=== PATIENT | female | born 1960 | race Caucasian/White ===

== ENCOUNTER → 2017-12-04 | Outpatient (CLI) | payer OTHER ==
[~2017-12-04] MED LIST: ALBU2.5V12 NEB; AMIT25TA PO; AMOX1TAB63 PO; CEPH250C PO; CEPH500C PO; CITA10TA8 PO; GABA300C10 PO; GABA600T2 PO; MELO15TA24 PO; METO10TA PO; METO50TA6 PO; NYST1000 PO; NYST60PO TP
== END | disposition home or self-care (01) ==
LOC: RAD 13:44
PROVIDERS: ATTEND Surgery
DX: I87.2 Venous insufficiency (chronic) (peripheral) (principal)
CPT/HCPCS: 93970

== ENCOUNTER 2017-12-08 18:17 | Inpatient (IN) | payer OTHER ==
[~2017-12-08] VITALS: Ht 167.6 cm; Wt 196.2 kg
[~2017-12-08 18:17] MED LIST changes: -CITA10TA8 PO; -GABA300C10 PO; -GABA600T2 PO
[2017-12-08 18:39] VITALS: BP 126/73
[2017-12-08] MEDS ORDERED: NS 1000ML 1,000 ML ONE (18:56)
--- NOTE | 2017-12-08 18:56 | NUR ---
IV START 20G RIGHT UPPER ARM,SECURED AND LABELED
--- NOTE | 2017-12-08 19:14 | ER.PDOC ---
General Chief Complaint: Fever Stated Complaint: FEVER TRAVEL OUT OF US: No Time seen by MD: 19:00 Source: patient, family Exam Limitations: no limitations History of Present Illness Initial Comments Patient here with fever, increasing pain in her leg and general malaise. Hx of lymphedema with cellulitis Timing/Duration: unsure Severity: mild Associated Symptoms: loss of appetite, rash, weakness Allergies: Coded Allergies: egg (Verified Allergy, Unknown, 06/23/17) Home Meds Active Scripts Cephalexin (CEPHALEXIN) 500 Mg Capsule, 500 MG PO TID for 5 Days, #15 TAB Prov:TITO MOHAN MD 06/29/17 Metoclopramide Hcl (METOCLOPRAMIDE HCL) 10 Mg Tablet, 10 MG PO ACHS PRN for Nausea for 30 Days, #60 TABLET Prov:TITO MOHAN MD 06/29/17 Nystatin (NYSTATIN) 100,000 Unit/1 Ml Oral.susp, [id number] UNIT PO TID for oral thrush MDD TID Swish and spit for 10 Days Prov:MELANI GONZALEZ APRN, NP 05/01/17 Nystatin (NYSTOP) 60 Gm Powder, 1 GM TP PRN PRN for ITCHING for 30 Days, #1 BOTTLE Prov:MELANI GONZALEZ APRN, NP 05/01/17 Amitriptyline Hcl (AMITRIPTYLINE HCL) 25 Mg Tablet, 50 MG PO HS for 30 Days, # 30 TABLET Prov:TITO MOHAN MD 04/16/17 Reported Medications Albuterol Sulfate (ALBUTEROL SULFATE) 2.5 Mg/0.5 Ml Vial.neb, 1 VIAL NEB Q4HR PRN for SHORTNESS OF BREATH, #60 VIAL 1 Refill 04/24/17 Meloxicam (MELOXICAM) 15 Mg Tablet, 1 TAB PO BID, #30 TAB 2 Refills 04/24/17 Metoprolol Tartrate 50MG (LOPRESSER 50MG) 50 Mg Tablet, 1 TAB PO BID, #180 TAB 3 Refills 01/04/17 Vital Signs Vital Signs Date Time Temp Pulse Resp B/P (MAP) Pulse Ox O2 Delivery O2 Flow Rate FiO2 12/08/17 18:39 99.3 105 18 126/73 (90) 91 Room Air Allergies Coded Allergies Type Severity Reaction Last Updated Verified egg Allergy Unknown 06/23/17 Yes Past Medical History Medical History: hypertension, vascular disease, other (obesity, lymphedema) Surgical History: cholecystectomy, hysterectomy, tonsillectomy, tubal Social History Smoking: non-smoker Alcohol Use: none Drug Use: none Reviewed Nursing Reviewed: Vital Signs, Abn. Noted, Nursing Assessment Review of Systems Constitutional: fever, malaise, weakness EENTM: no symptoms reported Respiratory: no symptoms reported Cardiovascular: no symptoms reported Gastrointestinal: no symptoms reported Genitourinary: no symptoms reported Musculoskeletal: other (swelling left leg) Skin: rash Psychiatric/Neurological: no symptoms reported All Other Systems: Reviewed and Negative Physical Exam General Appearance: Mild Distress, Obese (morbid) EENT: eyes nml inspection Neck: Non-Tender Respiratory: chest non-tender, lungs clear, normal breath sounds, no respiratory distress, no accessory muscle use CVS: reg rate & rhythm, no gallop, pulses nml, nml capillary refill Gastrointestinal: Normal Bowel Sounds, No Organomegaly, No Pulsatile Mass, Non Tender Extremities: Other (chronic swelling with increased redness in left leg and calf. Dense edema, sl increased tenderness) Skin: Warm/Dry, Rash Lymphatic: No Adenopathy Results/Orders Results/Orders Laboratory Tests Test 12/08/17 19:11 12/08/17 19:25 12/08/17 19:30 12/08/17 19:47 Urine Collection Type CCMS Urine Color YELLOW (YELLOW) Urine Appearance CLEAR (CLEAR) Urine Bilirubin NEGATIVE MG/DL (NEGATIVE) Urine Ketones NEGATIVE (NEGATIVE) Urine Specific [place] 1.020 (1.005-1.035) Urine pH 5 (5.0-6.0) Urine Protein 15 mg/dL (NEGATIVE) Urine Urobilinogen NORMAL (NEGATIVE) Urine Nitrate NEGATIVE (NEGATIVE) Urine Leukocyte Esterase NEGATIVE (NEGATIVE) Urine Blood 25 1+ (NEGATIVE) Urine RBC NONE SEEN RBC/HPF (NONE Urine WBC NONE SEEN WBC/HPF (0-2) Urine Squamous Epithelial Cells RARE #/HPF (FEW) Urine Bacteria NONE SEEN (NONE SEEN) Urine Glucose NORMAL (NEGATIVE) Blood Gas Sample Site LEFT RADIAL ARTERY Blood Gas pH 7.451 (7.350-7.450) Blood Gas PCO2 33.9 mmHg (35.0-45.0) Blood Gas PO2 66.2 mmHg (75.0-100.0) Blood Gas HCO3 23.1 mmol/L (22.0-26.0) Blood Gas Base Excess -0.2 mmol/L (-2.0-2.0) Cecil Test POSITIVE Arterial Blood Oxygen Saturation 93.6 % (95-) Deoxyhemoglobin 6.3 % (0.2-0.6) Carboxyhemoglobin 1.5 % (0.5-1.5) Methemoglobin 0.3 % (0.2-0.6) Total Hemoglobin 14.4 % (13.5-17.5) Total Oxygen Concentration 18.6 % (13.5-17.5) Lactic Acid (Blood Gas) 1.4 MMOL/L (0.5-1.0) Oxygen Delivery Method (LAB) RA FiO2 21 % (20-101) Bicarbonate 24.1 mmol/L (23-27) White Blood Count 17.2 10^3/uL (4.5-11.0) Red Blood Count 4.56 10^6/uL (4.00-5.20) Hemoglobin 13.0 g/dL (12.0-15.0) Hematocrit 39.8 % (36.0-46.0) Mean Corpuscular Volume 87.3 fL (78-100) Mean Corpuscular Hemoglobin 28.5 pg (26-34) Mean Corpuscular Hemoglobin Concent 32.7 g/dL (33-37) Red Cell Distribution Width 15.8 % (11.5-14.5) Platelet Count 222 10^3/uL (150-400) Mean Platelet Volume 9.9 fL (7.8-11.0) Neutrophils (%) (Auto) 91.2 % (41.0-85.0) Lymphocytes (%) (Auto) 6.1 % (24.0-44.0) Monocytes (%) (Auto) 2.4 % (5.0-12.0) Neutrophils # (Auto) 15.7 10^3/uL (1.8-7.7) Lymphocytes # (Auto) 1.0 10^3/uL (1.0-4.8) Monocytes # (Auto) 0.4 10^3/uL (0.3-0.8) Absolute Immature Granulocyte (auto 0.04 10^3 u/L (0-2) Eosinophils % 0.0 % (0.0-5.0) Basophils % 0.1 % (0.0-0.2) Basophils # 0.0 10^3/uL (0.0-0.1) Eosinophil Count 0.0 10^3/uL (0.0-0.2) Sodium Level 139 mmol/L (132-145) Potassium Level 4.0 mmol/L (3.6-5.2) Chloride Level 104.0 mmol/L (96-109) Carbon Dioxide Level 24.2 mmol/L (20.0-32) Anion Gap 14.8 Blood Urea Nitrogen 15 mg/dL (7-18) Creatinine 1.10 mg/dL (0.59-1.40) Estimated GFR () 62.4 (>/=60) BUN/Creatinine Ratio 13.0 Glucose Level 125 mg/dL (70-110) Calcium Level 8.6 mg/dL (8.4-10.5) Total Bilirubin 0.5 mg/dL (0.2-1.0) Aspartate Amino Transf (AST/SGOT) 13 U/L (0-35) Alanine Aminotransferase (ALT/SGPT) 20 U/L (12-78) Alkaline Phosphatase 80 U/L (50-136) Total Protein 7.4 g/dL (6.4-8.2) Albumin 3.3 g/dL (3.4-5.0) Globulin 4.1 Percent Immature Gran (Cell Imm) 0.20 % (0.00-0.50) Differential Total Cells Counted 100 #CELLS Segmented Neutrophils 84 % (31-76) Band Neutrophils 4 % (2-6) Lymphocytes 9 % (25-36) Monocytes 2 % (3-9) Absolute Eosinophils (Manual) 1 % (1-4) Administered Medications Medications (Trade) Dose Ordered Sig/Angel Route PRN Reason Start Time Stop Time Status Last Admin Dose Admin Ceftriaxone Sodium 1000 mg/ Sodium Chloride 100 ml @ 100 mls/hr OT STAT IV 12/08/17 21:09 12/08/17 22:08 12/08/17 21:33 Progress Progress No change in patients condition Course Sepsis Screening Results: Posi: POSITIVE SEPSIS RISK Vitals & review Data Vital Sign - Last 24 Hours 12/08/17 12/08/17 12/08/17 18:35 18:35 18:39 Temp 99.3 99.3 99.3 Pulse 105 105 105 Resp 18 18 18 B/P (MAP) 126/73 (90) Pulse Ox 91 91 O2 Delivery Room Air Room Air Laboratory Tests Test 12/08/17 19:11 12/08/17 19:25 12/08/17 19:30 12/08/17 19:47 Urine Collection Type CCMS Urine Color YELLOW Urine Appearance CLEAR Urine Bilirubin NEGATIVE MG/DL Urine Ketones NEGATIVE Urine Specific [place] 1.020 Urine pH 5 Urine Protein 15 mg/dL Urine Urobilinogen NORMAL Urine Nitrate NEGATIVE Urine Leukocyte Esterase NEGATIVE Urine Blood 25 1+ Urine RBC NONE SEEN RBC/HPF Urine WBC NONE SEEN WBC/HPF Urine Squamous Epithelial Cells RARE #/HPF Urine Bacteria NONE SEEN Urine Glucose NORMAL Blood Gas Sample Site LEFT RADIAL ARTERY Blood Gas pH 7.451 Blood Gas PCO2 33.9 mmHg Blood Gas PO2 66.2 mmHg Blood Gas HCO3 23.1 mmol/L Blood Gas Base Excess -0.2 mmol/L Cecil Test POSITIVE Arterial Blood Oxygen Saturation 93.6 % Deoxyhemoglobin 6.3 % Carboxyhemoglobin 1.5 % Methemoglobin 0.3 % Total Hemoglobin 14.4 % Total Oxygen Concentration 18.6 % Lactic Acid (Blood Gas) 1.4 MMOL/L Oxygen Delivery Method (LAB) RA FiO2 21 % Bicarbonate 24.1 mmol/L White Blood Count 17.2 10^3/uL Red Blood Count 4.56 10^6/uL Hemoglobin 13.0 g/dL Hematocrit 39.8 % Mean Corpuscular Volume 87.3 fL Mean Corpuscular Hemoglobin 28.5 pg Mean Corpuscular Hemoglobin Concent 32.7 g/dL Red Cell Distribution Width 15.8 % Platelet Count 222 10^3/uL Mean Platelet Volume 9.9 fL Neutrophils (%) (Auto) 91.2 % Lymphocytes (%) (Auto) 6.1 % Monocytes (%) (Auto) 2.4 % Neutrophils # (Auto) 15.7 10^3/uL Lymphocytes # (Auto) 1.0 10^3/uL Monocytes # (Auto) 0.4 10^3/uL Absolute Immature Granulocyte (auto 0.04 10^3 u/L Eosinophils % 0.0 % Basophils % 0.1 % Basophils # 0.0 10^3/uL Eosinophil Count 0.0 10^3/uL Sodium Level 139 mmol/L Potassium Level 4.0 mmol/L Chloride Level 104.0 mmol/L Carbon Dioxide Level 24.2 mmol/L Anion Gap 14.8 Blood Urea Nitrogen 15 mg/dL Creatinine 1.10 mg/dL Estimated GFR () 62.4 BUN/Creatinine Ratio 13.0 Glucose Level 125 mg/dL Calcium Level 8.6 mg/dL Total Bilirubin 0.5 mg/dL Aspartate Amino Transf (AST/SGOT) 13 U/L Alanine Aminotransferase (ALT/SGPT) 20 U/L Alkaline Phosphatase 80 U/L Total Protein 7.4 g/dL Albumin 3.3 g/dL Globulin 4.1 Percent Immature Gran (Cell Imm) 0.20 % Differential Total Cells Counted 100 #CELLS Segmented Neutrophils 84 % Band Neutrophils 4 % Lymphocytes 9 % Monocytes 2 % Absolute Eosinophils (Manual) 1 % Current Medications Medications (Trade) Dose Ordered Sig/Angel PRN Reason Start Time Stop Time Status Last Admin Ceftriaxone Sodium 1000 mg/ Sodium Chloride 100 ml @ 100 mls/hr OT STAT 12/08/17 21:09 12/08/17 22:08 12/08/17 21:33 Departure Time of Disposition: 21:36 Disposition: ADMITTED INPATIENT Impression: Primary Impression: Cellulitis of left leg Condition: Stable Referrals: [facility] (PCP) PRIMARY CARE PROVIDER Duration or Time Spent with Pa: ANDREA LOZANO MD Dec 08, 2017 19:14
[2017-12-08 19:35] LABS: BASOPHIL % 0.1 % (0.0-0.2); LYMPHOCYTES % 6.1 % (24.0-44.0); MEAN CELL HGB 28.5 pg (26-34); MEAN CELL HGB CONCENTRATION 32.7 g/dL (33-37); MEAN CORP VOLUME 87.3 fL (78-100); MEAN PLATELET VOLUME 9.9 fL (7.8-11.0); MONOCYTES # 0.4 10^3/uL (0.3-0.8); MONOCYTES % 2.4 % (5.0-12.0); NEUTROPHIL # 15.7 10^3/uL (1.8-7.7); NEUTROPHILS % 91.2 % (41.0-85.0); RED CELL DISTRIBUTION WIDTH 15.8 % (11.5-14.5); WHITE BLOOD CELL 17.2 10^3/uL (4.5-11.0)
[2017-12-08 19:37] LABS: ABG PCO2 33.9 mmHg (35.0-45.0); ABG PH 7.451 (7.350-7.450); BE(B) -0.2 mmol/L (-2.0-2.0); HCO3act 23.1 mmol/L (22.0-26.0); pO2 66.2 mmHg (75.0-100.0)
--- NOTE | 2017-12-08 19:55 | DIREP ---
PROCEDURE:CHEST 1 VIEW COMPARISON:[facility], CR, XRAY CHEST SINGLE VW, 05/03/2017, 10:47 AM. INDICATIONS:fever FINDINGS: LUNGS/PLEURA:Low lung volumes. No confluent airspace consolidation, sizeable pleural effusion or appreciable pneumothorax is identified. VASCULATURE:Normal. Unremarkable pulmonary vasculature. CARDIAC:Normal. No cardiac silhouette abnormality or cardiomegaly. MEDIASTINUM:Normal. No visible mass or adenopathy. BONES:No acute abnormality. OTHER:Negative. CONCLUSION: 1. Low lung volumes. No acute cardiopulmonary abnormality. Dictated by: Simeon Gee M.D. On 12/08/2017 at 07:53 PM
[2017-12-08 19:59] LABS: CALCIUM 8.6 mg/dL (8.4-10.5); CARBON DIOXIDE 24.2 mmol/L (20.0-32)
[2017-12-08 20:10] LABS: BILIRUBIN,URINE NEGATIVE (NEGATIVE); UROBILINOGEN,URINE NORMAL (NEGATIVE)
[2017-12-08 20:11] LABS: APPEARANCE,URINE CLEAR (CLEAR); UA COLOR YELLOW (YELLOW)
[2017-12-08 20:35] LABS: BAND NEUTROPHILS 4 % (2-6); EOSINOPHIL 1 % (1-4); LYMPHOCYTE 9 % (25-36); MONOCYTE 2 % (3-9); SEGMENTED NEUTROPHILS 84 % (31-76)
--- NOTE | 2017-12-08 21:06 | NUR ---
DR. MOHAN: SPOKE WITH DR. MOHAN AND ORDER GIVEN FOR ADMISSION.
[2017-12-08] MEDS ORDERED: ROCEPHIN 1,000 MG in NS 100ML 100 ML IV STA (21:09)
[2017-12-08] MEDS ORDERED: NS 100ML 100 ML IV ONE (21:25)
[2017-12-08] MEDS ORDERED: ROCEPHIN ONE (21:25)
[2017-12-08] MEDS ORDERED: NS 1000ML 1,000 ML IV ONE ×2 (22:30→23:30)
[2017-12-08 23:34] VITALS: BP 122/75
[2017-12-09] MEDS: ROCEPHIN 1,000 MG in NS 100ML 100 ML IV SCH ×2
[2017-12-09] MEDS ORDERED: DEXTROSE 50%-WATER SYRINGE IV PRN
[2017-12-09] MEDS ORDERED: ZOFRAN IV PRN
[2017-12-09] MEDS ORDERED: NYSTOP TP PRN
[2017-12-09] MEDS ORDERED: REGLAN PO PRN
[2017-12-09] MEDS ORDERED: VENTOLIN IH PRN
[2017-12-09] MEDS ORDERED: GABA600T2 PO (00:18)
[2017-12-09] MEDS ORDERED: CITA10TA8 PO (00:20)
[2017-12-09] MEDS: TYLENOL PO PRN (04:22)
[2017-12-09 04:53] VITALS: BP 134/76
--- NOTE | 2017-12-09 05:01 | HPH ---
ADMIT DATE: 12/08/2017 CHIEF COMPLAINT: Left lower extremity redness and swelling. HISTORY OF PRESENT ILLNESS: The patient is a 57-year-old woman with severe morbid obesity, untreated obstructive sleep apnea, recent and frequent admissions for lower extremity cellulitis. She presented to THE ER at this time with increasing redness, swelling of left lower extremity. She has severe morbid obesity and chronic lymphedema, but on the left lower extremity she has some xerosis, erythema and worsening swelling than the right. She states she does get around the house okay. She has no other acute changes from her relatively poor baseline. She does have sleep apnea and told she needed BiPAP machine, but she did not have $500 to buy the machine. She has not been on recent antibiotics. PAST MEDICAL HISTORY: Includes untreated obstructive sleep apnea, severe morbid obesity, chronic back pain, hypertension, congestive heart failure and diastolic dysfunction. PAST SURGICAL HISTORY: She had hysterectomy, cholecystectomy, tonsillectomy, bilateral tubal ligation, and [place] catheter placed previously. ALLERGIES: She states she is ALLERGIC TO EGGS. HOME MEDICATIONS: List currently includes albuterol as needed, amitriptyline 50 mg at night. She has a prescription of Keflex, but she states she has not been taking it recently, meloxicam 15 mg twice a day, Reglan 10 mg a.c. and at bedtime as needed for nausea, metoprolol tartrate 50 mg twice a day, and nystatin powder as needed for itching. SOCIAL HISTORY: She does live at home. No recent alcohol, tobacco, or illicit drug use history. FAMILY HISTORY: Negative for early coronary artery disease or diabetes. REVIEW OF SYSTEMS: CARDIAC: She denies any chest pain or shortness of breath. She does have significant dyspnea on exertion. PULMONARY: No cough, sputum production or pleuritic chest pain. GASTROINTESTINAL: No nausea, vomiting, diarrhea or constipation. All else negative in 10-point review of systems except as in HPI. PHYSICAL EXAMINATION: VITAL SIGNS: Height 157.6 cm, weight is 189.2 kg and BMI of ____. GENERAL: She is alert, chronic ill-appearing lady. DICTATION ENDS HERE. Silvio Gee MD DR: KAYLAN/brittany JOB# [id number]
[2017-12-09 05:34] LABS: BASOPHIL % 0.1 % (0.0-0.2); HEMOGLOBIN 13.6 g/dL (12.0-15.0); LYMPHOCYTES # 2.3 10^3/uL (1.0-4.8); LYMPHOCYTES % 16.8 % (24.0-44.0); MEAN CELL HGB 28.8 pg (26-34); MEAN CELL HGB CONCENTRATION 32.8 g/dL (33-37); MEAN CORP VOLUME 87.9 fL (78-100); MEAN PLATELET VOLUME 10.8 fL (7.8-11.0); MONOCYTES # 0.9 10^3/uL (0.3-0.8); MONOCYTES % 6.8 % (5.0-12.0); NEUTROPHIL # 10.4 10^3/uL (1.8-7.7); NEUTROPHILS % 76.1 % (41.0-85.0); WHITE BLOOD CELL 13.6 10^3/uL (4.5-11.0)
[2017-12-09 05:57] LABS: CALCIUM 8.5 mg/dL (8.4-10.5); CARBON DIOXIDE 24.7 mmol/L (20.0-32)
--- NOTE | 2017-12-09 07:03 | NUR ---
Report Report given to Barrett Velazquez LVN
[2017-12-09 07:34] VITALS: BP 120/78
[2017-12-09] MEDS: MOBIC PO SCH ×2 (08:43→20:43)
[2017-12-09] MEDS: HUMULIN R SQ SCH ×4 (08:43→20:37)
[2017-12-09] MEDS: MYCOSTATIN PO SCH ×3 (08:44→20:42)
[2017-12-09] MEDS: LOPRESSOR PO SCH ×2 (08:44→20:43)
--- NOTE | 2017-12-09 10:37 | PRM.PN ---
Subjective Subjective Date: Dec 09, 2017 Time: 10:15 Subjective Pt reports itching all over Patient History: Asthma Hypertension VTE VTE Risk Total Score: 2 VTE Risk Score VTE Risk: Score 0-1 = Low Risk (Aggressive mobilization; early ambulation; no VTE prophylaxis required) Score 2: Moderate Risk (Intermittent/Pneumatic Compression Device OR Lovenox/Heparin/Coumadin) Score 3-4: High Risk (Intermittent/Pneumatic Compression Device AND Lovenox/Heparin/Coumadin) Score > or =5: Highest Risk (Intermittent/Pneumatic Compression Device AND Lovenox/Heparin/Coumadin) Antico:Hep/LMWH/Coum/Xarelto: Yes Mechanical device ordered: No Review of Systems Constitutional: No: Malaise Eyes: No: Pain, Vision change, Conjunctivae inflammation ENT: No: Ear pain, Ear discharge, Nose pain Respiratory: Cough, Shortness of breath Cardiovascular: Edema; No: Chest Pain, Palpitations, Orthopnea Gastrointestinal: No: Nausea, Vomiting, Abdominal Pain Musculoskeletal: leg pain (L lower leg) Skin: No: Jaundice Neurological: No: Confusion, Seizures Allergies: Coded Allergies: egg (Verified Allergy, Unknown, 06/23/17) Scheduled Cephalexin (Cephalexin), 500 MG PO TID Citalopram Hydrobromide (Celexa), 1 TAB PO DAILY, (Reported) Gabapentin (Gabapentin), 600 MG PO BID, (Reported) Meloxicam (Meloxicam), 1 TAB PO BID, (Reported) Metoprolol Tartrate 50MG ([place]er 50MG), 1 TAB PO BID, (Reported) Nystatin (Nystatin), 500,000 UNIT PO TID Scheduled PRN Albuterol Sulfate (Albuterol Sulfate), 1 VIAL NEB Q4HR PRN for SHORTNESS OF BREATH, (Reported) Metoclopramide Hcl (Metoclopramide Hcl), 10 MG PO ACHS PRN for Nausea Nystatin (Nystop), 1 GM TP PRN PRN for ITCHING Discontinued Medications Amitriptyline Hcl (Amitriptyline Hcl), 50 MG PO HS Discontinued Reason: No Longer Taking Objective Vitals and I/O Vital Sign - Last 24 Hours 12/08/17 12/08/17 12/08/17 12/08/17 18:35 18:35 18:39 23:11 Temp 99.3 99.3 99.3 Pulse 105 105 105 Resp 18 18 18 B/P (MAP) 126/73 (90) Pulse Ox 91 91 O2 Delivery Room Air Room Air Room Air 12/08/17 12/08/17 12/09/17 12/09/17 23:34 23:46 01:16 04:53 Temp 98.3 99.2 Pulse 103 109 Resp 18 18 20 B/P (MAP) 122/75 (91) 134/76 (95) Pulse Ox 91 O2 Delivery Room Air Room Air Room Air 12/09/17 12/09/17 07:34 09:39 Temp 98.5 Pulse 79 Resp 20 B/P (MAP) 120/78 (92) Pulse Ox 90 O2 Delivery Room Air Room Air General: Alert, Oriented X3, Cooperative, No acute distress HEENT: Atraumatic, Mucous membr. moist/pink Neck: Supple, No LAD Lungs: Clear to auscultation, Normal air movement Heart: Normal S1, Normal S2 Abdomen: Normal bowel sounds, Soft Extremities: No clubbing, No cyanosis Neuro: Normal speech Psych/Mental Status: Mental status NL, Mood NL Course Sepsis Screening Results: Posi: NEGATIVE Sepsis Qualifier/Stage: NO DEFINITE RISK Vitals & review Data Vital Sign - Last 24 Hours 12/08/17 12/08/17 12/08/17 18:35 18:35 18:39 Temp 99.3 99.3 99.3 Pulse 105 105 105 Resp 18 18 18 B/P (MAP) 126/73 (90) Pulse Ox 91 91 O2 Delivery Room Air Room Air Laboratory Tests Test 12/08/17 19:11 12/08/17 19:25 12/08/17 19:30 12/08/17 19:47 Urine Collection Type CCMS Urine Color YELLOW Urine Appearance CLEAR Urine Bilirubin NEGATIVE MG/DL Urine Ketones NEGATIVE Urine Specific [place] 1.020 Urine pH 5 Urine Protein 15 mg/dL Urine Urobilinogen NORMAL Urine Nitrate NEGATIVE Urine Leukocyte Esterase NEGATIVE Urine Blood 25 1+ Urine RBC NONE SEEN RBC/HPF Urine WBC NONE SEEN WBC/HPF Urine Squamous Epithelial Cells RARE #/HPF Urine Bacteria NONE SEEN Urine Glucose NORMAL Blood Gas Sample Site LEFT RADIAL ARTERY Blood Gas pH 7.451 Blood Gas PCO2 33.9 mmHg Blood Gas PO2 66.2 mmHg Blood Gas HCO3 23.1 mmol/L Blood Gas Base Excess -0.2 mmol/L Cecil Test POSITIVE Arterial Blood Oxygen Saturation 93.6 % Deoxyhemoglobin 6.3 % Carboxyhemoglobin 1.5 % Methemoglobin 0.3 % Total Hemoglobin 14.4 % Total Oxygen Concentration 18.6 % Lactic Acid (Blood Gas) 1.4 MMOL/L Oxygen Delivery Method (LAB) RA FiO2 21 % Bicarbonate 24.1 mmol/L White Blood Count 17.2 10^3/uL Red Blood Count 4.56 10^6/uL Hemoglobin 13.0 g/dL Hematocrit 39.8 % Mean Corpuscular Volume 87.3 fL Mean Corpuscular Hemoglobin 28.5 pg Mean Corpuscular Hemoglobin Concent 32.7 g/dL Red Cell Distribution Width 15.8 % Platelet Count 222 10^3/uL Mean Platelet Volume 9.9 fL Neutrophils (%) (Auto) 91.2 % Lymphocytes (%) (Auto) 6.1 % Monocytes (%) (Auto) 2.4 % Neutrophils # (Auto) 15.7 10^3/uL Lymphocytes # (Auto) 1.0 10^3/uL Monocytes # (Auto) 0.4 10^3/uL Absolute Immature Granulocyte (auto 0.04 10^3 u/L Eosinophils % 0.0 % Basophils % 0.1 % Basophils # 0.0 10^3/uL Eosinophil Count 0.0 10^3/uL Sodium Level 139 mmol/L Potassium Level 4.0 mmol/L Chloride Level 104.0 mmol/L Carbon Dioxide Level 24.2 mmol/L Anion Gap 14.8 Blood Urea Nitrogen 15 mg/dL Creatinine 1.10 mg/dL Estimated GFR () 62.4 BUN/Creatinine Ratio 13.0 Glucose Level 125 mg/dL Calcium Level 8.6 mg/dL Total Bilirubin 0.5 mg/dL Aspartate Amino Transf (AST/SGOT) 13 U/L Alanine Aminotransferase (ALT/SGPT) 20 U/L Alkaline Phosphatase 80 U/L Total Protein 7.4 g/dL Albumin 3.3 g/dL Globulin 4.1 Percent Immature Gran (Cell Imm) 0.20 % Differential Total Cells Counted 100 #CELLS Segmented Neutrophils 84 % Band Neutrophils 4 % Lymphocytes 9 % Monocytes 2 % Absolute Eosinophils (Manual) 1 % Current Medications Medications (Trade) Dose Ordered Sig/Angel PRN Reason Start Time Stop Time Status Last Admin Ceftriaxone Sodium 1000 mg/ Sodium Chloride 100 ml @ 100 mls/hr OT STAT 12/08/17 21:09 12/08/17 22:08 12/08/17 21:33 Assessment/Plan Assessment/Plan Assessment/Plan 57 yo female with L lower leg cellulitis, ERNESTO, HTN, morbid obesity - cont IV abx - cont current tx - benadryl for itching MISHA KENDRICK MD Dec 09, 2017 10:37
[2017-12-09] MEDS: BENADRYL PO PRN ×2 (11:21→18:59)
[2017-12-09 15:36] VITALS: BP 115/57
--- NOTE | 2017-12-09 18:08 | NUR ---
report received report from offgoing shift
[2017-12-09 20:34] VITALS: BP 119/64
[2017-12-09] MEDS: ELAVIL PO SCH (20:42)
[2017-12-10 00:17] VITALS: BP 132/65
[2017-12-10] MEDS ORDERED: NS 250ML 250 ML IV ONE (00:33)
[2017-12-10] MEDS: ROCEPHIN 1,000 MG in NS 100ML 100 ML IV SCH (00:36)
[2017-12-10] MEDS: BENADRYL PO PRN ×2 (01:33→08:49)
[2017-12-10 04:28] VITALS: BP 121/74
--- NOTE | 2017-12-10 06:50 | NUR ---
report report given to o/c shift
[2017-12-10 06:55] VITALS: BP 125/61
[2017-12-10] MEDS: HUMULIN R SQ SCH ×4 (07:30→21:00)
[2017-12-10] MEDS: LOPRESSOR PO SCH ×2 (08:42→21:13)
[2017-12-10] MEDS: MYCOSTATIN PO SCH (08:42)
[2017-12-10] MEDS: MOBIC PO SCH ×2 (08:42→21:14)
--- NOTE | 2017-12-10 09:00 | NUR ---
STATUS Pt A O X 4 DENIES ANY PAIN AND DISCOMFORT AT THIS TIME.
[2017-12-10 11:08] VITALS: BP 137/85
--- NOTE | 2017-12-10 12:41 | PRM.PN ---
Subjective Subjective Date: Dec 10, 2017 Time: 12:25 Subjective Pt reports dax is helping her and doing ok Patient History: Asthma Hypertension VTE VTE Risk Total Score: 2 VTE Risk Score VTE Risk: Score 0-1 = Low Risk (Aggressive mobilization; early ambulation; no VTE prophylaxis required) Score 2: Moderate Risk (Intermittent/Pneumatic Compression Device OR Lovenox/Heparin/Coumadin) Score 3-4: High Risk (Intermittent/Pneumatic Compression Device AND Lovenox/Heparin/Coumadin) Score > or =5: Highest Risk (Intermittent/Pneumatic Compression Device AND Lovenox/Heparin/Coumadin) Antico:Hep/LMWH/Coum/Xarelto: Yes Mechanical device ordered: No Review of Systems Constitutional: No: Fever, Chills, Malaise Eyes: No: Pain, Vision change, Conjunctivae inflammation ENT: No: Ear pain, Ear discharge, Nose pain Respiratory: No: Cough Cardiovascular: Edema (legs); No: Chest Pain, Palpitations, Orthopnea Gastrointestinal: No: Nausea, Vomiting, Abdominal Pain Musculoskeletal: leg pain (L lower leg improving) Skin: Rash (improving in her leg); No: Jaundice Neurological: No: Confusion, Seizures Allergies: Coded Allergies: egg (Verified Allergy, Unknown, 06/23/17) Scheduled Cephalexin (Cephalexin), 500 MG PO TID Citalopram Hydrobromide (Celexa), 1 TAB PO DAILY, (Reported) Gabapentin (Gabapentin), 600 MG PO BID, (Reported) Meloxicam (Meloxicam), 1 TAB PO BID, (Reported) Metoprolol Tartrate 50MG (Lopresser 50MG), 1 TAB PO BID, (Reported) Nystatin (Nystatin), 500,000 UNIT PO TID Scheduled PRN Albuterol Sulfate (Albuterol Sulfate), 1 VIAL NEB Q4HR PRN for SHORTNESS OF BREATH, (Reported) Metoclopramide Hcl (Metoclopramide Hcl), 10 MG PO ACHS PRN for Nausea Nystatin (Nystop), 1 GM TP PRN PRN for ITCHING Discontinued Medications Amitriptyline Hcl (Amitriptyline Hcl), 50 MG PO HS Discontinued Reason: No Longer Taking Objective Vitals and I/O Vital Sign - Last 24 Hours 12/09/17 12/09/17 12/09/17 12/09/17 15:36 20:34 21:47 21:56 Temp 98.5 98.4 Pulse 76 74 93 Resp 18 17 18 B/P (MAP) 115/57 (76) 119/64 (82) Pulse Ox 92 92 93 O2 Delivery Room Air Room Air Room Air Room Air 12/10/17 12/10/17 12/10/17 12/10/17 00:17 04:28 06:55 07:00 Temp 98.4 99.0 97.6 Pulse 70 75 84 Resp 18 18 17 B/P (MAP) 132/65 (87) 121/74 (90) 125/61 (82) Pulse Ox 95 95 93 O2 Delivery Room Air Room Air Room Air Room Air 12/10/17 07:38 Pulse 86 Resp 16 Pulse Ox 91 O2 Delivery Room Air Intake and Output 12/09/17 12/09/17 12/10/17 15:00 23:00 07:00 Intake Total 477 ml 240 ml 200 ml Output Total 650 ml Balance 477 ml 240 ml -450 ml General: Alert, Oriented X3, Cooperative, No acute distress HEENT: Atraumatic, PERRLA, EOMI Neck: Supple, No LAD Lungs: Clear to auscultation, Normal air movement Heart: Normal S1, Normal S2 Abdomen: Normal bowel sounds, Soft Extremities: No clubbing, No cyanosis Neuro: Normal speech Psych/Mental Status: Mental status NL, Mood NL Course Sepsis Screening Results: Posi: NEGATIVE Sepsis Qualifier/Stage: NO DEFINITE RISK Vitals & review Data Vital Sign - Last 24 Hours 12/08/17 12/08/17 12/08/17 18:35 18:35 18:39 Temp 99.3 99.3 99.3 Pulse 105 105 105 Resp 18 18 18 B/P (MAP) 126/73 (90) Pulse Ox 91 91 O2 Delivery Room Air Room Air Laboratory Tests Test 12/08/17 19:11 12/08/17 19:25 12/08/17 19:30 12/08/17 19:47 Urine Collection Type CCMS Urine Color YELLOW Urine Appearance CLEAR Urine Bilirubin NEGATIVE MG/DL Urine Ketones NEGATIVE Urine Specific [place] 1.020 Urine pH 5 Urine Protein 15 mg/dL Urine Urobilinogen NORMAL Urine Nitrate NEGATIVE Urine Leukocyte Esterase NEGATIVE Urine Blood 25 1+ Urine RBC NONE SEEN RBC/HPF Urine WBC NONE SEEN WBC/HPF Urine Squamous Epithelial Cells RARE #/HPF Urine Bacteria NONE SEEN Urine Glucose NORMAL Blood Gas Sample Site LEFT RADIAL ARTERY Blood Gas pH 7.451 Blood Gas PCO2 33.9 mmHg Blood Gas PO2 66.2 mmHg Blood Gas HCO3 23.1 mmol/L Blood Gas Base Excess -0.2 mmol/L Cecil Test POSITIVE Arterial Blood Oxygen Saturation 93.6 % Deoxyhemoglobin 6.3 % Carboxyhemoglobin 1.5 % Methemoglobin 0.3 % Total Hemoglobin 14.4 % Total Oxygen Concentration 18.6 % Lactic Acid (Blood Gas) 1.4 MMOL/L Oxygen Delivery Method (LAB) RA FiO2 21 % Bicarbonate 24.1 mmol/L White Blood Count 17.2 10^3/uL Red Blood Count 4.56 10^6/uL Hemoglobin 13.0 g/dL Hematocrit 39.8 % Mean Corpuscular Volume 87.3 fL Mean Corpuscular Hemoglobin 28.5 pg Mean Corpuscular Hemoglobin Concent 32.7 g/dL Red Cell Distribution Width 15.8 % Platelet Count 222 10^3/uL Mean Platelet Volume 9.9 fL Neutrophils (%) (Auto) 91.2 % Lymphocytes (%) (Auto) 6.1 % Monocytes (%) (Auto) 2.4 % Neutrophils # (Auto) 15.7 10^3/uL Lymphocytes # (Auto) 1.0 10^3/uL Monocytes # (Auto) 0.4 10^3/uL Absolute Immature Granulocyte (auto 0.04 10^3 u/L Eosinophils % 0.0 % Basophils % 0.1 % Basophils # 0.0 10^3/uL Eosinophil Count 0.0 10^3/uL Sodium Level 139 mmol/L Potassium Level 4.0 mmol/L Chloride Level 104.0 mmol/L Carbon Dioxide Level 24.2 mmol/L Anion Gap 14.8 Blood Urea Nitrogen 15 mg/dL Creatinine 1.10 mg/dL Estimated GFR () 62.4 BUN/Creatinine Ratio 13.0 Glucose Level 125 mg/dL Calcium Level 8.6 mg/dL Total Bilirubin 0.5 mg/dL Aspartate Amino Transf (AST/SGOT) 13 U/L Alanine Aminotransferase (ALT/SGPT) 20 U/L Alkaline Phosphatase 80 U/L Total Protein 7.4 g/dL Albumin 3.3 g/dL Globulin 4.1 Percent Immature Gran (Cell Imm) 0.20 % Differential Total Cells Counted 100 #CELLS Segmented Neutrophils 84 % Band Neutrophils 4 % Lymphocytes 9 % Monocytes 2 % Absolute Eosinophils (Manual) 1 % Current Medications Medications (Trade) Dose Ordered Sig/Angel PRN Reason Start Time Stop Time Status Last Admin Ceftriaxone Sodium 1000 mg/ Sodium Chloride 100 ml @ 100 mls/hr OT STAT 12/08/17 21:09 12/08/17 22:08 12/08/17 21:33 Assessment/Plan Assessment/Plan Assessment/Plan 57 yo female with L lower leg cellulitis, ERNESTO, morbid obesity, HTN - clinically improving - D/C planning soon MISHA KENDRICK MD Dec 10, 2017 12:40
[2017-12-10 16:25] VITALS: BP 144/73
--- NOTE | 2017-12-10 18:30 | NUR ---
Report Received report from BRANDAN El
[2017-12-10 20:00] VITALS: BP 127/65
--- NOTE | 2017-12-10 20:16 | NUR ---
Patient sitting up in bed visiting with yoselinly . Resp evwen and non labored. States pain 7/10. Will continue to monitor. Call light within reach.
[2017-12-10] MEDS: ELAVIL PO SCH (21:00)
[2017-12-10] MEDS ORDERED: NEURONTIN PO SCH (22:00)
[2017-12-10] MEDS ORDERED: NEURONTIN ONE (22:08)
[2017-12-11] MEDS: ROCEPHIN 1,000 MG in NS 100ML 100 ML IV SCH (00:32)
[2017-12-11 01:47] VITALS: BP 103/48
[2017-12-11 04:13] VITALS: BP 139/71
--- NOTE | 2017-12-11 06:48 | NUR ---
Report Report given to BRANDAN El
[2017-12-11 07:10] VITALS: BP 121/73
[2017-12-11] MEDS: HUMULIN R SQ SCH ×4 (07:30→21:00)
[2017-12-11] MEDS: MOBIC PO SCH ×2 (08:20→20:53)
[2017-12-11] MEDS: LOPRESSOR PO SCH ×2 (08:21→20:52)
[2017-12-11] MEDS: NEURONTIN PO SCH ×2 (08:21→20:53)
[2017-12-11] MEDS: CELEXA PO SCH (08:21)
--- NOTE | 2017-12-11 10:10 | NUR ---
DISCHARGE PLAN CM VISITED WITH PATIENT AND FAMILY REGARDING DISCHARGE PLAN AND NEEDS. PATIENT LIVES AT HOME WITH HER , DAUGHTER, AND 3 GRANDCHILDREN. SHE RECENTLY GOT ON DISABILITY, SHE IS INDEPENDENT WITH ADL'S MOST OF THE TIME BUT WHEN HER BACK STARTS HURTING TOO MUCH HER AND DAUGHTER HELP HER NEEDED. SHE HAS A CANE AT HOME BUT RARELY HAS TO USE IT. PATIENT DENIES NEED FOR ANY ADDITIONAL DME OR HOME HEALTH AT THIS TIME. PATIENT STATES SHE IS SUPPOSED TO BE ON BIPAP AT NIGHT BUT SHE IS UNABLE TO AFFORD THE $500 CO-PAY. DISCHARGE GOAL IS TO DISCHARGE HOME WITH HER FAMILY. CM DEPT WILL CONTINUE TO MONITOR DISCHARGE NEEDS.
[2017-12-11 11:38] VITALS: BP 130/70
[2017-12-11] MEDS ORDERED: GABA300C10 PO (14:03)
[2017-12-11 16:45] VITALS: BP 128/70
--- NOTE | 2017-12-11 18:30 | NUR ---
Report Received report from BRANDAN El
--- NOTE | 2017-12-11 19:23 | NUR ---
REPORT BEDSIDE REPORT GIVEN TO NURSE CHARISSA HARDIN.
[2017-12-11 21:30] VITALS: BP 133/71
[2017-12-12] MEDS ORDERED: NS 100ML 100 ML IV ONE (00:33)
[2017-12-12] MEDS: ROCEPHIN 1,000 MG in NS 100ML 100 ML IV SCH (00:38)
[2017-12-12 03:34] VITALS: BP 119/62
--- NOTE | 2017-12-12 06:51 | NUR ---
Report Report given to BRANDAN El
[2017-12-12] MEDS: HUMULIN R SQ SCH ×4 (07:30→21:00)
[2017-12-12 08:05] LABS: BASOPHIL % 0.3 % (0.0-0.2); EOSINOPHIL # 0.3 10^3/uL (0.0-0.2); EOSINOPHIL % 3.7 % (0.0-5.0); HEMOGLOBIN 12.8 g/dL (12.0-15.0); LYMPHOCYTES # 2.6 10^3/uL (1.0-4.8); LYMPHOCYTES % 39.3 % (24.0-44.0); MEAN CELL HGB 28.5 pg (26-34); MEAN CELL HGB CONCENTRATION 31.7 g/dL (33-37); MEAN PLATELET VOLUME 10.2 fL (7.8-11.0); MONOCYTES # 0.6 10^3/uL (0.3-0.8); MONOCYTES % 8.5 % (5.0-12.0); NEUTROPHIL # 3.2 10^3/uL (1.8-7.7); NEUTROPHILS % 47.9 % (41.0-85.0); RED CELL DISTRIBUTION WIDTH 15.7 % (11.5-14.5); WHITE BLOOD CELL 6.7 10^3/uL (4.5-11.0)
[2017-12-12 08:09] VITALS: BP 130/74
[2017-12-12 08:16] LABS: CALCIUM 9.1 mg/dL (8.4-10.5); CARBON DIOXIDE 29.4 mmol/L (20.0-32)
[2017-12-12] MEDS: MOBIC PO SCH ×2 (08:24→21:35)
[2017-12-12] MEDS: CELEXA PO SCH (08:24)
[2017-12-12] MEDS: NEURONTIN PO SCH ×2 (08:24→21:35)
[2017-12-12] MEDS: LOPRESSOR PO SCH ×2 (08:24→21:35)
--- NOTE | 2017-12-12 09:00 | NUR ---
BIPAP BARRIER PER PATIENT, SHE HAS NOT BEEN ABLE TO GET HER BIPAP MACHINE DUE TO NOT BEING ABLE TO AFFORD HER OUT OF POCKET CO-PAY OF AROUND $500.00. PATIENT DID NOT KNOW WHAT DME COMPANY HER [employer] INSURANCE USED. CM REACHED OUT TO PATIENTS PCP Christel TRIPP NP . KONSTANTIN STATED HER NURSE STARTED A BIPAP AUTHORIZATION WITH PATIENTS INSURANCE, BUT PATIENT REFUSED DME BECAUSE SHE COULDN'T AFFORD CO-PAY COST OF MACHINE. KONSTANTIN ALSO STATED PATIENT DID NOT GO TO HER FOLLOW UP APPOINTMENTS WITH EITHER HER NOR LABORATORY [facility] HUSAIN IN [place] BECAUSE SHE DID NOT HAVE THE GAS MONEY TO MAKE IT TO EITHER APPOINTMENT. KONSTANTIN STATED SHE HAS GIVEN MULTIPLE EDUCATION SESSIONS ON THE IMPORTANCE OF GOING TO DOCTORS VISITS AND THE PATIENTS NEED FOR A BIPAP MACHINE. CM REACHED OUT TO PATIENTS INSURANCE @ [employer] NUMBER , SPOKE TO MANNIE. MANNIE STATED DME COMPANY CHOSEN BY [employer] [facility] WAS [employer] @ [phone]. MANNIE ALSO STATED THAT PATIENTS INSURANCE WOULD COVER DME @ 80%, BUT PATIENT WOULD BE RESPONSIBLE FOR 20%. CM THEN REACHED OUT TO [employer] @ [phone] AND SPOKE TO BAKARI WITH THE BUSINESS OFFICE. BAKARI STATED THAT PATIENTS BIPAP/DME ORDER WAS VOIDED OUT BECAUSE THEY WERE UNABLE TO REACH PATIENT. SHE DID STATE COMPANY COULD REINSTATE ORDER, BUT WOULD NEED TO GET A NEW AUTHORIZATION WHICH COULD TAKE UP TO TEN BUSINESS DAYS. SHE ALSO STATED THAT ONCE DME COMPANY RECEIVED AUTHORIZATION, [facility] WOULD DELIVER PATIENTS BIPAP MACHINE AFTER RECEIVING PATIENTS OUT OF POCKET CO-PAY OF $450. PENDING AUTHORIZATION @ THIS TIME AND CM WILL CONTINUE TO FOLLOW.
[2017-12-12 11:43] VITALS: BP 143/83
[2017-12-12] MEDS: TYLENOL PO PRN (16:23)
--- NOTE | 2017-12-12 16:23 | NUR ---
C/O OF HEADACHE Pt C/O O HEADACHE AT "89/10 "RATING SCALE ADMINSTERED TYLENOL 1000 MG PRN PER ORDER.
--- NOTE | 2017-12-12 17:02 | NUR ---
IV LEAKED TO THE R FOREARM, IV LEAKED TO THE R FOREARM, D/C IV . INSERTED NEW IV TO THE L UPPER ARM PROCEDURE EXPLAINED T THE Pt, Pt VERBALIZED UNDERSTANDING.
[2017-12-12 17:13] VITALS: BP 125/67
--- NOTE | 2017-12-12 18:47 | NUR ---
REPORT GIVEN REPORT GIVEN TO THE NURSE CHARISSA HARDIN.
--- NOTE | 2017-12-12 18:50 | NUR ---
Report Received report from BRANDAN El
[2017-12-12 19:50] VITALS: BP 118/62
--- NOTE | 2017-12-13 00:27 | PNH ---
DATE: NO DICTATION. Silvio Gee MD DR: KAYLAN/brittany JOB# [id number]
--- NOTE | 2017-12-13 00:36 | PNH ---
DATE: 12/11/2017 SUBJECTIVE: No significant changes. Her lower extremity has less erythema. She is sitting on the side of the bed, handing the left foot down. She states she generally gets red and swollen whenever she hands it down for some period of time. OBJECTIVE: VITAL SIGNS: T-max last 24 hours 97.9, pulse 58, respiratory rate is 18, blood pressure 128/70, O2 saturation 94% on room air. GENERAL: She is alert with severe morbid obesity. HEENT: Pupils equal, round, reactive to light. Sclerae are anicteric. Oropharynx is clear. Mucous membranes are moist. NECK: Supple, no lymphadenopathy. CARDIOVASCULAR: At time of exam is regular rate and rhythm. LUNGS: Clear bilaterally. ABDOMEN: Soft, obese. Bowel sounds are present. EXTREMITIES: No cyanosis, clubbing. Chronic lower extremity edema. NEUROLOGIC: Grossly nonfocal. ASSESSMENT AND PLAN: The patient is a 57-year-old woman here with left lower extremity cellulitis, chronic lymphedema, severe morbid obesity with BMI of 68.6. 1. Continue current IV antibiotics. She has some clinical improvement. 2. Continue cardiovascular medications. 3. Sliding scale insulin. 4. Encourage the patient compliance with outpatient followup for CPAP therapy. Time spent on 12/11/2017 was 25 minutes. Silvio Gee MD DR: KAYLAN/brittany JOB# [id number]
[2017-12-13] MEDS: ROCEPHIN 1,000 MG in NS 100ML 100 ML IV SCH (00:39)
[2017-12-13 01:36] VITALS: BP 129/68
--- NOTE | 2017-12-13 03:10 | PNH ---
DATE: 12/12/2017 SUBJECTIVE: Lower extremity looks better. She is concerned about going home because she has to take oral antibiotics work as well as IV antibiotics. She has no other acute changes overnight. OBJECTIVE: VITAL SIGNS: T-max in the last 24 hours is 98.6, pulse 72, respiratory rate is 18, blood pressure 130/74, O2 saturation 96% on room air. GENERAL: She is alert, in no acute distress at time of exam. HEENT: Pupils equal, round, reactive to light. Sclerae are anicteric. Oropharynx is clear. Mucous membranes are moist. NECK: Supple. No lymphadenopathy. CARDIOVASCULAR: At time of exam is regular rate and rhythm. LUNGS: Clear bilaterally. No wheezing. ABDOMEN: Soft, obese. Bowel sounds are present. EXTREMITIES: No cyanosis or clubbing. Chronic lower extremity edema with improved erythema in left lower extremity. NEUROLOGIC: Grossly nonfocal. LABORATORY DATA: CBC - white count 6.7, hemoglobin 12.8, platelets 266. Differential - 48% neutrophils, 39% lymphocytes, 8% monocytes. Sodium 142, potassium 4.2, chloride 106, CO2 29, BUN 21, creatinine 1.18, glucose 101, calcium is 9.1. ASSESSMENT AND PLAN: The patient is a 57-year-old woman here with left lower extremity cellulitis, is clinically improving with severe morbid obesity, obstructive sleep apnea, not on CPAP therapy. 1. Continue current IV antibiotics. 2. Encourage increased ambulation. 3. Sliding scale insulin plus ADA diet. TIME SPENT: On 12/12/2017, 25 minutes. Silvio Gee MD DR: KAYLAN/brittany JOB# [id number]
[2017-12-13 03:56] VITALS: BP 123/66
--- NOTE | 2017-12-13 06:40 | NUR ---
BEDSIDE REPORT RECEIVED FROM LASHAWN GUO. PATIENT AWAKE AND ALERT. LYING IN BARIATRIC BED. SKIN WARM AND DRY. RESPIRATIONS UNLABORED. NO DISTRESS NOTED. SR UP X2. CALL LIGHT WITHIN REACH. PATIENT WITH SALINE LOCK IN LEFT UPPER ARM. DENIES PAIN OR DISCOMFORT AT PRESENT. NO DISTRESS NOTED.
[2017-12-13] MEDS: HUMULIN R SQ SCH ×4 (07:30→20:58)
[2017-12-13 09:06] VITALS: BP 121/63
[2017-12-13] MEDS: CELEXA PO SCH (10:37)
[2017-12-13] MEDS: MOBIC PO SCH ×2 (10:37→20:57)
[2017-12-13] MEDS: LOPRESSOR PO SCH ×2 (10:38→20:57)
[2017-12-13] MEDS: NEURONTIN PO SCH ×2 (10:38→20:57)
--- NOTE | 2017-12-13 11:17 | HPH ---
ADMIT DATE: 12/08/2017 CHIEF COMPLAINT: Left lower extremity redness and swelling. HISTORY OF PRESENT ILLNESS: This patient is a 57-year-old woman with severe morbid obesity, untreated obstructive sleep apnea, recent and frequent admissions for lower extremity cellulitis. She has had cellulitis in both sides. She presented to the ER at this time with increasing redness and swelling of left lower extremity. She has severe morbid obesity and chronic lymphedema. On the left lower extremity, she has some xerosis erythema and worsening swelling than the right. She states she does get around in the house okay. She has no recent falls. No other acute changes from her poor baseline. She has obstructive sleep apnea and told she needed about a BiPAP machine, but she does not have a $500 for the copay to buy the machine. She has not been on recent antibiotics. PAST MEDICAL HISTORY: Includes untreated obstructive sleep apnea, severe morbid obesity, chronic back pain, hypertension, congestive heart failure, diastolic dysfunction. PAST SURGICAL HISTORY: She has had a hysterectomy, cholecystectomy, tonsillectomy, bilateral tubal ligation, Lomeli catheter placement. ALLERGIES: She is allergic to EGGS. HOME MEDICATIONS: List currently includes amitriptyline 50 mg at night, recently had a prescription for Keflex, was not taking it currently. Meloxicam 15 mg daily, Reglan 10 mg 3 times a day before meals and at bedtime as needed for nausea, metoprolol tartrate 50 mg twice a day, nystatin powder as needed for itching. SOCIAL HISTORY: She lives at home. No recent alcohol, tobacco or illicit drug use history. FAMILY HISTORY: Negative for early coronary artery disease or diabetes. REVIEW OF SYSTEMS: CARDIAC: Denies chest pain, shortness of breath or dyspnea on exertion. PULMONARY: No cough, sputum production or pleuritic chest pain. GASTROINTESTINAL: No nausea, vomiting, diarrhea or constipation. All else negative in 10 point review of system, except as in HPI. PHYSICAL EXAMINATION: VITAL SIGNS: Upon arrival, height 157.6 cm, weight 189.2, BMI of ____. Temperature 99.3, pulse 105, respiratory rate 18, blood pressure is 126/73, O2 saturation 91% on room air. GENERAL: She is alert, severely morbidly obese, in no acute distress. HEENT: Pupils equal, round, reactive to light. Sclerae are anicteric. Oropharynx is clear. Mucous membranes are moist. NECK: Supple, no lymphadenopathy. CARDIOVASCULAR: At time of exam was slightly tachycardic, regular rhythm. LUNGS: Clear bilaterally. No wheezing. ABDOMEN: Soft, obese. Bowel sounds are present. EXTREMITIES: No cyanosis, clubbing. She has chronic lower extremity lymphedema, left greater than right with some erythema and xerosis on left lower extremity. NEUROLOGIC: Grossly nonfocal. INITIAL LABORATORY DATA: CBC: White count 17.2, hemoglobin 13.0 and platelets 222. Differential: 91% neutrophils, 6% lymphocytes, 2% monocytes. Sodium 139, potassium 4.0, chloride 104, CO2 of 24, BUN 15, creatinine 1.1, glucose is 125, calcium is 8.6, total bilirubin 0.5, AST 13, ALT is 20, alkaline phosphatase 80, total protein 7.4, albumin 3.3. Initial blood gas, pH is 7.45, pCO2 of 33.9, pO2 66.2, base excess negative 0.2. Lactate of 1.4. UA, pH is 5.0, specific gravity 1.020. All else was essentially negative. IMAGING STUDIES: A chest x-ray performed in the Emergency Room, which shows no acute process, low lung volumes. ASSESSMENT AND PLAN: The patient is a 57-year-old woman here with left lower extremity cellulitis with initial criteria meeting for sepsis with systemic inflammatory response syndrome criteria being tachycardia, leukocytosis with severe morbid obesity, obstructive sleep apnea, not on CPAP. 1. We will continue IV antibiotics. We will treat with ceftriaxone. 2. Continue her cardiovascular medications. 3. Continue diabetic medications including Reglan as needed for gastroparesis and nausea. 4. Production Operations Manager on importance of following for sleep study treatment with CPAP. 5. Deep venous thrombosis prophylaxis and encourage ambulation. Time spent on 12/08/2017 is 45 minutes. This plan was discussed with the patient. She is her own decision maker. She does understand and concur with plans. Silvio Gee MD DR: KAYLAN/brittany JOB# [id number]
--- NOTE | 2017-12-13 12:00 | NUR ---
ASSISTED INTO SHOWER. PATIENT EXTREMELY OBESE AND LOWER EXTREMITIES EXTREMELY EDEMATOUS SECONDARY TO LYMPHEDEMA. LOWER EXTREMITIES EXTREMELY HEAVY AND DIFFICULT TO LIFT OVER SIDE OF BATHTUB INTO SHOWER. PATIENT IS OBESE AND UNABLE TO BEND OVER TO WASH LEGS AND FEET. SHOWER AND SKIN CARE PERFORMED. NYSTATIN POWDER PLACED UNDER ABDOMINAL FOLDS AFTER WASHING AND DRYING. PATIENT WITH 2 OPEN BROKEN AREAS UNDER ABDOMINAL FOLDS. LEFT LOWER LEGS FIRM, EDEMATOUS AND WITH DEEP RIDGES AND CREVICES. PATIENT WITH YEAST IN FOLDS. PATIENT IS OBESE AND REQUIRES ASSISTANCE TO PERFORM ADLS AND TO KEEP SKIN CLEAN AND DRY. SKIN TO LEFT LOWER LEG ELISA IN APPEARANCE AND REDNESS IS FADED TO DARK PINK. APPEARANCE IS IMPROVING.
[2017-12-13 13:06] VITALS: BP 147/77
--- NOTE | 2017-12-13 13:43 | DIET.OP ---
Nutrition Asmt/Malnutrit 2-17 Nutritional Screening: Nutritional Screening Diagnosis: left LE reddness and swelling Pertinent Medical Hx/Surgical: untreated obstructive sleep apnea, severe morbid obesity, chronic back pain, HTN, CHF, diastolic dysfunction Subjective Information: Pt has eaten 100% of meals since admission. Pt has a HgB A1C of 6.0. Recommend watching fluid I/O because of edema and hx of CHF. Pt reports that she is planning to get Gastric Bypass surgery. She is unable to get the surgery because of the need for a BiPAP. Will recommend she see an RD prior to surgery once she has BiPAP. Pt was very pleased with the taste of the food and had no other complaints. Discharge planning in progress Current Diet Order/Nutrition S: 1800 ADA Pertinent Meds Zofran, Ceftriaxone Sodium, Reglan, Humulin R, Nystatin Pertinent Labs Glu 125 (12/08), 127 (12/09), 101 (12/12), BUN 21, Hgb A1C 6.0, Alb 3.3 Height (Feet): 5 Height (Inches): 6 Current Weight: 426 Usual Weight: 432 %UBW: 98 %IBW: 332 Weight Status: Morbid Obese Current %PO: Good(75-100%) BEE in Kcals: Use Current Weight Calories/Kcals/Kg: MsJ * 1.2-1.5 -(500-1000) Kcals Calculated: 3521-1309 Protein: Use Current Weight (IBW) Protein g/k.25-1.5 g/kg Protein Calculated: 76-91 Fluid: ml: 2000 Nutritional Problem: Nutr. Problems Present Problems: Overweight Etiology: excess energy intake Signs/Symptoms: BMI of 68, 332% IBW Recommendations by RD: Dietary education by RD, Decrease Calorie Intake RD Comments: Recommend pt look into getting additional dietary education on gastric bypass surgery outpatient with RD. Wt loss will help alleviate problems caused by many of the other pre-existing conditions Expected Outcomes Goal: Pt continues to consume >75% of estimated needs over the next 3-4 days. Estimated needs modified (500-1000 kcal/day less) to create steady wt loss of at least 1-2 lbs/week. Note: If successful wt loss begins to be achieved estimated needs to be modified to reflect new wt. JAGDEEP ARENAS Dec 13, 2017 13:43
--- NOTE | 2017-12-13 16:14 | NUR ---
PATIENT SITTING UP IN CHAIR. DENIES FEVER OR CHILLS. DENIES PAIN OR DISCOMFORT. NO DISTRESS NOTED. CALL LIGHT WITHIN REACH.
[2017-12-13 16:18] VITALS: BP 119/85
--- NOTE | 2017-12-13 18:55 | NUR ---
REPORT GIVEN TO LASHAWN GUO.
[2017-12-13 19:38] VITALS: BP 136/63
[2017-12-14] MEDS: ROCEPHIN 1,000 MG in NS 100ML 100 ML IV SCH (00:36)
--- NOTE | 2017-12-14 00:40 | PNH ---
DATE: 12/13/2017 SUBJECTIVE: She is sitting up in chair. Her lower extremity looks better. She has no new changes. OBJECTIVE: VITAL SIGNS: T-max last 24 hours is 98.4, pulse 53, respiratory rate is 18, blood pressure 121/63, O2 saturation 97% on room air. GENERAL: She is alert, in no acute distress at time of exam. HEENT: Pupils equal, round, reactive to light. Sclerae are anicteric. Oropharynx is clear. Mucous membranes are moist. NECK: Supple, no lymphadenopathy. CARDIOVASCULAR: At time of exam is slightly bradycardic, regular rhythm. LUNGS: Clear bilaterally. No wheezing. ABDOMEN: Soft, obese. Bowel sounds are present. EXTREMITIES: No cyanosis, clubbing. She has chronic lower extremity lymphedema with venous stasis skin changes. NEUROLOGIC: Grossly nonfocal. ASSESSMENT AND PLAN: The patient is a 57-year-old woman here with left lower extremity cellulitis, clinically improving towards baseline with untreated obstructive sleep apnea. 1. We will continue IV antibiotics for one more day. 2. Continue cardiovascular medications. 3. Continue sliding scale insulin and ADA diet. Time spent on 12/13/2017 is 25 minutes. Silvio Gee MD DR: KAYLAN/brittany JOB# [id number]
[2017-12-14 00:46] VITALS: BP 128/71
[2017-12-14 05:35] VITALS: BP 126/73
--- NOTE | 2017-12-14 06:40 | NUR ---
REPORT RECEIVED REPORT, ASSUMED CARE FOR PATIENT AT THIS TIME.
[2017-12-14] MEDS: HUMULIN R SQ SCH (07:30)
[2017-12-14] MEDS: LOPRESSOR PO SCH (07:43)
[2017-12-14] MEDS: MOBIC PO SCH (07:43)
[2017-12-14] MEDS: NEURONTIN PO SCH (07:43)
[2017-12-14] MEDS: CELEXA PO SCH (07:43)
--- NOTE | 2017-12-14 08:02 | PRM.DC ---
Discharge Summary Date of Discharge: Dec 14, 2017 Reason for Visit: Left leg infection Patient History: Asthma Hypertension History Present Illness: (1) Cellulitis of left leg Permanent Comment: Left lower extremity is greater in circumference than right ; is erythematous with induration, weeping, inflammation, crusting. Pedal pulses palpable Last Edited By: Su Talamantes APRN LEAD SQL DEVELOPER on Apr 25, 2017 13: 17 Status: Resolved ICD Code: L03.116 - Cellulitis of left lower limb SNOMED: 638840977 (2) ERNESTO (obstructive sleep apnea) Status: Chronic ICD Code: G47.33 - Obstructive sleep apnea (adult) (pediatric) SNOMED: 41049175 Assessment & Plan: Follow up for CPAP therapy (3) Gastroparesis Status: Chronic ICD Code: K31.84 - Gastroparesis SNOMED: 623871189 (4) Sepsis Status: Resolved ICD Code: A41.9 - Sepsis, unspecified organism SNOMED: 76264537 General: Alert, Oriented X3, Cooperative, No acute distress HEENT: PERRLA, EOMI Neck: Supple, No JVD Lungs: Clear to auscultation, Normal air movement Heart: Regular rate, Normal S1, Normal S2, No murmurs Abdomen: Normal bowel sounds, Soft, No tenderness Extremities: No clubbing, No cyanosis Skin: No breakdown Neuro: Normal speech, Strength at 5/5 X4 ext, Cranial nerves 3-12 NL Psych/Mental Status: Mood NL Scheduled Cephalexin (Cephalexin), 500 MG PO TID Citalopram Hydrobromide (Celexa), 1 TAB PO DAILY, (Reported) Gabapentin (Gabapentin), 600 MG PO BID, (Reported) Meloxicam (Meloxicam), 1 TAB PO BID, (Reported) Metoprolol Tartrate 50MG (Lopresser 50MG), 1 TAB PO BID, (Reported) Nystatin (Nystatin), 500,000 UNIT PO TID Scheduled PRN Albuterol Sulfate (Albuterol Sulfate), 1 VIAL NEB Q4HR PRN for SHORTNESS OF BREATH, (Reported) Metoclopramide Hcl (Metoclopramide Hcl), 10 MG PO ACHS PRN for Nausea Nystatin (Nystop), 1 GM TP PRN PRN for ITCHING Discontinued Medications Amitriptyline Hcl (Amitriptyline Hcl), 50 MG PO HS Discontinued Reason: No Longer Taking Sepsis Evaluation @ Discharge Vital Sign - Last 24 Hours 12/08/17 12/08/17 12/08/17 18:35 18:35 18:39 Temp 99.3 99.3 99.3 Pulse 105 105 105 Resp 18 18 18 B/P (MAP) 126/73 (90) Pulse Ox 91 91 O2 Delivery Room Air Room Air Laboratory Tests Test 12/08/17 19:11 12/08/17 19:25 12/08/17 19:30 12/08/17 19:47 Urine Collection Type CCMS Urine Color YELLOW Urine Appearance CLEAR Urine Bilirubin NEGATIVE MG/DL Urine Ketones NEGATIVE Urine Specific [place] 1.020 Urine pH 5 Urine Protein 15 mg/dL Urine Urobilinogen NORMAL Urine Nitrate NEGATIVE Urine Leukocyte Esterase NEGATIVE Urine Blood 25 1+ Urine RBC NONE SEEN RBC/HPF Urine WBC NONE SEEN WBC/HPF Urine Squamous Epithelial Cells RARE #/HPF Urine Bacteria NONE SEEN Urine Glucose NORMAL Blood Gas Sample Site LEFT RADIAL ARTERY Blood Gas pH 7.451 Blood Gas PCO2 33.9 mmHg Blood Gas PO2 66.2 mmHg Blood Gas HCO3 23.1 mmol/L Blood Gas Base Excess -0.2 mmol/L Cecil Test POSITIVE Arterial Blood Oxygen Saturation 93.6 % Deoxyhemoglobin 6.3 % Carboxyhemoglobin 1.5 % Methemoglobin 0.3 % Total Hemoglobin 14.4 % Total Oxygen Concentration 18.6 % Lactic Acid (Blood Gas) 1.4 MMOL/L Oxygen Delivery Method (LAB) RA FiO2 21 % Bicarbonate 24.1 mmol/L White Blood Count 17.2 10^3/uL Red Blood Count 4.56 10^6/uL Hemoglobin 13.0 g/dL Hematocrit 39.8 % Mean Corpuscular Volume 87.3 fL Mean Corpuscular Hemoglobin 28.5 pg Mean Corpuscular Hemoglobin Concent 32.7 g/dL Red Cell Distribution Width 15.8 % Platelet Count 222 10^3/uL Mean Platelet Volume 9.9 fL Neutrophils (%) (Auto) 91.2 % Lymphocytes (%) (Auto) 6.1 % Monocytes (%) (Auto) 2.4 % Neutrophils # (Auto) 15.7 10^3/uL Lymphocytes # (Auto) 1.0 10^3/uL Monocytes # (Auto) 0.4 10^3/uL Absolute Immature Granulocyte (auto 0.04 10^3 u/L Eosinophils % 0.0 % Basophils % 0.1 % Basophils # 0.0 10^3/uL Eosinophil Count 0.0 10^3/uL Sodium Level 139 mmol/L Potassium Level 4.0 mmol/L Chloride Level 104.0 mmol/L Carbon Dioxide Level 24.2 mmol/L Anion Gap 14.8 Blood Urea Nitrogen 15 mg/dL Creatinine 1.10 mg/dL Estimated GFR () 62.4 BUN/Creatinine Ratio 13.0 Glucose Level 125 mg/dL Calcium Level 8.6 mg/dL Total Bilirubin 0.5 mg/dL Aspartate Amino Transf (AST/SGOT) 13 U/L Alanine Aminotransferase (ALT/SGPT) 20 U/L Alkaline Phosphatase 80 U/L Total Protein 7.4 g/dL Albumin 3.3 g/dL Globulin 4.1 Percent Immature Gran (Cell Imm) 0.20 % Differential Total Cells Counted 100 #CELLS Segmented Neutrophils 84 % Band Neutrophils 4 % Lymphocytes 9 % Monocytes 2 % Absolute Eosinophils (Manual) 1 % Current Medications Medications (Trade) Dose Ordered Sig/Angel PRN Reason Start Time Stop Time Status Last Admin Ceftriaxone Sodium 1000 mg/ Sodium Chloride 100 ml @ 100 mls/hr OT STAT 12/08/17 21:09 12/08/17 22:08 12/08/17 21:33 Course Sepsis Screening Results: Posi: NEGATIVE Sepsis Qualifier/Stage: NO DEFINITE RISK Vitals & review Data Vital Sign - Last 24 Hours 12/08/17 12/08/17 12/08/17 18:35 18:35 18:39 Temp 99.3 99.3 99.3 Pulse 105 105 105 Resp 18 18 B/P (MAP) 126/73 (90) Pulse Ox 91 91 O2 Delivery Room Air Room Air Laboratory Tests Test 12/08/17 19:11 12/08/17 19:25 12/08/17 19:30 12/08/17 19:47 Urine Collection Type CCMS Urine Color YELLOW Urine Appearance CLEAR Urine Bilirubin NEGATIVE MG/DL Urine Ketones NEGATIVE Urine Specific [place] 1.020 Urine pH 5 Urine Protein 15 mg/dL Urine Urobilinogen NORMAL Urine Nitrate NEGATIVE Urine Leukocyte Esterase NEGATIVE Urine Blood 25 1+ Urine RBC NONE SEEN RBC/HPF Urine WBC NONE SEEN WBC/HPF Urine Squamous Epithelial Cells RARE #/HPF Urine Bacteria NONE SEEN Urine Glucose NORMAL Blood Gas Sample Site LEFT RADIAL ARTERY Blood Gas pH 7.451 Blood Gas PCO2 33.9 mmHg Blood Gas PO2 66.2 mmHg Blood Gas HCO3 23.1 mmol/L Blood Gas Base Excess -0.2 mmol/L Cecil Test POSITIVE Arterial Blood Oxygen Saturation 93.6 % Deoxyhemoglobin 6.3 % Carboxyhemoglobin 1.5 % Methemoglobin 0.3 % Total Hemoglobin 14.4 % Total Oxygen Concentration 18.6 % Lactic Acid (Blood Gas) 1.4 MMOL/L Oxygen Delivery Method (LAB) RA FiO2 21 % Bicarbonate 24.1 mmol/L White Blood Count 17.2 10^3/uL Red Blood Count 4.56 10^6/uL Hemoglobin 13.0 g/dL Hematocrit 39.8 % Mean Corpuscular Volume 87.3 fL Mean Corpuscular Hemoglobin 28.5 pg Mean Corpuscular Hemoglobin Concent 32.7 g/dL Red Cell Distribution Width 15.8 % Platelet Count 222 10^3/uL Mean Platelet Volume 9.9 fL Neutrophils (%) (Auto) 91.2 % Lymphocytes (%) (Auto) 6.1 % Monocytes (%) (Auto) 2.4 % Neutrophils # (Auto) 15.7 10^3/uL Lymphocytes # (Auto) 1.0 10^3/uL Monocytes # (Auto) 0.4 10^3/uL Absolute Immature Granulocyte (auto 0.04 10^3 u/L Eosinophils % 0.0 % Basophils % 0.1 % Basophils # 0.0 10^3/uL Eosinophil Count 0.0 10^3/uL Sodium Level 139 mmol/L Potassium Level 4.0 mmol/L Chloride Level 104.0 mmol/L Carbon Dioxide Level 24.2 mmol/L Anion Gap 14.8 Blood Urea Nitrogen 15 mg/dL Creatinine 1.10 mg/dL Estimated GFR () 62.4 BUN/Creatinine Ratio 13.0 Glucose Level 125 mg/dL Calcium Level 8.6 mg/dL Total Bilirubin 0.5 mg/dL Aspartate Amino Transf (AST/SGOT) 13 U/L Alanine Aminotransferase (ALT/SGPT) 20 U/L Alkaline Phosphatase 80 U/L Total Protein 7.4 g/dL Albumin 3.3 g/dL Globulin 4.1 Percent Immature Gran (Cell Imm) 0.20 % Differential Total Cells Counted 100 #CELLS Segmented Neutrophils 84 % Band Neutrophils 4 % Lymphocytes 9 % Monocytes 2 % Absolute Eosinophils (Manual) 1 % Current Medications Medications (Trade) Dose Ordered Sig/Angel PRN Reason Start Time Stop Time Status Last Admin Ceftriaxone Sodium 1000 mg/ Sodium Chloride 100 ml @ 100 mls/hr OT STAT 12/08/17 21:09 12/08/17 22:08 12/08/17 21:33 Plan Discharge Date: Dec 14, 2017 Dicharge DX: 1. Sepsis, 2. Left lower extremity cellulitis, 3. Morbid obesity, 4. ERNESTO Discharge Disposition: Stable Plan Resume home medications Diet and activity as tolerated Follow up for outpatient CPAP therapy Follow up with PCP next available appointment Discharge plans discussed with patient, she is her own decision maker and does understand and concur with plans Time spent 25 minutes TITO MOHAN MD Dec 14, 2017 08:02
[2017-12-14 08:21] VITALS: BP 135/54
[2017-12-14 09:02] VITALS: BP 135/54
--- NOTE | 2017-12-14 10:20 | NUR ---
DISCHARGE PATIENT BEING DISCHARGED HOME AT THIS TIME IN STABLE CONDITION. PATIENT STATES THAT SHE HAS PLENTY OF HELP AT HOME WITH HER CARE. DENIES NEEDING ADDITIONAL RESOURCES AT THIS TIME. RELINQUISHED CARE FOR PATIENT.
[2017-12-14 12:31] VITALS: BP 125/64
== END 2017-12-14 14:47 | disposition home or self-care (01) | DRG 872 ==
LOC: ER 18:17 → MS 21:43
PROVIDERS: ADMIT Internal Medicine; ATTEND Internal Medicine
DX: A41.9 Sepsis, unspecified organism (principal); L03.116 Cellulitis of left lower limb; Z68.44 Body mass index [BMI] 60.0-69.9, adult; I50.30 Unspecified diastolic (congestive) heart failure; M54.9 Dorsalgia, unspecified; G47.33 Obstructive sleep apnea (adult) (pediatric); J45.909 Unspecified asthma, uncomplicated; G89.29 Other chronic pain; I11.0 Hypertensive heart disease with heart failure; K31.84 Gastroparesis; E66.01 Morbid (severe) obesity due to excess calories; I89.0 Lymphedema, not elsewhere classified; Z90.710 Acquired absence of both cervix and uterus; Z91.012 Allergy to eggs; Z90.49 Acquired absence of other specified parts of digestive tract; Z98.51 Tubal ligation status
CPT/HCPCS: 36415; 71045; 80048; 80053; 81000; 82803; 82948; 83036; 85025; 87040; 87086; 99285; J0696; J7030; J7050; Q0163

== ENCOUNTER 2018-01-18 09:54 | Emergency (ER) | payer OTHER ==
[~2018-01-18] VITALS: Ht 167.6 cm; Wt 192.8 kg
[~2018-01-18 09:54] MED LIST changes: +CITA10TA8 PO; +GABA300C10 PO; +GABA600T2 PO
[2018-01-18 10:08] VITALS: BP 185/103
--- NOTE | 2018-01-18 10:08 | NUR ---
ARRIVAL PATIENT ARRIVED TO ED6 AMBULATORY, C/O OF LEFT LEG DRAINING THAT STARTED TODAY, PATIENT DECIDED SHE SHOULD COME TO THE ED FOR FURTHER EVAL.
[2018-01-18 10:40] VITALS: BP 170/98
--- NOTE | 2018-01-18 10:48 | ER.PDOC ---
General Chief Complaint: Extremities Stated Complaint: L LEG PAIN Time seen by MD: 10:00 History of Present Illness Initial Comments Pt has chronic lymphedema. States size of her legs has not changed recently. This am had small amount clear fluid drainage from lower left leg- not purulent. Exacerbated By: nothing Relieved By: nothing Prior symptoms/Treatment: Similar symptoms previous Allergies: Coded Allergies: egg (Verified Allergy, Unknown, 06/23/17) Home Meds Active Scripts Metoclopramide Hcl (METOCLOPRAMIDE HCL) 10 Mg Tablet, 10 MG PO ACHS PRN for Nausea for 30 Days, #60 TABLET Prov:TIOT MOHAN MD 06/29/17 Nystatin (NYSTATIN) 100,000 Unit/1 Ml Oral.susp, 301094 UNIT PO TID for oral thrush MDD TID Swish and spit for 10 Days Prov:MELANI GONZALEZ APRN, NP 05/01/17 Nystatin (NYSTOP) 60 Gm Powder, 1 GM TP PRN PRN for ITCHING for 30 Days, #1 BOTTLE Prov:MELANI GONZALEZ APRN, NP 05/01/17 Reported Medications Citalopram Hydrobromide (CELEXA) 10 Mg Tablet, 1 TAB PO DAILY, #30 TAB 2 Refills 12/09/17 Gabapentin (GABAPENTIN) 600 Mg Tablet, 600 MG PO BID, TABLET 12/09/17 Albuterol Sulfate (ALBUTEROL SULFATE) 2.5 Mg/0.5 Ml Vial.neb, 1 VIAL NEB Q4HR PRN for SHORTNESS OF BREATH, #60 VIAL 1 Refill 04/24/17 Meloxicam (MELOXICAM) 15 Mg Tablet, 1 TAB PO BID, #30 TAB 2 Refills 04/24/17 Metoprolol Tartrate 50MG (LOPRESSER 50MG) 50 Mg Tablet, 1 TAB PO BID, #180 TAB 3 Refills 01/04/17 Past Medical History Medical History: high cholesterol, other Surgical History: cholecystectomy, hysterectomy, tonsillectomy, tubal Social History Smoking: non-smoker Alcohol Use: none Drug Use: none Reviewed Nursing Reviewed: Vital Signs, Abn. Noted, Nursing Assessment Review of Systems Constitutional: denies no symptoms reported, denies see HPI, denies chills, denies diaphoresis, denies fever, denies malaise, denies weakness, denies other EENTM: denies no symptoms reported, denies see HPI, denies eye pain, denies blurred vision, denies tearing, denies double vision, denies ear pain, denies ear discharge, denies nose pain, denies nose congestion, denies throat pain, denies throat swelling, denies mouth pain, denies mouth swelling, denies other Respiratory: denies no symptoms reported, denies see HPI, denies cough, denies orthopnea, denies shortness of breath, denies stridor, denies wheezing, denies other Cardiovascular: denies no symptoms reported, denies see HPI, denies chest pain , denies edema, denies palpitations, denies syncope, denies other Gastrointestinal: denies no symptoms reported, denies see HPI, denies abdominal pain, denies constipation, denies diarrhea, denies nausea, denies vomiting, denies other Physical Exam General Appearance: Alert, No Apparent Distress, Other (obese) Lower Extremity: non-tender, swelling, pedal edema (marked lymphedema both LEs L>R; no erythema or purulent dc) Joint Exam: joints nml, nml ROM, nml gait/weight bearing Vascular: no vascular compromise, pulses full/equal Neuro/Psych: sensation nml, motor nml, oriented x3, CN's nml as tested, mood/ affect nml Skin: color nml, warm/dry, no rash Back/Neck: nml inspection EENT: eyes inspection nml, ENT inspection nml, pharynx nml Respiratory: no resp distress, breath sounds nml CVS: reg rate & rhythm, heart sounds nml Abdomen: non-tender, no organomegaly, no bruit/mass Departure Time of Disposition: 10:40 Disposition: 01 HOME, SELF-CARE Impression: Primary Impression: Acquired lymphedema of lower extremity Condition: Stable Patient Instructions: Lymphedema Referrals: [facility] CARDIOLOGY SPECIALIST (PCP) PRIMARY CARE PROVIDER Comments See your doctor within 2 days and have them refer you to PT for jimy wraps to legs and therapy Duration or Time Spent with Pa: 15 min MARLON FRANK MD Jan 18, 2018 10:48
[2018-01-18 11:10] VITALS: BP 162/91
== END 2018-01-18 11:10 | disposition home or self-care (01) ==
LOC: ER 09:54
DX: I89.0 Lymphedema, not elsewhere classified (principal); E78.00 Pure hypercholesterolemia, unspecified; E66.9 Obesity, unspecified; Z68.44 Body mass index [BMI] 60.0-69.9, adult; Z90.49 Acquired absence of other specified parts of digestive tract; Z90.710 Acquired absence of both cervix and uterus; Z90.89 Acquired absence of other organs; Z98.51 Tubal ligation status; Z91.012 Allergy to eggs; Z79.899 Other long term (current) drug therapy
CPT/HCPCS: 99283

== ENCOUNTER 2018-02-14 11:23 | Inpatient (IN) | payer MEDICARE, OTHER ==
[~2018-02-14] VITALS: Ht 167.6 cm; Wt 200.7 kg
[2018-02-14] VITALS (38 sets, daily range): BP systolic 116–162; BP diastolic 50–117
--- NOTE | 2018-02-14 11:25 | NUR ---
ARRIVAL PATIENT TO ROOM 2 VIA WC, PATIENT HAS BEEN SOB WITH CHEST PAINS IN THE STERNAL AREA SINCE THIS AM, IS NOT GETTING ANY BETTER, NO CARDIAC HX BESIDES HTN, PATIENT HAS PAIN IN THE RIGHT LEG, AND PAIN IN THE BACK, PATIENT IS IN MODERATE DISTRESS. LIPS ARE BLUE. CONNECTED TO ALL MONITORS, ASSESSMENT COMPLETED, MD AT BEDSIDE, RT AT BEDSIDE.
[2018-02-14] MEDS ORDERED: ASPIRIN EC PO STA (11:29)
[2018-02-14] MEDS ORDERED: NITROSTAT SL PRN (11:30)
[2018-02-14] MEDS ORDERED: ASPIRIN ONE (11:34)
--- NOTE | 2018-02-14 11:34 | PCM.EKG ---
[facility] Test Date: 2018-02-14 Test Time: 11:32:37 Pat Name: MAYDA ALATORRE Department: Room: Gender: F Photographic Artist: BEATRICE : [id number] Requested By: BEN LARA Order Number: [id number] Reading MD: Measurements Intervals Edison Rate: 96 P: 46 VA: 184 QRS: 6 QRSD: 96 T: 45 QT: 346 QTc: 437 Interpretive Statements Sinus rhythm with premature atrial complexes Otherwise normal ECG No previous ECG available for comparison Please click the below link to view image of tracing.
[2018-02-14 11:35] LABS: BASOPHIL % 0.2 % (0.0-0.2); EOSINOPHIL # 0.1 10^3/uL (0.0-0.2); EOSINOPHIL % 0.4 % (0.0-5.0); HEMOGLOBIN 14.2 g/dL (12.0-15.0); LYMPHOCYTES # 2.7 10^3/uL (1.0-4.8); LYMPHOCYTES % 15.5 % (24.0-44.0); MEAN CELL HGB CONCENTRATION 32.7 g/dL (33-37); MEAN CORP VOLUME 88.8 fL (78-100); MEAN PLATELET VOLUME 9.5 fL (7.8-11.0); MONOCYTES # 0.7 10^3/uL (0.3-0.8); NEUTROPHILS % 79.7 % (41.0-85.0); RED CELL DISTRIBUTION WIDTH 14.3 % (11.5-14.5); WHITE BLOOD CELL 17.6 10^3/uL (4.5-11.0)
--- NOTE | 2018-02-14 11:36 | ER.PDOC ---
General Chief Complaint: Chest Pain-Cardiac Nature Stated Complaint: CHEST PAIN Time seen by MD: 11:33 Source: patient Exam Limitations: no limitations History of Present Illness Timing/Duration: 4-6 hours Severity/Quality: moderate Radiation: shoulders, back Prior CP/Workup: No Prior Chest Pain, no Prior Cardiac Workup Nitro Today/Relief: No Nitro Taken Today Aspirin Today: No Aspirin Today Associated Symptoms: shortness of breath Allergies: Coded Allergies: egg (Verified Allergy, Unknown, 06/23/17) Home Meds Active Scripts Metoclopramide Hcl (METOCLOPRAMIDE HCL) 10 Mg Tablet, 10 MG PO ACHS PRN for Nausea for 30 Days, #60 TABLET Prov:TITO MOHAN MD 06/29/17 Nystatin (NYSTATIN) 100,000 Unit/1 Ml Oral.susp, [id number] UNIT PO TID for oral thrush MDD TID Swish and spit for 10 Days Prov:MELANI GONZALEZ NP 05/01/17 Nystatin (NYSTOP) 60 Gm Powder, 1 GM TP PRN PRN for ITCHING for 30 Days, #1 BOTTLE Prov:MELANI GONZALEZ ELECTRICIAN SUPERVISOR SUBSTATION 05/01/17 Reported Medications Citalopram Hydrobromide (CELEXA) 10 Mg Tablet, 1 TAB PO DAILY, #30 TAB 2 Refills 12/09/17 Gabapentin (GABAPENTIN) 600 Mg Tablet, 600 MG PO BID, TABLET 12/09/17 Albuterol Sulfate (ALBUTEROL SULFATE) 2.5 Mg/0.5 Ml Vial.neb, 1 VIAL NEB Q4HR PRN for SHORTNESS OF BREATH, #60 VIAL 1 Refill 04/24/17 Meloxicam (MELOXICAM) 15 Mg Tablet, 1 TAB PO BID, #30 TAB 2 Refills 04/24/17 Metoprolol Tartrate 50MG (LOPRESSER 50MG) 50 Mg Tablet, 1 TAB PO BID, #180 TAB 3 Refills 01/04/17 Past Medical History Medical History: GERD, hypertension Surgical History: cholecystectomy, hysterectomy, tonsillectomy LMP (females 10-50): postmenopause Social History Smoking: non-smoker Alcohol Use: none Drug Use: none Reviewed Nursing Reviewed: Vital Signs, Abn. Noted All Other Systems: Reviewed and Negative Physical Exam General Appearance: No Apparent Distress, WD/WN, Moderate Distress, Obese HEENT: PERRL/EOMI, Normal ENT Inspection, TMs Normal, Pharynx Normal Neck: Non-Tender, Full Range of Motion, Supple, Normal Inspection Respiratory: chest non-tender, lungs clear, respiratory distress, decreased breath sounds, accessory muscle use Cardiovascular: Normal Peripheral Pulses, Regular Rate, Rhythm, No Edema, No Gallop, No JVD, No Murmur Gastrointestinal: Normal Bowel Sounds, No Organomegaly, No Pulsatile Mass, Non Tender, Soft Extremities: Pedal Edema, Other (LYMPHEDEMA) Neurologic/Psychiatric: power generation engineer II-XII NML as Tested, No Motor/Sensory Deficits, Alert, Normal Mood/Affect, Oriented x 3 Skin: Normal Color, Warm/Dry Lymphatic: No Adenopathy EKG/XRAY/CT/US EKG: NSR, no ST T wave changes Departure Time of Disposition: 13:22 Disposition: 09 ADMITTED INPATIENT Impression: Primary Impression: Pneumonia Condition: Improved Referrals: [facility] ELECTRICIAN SUPERVISOR SUBSTATION (PCP) PRIMARY CARE PROVIDER Duration or Time Spent with Pa: 2 hrs BEN LARA MD Feb 14, 2018 11:36
[2018-02-14] MEDS ORDERED: MORPHINE SULFATE IV STA (11:58)
[2018-02-14] MEDS ORDERED: HEPARIN ONE (12:00)
[2018-02-14 12:01] LABS: ALANINE AMINOTRANSFERASE(ML) 27 U/L (12-78); ALKALINE PHOSPHATASE 97 U/L (50-136); ASPARTATE AMINO TRANSFERASE 15 U/L (0-35); CALCIUM 9.5 mg/dL (8.4-10.5); CARBON DIOXIDE 27.7 mmol/L (20.0-32); GLUCOSE 143 mg/dL (70-110)
[2018-02-14] MEDS ORDERED: DECADRON IH STA (12:01)
[2018-02-14] MEDS ORDERED: DUONEB 0.5 MG-3 MG/3 ML SOLN IH STA (12:01)
[2018-02-14] MEDS ORDERED: MORPHINE SULFATE ONE (12:02)
[2018-02-14] MEDS ORDERED: SOLU-MEDROL IV STA ×2 (12:02)
[2018-02-14] MEDS ORDERED: HEPARIN-D5W 20,000 UNIT/500 ML 500 ML IV ONE (12:03)
--- NOTE | 2018-02-14 12:15 | NUR ---
CT PT TAKEN TO CT VIA STRETCHER
[2018-02-14] MEDS ORDERED: DUONEB 0.5 MG-3 MG/3 ML SOLN IH ONE (12:20)
[2018-02-14] MEDS ORDERED: DECADRON ONE (12:20)
--- NOTE | 2018-02-14 12:28 | DIREP ---
PROCEDURE:CHEST 1 VIEW COMPARISON:[facility], CR, XRAY CHEST SINGLE VW, 12/08/2017, 07:12 PM. INDICATIONS:CP FINDINGS: LUNGS/PLEURA:No significant pulmonary parenchymal abnormalities. No effusions. VASCULATURE:Mild increase in the pulmonary vascularity. CARDIAC:Normal. No cardiac silhouette abnormality or cardiomegaly. MEDIASTINUM:Normal. No visible mass or adenopathy. BONES:Normal. No fracture or visible bony lesion. OTHER:Monitor leads are in place. CONCLUSION:Mild increase in the pulmonary vascularity may represent mild congestive failure. Dictated by: Domenic Gann M.D. on 02/14/2018 at 12:25 PM
--- NOTE | 2018-02-14 12:32 | NUR ---
CT PT BACK FROM CT
[2018-02-14] MEDS ORDERED: LASIX ONE (12:33)
[2018-02-14] MEDS ORDERED: SOLU-MEDROL ONE ×2 (12:33→12:57)
[2018-02-14] MEDS ORDERED: LOPRESSER ONE (12:35)
[2018-02-14] MEDS ORDERED: LOPRESSER IVP STA (12:36)
--- NOTE | 2018-02-14 12:50 | NUR ---
OSMIN THIS NURSE CALLED O[facility] TO OBTAIN AT HOME MEDS.
[2018-02-14 12:51] LABS: ABG PCO2 39.9 mmHg (35.0-45.0); ABG PH 7.325 (7.350-7.450); BE(B) -5.3 mmol/L (-2.0-2.0); HCO3act 20.3 mmol/L (22.0-26.0); pO2 87.4 mmHg (75.0-100.0)
--- NOTE | 2018-02-14 12:51 | DIREP ---
PROCEDURE:CT PULMONARY ANGIOGRAM TECHNIQUE:Following the intravenous administration of contrast material, axial cuts were obtained through the chest. Multiplanar / 3-D reconstructions are provided. Suboptimal pulmonary arterial contrast opacification was achieved. The images were viewed at lung and soft tissue settings. COMPARISON:[facility], CT, CT - CHEST ABDOMEN PELVIS WITH CONTR, 06/23/2017, 03:[address] [facility], CR, XRAY CHEST SINGLE VW, 02/14/2018, 11:17 AM. INDICATIONS:PE and chest pain FINDINGS: PULMONARY ARTERIES:Suboptimal pulmonary arterial contrast opacification limits the study. No definite pulmonary emboli are seen bilaterally. Evaluation of the segmental and smaller branches of the pulmonary arteries is limited. LUNGS:Patchy infiltrate is seen in the lingula. A small calcified granuloma is seen in the right upper lobe. CARDIAC:The heart size is mildly enlarged. No pericardial effusion is seen. THYROID:Normal. THORACIC AORTA:Normal. MEDIASTINUM:Normal. PLEURA:Normal. BONES:Degenerative changes are seen in the thoracic spine. OTHER:No additional findings. CONCLUSION: 1. Limited and compromised study secondary to suboptimal pulmonary arterial contrast opacification. No definite pulmonary emboli are seen bilaterally. 2. Patchy infiltrate is seen in the lingula. Dictated by: Jakub Hernandez M.D. On 02/14/2018 at 12:43 PM
--- NOTE | 2018-02-14 12:56 | NUR ---
DR ANTHONY LARA ON PHONE WITH DR CRUZ
[2018-02-14] MEDS ORDERED: NS 1000ML 1,000 ML ONE (12:57)
[2018-02-14] MEDS ORDERED: NS IV SCH (13:00)
[2018-02-14] MEDS ORDERED: ROCEPHIN 1,000 MG in NS 100ML 100 ML IV SCH (13:00)
--- NOTE | 2018-02-14 13:00 | NUR ---
UPDATE AWAITING HOSPITALIST TO SEE PATIENT.
[2018-02-14] MEDS ORDERED: ROCEPHIN ONE (13:14)
[2018-02-14] MEDS ORDERED: NS 100ML 100 ML IV ONE (13:14)
[2018-02-14 13:36] LABS: BILIRUBIN,URINE NEGATIVE (NEGATIVE); UROBILINOGEN,URINE NORMAL (NEGATIVE)
[2018-02-14 13:38] LABS: APPEARANCE,URINE CLEAR (CLEAR); UA COLOR YELLOW (YELLOW)
--- NOTE | 2018-02-14 13:41 | NUR ---
DR ANTHONY CRUZ IN THE ED AT THIS TIME
[2018-02-14] MEDS ORDERED: PANT40TA5 PO (13:47)
[2018-02-14] MEDS ORDERED: OXYB10TA PO (13:47)
[2018-02-14] MEDS ORDERED: CITA20TA6 PO (13:47)
[2018-02-14] MEDS ORDERED: GABA300C10 PO (13:47)
[2018-02-14] MEDS ORDERED: NS 1000ML 1,000 ML STA (13:49)
[2018-02-14] MEDS ORDERED: VANCOMYCIN HCL 1.5 GM in NS 250ML 300 ML IV ONE ×4 (14:00)
[2018-02-14] MEDS ORDERED: SENOKOT PO PRN (14:30)
--- NOTE | 2018-02-14 14:45 | NUR ---
Arrival Patient arrived on unit via stretcher. Report called by phone by Nava Echavarria RN. Assumed care of patient. Patient transferred to bariatric bed and placed on bedside monitor. No fluids infusing at this time. O2 at 2L via NC. Left leg assessed, erythema noted. 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
[2018-02-14] MEDS ORDERED: ZOSYN 4.5 GRAM VIAL 4.5 GM in NS 100ML 100 ML IV SCH (15:00)
--- NOTE | 2018-02-14 15:15 | NUR ---
Dr. Julia Dumont on phone regarding sepsis protocol. New order received to give 2 Liters of NS per sepsis protocol. 1 liter administered in ER.
[2018-02-14] MEDS ORDERED: ROCEPHIN 1,000 MG in NS 100ML 100 ML IV ONE (15:30)
--- NOTE | 2018-02-14 15:31 | HPH ---
ADMIT DATE: 02/14/2018 CHIEF COMPLAINT: Leg pain and shortness of breath. HISTORY OF PRESENT ILLNESS: The patient is a 57-year-old female with a history of morbid obesity, obstructive sleep apnea, chronic back pain, hypertension, diastolic congestive heart failure. She was hospitalized here just this past December with cellulitis in her left lower extremity and sepsis. She was feeling her baseline state until early today, she started complaining of chest pain, shortness of breath and increasing leg pain. She had some severe chills. She was very, very weak. Her leg had been looking more red recently. She came to the ER where she was hypotensive and with obvious severe cellulitis in the left lower extremity and very tachycardic and she is admitted for cellulitis with a presumed diagnosis as well of sepsis. Her lactic acid level was also elevated. PAST MEDICAL HISTORY: Obstructive sleep apnea, started BiPAP about 2 weeks ago, but the mask is not fitting well; severe morbid obesity; chronic back pain; hypertension; diastolic CHF. PAST SURGICAL HISTORY: Hysterectomy, cholecystectomy, tonsillectomy, bilateral tubal ligation, Lomeli catheter. ALLERGIES: EGGS. CURRENT MEDICATIONS: Albuterol, citalopram, gabapentin, Lopressor, nystatin, oxybutynin, pantoprazole. SOCIAL HISTORY: Negative for tobacco or ETOH. She is . FAMILY HISTORY: Positive for CAD in her mother. REVIEW OF SYSTEMS: PULMONARY: History of childhood asthma. GASTROINTESTINAL: Has GERD. GENITOURINARY: No dysuria. NEUROLOGIC: Negative for syncope or seizures. A 10-point ROS reviewed and otherwise negative. PHYSICAL EXAMINATION: VITAL SIGNS: Temperature pending, heart rate 137, BP 136/85, pulse ox 96% on room air. GENERAL APPEARANCE: Morbidly obese female in NAD. HEENT: PERRLA, EOMI, sclerae nonicteric, conjunctivae pink, pharynx clear. NECK: Without JVD, thyromegaly or adenopathy. No bruits. LUNGS: Clear anteriorly. CARDIOVASCULAR: Tachycardic, S1, S2, without significant murmur. ABDOMEN: Without hepatosplenomegaly or masses, nontender, bowel sounds normal, ultra-morbidly obese. EXTREMITIES: Marked bilateral brawny edema. The left lower extremity is red and hot all the way up to the mid thigh. There are some chronic venous stasis skin changes in the left lower pretibial area. Pulses are 1+/1+. NEUROLOGIC: Alert. Cranial nerves are intact. Motor 4/5. LABORATORY DATA: WBC 17.6 with a left shift, hemoglobin 14.2, platelet 261. CMP showing potassium 3.4, BUN 16, creatinine 1.3, glucose 143, albumin 4.0. Urinalysis negative. Lactic acid 4.6. IMPRESSION AND PLAN: 1. Sepsis secondary to intense left lower extremity cellulitis. We will get blood cultures and start vancomycin and Zosyn. She will get 30 mL per kilogram of crystalloid IV fluid and we will recheck lactic acid serially approximately q. 6 hours initially. 2. Left lower extremity cellulitis as discussed above. 3. Obstructive sleep apnea; ABG does not show any CO2 retention; will use BiPAP as needed. 4. Morbid obesity. 5. History of hypertension. 6. Chronic back pain. 7. Prophylaxis, PPI and Lovenox. 8. 45 minutes ICU time. Khadar Cee MD DR: JOSE/brittany JOB# [id number]
[2018-02-14] MEDS: NORCO 5MG PO PRN ×2 (16:11→20:19)
[2018-02-14] MEDS: VANCOMYCIN HCL 1.5 GM in NS 250ML 300 ML IV SCH (16:20)
--- NOTE | 2018-02-14 17:29 | NUR ---
Dr. Renee Duran on phone to clarify maintenance fluids and rate due to there being multiple orders. Also to verify if followup lactic needs to be drawn for sepsis protocol. New order received for Lactic q6 hours until lactic less than 2. RBTO.
[2018-02-14] MEDS: LACTATED RINGERS 1,000 ML IV SCH ×2 (17:48→20:18)
--- NOTE | 2018-02-14 17:58 | NUR ---
RT RT at bedside for ABG.
--- NOTE | 2018-02-14 18:06 | NUR ---
ABG Attempted to notify Dr. Dumont of critical ABG result of 4.71. No answer. Awaiting response
[2018-02-14 18:07] LABS: ABG PCO2 35.2 mmHg (35.0-45.0); ABG PH 7.337 (7.350-7.450); BE(B) -6.5 mmol/L (-2.0-2.0); HCO3act 18.4 mmol/L (22.0-26.0); pO2 80.2 mmHg (75.0-100.0)
--- NOTE | 2018-02-14 18:09 | NUR ---
Dr. Julia Dumont on phone. Notified of ABG result of 4.71 and updated on vital signs and intake and output. New order received to increase IV fluids to 200ml/hr. RBTO.
--- NOTE | 2018-02-14 18:50 | NUR ---
RECEIVED PATIENT PATIENT IS FEBRILE WITH LATEST TEMP 100 ORAL UPON REPORT. COOLING MEASURES ONGOING. PATIENT ON SEMI FOWLERS POSITION. CALL LIGHT IN REACH. ELEVATED LEFT LEG WITH A PILLOW. ENTIRE LEFT LEG IS WARM TO TOUCH, ERYTHEMATOUS AND TENDER. ASSUMED CARE. SEE ASSESSMENT.
--- NOTE | 2018-02-14 20:05 | NUR ---
ORAL TEMP 103 FEBRILE. COOLING MEASURES CONTINUED. APPLIED COOL COMPRESS TO FOREHEAD. PAIN TO LEFT LEG NOTED. ORAL FLUIDS PROVIDED. SEE EMAR.
[2018-02-14] MEDS: LOVENOX SQ SCH (20:18)
[2018-02-14] MEDS: AMBIEN PO PRN (20:19)
[2018-02-14] MEDS: TYLENOL PO PRN ×3 (20:20→23:49)
--- NOTE | 2018-02-14 20:30 | NUR ---
IN ROOM AIR PATIENT COMPLAINED OF DRYNESS TO BOTH NARES & ASKED TO REMOVE HER O2 VIA NASAL CANNULA AT THIS TIME. HR IS STEADY BET. 115-120. NON LABORED BREATHING. SPO2 BETWEEN 92-93% IN ROOM AIR. TEMPORARILY REMOVE O2. CLOSELY MONITORED FOR SIGNS AND SYMPTOMS OF DISTRESS.
--- NOTE | 2018-02-14 21:49 | NUR ---
MOBILITY ASSESSMENT: LEVEL C MARKED LEFT LEG CELLULITIS NOTED WITH TENDERNESS TO TOUCH. ABLE TO DO PASSIVE/ACTIVE ROM IN ALL EXTREMITIES WHILE IN BED. FEBRILE. GENERALIZED WEAKNESS NOTED.
[2018-02-14 22:41] LABS: ABG PCO2 32.8 mmHg (35.0-45.0); ABG PH 7.373 (7.350-7.450); BE(B) -5.5 mmol/L (-2.0-2.0); HCO3act 18.7 mmol/L (22.0-26.0); pO2 74.3 mmHg (75.0-100.0)
--- NOTE | 2018-02-14 23:00 | NUR ---
O2 VIA NASAL CANNULA RESUMED AT 2L.MIN D/T INCREASING EFFORT IN BREATHING AND RESPIRATORY RATE.
--- NOTE | 2018-02-14 23:15 | NUR ---
LACTIC ACID 4.[address] CRUZ REGARDING THE LATEST LACTIC ACID RESULT. NO NEW ORDERS RECEIVED REGARDING THE LACTIC ACID. RELAYED PT'S PERSISTENT FEVER FLUCTUATING BETWEEN 100-103. RECEIVED AN ORDER FOR TYLENOL 325 MG 1-2 TABLET NEEDED. RBTO.
[2018-02-15] VITALS (75 sets, daily range): BP systolic 83–135; BP diastolic 39–89
[2018-02-15] MEDS: NORCO 5MG PO PRN ×4 (02:15→20:13)
[2018-02-15] MEDS: LACTATED RINGERS 1,000 ML IV SCH ×5 (02:19→20:12)
[2018-02-15] MEDS: VANCOMYCIN HCL 1.5 GM in NS 250ML 300 ML IV SCH (03:37)
--- NOTE | 2018-02-15 03:41 | NUR ---
AFEBRILE AXILLARY TEMP 98.9
--- NOTE | 2018-02-15 04:11 | NUR ---
RT AT BEDSIDE FOR ABG
--- NOTE | 2018-02-15 04:21 | NUR ---
PLANE RUNNER AT BEDSIDE FOR MORNING LABS
[2018-02-15 04:22] LABS: ABG PH 7.364 (7.350-7.450); BE(B) -4.2 mmol/L (-2.0-2.0); HCO3act 20.6 mmol/L (22.0-26.0); pO2 69.7 mmHg (75.0-100.0)
--- NOTE | 2018-02-15 04:37 | NUR ---
LACTIC ACID 3.4 RELAYED LATEST RESULT TO DR CRUZ. NO NEW ORDERS RECEIVED.
[2018-02-15 05:24] LABS: BASOPHIL % 0.1 % (0.0-0.2); EOSINOPHIL % 0.1 % (0.0-5.0); LYMPHOCYTES # 0.4 10^3/uL (1.0-4.8); LYMPHOCYTES % 4.3 % (24.0-44.0); MEAN CELL HGB 28.9 pg (26-34); MEAN CELL HGB CONCENTRATION 32.3 g/dL (33-37); MEAN CORP VOLUME 89.3 fL (78-100); MEAN PLATELET VOLUME 10.1 fL (7.8-11.0); MONOCYTES # 0.4 10^3/uL (0.3-0.8); MONOCYTES % 4.4 % (5.0-12.0); NEUTROPHIL # 8.7 10^3/uL (1.8-7.7); NEUTROPHILS % 90.9 % (41.0-85.0); RED CELL DISTRIBUTION WIDTH 14.5 % (11.5-14.5); WHITE BLOOD CELL 9.6 10^3/uL (4.5-11.0)
--- NOTE | 2018-02-15 05:30 | NUR ---
CHG BATH RENDERED CHG BATH TO PATIENT. EXPLAINED THE PROCEDURE AND IMPORTANCE OF CHG BATH. CAREFULLY FOLLOWED STEP BY STEP PROCEDURE ON HOW TO USE THE CHG CLOTHS AVOIDING CONTACT WITH EYES, EARS AND MOUTH. CLOTHS DISCARDED IN TRASH AFTER USE. DONNED NEW GOWN. CHANGED PILLOW CASES AND LINENS. FACE, CORA & DIAL CARE DONE USING NON RINSE CLEANSER. HAIR SHAMPOOING DONE.
[2018-02-15 05:45] LABS: ALANINE AMINOTRANSFERASE(ML) 31 U/L (12-78); ALKALINE PHOSPHATASE 61 U/L (50-136); ASPARTATE AMINO TRANSFERASE 35 U/L (0-35); CALCIUM 7.8 mg/dL (8.4-10.5); CARBON DIOXIDE 20.1 mmol/L (20.0-32); GLUCOSE 127 mg/dL (70-110)
--- NOTE | 2018-02-15 06:15 | NUR ---
IV INSERTED 22G TO RIGHT WRIST INSERTED USING ASEPTIC TECHNIQUE. IV SPLINT APPLIED TO SECURE SITE. CHANGED DRESSING TO RIGHT UPPER FOREARM 20 G SITE. NOTED GOOD BLOOD RETURN. FLUSHED WITH SALINE. IV ON LEFT UPPER ARM 20G DISCONTINUED D/T OCCLUSION & LEAK TO SITE.
[2018-02-15 06:30] LABS: BAND NEUTROPHILS 34 % (2-6); BASOPHIL 1 % (0-2); LYMPHOCYTE 3 % (25-36); MONOCYTE 2 % (3-9); SEGMENTED NEUTROPHILS 60 % (31-76)
--- NOTE | 2018-02-15 06:30 | NUR ---
AFEBRILE PATIENT REMAINED AFEBRILE. LATEST TEMP 98.9 AXILLARY. KEPT AFFECTED LEG ELEVATED WITH ONE PILLOW.
--- NOTE | 2018-02-15 06:45 | NUR ---
REPORT TO AM SHIFT ENDORSED PATIENT ACCORDINGLY.
[2018-02-15] MEDS ORDERED: ASPIRIN ONE (07:48)
[2018-02-15] MEDS ORDERED: PROTONIX PO ONE (07:49)
--- NOTE | 2018-02-15 08:00 | NUR ---
Mobility Patient mobility level C. Patient will sit up in chair position atleast once during this shift and participate in self care activities if able.
[2018-02-15] MEDS: PROTONIX PO SCH (08:05)
[2018-02-15] MEDS: ASPIRIN EC PO SCH (08:06)
[2018-02-15] MEDS: ATROVENT IH PRN (08:12)
--- NOTE | 2018-02-15 09:25 | NUR ---
O2 O2 placed on patient for oxygen level of 82% on room air. 2L via nasal canula applied. O2 at 95%
--- NOTE | 2018-02-15 10:21 | NUR ---
Rash Red splotchy rash noted to bilateral upper extremities. Dr. Dumont notified. New order received for Benadryl 25mg po q6hr prn. RBTO. Will take pictures
[2018-02-15] MEDS ORDERED: BENADRYL PO ONE (10:22)
--- NOTE | 2018-02-15 11:20 | NUR ---
RT Castro with RT at bedside for ABG.
[2018-02-15 11:29] LABS: ABG PCO2 32.1 mmHg (35.0-45.0); ABG PH 7.372 (7.350-7.450); HCO3act 18.2 mmol/L (22.0-26.0); pO2 72.4 mmHg (75.0-100.0)
[2018-02-15] MEDS: TYLENOL PO PRN ×2 (11:58→17:17)
[2018-02-15] MEDS ORDERED: ZOSYN 4.5 GRAM VIAL 4.5 GM in NS 100ML 100 ML IV SCH (12:00)
--- NOTE | 2018-02-15 12:32 | NUR ---
Temperature Dr. Dumont notified of 101.6 temperature and need for medication reconciliation. He stated he would do it once he discharges his patient's on [facility].
--- NOTE | 2018-02-15 12:55 | NUR ---
Dr. Julia Dumont at bedside assessing patient and rash to left upper arm. New orders received.
[2018-02-15] MEDS: ZOFRAN IV PRN (13:17)
[2018-02-15] MEDS ORDERED: SOLU-MEDROL IV STA (13:18)
--- NOTE | 2018-02-15 14:30 | NUR ---
Dermatitis Dermatitis spreading throughout patient's body. Patient reports itching in certain spots. Patient denies any shortness of breath or trouble breathing. MD aware. Pictures taken and placed in chart. Will continue to monitor. Addendum: 02/15/18 at 1854 by Na Saleh RN-CONTINUING EDUCATION INSTRUCTOR Sarabjit schultz
--- NOTE | 2018-02-15 14:30 | NUR ---
Up to chair Assisted patient up to chair, stand by assistance. Left lower extremity elevated on pillow. Call light within reach.
[2018-02-15] MEDS: BENADRYL PO PRN ×3 (15:47→22:28)
--- NOTE | 2018-02-15 16:48 | NUR ---
Dr. Dumont Attempted to notify Dr. Dumont of patient's dermatitis spreading across face and stomach. No response. Awaiting return phone call.
--- NOTE | 2018-02-15 16:59 | NUR ---
Dr. Cee Attempted to notify Dr. Cee again. No response. Awaiting return phone call.
--- NOTE | 2018-02-15 17:37 | NUR ---
Dr. Dumont Notified Dr. Dumont of patient's dermatitis spreading and of patient's temperature of 100.6. Also of medication reconciliation not being completed. New order received to stop zosyn and start Clindamycin 900mg IV q8 hour, Solumedrol 40mg q8hr x3 doses, and to increase tylenol 1000mg q4hr prn for temperature. RBTO.
--- NOTE | 2018-02-15 17:54 | NUR ---
Unable to obtain ABG at this time, pt has limited sites to stick and is a very difficult stick. Called Dr. Dumont at 1752 to notify but no answer and no voicemail.
[2018-02-15] MEDS ORDERED: TYLENOL PO PRN ×2 (18:00)
--- NOTE | 2018-02-15 18:00 | NUR ---
RT Castro with RT at bedside for ABG. Unsuccessful x 1 attempt. She attempted to notify Dr. Dumont with no answer. Stated she is awaiting new orders.
[2018-02-15] MEDS ORDERED: SOLU-MEDROL ONE (18:03)
--- NOTE | 2018-02-15 18:35 | NUR ---
RECEIVED PATIENT REPORT RECEIVED FROM PALAK GIPSON. PATIENT SITTING ON A RECLINER WITH LEFT LEG ELEVATED ON A PILLOW. NOTED MARKED GENERALIZED RASH IN VARIOUS SIZE AND SHAPE. RASHES ARE FLAT, THIN AND PRURITIC STATED BY THE PATIENT. CALL LIGHT AND TABLE IN REACH. ROOM IS CLUTTER FREE. PT DENIED ANY CONCERNS OR NEEDS AT THIS TIME. SHE IS FEBRILE WITH LATEST TEMP 100 f AXILLARY- TAKEN DURING BEDSIDE REPORT.
--- NOTE | 2018-02-15 19:44 | NUR ---
HOME MEDS RECONCILIATION NOTIFIED DR CRUZ THAT HOME MEDICATION TO DATE IS STILL PENDING FOR HIS REVIEW. AWAITING FOR NEW ORDERS TO CONTINUE PATIENT'S HOME MEDS.
[2018-02-15] MEDS: AMBIEN PO PRN (20:12)
[2018-02-15] MEDS: LOVENOX SQ SCH (20:12)
[2018-02-15] MEDS: ULTRAM PO PRN (20:14)
[2018-02-15] MEDS ORDERED: CLEOCIN IV SCH (22:00)
[2018-02-15] MEDS ORDERED: SOLU-MEDROL IV SCH (22:00)
[2018-02-15] MEDS ORDERED: CLEOCIN 900 MG-D5W-GALAXY 50 ML IV ONE (22:20)
[2018-02-15] MEDS: CLEOCIN 900 MG-D5W-GALAXY 50 ML IV SCH (22:27)
[2018-02-16] VITALS (77 sets, daily range): BP systolic 78–146; BP diastolic 37–106
--- NOTE | 2018-02-16 01:00 | NUR ---
O2 DESATURATION BETWEEN 5Y7-74% LASTED FEW SECONDS. INSTRUCTED PATIENT TO SLEEP ON HER BACK FROM RIGHT SIDE LYING POSITION. IMMEDIATE INCREASE OF SPO2 TO 97% NOTED.
[2018-02-16] MEDS: LACTATED RINGERS 1,000 ML IV SCH ×4 (02:54→13:01)
[2018-02-16] MEDS: SOLU-MEDROL IV SCH ×3 (02:54→16:01)
--- NOTE | 2018-02-16 03:24 | PNH ---
DATE: SUBJECTIVE: The patient is seen in the ICU. She did not require pressor agents. Urine output is a little sluggish, but lactic acid has finally dropped. She has developed a rash on both arms and says she is a little nauseated. She says she in the past had a rash and hair loss when on vancomycin. Her left leg is still intensely cellulitic. CURRENT MEDICATIONS: Vancomycin, Zosyn, aspirin, Lovenox, Seanor, and pantoprazole. PHYSICAL EXAMINATION: VITAL SIGNS: Temperature currently 101.6, heart rate 124, respirations 23, and pulse ox 95% on room air. NECK: Without JVD, thyromegaly, or adenopathy. LUNGS: Clear anteriorly. CARDIOVASCULAR: Regular rate and rhythm. ABDOMEN: Morbidly obese, otherwise soft, benign. EXTREMITIES: Cellulitis left leg, huge, legs with brawny edema. NEUROLOGIC: Mentating well, not sleepy. LABORATORY DATA: WBC 9.6, hemoglobin 13.0, platelets 178. Eosinophil count is 0.1%. CMP notable for CO2 of 20.1, BUN 14, creatinine 1.25, and albumin 2.5. IMPRESSION AND PLAN: 1. Sepsis secondary to intense left lower extremity cellulitis. Adequate resolution of the lactic acidosis with IV fluid support and antibiotics. The concern now is that the rash that she is developing looks like a legitimate drug rash, most likely from vancomycin. We will stop the vancomycin, administer Solu-Medrol x 1. We will do MRSA screen of the nares. 2. Left lower extremity cellulitis. 3. Morbid obesity. 4. Obstructive sleep apnea, may use BiPAP as needed. 5. History of hypertension. 6. Chronic back pain. 7. Prophylaxis. PPI, Lovenox. 8. Thirty-five minutes spent. Khadar Cee MD DR: JOSE/brittany JOB# [id number]
--- NOTE | 2018-02-16 03:41 | NUR ---
SOLU MEDROL 3 DOSES NON ADMINISTERED SCHEDULED DOSE FOR 0600 TODAY. 1 OF 3 DOSE ADMINISTERED @ 1806 2 OF 3 DOSE ADMINISTERED @ 253 3 OF 3 DOSE DUE FOR ADMINISTRATION @ 1000 Addendum: 02/16/18 at 0345 by Tisha Buck RN- TUBE MOLDER FIBERGLASS FIRST DOSE 02/15/2018 @ 1807 SECOND DOSE 02/16/2018 @ 0254
[2018-02-16 04:29] LABS: BASOPHIL % 0.1 % (0.0-0.2); EOSINOPHIL % 0.3 % (0.0-5.0); HEMOGLOBIN 11.9 g/dL (12.0-15.0); LYMPHOCYTES # 0.6 10^3/uL (1.0-4.8); LYMPHOCYTES % 4.6 % (24.0-44.0); MEAN CELL HGB 29.4 pg (26-34); MEAN CELL HGB CONCENTRATION 33.1 g/dL (33-37); MEAN CORP VOLUME 88.6 fL (78-100); MEAN PLATELET VOLUME 9.7 fL (7.8-11.0); MONOCYTES # 0.7 10^3/uL (0.3-0.8); MONOCYTES % 5.5 % (5.0-12.0); NEUTROPHIL # 11.1 10^3/uL (1.8-7.7); NEUTROPHILS % 88.7 % (41.0-85.0); RED CELL DISTRIBUTION WIDTH 14.3 % (11.5-14.5); WHITE BLOOD CELL 12.5 10^3/uL (4.5-11.0)
[2018-02-16 04:31] LABS: ABG PCO2 26.5 mmHg (35.0-45.0); ABG PH 7.488 (7.350-7.450); BE(B) -2.3 mmol/L (-2.0-2.0); HCO3act 19.7 mmol/L (22.0-26.0); pO2 114.4 mmHg (75.0-100.0)
[2018-02-16] MEDS: ATROVENT IH PRN (04:34)
[2018-02-16 04:39] LABS: CALCIUM 7.7 mg/dL (8.4-10.5); CARBON DIOXIDE 24.2 mmol/L (20.0-32)
[2018-02-16] MEDS ORDERED: CLEOCIN 900 MG-D5W-GALAXY 50 ML IV ONE (04:49)
[2018-02-16] MEDS: CLEOCIN 900 MG-D5W-GALAXY 50 ML IV SCH ×2 (05:18→17:11)
--- NOTE | 2018-02-16 05:55 | NUR ---
LAB RESULTS NOTIFIED DR BROOKS FOR THE FF RESULTS: LACTIC ACID 2.2, CALCIUM 7.7, BICAR 20.5, WBC 12.5
--- NOTE | 2018-02-16 06:02 | NUR ---
NEED FOR ORDER CLARIFICATION ONE TIME ORDER FOR 1L NS @ 125 ML/HR NOTED. PT IS ON NPO. ATTEMPTED TO CALL DR CRUZ SEVERAL TIMES BUT TO NO AVAIL. Addendum: 02/16/18 at 0712 by Tisha Buck RN- AGRONOMIST wrong patient
--- NOTE | 2018-02-16 06:15 | NUR ---
TELEPHONE CALL TO DR ANTHONY CRUZ NOTIFIED OF LAB RESULTS. NO NEW ORDERS RECEIVED AT THIS TIME
--- NOTE | 2018-02-16 06:20 | NUR ---
IN CHAIR PER PATIENT'S REQUEST- ASSISTED PATIENT TO TRANSFER FROM BED TO CHAIR. NON SKID SOCKS ON. CALL LIGHT IN REACH. TABLE IN REACH. PATIENT IS FEBRILE. TEMP 102.3 ORAL
--- NOTE | 2018-02-16 07:13 | NUR ---
Report received from BRANDAN Giles and assumed care.
--- NOTE | 2018-02-16 07:13 | NUR ---
REPORT TO AM SHIFT ENDORSED PATIENT ACCORDINGLY
[2018-02-16] MEDS: BENADRYL PO PRN (07:19)
[2018-02-16] MEDS: TYLENOL PO PRN ×2 (07:21→20:55)
--- NOTE | 2018-02-16 07:30 | NUR ---
MOBILITY Patient's activity level is B, patient ambulated from chair to bed with standby assist.
--- NOTE | 2018-02-16 07:55 | NUR ---
Dr. Cee at bedside. Assess the patient and discuss plan of care. Patient verbalized that her generalized rash is 80% gone. New order received: Change IV flow rate from 200 ml/hr to 150 ml/hr.
--- NOTE | 2018-02-16 08:00 | NUR ---
Breakfast tray served.
[2018-02-16] MEDS: ASPIRIN EC PO SCH (09:06)
[2018-02-16] MEDS: PROTONIX PO SCH (09:06)
[2018-02-16] MEDS ORDERED: MAGNESIUM SULFATE 50 ML IV ONE ×2 (12:00→17:18)
[2018-02-16] MEDS ORDERED: NYSTOP TP PRN (12:30)
--- NOTE | 2018-02-16 15:40 | NUR ---
DISCHARGE PLAN CM VISITED WITH PATIENT REGARDING DISCHARGE PLAN AND NEEDS. PATIENT LIVES AT HOME WITH HER , DAUGHTER, AND 3 GRANDCHILDREN. SHE IS INDEPENDENT WITH ADL'S MOST OF THE TIME BUT SHE DOES REQUIRE HELP AT TIMES DUE TO BACK PAIN. SHE HAS A CANE AT HOME BUT DOESN'T HAVE TO USE IT VERY OFTEN. SHE DENIES NEED FOR ANY ADDITIONAL RESOURCES AT THIS TIME. SHE HAS A BIPAP IN PLACE THAT THE HOSPITAL HELPED HER OBTAIN BY PAYING HER $500 COPAY AFTER HER LAST INPATIENT STAY. SHE STATES THE MASK IS UNCOMFORTABLE SO SHE DOESN'T USE IT. CM DISCUSSED LTAC OPTIONS AND BENEFITS WITH PATIENT. PATIENT STATES SHE WOULD BE WILLING TO GO TO [facility] IN [place]. CLINICAL INFORMATION FAXED TO [facility]. CM DEPT WILL CONTINUE TO MONITOR DISCHARGE NEEDS.
[2018-02-16] MEDS ORDERED: SOLU-MEDROL ONE (15:58)
[2018-02-16] MEDS: NEURONTIN PO SCH (15:59)
[2018-02-16] MEDS: CELEXA PO SCH (15:59)
[2018-02-16] MEDS: BACID PO SCH (17:25)
[2018-02-16] MEDS ORDERED: NS 100ML 100 ML IV ONE (17:57)
--- NOTE | 2018-02-16 19:30 | NUR ---
Bedside report given to incoming shift nurses and relinquished care.
--- NOTE | 2018-02-16 19:53 | NUR ---
REPORT REPORT RECEIVED FROM GINA CALVILLO RN.
--- NOTE | 2018-02-16 20:30 | NUR ---
MOBILITY PATIENT MOBILITY C. PATIENT WILL SIT UP IN UP CHAIR AT LEAST ONCE THIS SHIFT AND PATIENT WILL PERFORM RANCH OF MOTION EXERCISES THIS SHIFT.
[2018-02-16] MEDS: LOPRESSOR PO SCH (20:55)
[2018-02-16] MEDS: LOVENOX SQ SCH (20:55)
[2018-02-16] MEDS: PHOS-NAK PACKET PO SCH (21:00)
[2018-02-17] VITALS (43 sets, daily range): BP systolic 101–163; BP diastolic 52–101
[2018-02-17] MEDS: BENADRYL PO PRN ×2 (00:02→21:00)
[2018-02-17] MEDS: AMBIEN PO PRN ×2 (00:03→23:26)
--- NOTE | 2018-02-17 00:25 | NUR ---
STATUS PATIENT GIVEN SPONGE BATH. SHOWER CAP WASHED HAIR. GOWN CHANGED. PATIENT MOVED FROM BED TO CHAIR FOR 30 MINUTES AND THEN BACK TO BED. DAUGHTER AT BEDSIDE. SIDE RAILS X2. CALL LIGHT WITHIN REACH. PATIENT DENIES ANY NEEDS AT THIS TIME.
[2018-02-17] MEDS: LACTATED RINGERS 1,000 ML IV SCH ×2 (02:12→08:06)
[2018-02-17 05:11] LABS: BASOPHIL % 0.1 % (0.0-0.2); HEMOGLOBIN 10.9 g/dL (12.0-15.0); LYMPHOCYTES # 0.8 10^3/uL (1.0-4.8); LYMPHOCYTES % 7.3 % (24.0-44.0); MEAN CELL HGB 28.5 pg (26-34); MEAN CELL HGB CONCENTRATION 31.6 g/dL (33-37); MEAN CORP VOLUME 90.1 fL (78-100); MEAN PLATELET VOLUME 10.3 fL (7.8-11.0); MONOCYTES # 0.6 10^3/uL (0.3-0.8); MONOCYTES % 5.3 % (5.0-12.0); NEUTROPHIL # 9.7 10^3/uL (1.8-7.7); NEUTROPHILS % 86.7 % (41.0-85.0); RED CELL DISTRIBUTION WIDTH 14.8 % (11.5-14.5); WHITE BLOOD CELL 11.2 10^3/uL (4.5-11.0)
[2018-02-17 05:54] LABS: CALCIUM 7.8 mg/dL (8.4-10.5); CARBON DIOXIDE 28.2 mmol/L (20.0-32)
--- NOTE | 2018-02-17 07:09 | PNH ---
DATE: SUBJECTIVE: The patient feels a little better today. The skin rash became much more diffuse later in the day yesterday prompting discontinuation of Zosyn and starting clindamycin instead. She was given Solu-Medrol and the rash is now subsiding. She is eating and the pain in her left leg is improving a little bit. CURRENT MEDICATIONS: IV clindamycin, Ringer's lactate, aspirin, Lovenox, Zofran, Protonix, Senokot, tramadol. PHYSICAL EXAMINATION: VITAL SIGNS: Temperature early this morning 102.3, heart rate 113, respirations 21, BP 116/56, pulse ox 91% on 2 liters. NECK: Without JVD, thyromegaly, or adenopathy. LUNGS: Clear anteriorly. CARDIOVASCULAR: Regular rate and rhythm. ABDOMEN: Morbidly obese, otherwise, benign. EXTREMITIES: Left leg thickening and cellulitis is slightly improved. LABORATORY DATA: WBC 12.5, hemoglobin 11.9, platelet 168. BMP showing CO2 of 20.5, anion gap 12.2, BUN 19, creatinine 1.27, magnesium 1.4, phosphorus 2.4. IMPRESSION AND PLAN: 1. Sepsis secondary to intense left lower extremity cellulitis. On IV clindamycin at this point. Seems to be gradually improving. Lactic acidosis is resolving. 2. Left lower extremity cellulitis. 3. Morbid obesity. 4. Hypomagnesemia. We will replace. 5. Hypophosphatemia, we will replace. 6. Obstructive sleep apnea. 7. History of hypertension. 8. Chronic back pain. 9. Prophylaxis. PPI and Lovenox. Thirty-five minutes spent. Khadar Cee MD DR: JOSE/brittany JOB# [id number]
--- NOTE | 2018-02-17 07:15 | NUR ---
RECEIVED REPORT AND PATIENT CARE ASSUMED PATIENT RESTING QUIETLY IN BED WITH EYES CLOSED. O2 ON AT 2L/MIN VIA NC. DAUGHTER AT SIDE OF BED. CALL LIGHT WITHIN EASY REACH.
--- NOTE | 2018-02-17 07:17 | NUR ---
REPORT REPORT GIVEN TO ONCOMING SHIFT
--- NOTE | 2018-02-17 07:35 | NUR ---
ASSESSMENT/ACTIVITY LEVEL B ASSESSMENT COMPLETED CHARTED, SEE EMR. NO DISTRESS NOTED. PATIENT DENIES ANY PAIN AT THIS TIME. LUNG CTAB. HR REGULAR. RADIAL PULSE 2+, PEDAL PULSE 1+. EDEMA NOTED TO BLE. LEFT LEG CELLULITIS NOTED, SITE HOT, DRY, NO DRAINAGE NOTED. EXT ELEVATED ON PILLOWS. DIAL CATH TO GRAVITY DRAINING RAMANA COLOR URINE.
[2018-02-17] MEDS: CLEOCIN 900 MG-D5W-GALAXY 50 ML IV SCH ×4 (08:06→23:22)
[2018-02-17] MEDS: BACID PO SCH ×3 (08:07→17:04)
[2018-02-17] MEDS: PROTONIX PO SCH (08:07)
[2018-02-17] MEDS: ASPIRIN EC PO SCH (08:07)
[2018-02-17] MEDS: NEURONTIN PO SCH (08:07)
[2018-02-17] MEDS: LOPRESSOR PO SCH ×2 (08:07→20:58)
[2018-02-17] MEDS: CELEXA PO SCH (08:07)
[2018-02-17] MEDS: PHOS-NAK PACKET PO SCH ×2 (08:08→21:36)
--- NOTE | 2018-02-17 08:15 | NUR ---
MOBILITY PATIENT ASSISTED TO SIDE OF BED. PATIENT AMB TO CHAIR WITH STANDBY ASSIST. PATIENT SAT FOR BREAKFAST. NO DISTRESS NOTED. DAUGHTER SITTING NEXT TO PATIENT. CALL LIGHT WITHIN EASY REACH. am MEDICATION GIVEN, SEE EMAR.
--- NOTE | 2018-02-17 09:45 | NUR ---
MOBILITY PATIENT AMBULATED BACK INTO BED WITH STANDBY ASSIST. PATIENT ASSISTED WITH GETTING LEFT LEG BACK IN BED. PATIENT HAD INCREASE BREATHING WITH ACTIVITY. AUDIBLE WHEEZING NOTED. RT TO BE NOTIFIED. PATIENT DENIES ANY FURTHER NEEDS. HOB ELEVATED 30 DEGREES AND CALL LIGHT WITHIN EASY REACH.
--- NOTE | 2018-02-17 10:30 | NUR ---
DR. CRUZ AT BEDSIDE ASSESSING PATIENT AND DISCUSSING PLAN OF CARE. NO DISTRESS NOTED. PATIENT TO BE TRANSFER TO MED/SURG FLOOR TODAY.
[2018-02-17] MEDS: VENTOLIN IH PRN (10:43)
--- NOTE | 2018-02-17 11:27 | NUR ---
TRANSFER TO MED/SURG PATIENT TRANSFER VIA BARIATRIC BED AND PATIENT BELONGS. NO DISTRESS NOTED. REPORT GIVEN TO Christel RINALDI RN. PATIENT ORIENTED TO ROOM, AND CALL LIGHT.
--- NOTE | 2018-02-17 11:27 | NUR ---
REPORT RECEIVED FROM Christel KAUFFMAN RN
[2018-02-17] MEDS: NORCO 5MG PO PRN ×2 (17:04→23:27)
[2018-02-17] MEDS: LOVENOX SQ SCH (20:57)
[2018-02-18 00:41] VITALS: BP 118/78
[2018-02-18] MEDS: LACTATED RINGERS 1,000 ML IV SCH ×4 (02:34→22:52)
[2018-02-18] MEDS: VENTOLIN IH PRN ×2 (04:08→13:57)
[2018-02-18] MEDS: NORCO 5MG PO PRN ×2 (04:21→18:13)
[2018-02-18 05:15] VITALS: BP 131/76
[2018-02-18 05:32] LABS: HEMOGLOBIN 10.3 g/dL (12.0-15.0); MEAN CELL HGB 28.8 pg (26-34); MEAN CELL HGB CONCENTRATION 31.7 g/dL (33-37); MEAN CORP VOLUME 90.8 fL (78-100); MEAN PLATELET VOLUME 10.1 fL (7.8-11.0); RED CELL DISTRIBUTION WIDTH 15.1 % (11.5-14.5); WHITE BLOOD CELL 11.4 10^3/uL (4.5-11.0)
[2018-02-18 06:02] LABS: CALCIUM 7.9 mg/dL (8.4-10.5); CARBON DIOXIDE 27.1 mmol/L (20.0-32)
[2018-02-18] MEDS: CLEOCIN 900 MG-D5W-GALAXY 50 ML IV SCH ×3 (06:20→21:33)
[2018-02-18 08:25] VITALS: BP 142/83
[2018-02-18] MEDS: LOPRESSOR PO SCH ×2 (08:32→21:42)
[2018-02-18] MEDS: CELEXA PO SCH (08:32)
[2018-02-18] MEDS: BACID PO SCH ×3 (08:32→17:51)
[2018-02-18] MEDS: NEURONTIN PO SCH (08:32)
[2018-02-18] MEDS: PROTONIX PO SCH (08:33)
[2018-02-18] MEDS: ASPIRIN EC PO SCH (08:33)
[2018-02-18] MEDS: TYLENOL PO PRN (08:34)
--- NOTE | 2018-02-18 08:34 | NUR ---
temp 100.7 Pt TEMP 100.7 ADMINISTERED TYLENOL 1000 MG PRN PRE ORDER WILL REASSES THE Pt.
--- NOTE | 2018-02-18 08:45 | NUR ---
Pt WHEEZING NOTIFIED RT MS NAOMY.
[2018-02-18] MEDS: ZOFRAN IV PRN (09:10)
--- NOTE | 2018-02-18 09:25 | NUR ---
C/O OF NAUSEA Pt C/O OF NAUSEA, ADMINISTERED ZOFRAN 4 MG IV PER ORDER, WILL REASSESS THE Pt.
--- NOTE | 2018-02-18 10:13 | NUR ---
REASSESSED THE TEMP ITS 98.9 AT THIS TIME.
--- NOTE | 2018-02-18 11:16 | PNH ---
DATE: SUBJECTIVE: The patient is clearly feeling better. Her rash has subsided. She is eating well. She got out of bed. Her left leg, however, is still quite red and still somewhat painful. CURRENT MEDICATIONS: Clindamycin, Ringer's lactate, aspirin, Celexa, Lovenox, gabapentin, Lopressor, Protonix. PHYSICAL EXAMINATION: VITAL SIGNS: Afebrile, pulse 74, respirations 20, BP 115/55, pulse ox 97% on 2 liters. NECK: Without JVD, thyromegaly or adenopathy. LUNGS: Clear anteriorly. CARDIOVASCULAR: Normal S1, S2 without significant murmur. ABDOMEN: Without hepatosplenomegaly or masses, nontender, bowel sounds normal. EXTREMITIES: Chronic venous stasis changes and diffuse erythema and warmth of the left leg. No C, C or E, otherwise. LABORATORY DATA: WBC 11.2, hemoglobin 10.9, platelet 159. BMP is notable for BUN 20, creatinine 1.13, which is improving. ASSESSMENT AND PLAN: 1. Sepsis secondary to intense left lower extremity cellulitis. Improving on IV clindamycin. Had developed a diffuse drug rash, probably secondary to Zosyn. 2. Lactic acidosis, resolved. 3. Left lower extremity cellulitis; plan on continuing IV clindamycin at least 7 days and then possibly transition to oral agents. Adding lactobacillus probiotic affect. 4. Morbid obesity. 5. Obstructive sleep apnea. 6. History of hypertension. 7. Chronic back pain. 8. Prophylaxis. PPI and Lovenox. Thirty-five minutes spent. Khadar Cee MD DR: JOSE/brittany JOB# [id number]
[2018-02-18] MEDS ORDERED: VANCOMYCIN HCL 1.5 GM in NS 250ML 300 ML IV ONE (11:30)
[2018-02-18 11:34] LABS: BASOPHIL % 0.2 % (0.0-0.2); EOSINOPHIL # 0.4 10^3/uL (0.0-0.2); EOSINOPHIL % 3.1 % (0.0-5.0); LYMPHOCYTES # 1.7 10^3/uL (1.0-4.8); LYMPHOCYTES % 14.5 % (24.0-44.0); MONOCYTES % 8.6 % (5.0-12.0); NEUTROPHIL # 8.6 10^3/uL (1.8-7.7)
[2018-02-18 11:46] VITALS: BP 109/67
[2018-02-18] MEDS: ULTRAM PO PRN (13:26)
--- NOTE | 2018-02-18 13:26 | NUR ---
C/O OF PAIN Pt C/O OF PAIN IN 6/10 RATING ACHING PAIN ADMINISTERED ULTRAM 50 MG WILL REASSESS THE Pt.
[2018-02-18] MEDS: BENADRYL PO PRN (13:41)
--- NOTE | 2018-02-18 14:04 | NUR ---
SPONGE BATH SPONGE BATH PROVIDE TO THE Pt, NOTICED FEW OOZING BLISTER ON L LEG, CLEANED AREA WITH WOUND CLEANSER ,PAT DRIED AND APPLIED KERLEX DRESSING, Pt C/O OF ITCHINESS ON L LEG, ADMINISTERED BENADRYL 25 MG PO, PRN WILL REASSESS THE Pt.
[2018-02-18 16:02] VITALS: BP 127/77
--- NOTE | 2018-02-18 18:37 | NUR ---
BEDSIDE REPORT BEDSIDE REPORT GIVEN TO MEMBERSHIP MANAGER NURSE CHARISSA HARDIN.
--- NOTE | 2018-02-18 18:38 | NUR ---
Report Received bedside report from BRANDAN El
--- NOTE | 2018-02-18 19:36 | NUR ---
Patient resting in bed with eyes open. Denies pain at this time. Carranza flowing to gravity. Nasal canula in place @ 1 Liter. Dressing to left leg C/D/I. Will continue to monitor. Call light within reach.
[2018-02-18] MEDS: LOVENOX SQ SCH (21:33)
[2018-02-18 21:43] VITALS: BP 117/67
[2018-02-18] MEDS: VANCOMYCIN HCL 1.5 GM in NS 250ML 300 ML IV SCH (23:59)
--- NOTE | 2018-02-19 00:07 | PNH ---
DATE: SUBJECTIVE: The patient is doing about the same. She says her left leg is hurting, particularly on the underside where she has it compressed against the bed or the chair most of the time, this is even with an air flotation mattress. No cough, congestion, diarrhea noted. CURRENT MEDICATIONS: Clindamycin, Ringer's lactate, aspirin, Celexa, Lovenox, gabapentin, lactobacillus, Lopressor, Protonix. PHYSICAL EXAMINATION: VITAL SIGNS: Temperature 100.7, heart rate 93, respirations 18, BP 142/83, pulse ox 95% on 3 liters. NECK: Without JVD, thyromegaly, or adenopathy. LUNGS: Clear anteriorly. CARDIOVASCULAR: Normal S1 and S2, without significant murmur. ABDOMEN: Morbidly obese, otherwise benign. EXTREMITIES: The right leg still looks very red and warm. The deep skin creases show a significant amount of oozing and borderline skin breakdown as does the back of her left leg. LABORATORY DATA: WBC 11.4, hemoglobin 10.3, platelet 176. BMP is essentially normal. IMPRESSION AND PLAN: 1. Sepsis secondary to intense left lower extremity cellulitis, lactic acidosis has resolved. However, the clinical appearance of her left leg has not improved that much. To recap, she was started on ceftriaxone and vancomycin. She developed a rash on her arms after around 36 hours, which spread throughout most of her body and in retrospect was attributed to ceftriaxone and subsequent Zosyn rather than vancomycin. The Zosyn and vancomycin were stopped simultaneously, however her MRSA screen is positive. She may need double coverage for methicillin-resistant Staphylococcus aureus at this point and will resume the vancomycin, as I do not believe that this was responsible for skin rash. Also, she just recently got 3 doses of Solu-Medrol and should not be primed for an immunologic reaction. 2. Severe left lower extremity cellulitis, associated with morbid obesity. We will try to get Wound Care involved and place moist saline compresses in the skin folds and also over the dependent areas where there is some emaciation and apply Kerlix dressings. 3. Morbid obesity. 4. Obstructive sleep apnea. 5. Hypertension. 6. Chronic back pain. 7. Prophylaxis: PPI, Lovenox. DISPOSITION: The patient is geared up to go to an LTAC early to mid part of the week. Thirty-five minutes spent. Khadar Cee MD DR: Barbra JOB# [id number]
[2018-02-19 00:40] VITALS: BP 133/77
[2018-02-19] MEDS: NORCO 5MG PO PRN ×2 (03:46→17:48)
[2018-02-19 04:23] VITALS: BP 146/90
--- NOTE | 2018-02-19 04:26 | NUR ---
Dressing change to patient left leg.ABD pad times three wrapped with kerlex.
--- NOTE | 2018-02-19 04:28 | NUR ---
Patient up sitting in chair. Carranza flowing to gravity. Nasal canula in place @1 Liter.
[2018-02-19] MEDS: CLEOCIN 900 MG-D5W-GALAXY 50 ML IV SCH (05:34)
[2018-02-19] MEDS: LACTATED RINGERS 1,000 ML IV SCH (05:34)
[2018-02-19 05:43] LABS: CALCIUM 8.1 mg/dL (8.4-10.5)
--- NOTE | 2018-02-19 07:00 | NUR ---
Report Report given to Alicia Church RN
[2018-02-19 07:25] VITALS: BP 128/83
[2018-02-19] MEDS: BACID PO SCH ×3 (07:52→17:38)
[2018-02-19] MEDS: NEURONTIN PO SCH (07:53)
[2018-02-19] MEDS: LOPRESSOR PO SCH (07:53)
[2018-02-19] MEDS: ASPIRIN EC PO SCH (07:53)
[2018-02-19] MEDS: PROTONIX PO SCH (07:54)
[2018-02-19] MEDS: CELEXA PO SCH (07:54)
--- NOTE | 2018-02-19 08:04 | DIET.OP ---
Nutrition Asmt/Malnutrit 2-17 Nutritional Screening: Malnutr/Diet Consult Diagnosis: left LE reddness and swelling Pertinent Medical Hx/Surgical: untreated obstructive sleep apnea, severe morbid obesity, chronic back pain, HTN, CHF, diastolic dysfunction Subjective Information: Spoke with the patient while in the ICU who reported she had a poor appetite due to some nausea and feeling poor. Pt is now consuming 50-100% of her meals over the past 2 days. Have seen the patient before and she has reported that she was planning on getting bariatric surgery once she is able to meet all criteria for the surgery. RN reported on 02/15/18 that family had brought her [employer] for dinner instead of eating food provided by the hospital. No N/V/C/D at this time. The patient reports that she has lost some weight, however weight reports show she has gained about 16 pounds since her last admisson in December. She says she is unable to do much physical activity or even walk around for long periods of time. Current Diet Order/Nutrition S: Regular Pertinent Meds Current Medications Medications (Trade) Dose Ordered Sig/Angel PRN Reason Start Time Stop Time Status Last Admin Albuterol Sulfate (Ventolin) 2.5 mg RTQ4 PRN SHORTNESS OF BREATH 02/16/18 13:00 03/18/18 12:59 02/18/18 13:57 Citalopram Hydrobromide (Celexa) 20 mg DAILY 02/16/18 12:30 03/18/18 12:29 02/19/18 07:54 Clindamycin Phosphate 50 ml @ 50 mls/hr Q8 02/17/18 00:00 03/19/18 00:00 02/19/18 05:34 Gabapentin (Neurontin) 300 mg DAILY 02/16/18 12:30 03/18/18 12:29 02/19/18 07:53 Lactobacillus Acidophilus (Bacid) 1 each TIDM 02/17/18 12:00 03/19/18 11:59 02/19/18 07:52 Metoprolol Tartrate (Lopressor) 50 mg BID 02/16/18 21:00 03/18/18 20:59 02/19/18 07:53 Nystatin (Nystop) 1 gm PRN PRN ITCHING 02/16/18 12:30 03/18/18 12:29 02/18/18 13:26 Pantoprazole Sodium (Protonix) 40 mg DAILY 02/17/18 09:00 03/19/18 08:59 02/19/18 07:54 Vancomycin HCl 1.5 gm/Sodium Chloride 300 ml @ 175 mls/hr Q12H 02/18/18 23:30 03/20/18 23:29 02/18/18 23:59 Pertinent Labs Laboratory Tests 02/19/18 05:16: Erythrocyte Sedimentation Rate 120H, Sodium Level 138, Potassium Level 3.9, Chloride Level 101.0, Carbon Dioxide Level 28.0, Glucose Level 117H, Blood Urea Nitrogen 15, Creatinine 1.02, Calcium Level 8.1L, Anion Gap 12.9, Estimated GFR () 68.1, BUN/Creatinine Ratio 14.0 Height (Feet): 5 Height (Inches): 6 Current Weight: 442 Usual Weight: 432 %UBW: 102 %IBW: 332 Recent Weight Change: Yes Weight Status: Morbid Obese GI Symptoms: [place] (02/14/18) Food Allergies: Yes (Egg) Cultural/Ethnic/Amish [place]: none reported Current %PO: Good(75-100%) BEE in Kcals: Adj WT of IBW (94kg) Calories/Kcals/Kg: MsJ * 1.2-1.3 Kcals Calculated: 7445-2726 Protein: Adj WT of IBW (94kg) Protein g/k.25-1.5 g/kg Protein Calculated: 117g-141g Fluid: ml: 7206-4076 (1mL/kcal) Nutritional Problem: Nutr. Problems Present Problems: Overweight/obese Etiology: excess energy intake Signs/Symptoms: BMI of 71.4, 332% IBW, 102% UBW RD Comments: Intervention: 1. Continue with a regular diet 2. Encourage diet education for healthy eating 3. Provide extra protein and calories to encourage wound healing Monitor/evaluate: 1. wt status 2. po intake Expected Outcomes Goal: 1. The patient will consume 100% of meals provided to meet 100% of estimated energy needs Discharge Plan: 1. Discharge plan in progress 2. Will discharge patient home on regular diet when appropriate JAGDEEP ARENAS RD Feb 19, 2018 08:04
[2018-02-19] MEDS: BENADRYL PO PRN (08:22)
[2018-02-19] MEDS: VANCOMYCIN HCL 1.5 GM in NS 250ML 300 ML IV SCH (11:11)
--- NOTE | 2018-02-19 11:15 | NUR ---
STATUS ASSISTED PT FROM CHAIR BACK TO BED. BED IS IN LOW POSITION WITH SIDE RAILS UP X2. CALL LIGHT AND TABLE ARE WITHIN REACH.
--- NOTE | 2018-02-19 11:30 | NUR ---
STATUS DRESSING CHANGED ON LEFT LEG. 4 ABD PADS AND KERLIX USED TO WRAP L LEG. PT DENIES ANY OTHER NEEDS AT THIS TIME.
[2018-02-19 12:03] VITALS: BP 150/86
--- NOTE | 2018-02-19 15:28 | DIREP ---
PROCEDURE:CHEST 1 VIEW COMPARISON:[facility], CT, CTA CHEST, 02/14/2018, 12:09 PM. [facility], CR, XRAY CHEST SINGLE VW, 02/14/2018, 11:17 AM. INDICATIONS:picc line placement FINDINGS: LUNGS/PLEURA:No significant pulmonary parenchymal abnormalities. No effusions. VASCULATURE:Pulmonary venous congestion is noted. CARDIAC:The heart appears mildly enlarged. MEDIASTINUM:Normal. No visible mass or adenopathy. BONES:Normal. No fracture or visible bony lesion. OTHER:A PICC line via the right upper extremity approach is in good position with tip in the distal superior vena cava. CONCLUSION: 1. PICC line in good position with tip in the distal superior vena cava. 2. Mild cardiomegaly with mild pulmonary venous congestion demonstrated. Dictated by: Justin Marvin M.D. on 02/19/2018 at 03:25 PM
--- NOTE | 2018-02-19 16:03 | DIREP ---
PROCEDURE:CHEST 1 VIEW COMPARISON:[facility], CR, XRAY CHEST SINGLE VW, 02/19/2018, 02:39 PM. INDICATIONS:RE-EVAL OF PICC LINE PLACEMENT FINDINGS: LUNGS/PLEURA:No significant pulmonary parenchymal abnormalities. No effusions. VASCULATURE:Pulmonary venous congestion is noted. CARDIAC:The heart appears mildly enlarged. MEDIASTINUM:Normal. No visible mass or adenopathy. BONES:Normal. No fracture or visible bony lesion. OTHER:A PICC line via the right upper extremity approach is in good position with tip in the distal superior vena cava. CONCLUSION:PICC line in good position. Continued mild edema is suspected Dictated by: Aleksander Kent MD on 02/19/2018 at 03:56 PM
--- NOTE | 2018-02-19 16:10 | NUR ---
STATUS DRESSING CHANGED ON LEFT LEG USING ABD PADS AND KERLIX. PT DENIES ANY OTHER NEEDS AT THIS TIME.
[2018-02-19 16:27] VITALS: BP 157/90
--- NOTE | 2018-02-19 16:50 | NUR ---
[facility] ACCEPT[facility]MA[facility]ORRES, [facility] @ [facility] CONTACTED DEPT REGARDING PATIENTS ACCEPTANCE. PATIENT WILL BE GOING TO ROOM [address] TODAY VIA EMS. DR. PINA IS THE ACCEPTING PHYSICIAN. DR. HIKCEY PHONE # IS [phone] MOHAN TO CALL AND DO DOC-DOC REPORT. NOTIFIED Casimiro RODGERS RN, MED SURG CHARGE NURSE OF ABOVE INFORMATION AND THAT THEY CAN CALL REPORT TO [phone]. CM DEPT WILL CONTINUE TO MONITOR DISCHARGE NEEDS.
--- NOTE | 2018-02-19 17:41 | PRM.DC ---
Discharge Summary Date of Discharge: Feb 19, 2018 Reason for Visit: Lower extremity infection Patient History: Asthma Hypertension History Present Illness: (1) Morbid obesity with BMI of 70 and over, adult Status: Chronic ICD Code: E66.01 - Morbid (severe) obesity due to excess calories; Z68.45 - Body mass index (BMI) 70 or greater, adult SNOMED: 414676147, 780137006 Assessment & Plan: Recommend outpatient sleep study (2) Sepsis Status: Resolved ICD Code: A41.9 - Sepsis, unspecified organism SNOMED: 32064388 (3) ERNESTO (obstructive sleep apnea) Status: Chronic ICD Code: G47.33 - Obstructive sleep apnea (adult) (pediatric) SNOMED: 26825201 (4) Cellulitis of left leg Permanent Comment: Left lower extremity is greater in circumference than right ; is erythematous with induration, weeping, inflammation, crusting. Pedal pulses palpable Last Edited By: Su Talamantes APRN, XEROX MACHINE ASSEMBLER on Apr 25, 2017 13: 17 SEVERITY: MODERATE PERSISTENT Status: Acute ICD Code: L03.116 - Cellulitis of left lower limb SNOMED: 249275610 General: Alert, Oriented X3, Cooperative, No acute distress HEENT: PERRLA, EOMI Neck: Supple, No JVD Lungs: Clear to auscultation, Normal air movement Heart: Regular rate, Normal S1, Normal S2 Abdomen: Normal bowel sounds, Soft, No tenderness Extremities: No cyanosis, Other (chronic lower extremity edema with bilateral erythema) Neuro: Normal speech, Strength at 5/5 X4 ext, Sensation intact, Cranial nerves 3-12 NL Psych/Mental Status: Mood NL Results(Labs/Rad) Laboratory Tests Test 02/18/18 05:22 02/19/18 05:16 White Blood Count 11.4 10^3/uL Red Blood Count 3.58 10^6/uL Hemoglobin 10.3 g/dL Hematocrit 32.5 % Mean Corpuscular Volume 90.8 fL Mean Corpuscular Hemoglobin 28.8 pg Mean Corpuscular Hemoglobin Concent 31.7 g/dL Red Cell Distribution Width 15.1 % Platelet Count 176 10^3/uL Mean Platelet Volume 10.1 fL Neutrophils (%) (Auto) 72.0 % Lymphocytes (%) (Auto) 14.5 % Monocytes (%) (Auto) 8.6 % Neutrophils # (Auto) 8.6 10^3/uL Lymphocytes # (Auto) 1.7 10^3/uL Monocytes # (Auto) 1.0 10^3/uL Absolute Immature Granulocyte (auto 0.19 10^3 u/L Eosinophils % 3.1 % Basophils % 0.2 % Basophils # 0.0 10^3/uL Eosinophil Count 0.4 10^3/uL Sodium Level 135 mmol/L 138 mmol/L Potassium Level 4.0 mmol/L 3.9 mmol/L Chloride Level 102.0 mmol/L 101.0 mmol/L Carbon Dioxide Level 27.1 mmol/L 28.0 mmol/L Glucose Level 114 mg/dL 117 mg/dL Blood Urea Nitrogen 17 mg/dL 15 mg/dL Creatinine 1.06 mg/dL 1.02 mg/dL Calcium Level 7.9 mg/dL 8.1 mg/dL Anion Gap 9.9 12.9 Estimated GFR () 65.1 68.1 BUN/Creatinine Ratio 16.0 14.0 Percent Immature Gran (Cell Imm) 1.60 % Erythrocyte Sedimentation Rate 120 mm/hr Scheduled Citalopram Hydrobromide (Citalopram Hbr), 20 MG PO DAILY24, (Reported) Gabapentin (Gabapentin), 300 MG PO DAILY24, (Reported) Metoprolol Tartrate 50MG (Lopresser 50MG), 1 TAB PO BID, (Reported) Oxybutynin Chloride (Oxybutynin Chloride Er), 10 MG PO DAILY24, (Reported) Pantoprazole Sodium (Pantoprazole Sodium), 40 MG PO DAILY24, (Reported) Scheduled PRN Albuterol Sulfate (Albuterol Sulfate), 1 VIAL NEB Q4HR PRN for SHORTNESS OF BREATH, (Reported) Nystatin (Nystop), 1 GM TP PRN PRN for ITCHING Discontinued Medications Citalopram Hydrobromide (Celexa), 1 TAB PO DAILY, (Reported) Discontinued Reason: No Longer Taking Gabapentin (Gabapentin), 600 MG PO BID, (Reported) Discontinued Reason: No Longer Taking Meloxicam (Meloxicam), 1 TAB PO BID, (Reported) Discontinued Reason: No Longer Taking Metoclopramide Hcl (Metoclopramide Hcl), 10 MG PO ACHS PRN for Nausea Discontinued Reason: No Longer Taking Nystatin (Nystatin), 500,000 UNIT PO TID Discontinued Reason: No Longer Taking Sepsis Evaluation @ Discharge 02/19/18 08:00 Course Sepsis Screening Results: Posi: POSITIVE Sepsis Qualifier/Stage: SEPSIS RISK Vitals & review Data Vital Sign - Last 24 Hours 02/18/18 02/18/18 02/18/18 02/19/18 21:14 21:43 22:54 00:40 Temp 98.9 98.9 98.9 98.9 Pulse 91 93 98 Resp 18 B/P (MAP) 117/67 (84) 133/77 (95) Pulse Ox 94 93 90 O2 Delivery Nasal Cannula Nasal Canula Nasal Cannula Nasal Canula O2 Flow Rate 1.00 1.00 1.00 1.00 FiO2 24 02/19/18 02/19/18 02/19/18 02/19/18 04:23 07:25 07:58 08:51 Temp 99.1 98.4 99.1 98.4 Pulse 94 82 87 Resp 18 16 B/P (MAP) 146/90 (108) 128/83 (98) Pulse Ox 91 96 93 O2 Delivery Nasal Canula Room Air Nasal Cannula Nasal Cannula O2 Flow Rate 1.00 1.00 1.00 FiO2 24 02/19/18 02/19/18 02/19/18 08:51 12:03 16:27 Temp 97.3 98.7 97.3 98.7 Pulse 87 79 86 Resp 18 B/P (MAP) 150/86 (107) 157/90 (112) Pulse Ox 93 92 98 O2 Delivery Nasal Canula Nasal Canula O2 Flow Rate 2.00 2.00 Intake and Output 02/18/18 02/18/18 02/19/18 15:00 23:00 07:00 Intake Total 440 ml 740 ml 540 ml Output Total 700 ml 950 ml Balance 440 ml 40 ml -410 ml Laboratory Tests Test 02/18/18 05:22 02/19/18 05:16 White Blood Count 11.4 10^3/uL Red Blood Count 3.58 10^6/uL Hemoglobin 10.3 g/dL Hematocrit 32.5 % Mean Corpuscular Volume 90.8 fL Mean Corpuscular Hemoglobin 28.8 pg Mean Corpuscular Hemoglobin Concent 31.7 g/dL Red Cell Distribution Width 15.1 % Platelet Count 176 10^3/uL Mean Platelet Volume 10.1 fL Neutrophils (%) (Auto) 72.0 % Lymphocytes (%) (Auto) 14.5 % Monocytes (%) (Auto) 8.6 % Neutrophils # (Auto) 8.6 10^3/uL Lymphocytes # (Auto) 1.7 10^3/uL Monocytes # (Auto) 1.0 10^3/uL Absolute Immature Granulocyte (auto 0.19 10^3 u/L Eosinophils % 3.1 % Basophils % 0.2 % Basophils # 0.0 10^3/uL Eosinophil Count 0.4 10^3/uL Sodium Level 135 mmol/L 138 mmol/L Potassium Level 4.0 mmol/L 3.9 mmol/L Chloride Level 102.0 mmol/L 101.0 mmol/L Carbon Dioxide Level 27.1 mmol/L 28.0 mmol/L Glucose Level 114 mg/dL 117 mg/dL Blood Urea Nitrogen 17 mg/dL 15 mg/dL Creatinine 1.06 mg/dL 1.02 mg/dL Calcium Level 7.9 mg/dL 8.1 mg/dL Anion Gap 9.9 12.9 Estimated GFR () 65.1 68.1 BUN/Creatinine Ratio 16.0 14.0 Percent Immature Gran (Cell Imm) 1.60 % Erythrocyte Sedimentation Rate 120 mm/hr Current Medications Medications (Trade) Dose Ordered Sig/Angel PRN Reason Start Time Stop Time Status Last Admin Lactobacillus Acidophilus (Bacid) 1 each TIDM 02/17/18 12:00 03/19/18 11:59 02/19/18 11:11 Metoprolol Tartrate (Lopressor) 50 mg BID 02/16/18 21:00 03/18/18 20:59 02/19/18 07:53 Pantoprazole Sodium (Protonix) 40 mg DAILY 02/17/18 09:00 03/19/18 08:59 02/19/18 07:54 Vancomycin HCl 1.5 gm/Sodium Chloride 300 ml @ 175 mls/hr Q12H 02/18/18 23:30 03/20/18 23:29 02/19/18 11:11 Plan Discharge Date: Feb 19, 2018 Dicharge DX: 1. Sepsis, 2. Cellulitis lower extremity, 3. Severe mordid obesity Discharge Disposition: Stable Plan Medications per discharge list IV Vancomycin 2-4 weeks Diet and activity as tolerated PICC line care per protocol Discharge plans discussed with patient, she is her own decision maker and does understand and concur with plans Time spent 25 minutes TITO MOHAN MD Feb 19, 2018 17:41
--- NOTE | 2018-02-19 18:30 | NUR ---
REPORT REPORT GIVEN TO [facility] VIA TELEPHONE. EMS WILL TRANSPORT PT TO [facility].
--- NOTE | 2018-02-19 18:55 | NUR ---
TRANSFER PT TRANSFERRED TO [facility] VIA EMS. RELINQUISHED CARE OF PT.
[2018-02-19 19:51] VITALS: BP 157/90
== END 2018-02-19 18:45 | DRG 871 ==
LOC: ER 11:23 → ICU 13:53 → MS 02-17 12:26
PROVIDERS: ADMIT Internal Medicine; ATTEND Internal Medicine
PROC: 02HV33Z Insertion of Infusion Device into Superior Vena Cava, Percutaneous Approach (ICD-10-PCS; principal; 2018-02-19)
DX: A41.9 Sepsis, unspecified organism (principal); J18.9 Pneumonia, unspecified organism; L03.116 Cellulitis of left lower limb; Z68.45 Body mass index [BMI] 70 or greater, adult; I50.30 Unspecified diastolic (congestive) heart failure; G47.33 Obstructive sleep apnea (adult) (pediatric); E66.01 Morbid (severe) obesity due to excess calories; E83.42 Hypomagnesemia; E83.39 Other disorders of phosphorus metabolism; J45.909 Unspecified asthma, uncomplicated; G89.29 Other chronic pain; M54.9 Dorsalgia, unspecified; I11.0 Hypertensive heart disease with heart failure; K21.9 Gastro-esophageal reflux disease without esophagitis; L27.0 Generalized skin eruption due to drugs and medicaments taken internally; T50.995A Adverse effect of other drugs, medicaments and biological substances, initial encounter; Z90.710 Acquired absence of both cervix and uterus; Z90.49 Acquired absence of other specified parts of digestive tract; Z91.012 Allergy to eggs; Z98.51 Tubal ligation status; Z82.49 Family history of ischemic heart disease and other diseases of the circulatory system; Y92.89 Other specified places as the place of occurrence of the external cause
CPT/HCPCS: 36415; 36600; 71045; 71275; 80048; 80053; 81002; 82330; 82550; 82553; 82803; 83036; 83735; 83880; 84100; 84484; 85025; 85379; 85610; 85651; 85730; 86677; 87040; 87070; 93005; 94640; 96374; 96375; 99285; J0696; J1100; J1644; J1650; J2270; J2405; J2543; J2920; J2930; J3475; J3490; J7030; J7050; J7120; J7613; J7620; J7644; Q0163; Q9965; A9270; J1940

== ENCOUNTER 2018-07-19 20:39 | Inpatient (IN) | payer BC, MEDICARE ==
[~2018-07-19] VITALS: Ht 167.6 cm; Wt 207.8 kg
[~2018-07-19 20:39] MED LIST changes: +CITA20TA6 PO; -GABA600T2 PO; +GABA600T7 PO; +OXYB10TA PO; +PANT40TA5 PO
[2018-07-19 20:42] VITALS: BP 162/95
--- NOTE | 2018-07-19 21:09 | ER.PDOC ---
General Chief Complaint: Requesting Medical Care Stated Complaint: LEG PAIN Time seen by MD: 21:02 Source: patient Exam Limitations: no limitations History of Present Illness Onset: last week Recent Injury: No Where: home Severity: moderate Allergies: Coded Allergies: Penicillins (Verified Allergy, Unknown, hives, 07/19/18) egg (Verified Allergy, Unknown, 06/23/17) Home Meds Reported Medications Zolpidem Tartrate (AMBIEN) 5 Mg Tablet, 1 TAB PO PRN, #30 TAB 2 Refills 07/19/18 Gabapentin (GABAPENTIN) 300 Mg Capsule, 1 CAP PO PRN, #90 CAP 5 Refills 07/19/18 Furosemide (FUROSEMIDE) 20 Mg Tablet, 1 TAB PO DAILY, #90 TAB 1 Refill 07/19/18 Citalopram Hydrobromide (CELEXA) 20 Mg Tablet, 1 TAB PO DAILY, #90 TAB 3 Refills 07/19/18 Metoprolol Tartrate 50MG (LOPRESSER 50MG) 50 Mg Tablet, 1 TAB PO BID, #180 TAB 3 Refills 01/04/17 Discontinued Reported Medications Citalopram Hydrobromide (CITALOPRAM HBR) 20 Mg Tablet, 20 MG PO DAILY24, TABLET 02/14/18 Gabapentin (GABAPENTIN) 300 Mg Capsule, 300 MG PO DAILY24, CAPSULE 02/14/18 Pantoprazole Sodium (PANTOPRAZOLE SODIUM) 40 Mg Tablet.dr, 40 MG PO DAILY24 02/14/18 Oxybutynin Chloride (OXYBUTYNIN CHLORIDE ER) 10 Mg Tab.er.24, 10 MG PO DAILY24 02/14/18 Albuterol Sulfate (ALBUTEROL SULFATE) 2.5 Mg/0.5 Ml Vial.neb, 1 VIAL NEB Q4HR PRN for SHORTNESS OF BREATH, #60 VIAL 1 Refill 04/24/17 Discontinued Scripts Nystatin (NYSTOP) 60 Gm Powder, 1 GM TP PRN PRN for ITCHING for 30 Days, #1 BOTTLE Prov:MELANI GONZALEZ [employer] SAL[employer] AGENT 05/01/17 Past Medical History Surgical History: cholecystectomy, hysterectomy, tonsillectomy Social History Drug Use: none Results/Orders Results/Orders Laboratory Tests Test 07/19/18 20:48 07/19/18 21:35 07/19/18 21:50 Urine Collection Type VOID Urine Color YELLOW (YELLOW) Urine Appearance CLEAR (CLEAR) Urine Bilirubin NEGATIVE MG/DL (NEGATIVE) Urine Ketones NEGATIVE (NEGATIVE) Urine Specific [place] 1.015 (1.005-1.035) Urine pH 6 (5.0-6.0) Urine Protein NEGATIVE (NEGATIVE) Urine Urobilinogen NORMAL (NEGATIVE) Urine Nitrate NEGATIVE (NEGATIVE) Urine Leukocyte Esterase NEGATIVE (NEGATIVE) Urine Blood NEGATIVE (NEGATIVE) Urine Glucose NORMAL (NEGATIVE) White Blood Count 8.2 10^3/uL (4.5-11.0) Red Blood Count 4.52 10^6/uL (4.00-5.20) Hemoglobin 13.2 g/dL (12.0-15.0) Hematocrit 40.1 % (36.0-46.0) Mean Corpuscular Volume 88.7 fL (78-100) Mean Corpuscular Hemoglobin 29.2 pg (26-34) Mean Corpuscular Hemoglobin Concent 32.9 g/dL (33-37) Red Cell Distribution Width 14.1 % (11.5-14.5) Platelet Count 254 10^3/uL (150-400) Mean Platelet Volume 9.6 fL (7.8-11.0) Neutrophils (%) (Auto) 62.4 % (41.0-85.0) Lymphocytes (%) (Auto) 27.1 % (24.0-44.0) Monocytes (%) (Auto) 7.6 % (5.0-12.0) Neutrophils # (Auto) 5.1 10^3/uL (1.8-7.7) Lymphocytes # (Auto) 2.2 10^3/uL (1.0-4.8) Monocytes # (Auto) 0.6 10^3/uL (0.3-0.8) Eosinophils % 2.5 % (0.0-5.0) Basophils % 0.4 % (0.0-0.2) Basophils # 0.0 10^3/uL (0.0-0.1) Eosinophil Count 0.2 10^3/uL (0.0-0.2) Sodium Level 142 mmol/L (132-145) Potassium Level 3.8 mmol/L (3.6-5.2) Chloride Level 103.0 mmol/L (96-109) Carbon Dioxide Level 27.4 mmol/L (20.0-32) Anion Gap 15.4 Blood Urea Nitrogen 12 mg/dL (7-18) Creatinine 1.24 mg/dL (0.59-1.40) Estimated GFR () 54.1 (>/=60) BUN/Creatinine Ratio 9.0 Glucose Level 111 mg/dL (70-110) Calcium Level 9.1 mg/dL (8.4-10.5) Total Bilirubin 0.4 mg/dL (0.2-1.0) Aspartate Amino Transf (AST/SGOT) 17 U/L (0-35) Alanine Aminotransferase (ALT/SGPT) 25 U/L (12-78) Alkaline Phosphatase 93 U/L (50-136) Total Creatine Kinase 86 U/L (26-192) Troponin I < 0.02 ng/mL (0.00-0.05) Total Protein 7.6 g/dL (6.4-8.2) Albumin 3.4 g/dL (3.4-5.0) Globulin 4.2 Blood Gas Sample Site RT BRACIAL ARTERY Blood Gas pH 7.465 (7.350-7.450) Blood Gas PCO2 38.1 mmHg (35.0-45.0) Blood Gas PO2 76.0 mmHg (75.0-100.0) Blood Gas HCO3 26.8 mmol/L (22.0-26.0) Blood Gas Base Excess 3.1 mmol/L (-2.0-2.0) Cecil Test N/A Arterial Blood Oxygen Saturation 95.3 % (95-) Deoxyhemoglobin 4.7 % (0.2-0.6) Carboxyhemoglobin 0.8 % (0.5-1.5) Methemoglobin 0.2 % (0.2-0.6) Total Hemoglobin 14.3 % (13.5-17.5) Total Oxygen Concentration 19.0 % (13.5-17.5) Lactic Acid (Blood Gas) 1.4 MMOL/L (0.5-1.0) Oxygen Delivery Method (LAB) RA FiO2 21 % (20-101) Bicarbonate 28.0 mmol/L (23-27) Administered Medications Medications (Trade) Dose Ordered Sig/Angel Route PRN Reason Start Time Stop Time Status Last Admin Dose Admin Clindamycin Phosphate 50 ml @ 50 mls/hr Q8 IV 07/19/18 22:00 08/18/18 21:59 UNV 07/19/18 22:09 Progress Progress patient started on clindamycin last hospital visit and she did not have a reaction, discussed case with Dr. Voss at 2320 EKG/XRAY/CT/US EKG: NSR, no ST T wave changes EKG Comments: rate 96 normal intervals Departure Time of Disposition: 23:06 Disposition: 09 ADMITTED INPATIENT Impression: Primary Impression: Cellulitis of left leg Condition: Improved Referrals: KONSTANTIN TRIPP [employer] SAL[employer] AGENT (PCP) PRIMARY CARE PROVIDER Duration or Time Spent with Pa: 25 FILIBERTO GR MD Jul 19, 2018 21:09
[2018-07-19 21:45] VITALS: BP 183/96
[2018-07-19] MEDS ORDERED: [UNRECOGNIZED DRUG - OTHER] IV ONE (21:55)
[2018-07-19] MEDS ORDERED: CLEOCIN 600 MG-D5W-GALAXY 50 ML IV ONE (21:55)
[2018-07-19] MEDS ORDERED: CLEOCIN IV ONE (21:55)
[2018-07-19 22:00] LABS: ABG PCO2 38.1 mmHg (35.0-45.0); ABG PH 7.465 (7.350-7.450); BE(B) 3.1 mmol/L (-2.0-2.0); HCO3act 26.8 mmol/L (22.0-26.0)
[2018-07-19 22:07] LABS: BILIRUBIN,URINE NEGATIVE (NEGATIVE); UROBILINOGEN,URINE NORMAL (NEGATIVE)
[2018-07-19 22:08] LABS: BASOPHIL % 0.4 % (0.0-0.2); EOSINOPHIL # 0.2 10^3/uL (0.0-0.2); EOSINOPHIL % 2.5 % (0.0-5.0); HEMOGLOBIN 13.2 g/dL (12.0-15.0); LYMPHOCYTES # 2.2 10^3/uL (1.0-4.8); LYMPHOCYTES % 27.1 % (24.0-44.0); MEAN CELL HGB 29.2 pg (26-34); MEAN CELL HGB CONCENTRATION 32.9 g/dL (33-37); MEAN CORP VOLUME 88.7 fL (78-100); MEAN PLATELET VOLUME 9.6 fL (7.8-11.0); MONOCYTES # 0.6 10^3/uL (0.3-0.8); MONOCYTES % 7.6 % (5.0-12.0); NEUTROPHIL # 5.1 10^3/uL (1.8-7.7); NEUTROPHILS % 62.4 % (41.0-85.0); PLATELET COUNT 254 10^3/uL (150-400); RED CELL DISTRIBUTION WIDTH 14.1 % (11.5-14.5); WHITE BLOOD CELL 8.2 10^3/uL (4.5-11.0)
[2018-07-19] MEDS: CLEOCIN 900 MG-D5W-GALAXY 50 ML IV SCH (22:09)
[2018-07-19 22:17] LABS: APPEARANCE,URINE CLEAR (CLEAR); UA COLOR YELLOW (YELLOW)
[2018-07-19 22:22] LABS: ALANINE AMINOTRANSFERASE(ML) 25 U/L (12-78); ALKALINE PHOSPHATASE 93 U/L (50-136); ASPARTATE AMINO TRANSFERASE 17 U/L (0-35); CALCIUM 9.1 mg/dL (8.4-10.5); CARBON DIOXIDE 27.4 mmol/L (20.0-32); GLUCOSE 111 mg/dL (70-110)
[2018-07-19] MEDS ORDERED: NS 1000ML 1,000 ML IV SCH (22:30)
--- NOTE | 2018-07-19 22:37 | DIREP ---
PROCEDURE:XRAY TIB & FIB 2 VW-LT, 4 images COMPARISON:None. INDICATIONS:leg swelling FINDINGS: BONES:Normal. JOINTS:Normal. SOFT TISSUES:Extensive diffuse soft tissue swelling. OTHER:No additional findings. CONCLUSION:No fracture or subluxation. Extensive diffuse soft tissue swelling. Dictated by: Jarrod Sood M.D. on 07/19/2018 at 10:35 PM
--- NOTE | 2018-07-19 22:37 | DIREP ---
PROCEDURE:CHEST 1 VIEW COMPARISON:[facility], CR, XRAY CHEST SINGLE VW, 02/20/2018, 08:00 AM. INDICATIONS:fever FINDINGS: LUNGS/PLEURA:No significant pulmonary parenchymal abnormalities. No effusions. VASCULATURE:Normal. Unremarkable pulmonary vasculature. CARDIAC:Normal. No cardiac silhouette abnormality or cardiomegaly. MEDIASTINUM:Normal. No visible mass or adenopathy. BONES:Normal. No fracture or visible bony lesion. OTHER:Limited by patient body habitus. CONCLUSION:No acute cardiopulmonary disease. Dictated by: Jarrod Sood M.D. on 07/19/2018 at 10:36 PM
[2018-07-19 22:45] VITALS: BP 189/92
[2018-07-19 23:17] VITALS: BP 155/92
--- NOTE | 2018-07-19 23:21 | DIREP ---
PROCEDURE:US DUPLEX EXTREM VEINS UNILATER/LIMITED-LT COMPARISON:None. INDICATIONS:lt leg swelling TECHNIQUE:The left lower extremity was evaluated utilizing vincent scale images with segmental compression, color Doppler, and spectral Doppler with respiratory variation and augmentation. FINDINGS: Common femoral vein:Patent Superficial femoral vein:Patent Popliteal vein:Patent Posterior tibial vein:Patent Peroneal vein:Patent Greater saphenous vein:Patent Waveforms: Within normal limits. CONCLUSION:No evidence of left lower extremity deep venous thrombus Dictated by: Aleksander Kent MD on 07/19/2018 at 11:19 PM
--- NOTE | 2018-07-19 23:23 | NUR ---
EDITA MARY ON PHINE WITH DR. KOHLER
[2018-07-19] MEDS ORDERED: FURO20TA3 PO (23:25)
[2018-07-19] MEDS ORDERED: CITA20TA9 PO (23:25)
[2018-07-19] MEDS ORDERED: ZOLP5TAB PO (23:25)
[2018-07-19] MEDS ORDERED: GABA300C10 PO (23:25)
--- NOTE | 2018-07-20 00:26 | PCM.EKG ---
[facility] Test Date: 2018-07-19 Test Time: 21:36:04 Pat Name: MAYDA ALATORRE Department: Room: 305 Gender: F Full Time Paramedic: PRIMO : 1960 Requested By: YASSINE HARVEY Order Number: [id number] Reading MD: Yassine Harvey Measurements Intervals [place] Rate: 96 P: 43 WA: 168 QRS: 15 QRSD: 96 T: 34 QT: 342 QTc: 432 Interpretive Statements Normal sinus rhythm with sinus arrhythmia Normal ECG Compared to ECG 02/14/2018 11:32:37 Atrial premature complex(es) no longer present Electronically Signed On 07-20-2018 0:59:30 STATISTICS INTERN by Yassine Harvey Please click the below link to view image of tracing.
--- NOTE | 2018-07-20 00:45 | NUR ---
REPORT GAVE REPORT TO ESTELA AND FAVIO ON MS
[2018-07-20] MEDS ORDERED: GABA600T7 PO (01:20)
[2018-07-20] MEDS ORDERED: ACET325T12 PO (01:20)
[2018-07-20 01:23] VITALS: BP 139/75
[2018-07-20] MEDS ORDERED: CLEOCIN 600 MG-D5W-GALAXY 100 ML IV ONE (04:52)
[2018-07-20] MEDS: CLEOCIN 900 MG-D5W-GALAXY 50 ML IV SCH ×3 (05:32→21:02)
[2018-07-20 05:45] VITALS: BP 144/99
[2018-07-20 08:29] VITALS: BP 137/66
--- NOTE | 2018-07-20 10:15 | NUR ---
DISCHARGE PLAN CASE MANAGEMENT VISITED WITH PATIENT CONCERNING DISCHARGE PLAN AND NEEDS. LIVES AT HOME WITH AND GROWN CHILDREN AND GRANDKIDS. FAMILY IS SUPPORTIVE IN ASSISTING WITH ADLS WHEN NEEDED. HAS A CANE AT HOME SHE USES WHEN OUTSIDE OF HOME. HAS FINANCIAL ABILITY TO PAY FOR MEDICATIONS. PATIENT STATED SHE HAS BEEN GOING TO THE [facility] AND HAS RECENTLY HAD TO STOP GOING BECAUSE INSURANCE WAS NOT PAYING. PATIENT STATED I WOULD NOT LIKE TO HAVE HOME HEALTH BECAUSE I AM WAITING TO GET TO GO BACK TO THE [facility] CL[facility] AND I CANT GO TO BOTH. DISCHARGE PLAN IS TO DISCHARGE HOME WITH AND SUPPORTIVE FAMILY. DENIES FURTHER NEEDS AT THIS TIME.
--- NOTE | 2018-07-20 12:20 | PCM.HP ---
HISTORY & PHYSICAL HISTORY & PHYSICAL DATE OF ADMISSION: CHIEF COMPLAINT: 52-year-old female with right lymphedema comes in with acute left lower extremity cellulitis and severe sepsis. H&P # [id number] HISTORY OF PRESENT ILLNESS: ALLERGIES: CURRENT MEDICATIONS: PAST MEDICAL HISTORY: SOCIAL HISTORY: FAMILY HISTORY: REVIEW OF SYSTEMS: PHYSICAL EXAMINATION: GENERAL: VITAL SIGNS: HEENT: NECK: LUNGS: HEART: ABDOMEN: EXTREMITIES: NEUROLOGIC: LABORATORY DATA: IMPRESSION: CARE PLAN: SIMONA KOHLER MD Jul 20, 2018 12:20
[2018-07-20 12:22] VITALS: BP 152/86
[2018-07-20] MEDS ORDERED: AMBIEN PO SCH (12:30)
[2018-07-20] MEDS ORDERED: NEURONTIN PO PRN (12:30)
[2018-07-20] MEDS: NEURONTIN PO SCH (12:49)
[2018-07-20] MEDS: LOPRESSOR PO SCH ×2 (12:49→21:00)
[2018-07-20] MEDS: LOVENOX SQ SCH (12:49)
--- NOTE | 2018-07-20 13:00 | HPH ---
ADMIT DATE: 07/20/2018 CHIEF COMPLAINT: Leg pain. HISTORY OF PRESENT ILLNESS: This is a 58-year-old female with a past medical history of multiple medical problems including lymphedema of the left lower extremity that comes in with complaints of pain, redness and swelling on both legs, much worse on the left, over the last several weeks. She states she finally decided to come to the Emergency Room because her family forced her to. She states that she has had severe pain, redness and swelling in the left leg for at least 3-4 weeks. This has been constant. Her pain has been characterized as sharp and knife-like all the way around the leg from top to bottom as she describes it. The pain is usually a 7/10, but occasionally will be a 10/10, but is always present. She states the redness has been present since the last 3 weeks, and since she has lymphedema in any way, she has multiple folds on the leg where she has worsening redness and pain and moisture. She has been admitted to the hospital multiple times for this and also has a history of being noncompliant in the past with regard to some of her healthcare history. PAST MEDICAL HISTORY: 1. Hypertension. 2. Peripheral neuropathy. 3. Lymphedema. 4. Morbid obesity. 5. Depression. 6. GERD. 7. Chronic bladder incontinence. MEDICATIONS: See admit medication reconciliation form. ALLERGIES: PENICILLINS AND EGGS. PAST SURGICAL HISTORY: 1. Cholecystectomy. 2. Hysterectomy. 3. Tonsillectomy. SOCIAL HISTORY: Alcohol, tobacco, recreational drugs -- none. The patient is currently disabled. FAMILY HISTORY: Noncontributory. REVIEW OF SYSTEMS: GENERAL: Positive for overall weakness, fatigue, malaise, fever. CARDIAC: Denies chest pain, orthopnea, PND or palpitations. RESPIRATORY: Positive for intermittent shortness of breath much worse with exertion. No hemoptysis. No history of TB. GASTROINTESTINAL: No nausea, vomiting, diarrhea or constipation. No history of hepatitis. GENITOURINARY: Denies dysuria, frequency, hematuria. Intermittent incontinence present, however. HEMATOLOGIC: No easy bleeding or bruising. ENDOCRINE: No recent weight loss or weight gain. No temperature intolerance. NEUROLOGIC: Denies headache, paresthesias or dizziness. MUSCULOSKELETAL: Pain in the lower extremities as above. DERMATOLOGIC: Redness and pain of the skin over the left leg as mentioned above. PSYCHIATRIC: Positive for intermittent anxiety and depression. PHYSICAL EXAMINATION: VITAL SIGNS: Pulse 145, temperature 98.6, respirations 22, blood pressure 162/95, pulse oximeter 95% on room air. GENERAL: This is a fatigued appearing female who is morbidly obese. She is in no acute distress. HEENT: Atraumatic, normocephalic. Sclerae clear and anicteric. NECK: Soft, supple. Normal range of motion. No bruits, goiter, mass or adenopathy. There is no JVD. LUNGS: Clear to auscultation bilaterally. HEART: Regular rate and rhythm without murmurs, S3, S4. ABDOMEN: Soft, nontender, nondistended. Positive bowel sounds. No masses felt. EXTREMITIES: Warm and well perfused. The right lower extremity has 1+ nonpitting edema to the mid thigh. The left lower extremity has severe 3+ pitting lymphedema to the top of the thigh. There are multiple folds of skin with severe erythema, moisture, and cracking. The skin is very excoriated and tender. There is some yellowing of the feet consistent with fungal infection. NEUROLOGIC: Cranial nerves 2-12 are grossly intact and symmetric. SKIN: Intact. LABORATORY DATA: WBC 8.2, hemoglobin 13.2, hematocrit 40.1, platelets 254. Sodium 142, potassium 3.8, chloride 103, BUN 12, creatinine 1.24, glucose 111, calcium 9.1, total bilirubin 0.4, AST 17, ALT 25, total CK 86. Troponin I negative, total protein 7.6, albumin 3.4. Urinalysis negative. Venous Doppler study -- "no evidence of DVT." Chest x-ray -- "no acute cardiopulmonary disease." Tibia fibula x-ray - "no fracture or subluxation, extensive diffuse soft tissue swelling." ASSESSMENT: 1. Cellulitis, left lower extremity. 2. Severe sepsis. 3. Severe lymphedema. 4. Hypertension. 5. Peripheral neuropathy. 6. Morbid obesity. 7. Generalized weakness. PLAN: 1. The patient is admitted to [facility] where she will be placed on telemetry for monitoring of sepsis. 2. She will receive 3 liters of normal saline bolus and then be kept on normal saline as needed. 3. Continue IV antibiotics in the form of clindamycin. Blood cultures have been obtained. I will try to obtain a wound culture from the areas between her skin folds. She would also benefit from InterDry if that can be placed in between the skin folds. 4. Would probably benefit from several days of IV fluconazole. 5. Resume home medications. 6. Needs stress ulcer and DVT prophylaxis. 7. Wound care and lymphedema therapy if available. 8. We will follow clinical course and make changes as clinically indicated. Rodolfo Voss MD DR: TERE/brittany JOB# [id number]
[2018-07-20] MEDS: TYLENOL PO SCH ×2 (16:00→21:00)
[2018-07-20 18:02] VITALS: BP 121/65
--- NOTE | 2018-07-20 19:15 | NUR ---
shift change report bedside report givent to night nurse coco palacios.
[2018-07-20 20:34] VITALS: BP 129/77
[2018-07-21 01:30] VITALS: BP 123/78
[2018-07-21] MEDS: TYLENOL PO SCH ×7 (04:00→20:00)
[2018-07-21 04:30] VITALS: BP 123/64
[2018-07-21 05:28] LABS: HEMOGLOBIN 12.2 g/dL (12.0-15.0); MEAN CELL HGB 29.1 pg (26-34); MEAN CELL HGB CONCENTRATION 32.2 g/dL (33-37); MEAN CORP VOLUME 90.5 fL (78-100); MEAN PLATELET VOLUME 9.5 fL (7.8-11.0); RED CELL DISTRIBUTION WIDTH 14.5 % (11.5-14.5); WHITE BLOOD CELL 6.9 10^3/uL (4.5-11.0)
[2018-07-21 05:50] LABS: CARBON DIOXIDE 26.8 mmol/L (20.0-32)
[2018-07-21] MEDS: CLEOCIN 900 MG-D5W-GALAXY 50 ML IV SCH ×3 (06:52→22:49)
[2018-07-21] MEDS: CELEXA PO SCH (08:45)
[2018-07-21] MEDS: NEURONTIN PO SCH (08:45)
[2018-07-21] MEDS: LASIX PO SCH (08:46)
[2018-07-21] MEDS: LOPRESSOR PO SCH ×2 (08:46→20:32)
[2018-07-21 09:38] VITALS: BP 129/68
[2018-07-21] MEDS: LOVENOX SQ SCH (12:53)
[2018-07-21 14:38] VITALS: BP 124/84
--- NOTE | 2018-07-21 19:12 | NUR ---
SHIFT CHANGE REPORT GIVEN TO NIGHT NURSE CHARISSA HARDIN.
--- NOTE | 2018-07-21 19:15 | NUR ---
Report Received report from BRANDAN El
[2018-07-21 20:11] VITALS: BP 147/82
[2018-07-21] MEDS: MYCOSTATIN TP SCH (21:00)
--- NOTE | 2018-07-21 23:11 | PRM.PN ---
Subjective Subjective Date: Jul 21, 2018 Time: 23:09 Subjective A little better. Pain improving some, , Patient History: Asthma 34 MOTHER Hypertension 34 MOTHER VTE VTE Risk Total Score: 2 VTE Risk Score VTE Risk: Score 0-1 = Low Risk (Aggressive mobilization; early ambulation; no VTE prophylaxis required) Score 2: Moderate Risk (Intermittent/Pneumatic Compression Device OR Lovenox/Heparin/Coumadin) Score 3-4: High Risk (Intermittent/Pneumatic Compression Device AND Lovenox/Heparin/Coumadin) Score > or =5: Highest Risk (Intermittent/Pneumatic Compression Device AND Lovenox/Heparin/Coumadin) Antico:Hep/LMWH/Coum/Xarelto: Yes Mechanical device ordered: No Review of Systems Respiratory: No: Cough, Dry, Shortness of breath, SOB with excertion, Wheezing , Hemoptysis, Pleuritic Pain, Sputum, Wheezing, Other Cardiovascular: Edema; No: Chest Pain, Palpitations, Orthopnea, Paroxysmal Noc. Dyspnea, Lt Headedness, Other Gastrointestinal: No: Nausea, Vomiting, Abdominal Pain, Diarrhea, Constipation , Melena, Hematochezia, Other Genitourinary: No Dysuria, No Frequency, No Incontinence, No Hematuria, No Retention, No Other Musculoskeletal: leg pain; No: other, neck pain, shoulder pain, arm pain, back pain, hand pain, foot pain Skin: Rash Allergies: Coded Allergies: Penicillins (Verified Allergy, Unknown, hives, 07/19/18) egg (Verified Allergy, Unknown, 06/23/17) Scheduled Acetaminophen (Tylenol), 650 MG PO Q4, (Reported) Citalopram Hydrobromide (Celexa), 1 TAB PO DAILY, (Reported) Furosemide (Furosemide), 1 TAB PO DAILY, (Reported) Gabapentin (Gabapentin), 1 CAP PO PRN, (Reported) Metoprolol Tartrate 50MG (Lopresser 50MG), 1 TAB PO BID, (Reported) Zolpidem Tartrate (Ambien), 1 TAB PO PRN, (Reported) Scheduled PRN Gabapentin (Gabapentin), 600 MG PO HS PRN for PAIN, (Reported) Discontinued Medications Albuterol Sulfate (Albuterol Sulfate), 1 VIAL NEB Q4HR PRN for SHORTNESS OF BREATH, (Reported) Discontinued Reason: Discontinue Citalopram Hydrobromide (Citalopram Hbr), 20 MG PO DAILY24, (Reported) Discontinued Reason: Discontinue Gabapentin (Gabapentin), 300 MG PO DAILY24, (Reported) Discontinued Reason: Discontinue Nystatin (Nystop), 1 GM TP PRN PRN for ITCHING Discontinued Reason: Discontinue Oxybutynin Chloride (Oxybutynin Chloride Er), 10 MG PO DAILY24, (Reported) Discontinued Reason: Discontinue Pantoprazole Sodium (Pantoprazole Sodium), 40 MG PO DAILY24, (Reported) Discontinued Reason: Discontinue Objective Vitals and I/O Vital Sign - Last 24 Hours 07/21/18 07/21/18 07/21/18 07/21/18 01:30 04:30 08:45 08:46 Temp 97.9 97.9 97.9 97.9 Pulse 90 72 Resp 19 19 B/P (MAP) 123/78 (93) 123/64 (83) 123/64 Pulse Ox 92 72 O2 Delivery Room Air Room Air Room Air 07/21/18 07/21/18 07/21/18 09:38 14:38 20:11 Temp 97.8 97.5 98.2 97.8 97.5 98.2 Pulse 75 78 86 Resp 18 20 20 B/P (MAP) 129/68 (88) 124/84 (97) 147/82 (103) Pulse Ox 92 92 96 O2 Delivery Room Air Room Air Room Air Intake and Output 07/20/18 07/20/18 07/21/18 15:00 23:00 07:00 Intake Total 600 ml 360 ml Output Total 1100 ml 1250 ml Balance -500 ml -890 ml General: Alert, Oriented X3, Cooperative, No acute distress HEENT: PERRLA, EOMI Lungs: Clear to auscultation, Normal air movement Heart: Regular rate, Normal S1, Normal S2 Abdomen: Normal bowel sounds, Soft, No tenderness Extremities: No cyanosis, Other Neuro: Normal speech, Strength at 5/5 X4 ext, Sensation intact, Cranial nerves 3-12 NL Psych/Mental Status: Mood NL All Results(Lab/Rad) Laboratory Tests Test 07/21/18 05:11 White Blood Count 6.9 10^3/uL Red Blood Count 4.19 10^6/uL Hemoglobin 12.2 g/dL Hematocrit 37.9 % Mean Corpuscular Volume 90.5 fL Mean Corpuscular Hemoglobin 29.1 pg Mean Corpuscular Hemoglobin Concent 32.2 g/dL Red Cell Distribution Width 14.5 % Platelet Count 253 10^3/uL Mean Platelet Volume 9.5 fL Sodium Level 140 mmol/L Potassium Level 4.2 mmol/L Chloride Level 103.0 mmol/L Carbon Dioxide Level 26.8 mmol/L Anion Gap 14.4 Blood Urea Nitrogen 14 mg/dL Creatinine 1.21 mg/dL Estimated GFR () 55.7 BUN/Creatinine Ratio 11.0 Glucose Level 116 mg/dL Calcium Level 9.0 mg/dL Total Bilirubin 0.4 mg/dL Aspartate Amino Transf (AST/SGOT) 15 U/L Alanine Aminotransferase (ALT/SGPT) 23 U/L Alkaline Phosphatase 78 U/L Total Protein 7.0 g/dL Albumin 3.1 g/dL Globulin 3.9 Current Medications Medications (Trade) Dose Ordered Sig/Angel Route PRN Reason Start Time Stop Time Status Last Admin Dose Admin Clindamycin Phosphate 50 ml @ 50 mls/hr Q8 IV 07/19/18 22:00 08/18/18 21:59 07/21/18 22:49 Clindamycin Phosphate 50 ml @ ud STK-MED ONCE IV 07/19/18 21:55 07/19/18 21:57 DC Clindamycin Phosphate 50 ml @ ud STK-MED ONCE IV 07/19/18 21:55 07/19/18 21:57 DC Sodium Chloride 1,000 ml @ 150 mls/hr OT IV 07/19/18 22:30 08/18/18 22:29 07/20/18 01:45 Clindamycin Phosphate 100 ml @ ud STK-MED ONCE IV 07/20/18 04:52 07/20/18 04:54 DC Acetaminophen (Tylenol) 650 mg Q4 PO 07/20/18 16:00 08/19/18 15:59 07/20/18 21:00 Citalopram Hydrobromide (Celexa) 20 mg DAILY PO 07/21/18 09:00 08/20/18 08:59 07/21/18 08:45 Furosemide (Lasix) 20 mg DAILY PO 07/21/18 09:00 08/20/18 08:59 07/21/18 08:46 Gabapentin (Neurontin) 300 mg PRN PO 07/20/18 12:30 08/19/18 12:29 07/21/18 08:45 Gabapentin (Neurontin) 600 mg HS PRN PO PAIN 07/20/18 12:30 08/19/18 12:29 07/21/18 20:32 Metoprolol Tartrate (Lopressor) 50 mg BID PO 07/20/18 12:30 08/19/18 12:29 07/21/18 20:32 Zolpidem Tartrate (Ambien) 5 mg PRN PO 07/20/18 12:30 08/19/18 12:29 Enoxaparin Sodium (Lovenox) 40 mg Q24HRS SQ 07/20/18 12:30 08/19/18 12:29 07/21/18 12:53 Nystatin (Mycostatin) 1 gm BID TP 07/21/18 21:00 08/20/18 20:59 Course Sepsis Screening Results: Posi: NEGATIVE Sepsis Qualifier/Stage: NO DEFINITE RISK Duration or Total Time Spent w: 25 Vitals & review Data Vital Sign - Last 24 Hours 07/21/18 07/21/18 07/21/18 07/21/18 01:30 04:30 08:45 08:46 Temp 97.9 97.9 97.9 97.9 Pulse 90 72 Resp 19 B/P (MAP) 123/78 (93) 123/64 (83) 123/64 Pulse Ox 92 72 O2 Delivery Room Air Room Air Room Air 07/21/18 07/21/18 07/21/18 09:38 14:38 20:11 Temp 97.8 97.5 98.2 97.8 97.5 98.2 Pulse 75 78 86 Resp 18 20 20 B/P (MAP) 129/68 (88) 124/84 (97) 147/82 (103) Pulse Ox 92 92 96 O2 Delivery Room Air Room Air Room Air Intake and Output 07/20/18 07/20/18 07/21/18 15:00 23:00 07:00 Intake Total 600 ml 360 ml Output Total 1100 ml 1250 ml Balance -500 ml -890 ml Laboratory Tests Test 07/21/18 05:11 White Blood Count 6.9 10^3/uL Red Blood Count 4.19 10^6/uL Hemoglobin 12.2 g/dL Hematocrit 37.9 % Mean Corpuscular Volume 90.5 fL Mean Corpuscular Hemoglobin 29.1 pg Mean Corpuscular Hemoglobin Concent 32.2 g/dL Red Cell Distribution Width 14.5 % Platelet Count 253 10^3/uL Mean Platelet Volume 9.5 fL Sodium Level 140 mmol/L Potassium Level 4.2 mmol/L Chloride Level 103.0 mmol/L Carbon Dioxide Level 26.8 mmol/L Anion Gap 14.4 Blood Urea Nitrogen 14 mg/dL Creatinine 1.21 mg/dL Estimated GFR () 55.7 BUN/Creatinine Ratio 11.0 Glucose Level 116 mg/dL Calcium Level 9.0 mg/dL Total Bilirubin 0.4 mg/dL Aspartate Amino Transf (AST/SGOT) 15 U/L Alanine Aminotransferase (ALT/SGPT) 23 U/L Alkaline Phosphatase 78 U/L Total Protein 7.0 g/dL Albumin 3.1 g/dL Globulin 3.9 Current Medications Medications (Trade) Dose Ordered Sig/Angel PRN Reason Start Time Stop Time Status Last Admin Acetaminophen (Tylenol) 650 mg Q4 07/20/18 16:00 08/19/18 15:59 07/20/18 21:00 Citalopram Hydrobromide (Celexa) 20 mg DAILY 07/21/18 09:00 08/20/18 08:59 07/21/18 08:45 Clindamycin Phosphate 50 ml @ 50 mls/hr Q8 07/19/18 22:00 08/18/18 21:59 07/21/18 22:49 Enoxaparin Sodium (Lovenox) 40 mg Q24HRS 07/20/18 12:30 08/19/18 12:29 07/21/18 12:53 Furosemide (Lasix) 20 mg DAILY 07/21/18 09:00 08/20/18 08:59 07/21/18 08:46 Gabapentin (Neurontin) 300 mg PRN 07/20/18 12:30 08/19/18 12:29 07/21/18 08:45 Gabapentin (Neurontin) 600 mg HS PRN PAIN 07/20/18 12:30 08/19/18 12:29 07/21/18 20:32 Metoprolol Tartrate (Lopressor) 50 mg BID 07/20/18 12:30 08/19/18 12:29 07/21/18 20:32 Nystatin (Mycostatin) 1 gm BID 07/21/18 21:00 08/20/18 20:59 Sodium Chloride 1,000 ml @ 150 mls/hr OT 07/19/18 22:30 08/18/18 22:29 07/20/18 01:45 Zolpidem Tartrate (Ambien) 5 mg PRN 07/20/18 12:30 08/19/18 12:29 Sepsis Infection Criteria Pres: Documented Infection LEVEL 1 SEPSIS INFECTION CRITE: ABX Therapy, Cellulitis LEVEL 2-SIRS (LIST ALL THAT AP: None/Not assessed Cardiovascular Evidence: Not Assessed or None Hematologic Evidence: None/Not assessed Hepatic Evidence: None/Not assessed Metabolic Evidence: None/Not assessed Neurological Evidence: None/Not assessed Respiratory Evidence: None/Not assessed Renal Evidence: None/Not assessed O2 Sat by Pulse Oximetry: 96 Assessment/Plan Assessment/Plan Problems: (1) Lymphedema Assessment & Plan: Needs chronic tx. ICD Code: I89.0 - Lymphedema, not elsewhere classified SNOMED: 884706515 (2) Cellulitis of left leg Permanent Comment: Left lower extremity is greater in circumference than right ; is erythematous with induration, weeping, inflammation, crusting. Pedal pulses palpable Last Edited By: Su Talamantes APRN, EN[employer] APPLICATION ANALYST on Apr 25, 2017 13: 17 Status: Acute Assessment & Plan: slowly improving. Cont abx. ICD Code: L03.116 - Cellulitis of left lower limb SNOMED: 981891471 (3) Morbid obesity with BMI of 70 and over, adult Status: Chronic ICD Code: E66.01 - Morbid (severe) obesity due to excess calories; Z68.45 - Body mass index (BMI) 70 or greater, adult SNOMED: 383404661, 934090775 (4) Sepsis Status: Resolved Assessment & Plan: resolving. ICD Code: A41.9 - Sepsis, unspecified organism SNOMED: 21659183 SIMONA KOHLER MD Jul 21, 2018 23:11
[2018-07-22 00:20] VITALS: BP 104/61
[2018-07-22] MEDS: TYLENOL PO SCH ×7 (04:00→23:47)
[2018-07-22 04:49] VITALS: BP 130/66
[2018-07-22] MEDS: CLEOCIN 900 MG-D5W-GALAXY 50 ML IV SCH ×3 (06:01→21:00)
[2018-07-22 09:39] VITALS: BP 141/81
[2018-07-22] MEDS: LOPRESSOR PO SCH ×2 (09:42→20:59)
[2018-07-22] MEDS: MYCOSTATIN TP SCH ×2 (09:43→21:00)
[2018-07-22] MEDS: CELEXA PO SCH (09:43)
[2018-07-22] MEDS: LASIX PO SCH (09:43)
[2018-07-22] MEDS: LOVENOX SQ SCH (13:13)
[2018-07-22] MEDS ORDERED: LASIX IV STA ×2 (13:29)
[2018-07-22 16:30] VITALS: BP 138/90
--- NOTE | 2018-07-22 17:16 | PRM.PN ---
Subjective Subjective Date: Jul 22, 2018 Time: 17:11 Subjective Continues to slowly improve Was up oob today. Leg slowly improving from a redness and swelling and pain standpoint. Patient History: Asthma 34 MOTHER Hypertension 32 MOTHER VTE VTE Risk Total Score: 2 VTE Risk Score VTE Risk: Score 0-1 = Low Risk (Aggressive mobilization; early ambulation; no VTE prophylaxis required) Score 2: Moderate Risk (Intermittent/Pneumatic Compression Device OR Lovenox/Heparin/Coumadin) Score 3-4: High Risk (Intermittent/Pneumatic Compression Device AND Lovenox/Heparin/Coumadin) Score > or =5: Highest Risk (Intermittent/Pneumatic Compression Device AND Lovenox/Heparin/Coumadin) Antico:Hep/LMWH/Coum/Xarelto: Yes Mechanical device ordered: No Review of Systems Respiratory: No: Cough, Dry, Shortness of breath, SOB with excertion, Wheezing , Hemoptysis, Pleuritic Pain, Sputum, Wheezing, Other Cardiovascular: Edema; No: Chest Pain, Palpitations, Orthopnea, Paroxysmal Noc. Dyspnea, Lt Headedness, Other Gastrointestinal: No: Nausea, Vomiting, Abdominal Pain, Diarrhea, Constipation , Melena, Hematochezia, Other Genitourinary: No Dysuria, No Frequency, No Incontinence, No Hematuria, No Retention, No Other Musculoskeletal: leg pain; No: other, neck pain, shoulder pain, arm pain, back pain, hand pain, foot pain Skin: Rash Allergies: Coded Allergies: Penicillins (Verified Allergy, Unknown, hives, 07/19/18) egg (Verified Allergy, Unknown, 06/23/17) Scheduled Acetaminophen (Tylenol), 650 MG PO Q4, (Reported) Citalopram Hydrobromide (Celexa), 1 TAB PO DAILY, (Reported) Furosemide (Furosemide), 1 TAB PO DAILY, (Reported) Gabapentin (Gabapentin), 1 CAP PO PRN, (Reported) Metoprolol Tartrate 50MG (Lopresser 50MG), 1 TAB PO BID, (Reported) Zolpidem Tartrate (Ambien), 1 TAB PO PRN, (Reported) Scheduled PRN Gabapentin (Gabapentin), 600 MG PO HS PRN for PAIN, (Reported) Discontinued Medications Albuterol Sulfate (Albuterol Sulfate), 1 VIAL NEB Q4HR PRN for SHORTNESS OF BREATH, (Reported) Discontinued Reason: Discontinue Citalopram Hydrobromide (Citalopram Hbr), 20 MG PO DAILY24, (Reported) Discontinued Reason: Discontinue Gabapentin (Gabapentin), 300 MG PO DAILY24, (Reported) Discontinued Reason: Discontinue Nystatin (Nystop), 1 GM TP PRN PRN for ITCHING Discontinued Reason: Discontinue Oxybutynin Chloride (Oxybutynin Chloride Er), 10 MG PO DAILY24, (Reported) Discontinued Reason: Discontinue Pantoprazole Sodium (Pantoprazole Sodium), 40 MG PO DAILY24, (Reported) Discontinued Reason: Discontinue Objective Vitals and I/O Vital Sign - Last 24 Hours 07/21/18 07/21/18 07/21/18 07/21/18 01:30 04:30 08:45 08:46 Temp 97.9 97.9 97.9 97.9 Pulse 90 72 Resp 19 19 B/P (MAP) 123/78 (93) 123/64 (83) 123/64 Pulse Ox 92 72 O2 Delivery Room Air Room Air Room Air 07/21/18 07/21/18 07/21/18 09:38 14:38 20:11 Temp 97.8 97.5 98.2 97.8 97.5 98.2 Pulse 75 78 86 Resp 18 20 20 B/P (MAP) 129/68 (88) 124/84 (97) 147/82 (103) Pulse Ox 92 92 96 O2 Delivery Room Air Room Air Room Air Intake and Output 07/20/18 07/20/18 07/21/18 15:00 23:00 07:00 Intake Total 600 ml 360 ml Output Total 1100 ml 1250 ml Balance -500 ml -890 ml General: Alert, Oriented X3, Cooperative, No acute distress HEENT: PERRLA, EOMI Lungs: Clear to auscultation, Normal air movement Heart: Regular rate, Normal S1, Normal S2 Abdomen: Normal bowel sounds, Soft, No tenderness Extremities: No cyanosis, Other Neuro: Normal speech, Strength at 5/5 X4 ext, Sensation intact, Cranial nerves 3-12 NL Psych/Mental Status: Mood NL All Results(Lab/Rad) Laboratory Tests Test 07/21/18 05:11 White Blood Count 6.9 10^3/uL Red Blood Count 4.19 10^6/uL Hemoglobin 12.2 g/dL Hematocrit 37.9 % Mean Corpuscular Volume 90.5 fL Mean Corpuscular Hemoglobin 29.1 pg Mean Corpuscular Hemoglobin Concent 32.2 g/dL Red Cell Distribution Width 14.5 % Platelet Count 253 10^3/uL Mean Platelet Volume 9.5 fL Sodium Level 140 mmol/L Potassium Level 4.2 mmol/L Chloride Level 103.0 mmol/L Carbon Dioxide Level 26.8 mmol/L Anion Gap 14.4 Blood Urea Nitrogen 14 mg/dL Creatinine 1.21 mg/dL Estimated GFR () 55.7 BUN/Creatinine Ratio 11.0 Glucose Level 116 mg/dL Calcium Level 9.0 mg/dL Total Bilirubin 0.4 mg/dL Aspartate Amino Transf (AST/SGOT) 15 U/L Alanine Aminotransferase (ALT/SGPT) 23 U/L Alkaline Phosphatase 78 U/L Total Protein 7.0 g/dL Albumin 3.1 g/dL Globulin 3.9 Current Medications Medications (Trade) Dose Ordered Sig/Angel Route PRN Reason Start Time Stop Time Status Last Admin Dose Admin Clindamycin Phosphate 50 ml @ 50 mls/hr Q8 IV 07/19/18 22:00 08/18/18 21:59 07/21/18 22:49 Clindamycin Phosphate 50 ml @ ud STK-MED ONCE IV 07/19/18 21:55 07/19/18 21:57 DC Clindamycin Phosphate 50 ml @ ud STK-MED ONCE IV 07/19/18 21:55 07/19/18 21:57 DC Sodium Chloride 1,000 ml @ 150 mls/hr OT IV 07/19/18 22:30 08/18/18 22:29 07/20/18 01:45 Clindamycin Phosphate 100 ml @ ud STK-MED ONCE IV 07/20/18 04:52 07/20/18 04:54 DC Acetaminophen (Tylenol) 650 mg Q4 PO 07/20/18 16:00 08/19/18 15:59 07/20/18 21:00 Citalopram Hydrobromide (Celexa) 20 mg DAILY PO 07/21/18 09:00 08/20/18 08:59 07/21/18 08:45 Furosemide (Lasix) 20 mg DAILY PO 07/21/18 09:00 08/20/18 08:59 07/21/18 08:46 Gabapentin (Neurontin) 300 mg PRN PO 07/20/18 12:30 08/19/18 12:29 07/21/18 08:45 Gabapentin (Neurontin) 600 mg HS PRN PO PAIN 07/20/18 12:30 08/19/18 12:29 07/21/18 20:32 Metoprolol Tartrate (Lopressor) 50 mg BID PO 07/20/18 12:30 08/19/18 12:29 07/21/18 20:32 Zolpidem Tartrate (Ambien) 5 mg PRN PO 07/20/18 12:30 08/19/18 12:29 Enoxaparin Sodium (Lovenox) 40 mg Q24HRS SQ 07/20/18 12:30 08/19/18 12:29 07/21/18 12:53 Nystatin (Mycostatin) 1 gm BID TP 07/21/18 21:00 08/20/18 20:59 Course Sepsis Screening Results: Posi: NEGATIVE Sepsis Qualifier/Stage: NO DEFINITE RISK Duration or Total Time Spent w: 25 Vitals & review Data Vital Sign - Last 24 Hours 07/21/18 07/21/18 07/21/18 07/21/18 01:30 04:30 08:45 08:46 Temp 97.9 97.9 97.9 97.9 Pulse 90 72 Resp 19 19 B/P (MAP) 123/78 (93) 123/64 (83) 123/64 Pulse Ox 92 72 O2 Delivery Room Air Room Air Room Air 07/21/18 07/21/18 07/21/18 09:38 14:38 20:11 Temp 97.8 97.5 98.2 97.8 97.5 98.2 Pulse 75 78 86 Resp 18 20 20 B/P (MAP) 129/68 (88) 124/84 (97) 147/82 (103) Pulse Ox 92 92 96 O2 Delivery Room Air Room Air Room Air Intake and Output 07/20/18 07/20/18 07/21/18 15:00 23:00 07:00 Intake Total 600 ml 360 ml Output Total 1100 ml 1250 ml Balance -500 ml -890 ml Laboratory Tests Test 07/21/18 05:11 White Blood Count 6.9 10^3/uL Red Blood Count 4.19 10^6/uL Hemoglobin 12.2 g/dL Hematocrit 37.9 % Mean Corpuscular Volume 90.5 fL Mean Corpuscular Hemoglobin 29.1 pg Mean Corpuscular Hemoglobin Concent 32.2 g/dL Red Cell Distribution Width 14.5 % Platelet Count 253 10^3/uL Mean Platelet Volume 9.5 fL Sodium Level 140 mmol/L Potassium Level 4.2 mmol/L Chloride Level 103.0 mmol/L Carbon Dioxide Level 26.8 mmol/L Anion Gap 14.4 Blood Urea Nitrogen 14 mg/dL Creatinine 1.21 mg/dL Estimated GFR () 55.7 BUN/Creatinine Ratio 11.0 Glucose Level 116 mg/dL Calcium Level 9.0 mg/dL Total Bilirubin 0.4 mg/dL Aspartate Amino Transf (AST/SGOT) 15 U/L Alanine Aminotransferase (ALT/SGPT) 23 U/L Alkaline Phosphatase 78 U/L Total Protein 7.0 g/dL Albumin 3.1 g/dL Globulin 3.9 Current Medications Medications (Trade) Dose Ordered Sig/Angel PRN Reason Start Time Stop Time Status Last Admin Acetaminophen (Tylenol) 650 mg Q4 07/20/18 16:00 08/19/18 15:59 07/20/18 21:00 Citalopram Hydrobromide (Celexa) 20 mg DAILY 07/21/18 09:00 08/20/18 08:59 07/21/18 08:45 Clindamycin Phosphate 50 ml @ 50 mls/hr Q8 07/19/18 22:00 08/18/18 21:59 07/21/18 22:49 Enoxaparin Sodium (Lovenox) 40 mg Q24HRS 07/20/18 12:30 08/19/18 12:29 07/21/18 12:53 Furosemide (Lasix) 20 mg DAILY 07/21/18 09:00 08/20/18 08:59 07/21/18 08:46 Gabapentin (Neurontin) 300 mg PRN 07/20/18 12:30 08/19/18 12:29 07/21/18 08:45 Gabapentin (Neurontin) 600 mg HS PRN PAIN 07/20/18 12:30 08/19/18 12:29 07/21/18 20:32 Metoprolol Tartrate (Lopressor) 50 mg BID 07/20/18 12:30 08/19/18 12:29 07/21/18 20:32 Nystatin (Mycostatin) 1 gm BID 07/21/18 21:00 08/20/18 20:59 Sodium Chloride 1,000 ml @ 150 mls/hr OT 07/19/18 22:30 08/18/18 22:29 07/20/18 01:45 Zolpidem Tartrate (Ambien) 5 mg PRN 07/20/18 12:30 08/19/18 12:29 Sepsis Infection Criteria Pres: Documented Infection LEVEL 1 SEPSIS INFECTION CRITE: ABX Therapy, Cellulitis LEVEL 2-SIRS (LIST ALL THAT AP: HR>90/min Cardiovascular Evidence: Not Assessed or None Hematologic Evidence: None/Not assessed Hepatic Evidence: None/Not assessed Metabolic Evidence: None/Not assessed Neurological Evidence: None/Not assessed Respiratory Evidence: None/Not assessed Renal Evidence: None/Not assessed O2 Sat by Pulse Oximetry: 93 Assessment/Plan Assessment/Plan Problems: (1) Sepsis Status: Resolved Assessment & Plan: Sx resolving. Leg improving. Continue abx and diuresis. Needs lymphedema workup as outpt. ICD Code: A41.9 - Sepsis, unspecified organism SNOMED: 73184422 (2) Cellulitis of left leg Permanent Comment: Left lower extremity is greater in circumference than right ; is erythematous with induration, weeping, inflammation, crusting. Pedal pulses palpable. Sx slightly improved from yesterday. Hopefully home tomorrow. Last Edited By: Simona Kohler MD - Hospitalist on Jul 22, 2018 17:16 Status: Acute ICD Code: L03.116 - Cellulitis of left lower limb SNOMED: 118949622 (3) Lymphedema Assessment & Plan: Slight improvement. Continue diuresis. ICD Code: I89.0 - Lymphedema, not elsewhere classified SNOMED: 591874810 (4) Morbid obesity with BMI of 70 and over, adult Status: Chronic ICD Code: E66.01 - Morbid (severe) obesity due to excess calories; Z68.45 - Body mass index (BMI) 70 or greater, adult SNOMED: 257974964, 599969975 (5) ERNESTO (obstructive sleep apnea) Status: Chronic Assessment & Plan: Cont cpap at HS. ICD Code: G47.33 - Obstructive sleep apnea (adult) (pediatric) SNOMED: 46574471 SIMONA KOHLER MD Jul 22, 2018 17:16
[2018-07-22 19:00] VITALS: BP 128/67
[2018-07-22 23:48] VITALS: BP 128/60
[2018-07-23] MEDS: TYLENOL PO SCH ×3 (03:49→08:00)
[2018-07-23 03:53] VITALS: BP 150/64
[2018-07-23] MEDS: CLEOCIN 900 MG-D5W-GALAXY 50 ML IV SCH (05:14)
--- NOTE | 2018-07-23 06:30 | NUR ---
Report Received report and assumed care of pt. Pt sitting up in bed reading a book. Pt denies pain or shortness of breath. Call light within reach.
--- NOTE | 2018-07-23 06:41 | NUR ---
REPORT TO GIANFRANCO GIPSON
[2018-07-23] MEDS: MYCOSTATIN TP SCH (07:29)
--- NOTE | 2018-07-23 07:55 | NUR ---
Dr. Bipin Voss at bedside. New orders received.
[2018-07-23 08:34] VITALS: BP 119/73
[2018-07-23] MEDS: LOPRESSOR PO SCH (08:40)
[2018-07-23] MEDS: CELEXA PO SCH (08:40)
[2018-07-23] MEDS: LASIX PO SCH (08:40)
--- NOTE | 2018-07-23 09:15 | NUR ---
DISCONTINUED PT IV SITE; CATHETER TIP IN TACT. WRAPPED WITH COBAN AND COTTON BALL. INSTRUCTED PT TO LEAVE IN PLACE FOR 20 MINUTES. PT VERBALIZED UNDERSTANDING.
--- NOTE | 2018-07-23 09:55 | DIET.OP ---
Nutrition Asmt/Malnutrit 2-17 Actual Date of Review: Jul 20, 2018 Nutritional Screening: Malnutr/Diet Consult Diagnosis: left LE reddness and swelling Pertinent Medical Hx/Surgical: untreated obstructive sleep apnea, severe morbid obesity, chronic back pain, HTN, CHF, diastolic dysfunction Subjective Information: Have seen patient several times in the past. She is morbidly obese and does not follow a proper diet or exercise plan at home. She has no appetite issues currently. She has indicated in the past that she has wanted to get bariatric surgery, but needs visits with the RD, along with other requirements to be approved. Her last visit she was 442 pounds. Current Diet Order/Nutrition S: Regular Height (Feet): 5 Height (Inches): 6 Current Weight: 458 Usual Weight: 442 %UBW: 104 %IBW: 352 Recent Weight Change: Yes Weight Status: Morbid Obese GI Symptoms: [place] Food Allergies: Yes (Egg) Cultural/Ethnic/Sabianism [place]: none reported Current %PO: Good(75-100%) Calories/Kcals/Kg: MsJ * 1.2-1.3 Kcals Calculated: Protein: Adj WT of IBW Protein g/k.25-1.5 g/kg Protein Calculated: 117g-141g Fluid: ml: 5975-6189 (1mL/kcal) Nutritional Problem: Nutr. Problems Present Problems: Overweight/obese Etiology: Not ready for lifestyle change/ excessive energy intake/ physical inactivity Signs/Symptoms: BMI of 73.9, 352% IBW, 104% UBW Malnutrition related to morbid: BMI>or equal to [address] RD Comments: Intervention: 1. Continue with current diet order 2. Patient needs eight loss education for her overall health. Unsure of the patient compliance with a proper weight loss plan. Monitor/evaluate: 1. Weight status 2. po intake Expected Outcomes Goal: 1. The patient will consume 100% of meals provided to meet 100% of estimated energy needs over the next 2-3 days Discharge plan: 1. Discharge planning in progress Malnutrtion/Nutrition Risk Edu: Yes Education on an overall healthy diet JAGDEEP ARENAS RD Jul 23, 2018 09:55
[2018-07-23] MEDS ORDERED: CLIN300C8 PO (10:39)
[2018-07-23] MEDS ORDERED: FURO20TA3 PO (10:40)
--- NOTE | 2018-07-23 11:55 | NUR ---
DISCHARGE PLANNING CM FOLLOW UP WITH PATIENT REGARDING D/C NEEDS. PATIENT STATED SHE WAS UNABLE TO FOLLOW UP WITH THE LYMPHEDEMA CLINIC D/T SHE CAN NOT AFFORD TRANSPORTATION COSTS BACK AND FORTH TO [place]. SHE STATES SHE WOULD LIKE TO GET HOME HEALTH IN THE HOME. CHOICE LETTER SIGNED FOR [facility] AND REFERRAL SENT. D/C GOAL IS FOR PT TO D/C HOME WITH [facility] AND FAMILY AT DISCHARGE. CM WILL CONTINUE TO FOLLOW PT FOR ANY DISCHARGE NEEDS.
--- NOTE | 2018-07-23 12:03 | NUR ---
Discharge pictures Discharge pictures taken and placed in chart
--- NOTE | 2018-07-23 12:12 | NUR ---
Discharge Discharge instructions given to pt. Educated pt on importance of getting antibiotic. Pt states that she can not afford. List of community resources provided to pt. Pt verbalizes understanding of resources and importance of antibiotic. Educated pt on importance of follow up with PCP. Pt verbalizes understanding. Educated pt on care for cellulitis to leg. Pt and verbalize understanding. Answered all pt questions. Pt denies further questions or concerns. Pt sitting up on edge of bed eating lunch. Pt states that she wants to finish lunch before leaving. Call light within reach. at bedside.
--- NOTE | 2018-07-23 13:42 | NUR ---
Pt off unit Pt transferred off unit via wheelchair to personal vehicle. No s/s of distress noted.
--- NOTE | 2018-07-24 14:03 | DSH ---
DATE OF DISCHARGE: 07/23/2018 ADMITTING DIAGNOSES: 1. Left lower extremity cellulitis. 2. Severe lymphedema, left lower extremity. 3. Severe sepsis. 4. Hypertension. 5. Peripheral neuropathy. 6. Morbid obesity. 7. Generalized weakness. DISCHARGE DIAGNOSES: 1. Sepsis. 2. Cellulitis of the left lower extremity. 3. Lymphedema, left lower extremity. 4. Morbid obesity. 5. Obstructive sleep apnea. DISCHARGE MEDICATIONS: 1. Clindamycin 300 mg 3 times daily for 7 days. 2. Lasix 40 mg p.o. daily. 3. Resume previous home medications. DISCHARGE DISPOSITION: Home with home health. FOLLOWUP: Follow up with PCP within 2 weeks. HOSPITAL COURSE: This is a 58-year-old female with a history of severe lymphedema of the left lower extremity who was admitted to [facility] on the above date. Despite her morbid obesity and lymphedema, she had even worsening swelling of the left lower extremity with significant erythema and pain. She had not been able to do her lymphedema treatments in quite a while because her benefits had been used up. On admission, her pulse was 113 and respirations were 22. Blood gas showed a lactate of 1.4. She was started on IV antibiotics in the form of clindamycin and was given nystatin and InterDry for the left lower extremity cracking, moisture, and fungal infection. She was started on IV diuresis and did have good urine output and good response to this. Over the course of the next 2 days, her edema improved significantly. Erythema was the first to improve. She was able to be much more active over the next 48 hours. She also has a history of sleep apnea and got on her CPAP machine and did well with this. She was doing very well on 07/23/2018 and able to be discharged to home with home health. She was told to follow up with her PCP within 2 weeks. Rodolfo Voss MD DR: TERE/brittany JOB# [id number]
== END 2018-07-23 13:37 | disposition home health service (06) | DRG 872 ==
LOC: ER 20:39 → MS 07-20 00:04
PROVIDERS: ADMIT Internal Medicine; ATTEND Internal Medicine
DX: A41.9 Sepsis, unspecified organism (principal); L03.116 Cellulitis of left lower limb; Z68.45 Body mass index [BMI] 70 or greater, adult; R65.20 Severe sepsis without septic shock; E66.01 Morbid (severe) obesity due to excess calories; G47.33 Obstructive sleep apnea (adult) (pediatric); G62.9 Polyneuropathy, unspecified; I10 Essential (primary) hypertension; I89.0 Lymphedema, not elsewhere classified; F32.9 Major depressive disorder, single episode, unspecified; K21.9 Gastro-esophageal reflux disease without esophagitis; Z90.710 Acquired absence of both cervix and uterus; Z91.19 Patient's noncompliance with other medical treatment and regimen; Z88.0 Allergy status to penicillin; Z91.012 Allergy to eggs; Z90.49 Acquired absence of other specified parts of digestive tract; Z82.5 Family history of asthma and other chronic lower respiratory diseases; Z82.49 Family history of ischemic heart disease and other diseases of the circulatory system
CPT/HCPCS: 36415; 71045; 80053; 81002; 82550; 82803; 84484; 85025; 85027; 87040; 87086; 93005; 99285; G0378; J1650; J3490; J7030; 73590-LT; 93971; A9270; J1940

== ENCOUNTER 2018-09-12 14:31 | Inpatient (IN) | payer BC, MEDICARE ==
[~2018-09-12] VITALS: Ht 167.6 cm; Wt 217.0 kg
[~2018-09-12 14:31] MED LIST changes: +ACET325T12 PO; +CITA20TA9 PO; +CLIN300C8 PO; +FURO20TA3 PO; +ZOLP5TAB PO
[2018-09-12 15:03] VITALS: BP 163/90
--- NOTE | 2018-09-12 15:13 | ER.PDOC ---
General Chief Complaint: Extremities Stated Complaint: LEFT LEG SWOLLEN Time seen by MD: 15:00 Source: patient Exam Limitations: no limitations History of Present Illness Timing/Duration: 24 hours Location: LLE Quality: painful Identified Cause: yes Exposure: infectious illiness Allergies: Coded Allergies: Penicillins (Verified Allergy, Unknown, hives, 07/19/18) egg (Verified Allergy, Unknown, 06/23/17) Home Meds Active Scripts Furosemide (FUROSEMIDE) 20 Mg Tablet, 40 TAB PO DAILY for 30 Days, #30 TABLET Prov:SIMONA KOHLER MD 07/23/18 Clindamycin Hcl (CLINDAMYCIN HCL) 300 Mg Capsule, 1 CAP PO TID for 7 Days, #21 CAP Prov:SIMONA KOHLER MD 07/23/18 Reported Medications Acetaminophen (TYLENOL) 325 Mg Tablet, 650 MG PO Q4 for pain, TABLET 07/20/18 Gabapentin (GABAPENTIN) 600 Mg Tablet, 600 MG PO HS PRN for PAIN, TABLET 07/20/18 Zolpidem Tartrate (AMBIEN) 5 Mg Tablet, 1 TAB PO PRN 07/19/18 Gabapentin (GABAPENTIN) 300 Mg Capsule, 1 CAP PO PRN, CAP 07/19/18 Citalopram Hydrobromide (CELEXA) 20 Mg Tablet, 1 TAB PO DAILY 07/19/18 Metoprolol Tartrate 50MG (LOPRESSER 50MG) 50 Mg Tablet, 1 TAB PO BID, TAB 01/04/17 Past Medical History Medical History: hypertension, other Surgical History: cholecystectomy, hysterectomy, tubal Social History Smoking: non-smoker Alcohol Use: none Drug Use: none Reviewed Nursing Reviewed: Vital Signs, Abn. Noted All Other Systems: Reviewed and Negative Physical Exam General Appearance: alert, no distress Skin: tender indurated area, with erythema, with lymphangitis, lesion, other ( LYMPHEDEMA) Location: LLE Character: asymmetric With: warmth, tenderness, swelling, lymphangitis, induration, thickening, scaling, weeping, inflammation Extremities: edema, ROM limited by pain, other EENT: eyes nml inspection, lips/gums nml, pharynx nml Neck: trachea midline, no swelling Respiratory: no resp. distress, breath sounds nml CVS: reg. rate & rhythm, heart sounds nml Abdomen: non-tender, no organomegaly Rectal: non-tender NEURO/PSYCH: oriented x 3, CN's nml as tested, motor nml, sensation nml, mood/ affect nml Results/Orders Results/Orders Vital Signs Date Time Temp Pulse Resp B/P (MAP) Pulse Ox O2 Delivery O2 Flow Rate FiO2 09/12/18 15:03 98.1 93 20 163/90 (114) 92 Room Air 98.1 09/12/18 15:01 98.1 93 20 92 Room Air 98.1 09/12/18 15:00 98.1 93 18 98.1 Consult/PCP Time Consult/PCP Called: 15:00 Consult/PCP: DR MOORE Departure Time of Disposition: 16:33 Disposition: 09 ADMITTED INPATIENT Impression: Primary Impression: Cellulitis Condition: Improved Referrals: [facility]ON[facility] [employer]ER (PCP) PRIMARY CARE PROVIDER Duration or Time Spent with Pa: 2 HRS BEN LARA MD Sep 12, 2018 15:13
[2018-09-12] MEDS ORDERED: NORCO 10MG PO STA (15:18)
[2018-09-12] MEDS ORDERED: ZOFRAN ODT SL STA (15:18)
--- NOTE | 2018-09-12 15:20 | PCM.EKG ---
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
[2018-09-12 15:39] LABS: BASOPHIL % 0.4 % (0.0-0.2); EOSINOPHIL # 0.2 10^3/uL (0.0-0.2); HEMOGLOBIN 14.2 g/dL (12.0-15.0); LYMPHOCYTES # 2.5 10^3/uL (1.0-4.8); LYMPHOCYTES % 27.7 % (24.0-44.0); MEAN CELL HGB 29.6 pg (26-34); MEAN CORP VOLUME 89.6 fL (78-100); MEAN PLATELET VOLUME 9.8 fL (7.8-11.0); MONOCYTES # 0.7 10^3/uL (0.3-0.8); MONOCYTES % 7.3 % (5.0-12.0); NEUTROPHIL # 5.7 10^3/uL (1.8-7.7); NEUTROPHILS % 62.4 % (41.0-85.0); RED CELL DISTRIBUTION WIDTH 14.7 % (11.5-14.5); WHITE BLOOD CELL 9.1 10^3/uL (4.5-11.0)
--- NOTE | 2018-09-12 15:48 | DIREP ---
PROCEDURE:CHEST 1 VIEW COMPARISON:[facility], CR, XRAY CHEST SINGLE VW, 07/19/2018, 09:24 PM. INDICATIONS:FEVER, NAUSEA, CHILLS FINDINGS: LUNGS/PLEURA:No significant pulmonary parenchymal abnormalities. No effusions. The lungs are slightly underexposed. The lungs are clear. No pneumonia, heart failure or effusions are seen. There is improved expansion of the lungs in the interval since the last study. VASCULATURE:Normal. Unremarkable pulmonary vasculature. CARDIAC:Normal. No cardiac silhouette abnormality or cardiomegaly. MEDIASTINUM:Normal. No visible mass or adenopathy. BONES:Normal. No fracture or visible bony lesion. OTHER:Negative. CONCLUSION:No active disease. No pneumonia is seen. Dictated by: Jay Rivers MD on 09/12/2018 at 03:45 PM
[2018-09-12] MEDS ORDERED: ZOFRAN ODT ONE (15:53)
[2018-09-12] MEDS ORDERED: NS 100ML 100 ML IV ONE (15:53)
[2018-09-12] MEDS ORDERED: ANCEF ONE (15:53)
[2018-09-12] MEDS ORDERED: NORCO 10MG PO ONE (15:54)
[2018-09-12] MEDS: ANCEF 1 GM in NS 100ML 100 ML IV SCH ×2 (16:02→23:13)
[2018-09-12 16:09] LABS: ALANINE AMINOTRANSFERASE(ML) 9 U/L (12-78); ALKALINE PHOSPHATASE 89 U/L (50-136); ASPARTATE AMINO TRANSFERASE 14 U/L (0-35); CALCIUM 8.8 mg/dL (8.4-10.5); CARBON DIOXIDE 26.4 mmol/L (20.0-32); GLUCOSE 133 mg/dL (70-110)
[2018-09-12] MEDS ORDERED: ANCEF 1 GM in NS 100ML 100 ML IV SCH (16:30)
[2018-09-12] MEDS ORDERED: ZOFRAN IV PRN ×2 (16:30→21:00)
[2018-09-12 17:51] VITALS: BP 160/90
[2018-09-12 20:58] VITALS: BP 139/94
[2018-09-12] MEDS ORDERED: AMBIEN PO SCH (21:00)
--- NOTE | 2018-09-12 21:11 | PCM.HP ---
History of Present Illness Reason for Visit: Right lower extremity swelling/redness History of Present Illness Patient is a 58 F PMH below presenting with left lower extremity pain/swelling/ redness x 2-3 days. Patient has hx of chronic lymphedema and recurrent lower extremity cellulitis. Pain controlled. Labs, imaging reviewed. Patient denies fever/chills. Pain is mild. Patient has multiple admissions for similar symptoms. Patient started on IV abx in ER. She is comfortable during my evaluation. present in room during evaluation. Patient denies any other acute complaints. Past Medical History Cardiac: HTN Psychiatric: Other (Insomnia) Musculoskeletal: Chronic Low Back Pain Dermatology: Cellulitis, Other (chronic lymphedema) Past Surgical History: Cholecystectomy, Tubal Ligation, Tonsillectomy, Other ( Hysterectomy) Past Social History Smoke: No Alcohol: none Drugs: None Lives: with Family Domestic Violence: Neg Travel Hx EBOLA RISK:Travel to/contact w: No Is pt experiencing any Ebola s: No Review of Systems Constitutional: No: Fever, Chills Eyes: No: Conjunctivae inflammation, Eyelid inflammation ENT: No: Nose discharge, Nose congestion Respiratory: No: Cough, Shortness of breath, SOB with excertion, Wheezing Cardiovascular: Edema; No: Chest Pain, Palpitations Gastrointestinal: No: Nausea, Vomiting, Abdominal Pain Genitourinary: No Hematuria, No Retention Musculoskeletal: back pain, leg pain Skin: Rash; No: Lesions, Jaundice, Bruising Neurological: No: Weakness, Numbness, Incoordination, Change in speech, Confusion, Seizures Allergies: Coded Allergies: Penicillins (Verified Allergy, Unknown, hives, 07/19/18) egg (Verified Allergy, Unknown, 06/23/17) Scheduled Acetaminophen (Tylenol), 650 MG PO Q4, (Reported) Citalopram Hydrobromide (Celexa), 1 TAB PO DAILY, (Reported) Furosemide (Furosemide), 40 TAB PO DAILY Gabapentin (Gabapentin), 1 CAP PO PRN, (Reported) Metoprolol Tartrate 50MG (Lopresser 50MG), 1 TAB PO BID, (Reported) Zolpidem Tartrate (Ambien), 1 TAB PO PRN, (Reported) Discontinued Medications Clindamycin Hcl (Clindamycin Hcl), 1 CAP PO TID Discontinued Reason: Discontinue Gabapentin (Gabapentin), 600 MG PO HS PRN for PAIN, (Reported) Discontinued Reason: No Longer Taking VTE VTE Risk Total Score: 2 VTE Risk Score VTE Risk: Score 0-1 = Low Risk (Aggressive mobilization; early ambulation; no VTE prophylaxis required) Score 2: Moderate Risk (Intermittent/Pneumatic Compression Device OR Lovenox/Heparin/Coumadin) Score 3-4: High Risk (Intermittent/Pneumatic Compression Device AND Lovenox/Heparin/Coumadin) Score > or =5: Highest Risk (Intermittent/Pneumatic Compression Device AND Lovenox/Heparin/Coumadin) Antico:Hep/LMWH/Coum/Xarelto: Yes Mechanical device ordered: No VTE VTE Present on Admission: No Currently receiving anticoagul: No VTE Risk Total Score: 2 Antico:Hep/LMWH/Coum/Xarelto: Yes Mechanical device ordered: No Exam Vital Signs Vital Signs Date Time Temp Pulse Resp B/P (MAP) Pulse Ox O2 Delivery O2 Flow Rate FiO2 09/12/18 20:58 98.4 88 20 139/94 (109) 94 Room Air 98.4 General Appearance: Alert, Oriented X3, Cooperative, No acute distress, Other ( morbid obesity) HEENT: Atraumatic, PERRLA, EOMI, Mucous membr. moist/pink Respiratory: Clear to auscultation, Normal air movement Cardiovascular: Regular rate, Normal S1, Normal S2, No murmurs Abdominal: Normal bowel sounds, Soft Extremities: Other (chronic lymphedema, redness/swelling LLE) Skin: No breakdown, No lesions Neuro: Normal gait, Normal speech, Strength at 5/5 X4 ext, Normal tone, Sensation intact, Cranial nerves 3-12 NL Psych/Mental Status: Mental status NL, Mood NL Assessment/Plan Assessment/Plan Assessment/Plan Patient is a 58 F PMH below presenting with left lower extremity pain/swelling/ redness x 2-3 days. Patient History: Asthma 34 MOTHER Hypertension 32 MOTHER Plan 1. LLE cellulitis: cont IV abx, blood cx pending. 2. Chronic Lymphedema: continue outpatient management, Lasix 3. Insomnia: ambien qhs PRN 4. HTN: cont Lopressor 5. PPx: PPI, Lovenox CORBY MOORE MD Sep 12, 2018 21:11
[2018-09-12] MEDS: LOPRESSOR PO SCH (22:11)
[2018-09-12] MEDS: LOVENOX SQ SCH (22:11)
[2018-09-12] MEDS ORDERED: NS 250ML 250 ML IV ONE (22:56)
[2018-09-12] MEDS: MORPHINE SULFATE IV PRN (23:19)
[2018-09-12 23:46] VITALS: BP 128/89
[2018-09-12] MEDS: TYLENOL PO SCH (23:57)
[2018-09-13] MEDS: TYLENOL PO SCH ×5 (04:00→20:00)
[2018-09-13] MEDS: TORADOL IV PRN ×2 (04:49→19:46)
[2018-09-13 05:16] LABS: BASOPHIL % 0.4 % (0.0-0.2); EOSINOPHIL # 0.2 10^3/uL (0.0-0.2); EOSINOPHIL % 2.5 % (0.0-5.0); HEMOGLOBIN 12.8 g/dL (12.0-15.0); LYMPHOCYTES # 2.7 10^3/uL (1.0-4.8); LYMPHOCYTES % 33.6 % (24.0-44.0); MEAN CELL HGB 29.4 pg (26-34); MEAN CELL HGB CONCENTRATION 32.3 g/dL (33-37); MEAN CORP VOLUME 90.8 fL (78-100); MEAN PLATELET VOLUME 10.3 fL (7.8-11.0); MONOCYTES # 0.7 10^3/uL (0.3-0.8); MONOCYTES % 8.8 % (5.0-12.0); NEUTROPHIL # 4.4 10^3/uL (1.8-7.7); NEUTROPHILS % 54.5 % (41.0-85.0); RED CELL DISTRIBUTION WIDTH 14.9 % (11.5-14.5); WHITE BLOOD CELL 8.1 10^3/uL (4.5-11.0)
[2018-09-13 05:37] LABS: CALCIUM 8.5 mg/dL (8.4-10.5); CARBON DIOXIDE 28.1 mmol/L (20.0-32)
[2018-09-13 05:46] VITALS: BP 109/57
[2018-09-13] MEDS: ANCEF 1 GM in NS 100ML 100 ML IV SCH ×2 (07:43→15:48)
[2018-09-13 07:50] VITALS: BP 91/58
[2018-09-13] MEDS ORDERED: LASIX PO SCH (09:00)
--- NOTE | 2018-09-13 09:48 | PRM.PN ---
Subjective Subjective Date: Sep 13, 2018 Time: 09:30 Subjective Patient symptoms mildly improved. No fever, no chills. Patient is having headache. Labs reviewed. Patient History: Asthma 32 MOTHER Hypertension 32 MOTHER VTE VTE Risk Total Score: 2 VTE Risk Score VTE Risk: Score 0-1 = Low Risk (Aggressive mobilization; early ambulation; no VTE prophylaxis required) Score 2: Moderate Risk (Intermittent/Pneumatic Compression Device OR Lovenox/Heparin/Coumadin) Score 3-4: High Risk (Intermittent/Pneumatic Compression Device AND Lovenox/Heparin/Coumadin) Score > or =5: Highest Risk (Intermittent/Pneumatic Compression Device AND Lovenox/Heparin/Coumadin) Antico:Hep/LMWH/Coum/Xarelto: Yes Mechanical device ordered: No Review of Systems Allergies: Coded Allergies: Penicillins (Verified Allergy, Unknown, hives, 07/19/18) egg (Verified Allergy, Unknown, 06/23/17) Scheduled Acetaminophen (Tylenol), 650 MG PO Q4, (Reported) Citalopram Hydrobromide (Celexa), 1 TAB PO DAILY, (Reported) Furosemide (Furosemide), 40 TAB PO DAILY Gabapentin (Gabapentin), 1 CAP PO PRN, (Reported) Metoprolol Tartrate 50MG (Lopresser 50MG), 1 TAB PO BID, (Reported) Zolpidem Tartrate (Ambien), 1 TAB PO PRN, (Reported) Discontinued Medications Clindamycin Hcl (Clindamycin Hcl), 1 CAP PO TID Discontinued Reason: Discontinue Gabapentin (Gabapentin), 600 MG PO HS PRN for PAIN, (Reported) Discontinued Reason: No Longer Taking Objective Vitals and I/O Vital Sign - Last 24 Hours 09/12/18 09/12/18 09/12/18 09/12/18 15:00 15:01 15:03 17:51 Temp 98.1 98.1 98.1 98.1 98.1 98.1 98.1 98.1 Pulse 93 93 93 93 Resp 18 20 20 20 B/P (MAP) 163/90 (114) 160/90 (113) Pulse Ox 92 92 92 O2 Delivery Room Air Room Air Room Air 09/12/18 09/12/18 09/12/18 09/13/18 19:30 20:58 23:46 05:46 Temp 98.4 98.9 98.0 98.4 98.9 98.0 Pulse 88 86 82 Resp 20 20 22 B/P (MAP) 139/94 (109) 128/89 (102) 109/57 (74) Pulse Ox 94 95 92 O2 Delivery Room Air Room Air Room Air Room Air 09/13/18 07:50 Temp 98.0 98.0 Pulse 85 Resp 19 B/P (MAP) 91/58 (69) Pulse Ox 92 O2 Delivery Room Air Intake and Output 09/12/18 09/12/18 09/13/18 15:00 23:00 07:00 Intake Total 1500 ml Balance 1500 ml General: Alert, Oriented X3, Cooperative, No acute distress, Other (morbid obesity) HEENT: Atraumatic, PERRLA, EOMI, Mucous membr. moist/pink Neck: Supple, No JVD Lungs: Clear to auscultation, Normal air movement Heart: Regular rate, Normal S1, Normal S2, No murmurs Abdomen: Normal bowel sounds, Soft Extremities: Other (chronic lymphedema, redness/swelling LLE) Skin: Other (rash, lymphedema changes bilateral lower extremities) Neuro: Normal gait, Normal speech, Strength at 5/5 X4 ext, Normal tone, Sensation intact, Cranial nerves 3-12 NL Psych/Mental Status: Mental status NL, Mood NL All Results(Lab/Rad) Laboratory Tests Test 09/12/18 15:17 09/12/18 15:26 09/13/18 04:38 White Blood Count 9.1 10^3/uL 8.1 10^3/uL Red Blood Count 4.80 10^6/uL 4.36 10^6/uL Hemoglobin 14.2 g/dL 12.8 g/dL Hematocrit 43.0 % 39.6 % Mean Corpuscular Volume 89.6 fL 90.8 fL Mean Corpuscular Hemoglobin 29.6 pg 29.4 pg Mean Corpuscular Hemoglobin Concent 33.0 g/dL 32.3 g/dL Red Cell Distribution Width 14.7 % 14.9 % Platelet Count 243 10^3/uL 229 10^3/uL Mean Platelet Volume 9.8 fL 10.3 fL Neutrophils (%) (Auto) 62.4 % 54.5 % Lymphocytes (%) (Auto) 27.7 % 33.6 % Monocytes (%) (Auto) 7.3 % 8.8 % Neutrophils # (Auto) 5.7 10^3/uL 4.4 10^3/uL Lymphocytes # (Auto) 2.5 10^3/uL 2.7 10^3/uL Monocytes # (Auto) 0.7 10^3/uL 0.7 10^3/uL Absolute Immature Granulocyte (auto 0.02 10^3 u/L 0.02 10^3 u/L Eosinophils % 2.0 % 2.5 % Basophils % 0.4 % 0.4 % Basophils # 0.0 10^3/uL 0.0 10^3/uL Erythrocyte Sedimentation Rate 40 mm/hr Eosinophil Count 0.2 10^3/uL 0.2 10^3/uL Prothrombin Time 9.3 SEC Prothrombin Time INR (Non-Therap) 0.9 Activated Partial Thromboplast Time 23.1 SEC D-Dimer 0.60 mg/L Percent Immature Gran (Cell Imm) 0.20 % 0.20 % Helicobacter pylori Screen NEGATIVE Blood Gas Sample Site VBG Cecil Test N/A Lactic Acid (Blood Gas) 2.4 MMOL/L Blood Gas Temperature 37 Sodium Level 141 mmol/L 141 mmol/L Potassium Level 3.8 mmol/L 4.3 mmol/L Chloride Level 102.0 mmol/L 105.0 mmol/L Carbon Dioxide Level 26.4 mmol/L 28.1 mmol/L Anion Gap 16.4 12.2 Blood Urea Nitrogen 15 mg/dL 17 mg/dL Creatinine 1.02 mg/dL 1.06 mg/dL Estimated GFR () 67.8 64.9 BUN/Creatinine Ratio 14.0 16.0 Glucose Level 133 mg/dL 122 mg/dL Calcium Level 8.8 mg/dL 8.5 mg/dL Total Bilirubin 0.3 mg/dL 0.2 mg/dL Aspartate Amino Transf (AST/SGOT) 14 U/L 12 U/L Alanine Aminotransferase (ALT/SGPT) 9 U/L 20 U/L Alkaline Phosphatase 89 U/L 81 U/L Total Creatine Kinase 125 U/L Troponin I < 0.02 ng/mL C-Reactive Protein 0.92 mg/dL Pro-B-Type Natriuretic Peptide 101 pg/mL Total Protein 7.9 g/dL 6.8 g/dL Albumin 3.5 g/dL 3.1 g/dL Globulin 4.4 3.7 Current Medications Medications (Trade) Dose Ordered Sig/Angel Route PRN Reason Start Time Stop Time Status Last Admin Dose Admin Cefazolin Sodium 1 gm/Sodium Chloride 100 ml @ 100 mls/hr Q8H IV 09/12/18 15:30 10/12/18 15:29 09/13/18 07:43 Acetaminophen/ Hydrocodone Bitart (Wells 10mg) 1 each STAT STAT PO 09/12/18 15:18 09/12/18 15:20 DC 09/12/18 16:02 Ondansetron HCl (Zofran Odt) 4 mg STAT STAT SL 09/12/18 15:18 09/12/18 15:20 DC 09/12/18 16:02 Sodium Chloride 100 ml @ ud STK-MED ONCE IV 09/12/18 15:53 09/12/18 15:55 DC Cefazolin Sodium (Ancef) 1 gm STK-MED ONCE .ROUTE 09/12/18 15:53 09/12/18 15:55 DC Ondansetron HCl (Zofran Odt) 4 mg STK-MED ONCE .ROUTE 09/12/18 15:53 09/12/18 15:55 DC Acetaminophen/ Hydrocodone Bitart (Wells 10mg) 1 each STK-MED ONCE PO 09/12/18 15:54 09/12/18 15:56 DC Cefazolin Sodium 1 gm/Sodium Chloride 100 ml @ 100 mls/hr Q8H IV 09/12/18 16:30 09/12/18 17:05 DC Ketorolac Tromethamine (Toradol) 15 mg Q6H PRN IV PAIN 09/12/18 16:30 09/17/18 16:29 09/13/18 04:49 Morphine Sulfate (Morphine Sulfate) 4 mg Q4H PRN IV PAIN 4 - 6 09/12/18 16:30 10/12/18 16:29 09/12/18 23:19 Ondansetron HCl (Zofran) 4 mg Q4H PRN IV NAUSEA / VOMITING 09/12/18 16:30 09/12/18 21:14 DC Acetaminophen (Tylenol) 650 mg Q4 PO 09/13/18 00:00 10/13/18 00:00 09/13/18 07:44 Citalopram Hydrobromide (CeleXA) 20 mg DAILY PO 09/13/18 09:00 10/13/18 08:59 Furosemide (Lasix) 800 mg DAILY PO 09/13/18 09:00 09/13/18 09:00 DC Gabapentin (Neurontin) 300 mg PRN PO 09/12/18 21:00 10/12/18 20:59 UNV Metoprolol Tartrate (Lopressor) 50 mg BID PO 09/12/18 21:00 10/12/18 20:59 09/12/18 22:11 Zolpidem Tartrate (Ambien) 5 mg PRN PO 09/12/18 21:00 10/12/18 20:59 UNV 09/12/18 22:15 Aspirin (Aspirin Ec) 81 mg DAILY PO 09/13/18 09:00 10/13/18 08:59 Ondansetron HCl (Zofran) 4 mg Q4H PRN IV NAUSEA / VOMITING 09/12/18 21:00 10/12/18 20:59 Pantoprazole Sodium (Protonix) 40 mg DAILY PO 09/13/18 09:00 10/13/18 08:59 Enoxaparin Sodium (Lovenox) 40 mg Q24HRS SQ 09/12/18 21:00 10/12/18 20:59 09/12/18 22:11 Furosemide (Lasix) 40 mg DAILY PO 09/13/18 09:00 10/13/18 08:59 Sodium Chloride 250 ml @ STK-MED ONCE IV 09/12/18 22:56 09/12/18 22:58 DC Course Sepsis Screening Results: Posi: NEGATIVE Sepsis Qualifier/Stage: NO DEFINITE RISK Duration or Total Time Spent w: 2 HRS Vitals & review Data Vital Sign - Last 24 Hours 09/12/18 09/12/18 09/12/18 09/12/18 15:00 15:01 15:03 17:51 Temp 98.1 98.1 98.1 98.1 98.1 98.1 98.1 98.1 Pulse 93 93 93 93 Resp 18 20 20 20 B/P (MAP) 163/90 (114) 160/90 (113) Pulse Ox 92 92 92 O2 Delivery Room Air Room Air Room Air 09/12/18 09/12/18 09/12/18 09/13/18 19:30 20:58 23:46 05:46 Temp 98.4 98.9 98.0 98.4 98.9 98.0 Pulse 88 86 82 Resp 20 20 22 B/P (MAP) 139/94 (109) 128/89 (102) 109/57 (74) Pulse Ox 94 95 92 O2 Delivery Room Air Room Air Room Air Room Air 09/13/18 07:50 Temp 98.0 98.0 Pulse 85 Resp 19 B/P (MAP) 91/58 (69) Pulse Ox 92 O2 Delivery Room Air Intake and Output 09/12/18 09/12/18 09/13/18 15:00 23:00 07:00 Intake Total 1500 ml Balance 1500 ml Laboratory Tests Test 09/12/18 15:17 09/12/18 15:26 09/13/18 04:38 White Blood Count 9.1 10^3/uL 8.1 10^3/uL Red Blood Count 4.80 10^6/uL 4.36 10^6/uL Hemoglobin 14.2 g/dL 12.8 g/dL Hematocrit 43.0 % 39.6 % Mean Corpuscular Volume 89.6 fL 90.8 fL Mean Corpuscular Hemoglobin 29.6 pg 29.4 pg Mean Corpuscular Hemoglobin Concent 33.0 g/dL 32.3 g/dL Red Cell Distribution Width 14.7 % 14.9 % Platelet Count 243 10^3/uL 229 10^3/uL Mean Platelet Volume 9.8 fL 10.3 fL Neutrophils (%) (Auto) 62.4 % 54.5 % Lymphocytes (%) (Auto) 27.7 % 33.6 % Monocytes (%) (Auto) 7.3 % 8.8 % Neutrophils # (Auto) 5.7 10^3/uL 4.4 10^3/uL Lymphocytes # (Auto) 2.5 10^3/uL 2.7 10^3/uL Monocytes # (Auto) 0.7 10^3/uL 0.7 10^3/uL Absolute Immature Granulocyte (auto 0.02 10^3 u/L 0.02 10^3 u/L Eosinophils % 2.0 % 2.5 % Basophils % 0.4 % 0.4 % Basophils # 0.0 10^3/uL 0.0 10^3/uL Erythrocyte Sedimentation Rate 40 mm/hr Eosinophil Count 0.2 10^3/uL 0.2 10^3/uL Prothrombin Time 9.3 SEC Prothrombin Time INR (Non-Therap) 0.9 Activated Partial Thromboplast Time 23.1 SEC D-Dimer 0.60 mg/L Percent Immature Gran (Cell Imm) 0.20 % 0.20 % Helicobacter pylori Screen NEGATIVE Blood Gas Sample Site VBG Cecil Test N/A Lactic Acid (Blood Gas) 2.4 MMOL/L Blood Gas Temperature 37 Sodium Level 141 mmol/L 141 mmol/L Potassium Level 3.8 mmol/L 4.3 mmol/L Chloride Level 102.0 mmol/L 105.0 mmol/L Carbon Dioxide Level 26.4 mmol/L 28.1 mmol/L Anion Gap 16.4 12.2 Blood Urea Nitrogen 15 mg/dL 17 mg/dL Creatinine 1.02 mg/dL 1.06 mg/dL Estimated GFR () 67.8 64.9 BUN/Creatinine Ratio 14.0 16.0 Glucose Level 133 mg/dL 122 mg/dL Calcium Level 8.8 mg/dL 8.5 mg/dL Total Bilirubin 0.3 mg/dL 0.2 mg/dL Aspartate Amino Transf (AST/SGOT) 14 U/L 12 U/L Alanine Aminotransferase (ALT/SGPT) 9 U/L 20 U/L Alkaline Phosphatase 89 U/L 81 U/L Total Creatine Kinase 125 U/L Troponin I < 0.02 ng/mL C-Reactive Protein 0.92 mg/dL Pro-B-Type Natriuretic Peptide 101 pg/mL Total Protein 7.9 g/dL 6.8 g/dL Albumin 3.5 g/dL 3.1 g/dL Globulin 4.4 3.7 Current Medications Medications (Trade) Dose Ordered Sig/Angel PRN Reason Start Time Stop Time Status Last Admin Acetaminophen (Tylenol) 650 mg Q4 09/13/18 00:00 10/13/18 00:00 09/13/18 07:44 Aspirin (Aspirin Ec) 81 mg DAILY 09/13/18 09:00 10/13/18 08:59 Cefazolin Sodium 1 gm/Sodium Chloride 100 ml @ 100 mls/hr Q8H 09/12/18 15:30 10/12/18 15:29 09/13/18 07:43 Citalopram Hydrobromide (CeleXA) 20 mg DAILY 09/13/18 09:00 10/13/18 08:59 Enoxaparin Sodium (Lovenox) 40 mg Q24HRS 09/12/18 21:00 10/12/18 20:59 09/12/18 22:11 Furosemide (Lasix) 40 mg DAILY 09/13/18 09:00 10/13/18 08:59 Gabapentin (Neurontin) 300 mg PRN 09/12/18 21:00 10/12/18 20:59 UNV Ketorolac Tromethamine (Toradol) 15 mg Q6H PRN PAIN 09/12/18 16:30 09/17/18 16:29 09/13/18 04:49 Metoprolol Tartrate (Lopressor) 50 mg BID 09/12/18 21:00 10/12/18 20:59 09/12/18 22:11 Morphine Sulfate (Morphine Sulfate) 4 mg Q4H PRN PAIN 4 - 6 09/12/18 16:30 10/12/18 16:29 09/12/18 23:19 Ondansetron HCl (Zofran) 4 mg Q4H PRN NAUSEA / VOMITING 09/12/18 21:00 10/12/18 20:59 Pantoprazole Sodium (Protonix) 40 mg DAILY 09/13/18 09:00 10/13/18 08:59 Zolpidem Tartrate (Ambien) 5 mg PRN 09/12/18 21:00 10/12/18 20:59 UNV 09/12/18 22:15 Sepsis Infection Criteria Pres: None LEVEL 1 SEPSIS INFECTION CRITE: ABX Therapy, Cellulitis LEVEL 2-SIRS (LIST ALL THAT AP: None/Not assessed Cardiovascular Evidence: Not Assessed or None Hematologic Evidence: None/Not assessed Hepatic Evidence: None/Not assessed Metabolic Evidence: None/Not assessed Neurological Evidence: None/Not assessed Respiratory Evidence: None/Not assessed Renal Evidence: None/Not assessed O2 Sat by Pulse Oximetry: 92 Assessment/Plan Assessment/Plan Assessment/Plan 1. LLE cellulitis: cont IV abx, blood cx pending. No fever, no leukocytosis. Possible d/c in AM. 2. Chronic Lymphedema: continue outpatient management, Lasix 3. Insomnia: ambien qhs PRN 4. HTN: cont Lopressor 5. PPx: PPI, Lovenox CORBY MOORE MD Sep 13, 2018 09:48
[2018-09-13] MEDS: CeleXA PO SCH (10:31)
[2018-09-13] MEDS: LOPRESSOR PO SCH ×2 (10:32→21:17)
[2018-09-13] MEDS: ASPIRIN EC PO SCH (10:32)
[2018-09-13] MEDS: LASIX PO SCH (10:33)
[2018-09-13 12:10] VITALS: BP 124/80
--- NOTE | 2018-09-13 12:44 | DIET.OP ---
Nutrition Asmt/Malnutrit 2-17 Actual Date of Review: Jul 20, 2018 Nutritional Screening: Malnutr/Diet Consult Diagnosis: left LE cellulitis Pertinent Medical Hx/Surgical: Per MD: HTN, Insomnia, Chronic Back Pain, Cellulitis Subjective Information: Consult for Malnutrition Screening. Have seen patient several times in the past. She is morbidly obese and does not follow a proper diet or exercise plan at home. She has no appetite issues currently. Her previous admission she weighed 458 pounds. She reports that she had lost an unknown amount of weight, but has gained it all back because of the cellulitis. She is not interested in any diet education. Current Diet Order/Nutrition S: Regular Pertinent Meds Current Medications Medications (Trade) Dose Ordered Sig/Angel PRN Reason Start Time Stop Time Status Last Admin Acetaminophen (Tylenol) 650 mg Q4 09/13/18 00:00 10/13/18 00:00 09/13/18 07:44 Aspirin (Aspirin Ec) 81 mg DAILY 09/13/18 09:00 10/13/18 08:59 09/13/18 10:32 Cefazolin Sodium 1 gm/Sodium Chloride 100 ml @ 100 mls/hr Q8H 09/12/18 15:30 10/12/18 15:29 09/13/18 07:43 Citalopram Hydrobromide (CeleXA) 20 mg DAILY 09/13/18 09:00 10/13/18 08:59 09/13/18 10:31 Enoxaparin Sodium (Lovenox) 40 mg Q24HRS 09/12/18 21:00 10/12/18 20:59 09/12/18 22:11 Furosemide (Lasix) 40 mg DAILY 09/13/18 09:00 10/13/18 08:59 09/13/18 10:33 Gabapentin (Neurontin) 300 mg PRN 09/12/18 21:00 10/12/18 20:59 UNV Ketorolac Tromethamine (Toradol) 15 mg Q6H PRN PAIN 09/12/18 16:30 09/17/18 16:29 09/13/18 04:49 Metoprolol Tartrate (Lopressor) 50 mg BID 09/12/18 21:00 10/12/18 20:59 09/13/18 10:32 Morphine Sulfate (Morphine Sulfate) 4 mg Q4H PRN PAIN 4 - 6 09/12/18 16:30 10/12/18 16:29 09/12/18 23:19 Ondansetron HCl (Zofran) 4 mg Q4H PRN NAUSEA / VOMITING 09/12/18 21:00 10/12/18 20:59 Pantoprazole Sodium (Protonix) 40 mg DAILY 09/13/18 09:00 10/13/18 08:59 Zolpidem Tartrate (Ambien) 5 mg PRN 09/12/18 21:00 10/12/18 20:59 UNV 09/12/18 22:15 Pertinent Labs Laboratory Tests 09/12/18 15:17: White Blood Count 9.1, Red Blood Count 4.80, Hemoglobin 14.2, Hematocrit 43.0, Mean Corpuscular Volume 89.6, Mean Corpuscular Hemoglobin 29.6, Mean Corpuscular Hemoglobin Concent 33.0, Red Cell Distribution Width 14.7H, Platelet Count 243, Mean Platelet Volume 9.8, Neutrophils (%) (Auto) 62.4, Lymphocytes (%) (Auto) 27.7, Monocytes (%) (Auto) 7.3, Neutrophils # (Auto) 5.7 , Lymphocytes # (Auto) 2.5, Monocytes # (Auto) 0.7, Absolute Immature Granulocyte (auto 0.02, Eosinophils % 2.0, Basophils % 0.4H, Basophils # 0.0, Erythrocyte Sedimentation Rate 40H, Eosinophil Count 0.2, Prothrombin Time 9.3L , Prothrombin Time INR (Non-Therap) 0.9, Activated Partial Thromboplast Time 23.1L, D-Dimer 0.60*H, Percent Immature Gran (Cell Imm) 0.20, Helicobacter pylori Screen NEGATIVE 09/12/18 15:26: Blood Gas Sample Site VBG, Cecil Test N/A, Lactic Acid (Blood Gas) 2.4H, Blood Gas Temperature 37, Sodium Level 141, Potassium Level 3.8, Chloride Level 102.0 , Carbon Dioxide Level 26.4, Anion Gap 16.4, Blood Urea Nitrogen 15, Creatinine 1.02, Estimated GFR () 67.8, BUN/Creatinine Ratio 14.0, Glucose Level 133H, Calcium Level 8.8, Total Bilirubin 0.3, Aspartate Amino Transf (AST/ SGOT) 14, Alanine Aminotransferase (ALT/SGPT) 9L, Alkaline Phosphatase 89, Total Creatine Kinase 125, Troponin I < 0.02, C-Reactive Protein 0.92, Pro-B- Type Natriuretic Peptide 101, Total Protein 7.9, Albumin 3.5, Globulin 4.4 09/13/18 04:38: White Blood Count 8.1, Red Blood Count 4.36, Hemoglobin 12.8, Hematocrit 39.6, Mean Corpuscular Volume 90.8, Mean Corpuscular Hemoglobin 29.4, Mean Corpuscular Hemoglobin Concent 32.3L, Red Cell Distribution Width 14.9H, Platelet Count 229, Mean Platelet Volume 10.3, Neutrophils (%) (Auto) 54.5, Lymphocytes (%) (Auto) 33.6, Monocytes (%) (Auto) 8.8, Neutrophils # (Auto) 4.4 , Lymphocytes # (Auto) 2.7, Monocytes # (Auto) 0.7, Absolute Immature Granulocyte (auto 0.02, Eosinophils % 2.5, Basophils % 0.4H, Basophils # 0.0, Eosinophil Count 0.2, Percent Immature Gran (Cell Imm) 0.20, Sodium Level 141, Potassium Level 4.3, Chloride Level 105.0, Carbon Dioxide Level 28.1, Anion Gap 12.2, Blood Urea Nitrogen 17, Creatinine 1.06, Estimated GFR () 64.9, BUN/Creatinine Ratio 16.0, Glucose Level 122H, Calcium Level 8.5, Total Bilirubin 0.2, Aspartate Amino Transf (AST/SGOT) 12, Alanine Aminotransferase ( ALT/SGPT) 20, Alkaline Phosphatase 81, Total Protein 6.8, Albumin 3.1L, Globulin 3.7 Height (Feet): 5 Height (Inches): 6 Current Weight: 477 Usual Weight: 458 %UBW: 104 %IBW: 366 Recent Weight Change: Yes Weight Status: Morbid Obese GI Symptoms: None Food Allergies: Yes (Egg) Cultural/Ethnic/Anglican [place]: none reported Usual Diet at Home: Regular Current %PO: Good(75-100%) Calories/Kcals/Kg: MsJ * 1.2-1.3 Kcals Calculated: Protein: Adj WT of IBW Protein g/k.25-1.5 g/kg Protein Calculated: 117g-141g Fluid: ml: (1mL/kcal) Nutritional Problem: Nutr. Problems Present Problems: Overweight/obese Etiology: Not ready for lifestyle change/ excessive energy intake/ physical inactivity Signs/Symptoms: BMI of 77.0, 366% IBW, 104% UBW Malnutrition related to morbid: BMI>or equal to 40 Malnutrition Related to Morbid: Yes RD Comments: Intervention: 1. Continue current diet order to meet the patients estimated energy needs 2. Attempt to educate the patient on a healthy diet Monitor/evaluate: 1. Weight status 2. po intake Expected Outcomes Goal: 1. The patient will consume at least 80% of meals provided to meet 100% of estimated energy needs over the next 2-3 days Discharge plan: 1. Discharge planning in progress Malnutrtion/Nutrition Risk Edu: No Patient uninterested in diet education at this time JAGDEEP ARENAS RD Sep 13, 2018 12:44
[2018-09-13] MEDS: PROTONIX PO SCH (14:26)
[2018-09-13] MEDS: MORPHINE SULFATE IV PRN (14:27)
[2018-09-13 16:18] VITALS: BP 104/54
[2018-09-13 18:45] VITALS: BP 105/55
[2018-09-13] MEDS: LOVENOX SQ SCH (21:16)
[2018-09-13] MEDS: AMBIEN PO SCH (21:18)
[2018-09-14] MEDS: ANCEF 1 GM in NS 100ML 100 ML IV SCH ×4 (00:23→23:44)
[2018-09-14 00:42] VITALS: BP 110/58
[2018-09-14] MEDS: TYLENOL PO SCH ×6 (04:00→20:32)
[2018-09-14 04:14] VITALS: BP 118/60
[2018-09-14 05:03] LABS: BASOPHIL % 0.3 % (0.0-0.2); EOSINOPHIL # 0.2 10^3/uL (0.0-0.2); EOSINOPHIL % 2.8 % (0.0-5.0); HEMOGLOBIN 12.1 g/dL (12.0-15.0); LYMPHOCYTES # 2.4 10^3/uL (1.0-4.8); LYMPHOCYTES % 30.9 % (24.0-44.0); MEAN CELL HGB 29.2 pg (26-34); MEAN CELL HGB CONCENTRATION 31.7 g/dL (33-37); MEAN PLATELET VOLUME 9.8 fL (7.8-11.0); MONOCYTES # 0.7 10^3/uL (0.3-0.8); MONOCYTES % 9.3 % (5.0-12.0); NEUTROPHIL # 4.4 10^3/uL (1.8-7.7); NEUTROPHILS % 56.6 % (41.0-85.0); RED CELL DISTRIBUTION WIDTH 14.8 % (11.5-14.5); WHITE BLOOD CELL 7.7 10^3/uL (4.5-11.0)
[2018-09-14 05:28] LABS: CALCIUM 8.4 mg/dL (8.4-10.5); CARBON DIOXIDE 27.7 mmol/L (20.0-32)
[2018-09-14 07:23] VITALS: BP 123/63
--- NOTE | 2018-09-14 08:57 | PRM.PN ---
Subjective Subjective Date: Sep 14, 2018 Time: 08:45 Subjective No fever, no chills. Labs reviewed. Patient still having tenderness/redness but symptoms improved. Patient History: Asthma 32 MOTHER Hypertension 32 MOTHER VTE VTE Risk Total Score: 2 VTE Risk Score VTE Risk: Score 0-1 = Low Risk (Aggressive mobilization; early ambulation; no VTE prophylaxis required) Score 2: Moderate Risk (Intermittent/Pneumatic Compression Device OR Lovenox/Heparin/Coumadin) Score 3-4: High Risk (Intermittent/Pneumatic Compression Device AND Lovenox/Heparin/Coumadin) Score > or =5: Highest Risk (Intermittent/Pneumatic Compression Device AND Lovenox/Heparin/Coumadin) Antico:Hep/LMWH/Coum/Xarelto: Yes Mechanical device ordered: No Review of Systems Allergies: Coded Allergies: Penicillins (Verified Allergy, Unknown, hives, 07/19/18) egg (Verified Allergy, Unknown, 06/23/17) Scheduled Acetaminophen (Tylenol), 650 MG PO Q4, (Reported) Citalopram Hydrobromide (Celexa), 1 TAB PO DAILY, (Reported) Furosemide (Furosemide), 40 TAB PO DAILY Gabapentin (Gabapentin), 1 CAP PO PRN, (Reported) Metoprolol Tartrate 50MG ([place] 50MG), 1 TAB PO BID, (Reported) Zolpidem Tartrate (Ambien), 1 TAB PO PRN, (Reported) Discontinued Medications Clindamycin Hcl (Clindamycin Hcl), 1 CAP PO TID Discontinued Reason: Discontinue Gabapentin (Gabapentin), 600 MG PO HS PRN for PAIN, (Reported) Discontinued Reason: No Longer Taking Objective Vitals and I/O Vital Sign - Last 24 Hours 09/12/18 09/12/18 09/12/18 09/12/18 15:00 15:01 15:03 17:51 Temp 98.1 98.1 98.1 98.1 98.1 98.1 98.1 98.1 Pulse 93 93 93 93 Resp 18 20 20 20 B/P (MAP) 163/90 (114) 160/90 (113) Pulse Ox 92 92 92 O2 Delivery Room Air Room Air Room Air 09/12/18 09/12/18 09/12/18 09/13/18 19:30 20:58 23:46 05:46 Temp 98.4 98.9 98.0 98.4 98.9 98.0 Pulse 88 86 82 Resp 20 20 22 B/P (MAP) 139/94 (109) 128/89 (102) 109/57 (74) Pulse Ox 94 95 92 O2 Delivery Room Air Room Air Room Air Room Air 09/13/18 07:50 Temp 98.0 98.0 Pulse 85 Resp 19 B/P (MAP) 91/58 (69) Pulse Ox 92 O2 Delivery Room Air Intake and Output 09/12/18 09/12/18 09/13/18 15:00 23:00 07:00 Intake Total 1500 ml Balance 1500 ml General: Alert, Oriented X3, Cooperative, No acute distress, Other (morbid obesity) HEENT: Atraumatic, PERRLA, EOMI, Mucous membr. moist/pink Neck: Supple, No JVD Lungs: Clear to auscultation, Normal air movement Heart: Regular rate, Normal S1, Normal S2, No murmurs Abdomen: Normal bowel sounds, Soft Extremities: Other (chronic lymphedema, redness/swelling LLE) Skin: Other (rash, lymphedema changes bilateral lower extremities) Neuro: Normal gait, Normal speech, Strength at 5/5 X4 ext, Normal tone, Sensation intact, Cranial nerves 3-12 NL Psych/Mental Status: Mental status NL, Mood NL All Results(Lab/Rad) Laboratory Tests Test 09/12/18 15:17 09/12/18 15:26 09/13/18 04:38 White Blood Count 9.1 10^3/uL 8.1 10^3/uL Red Blood Count 4.80 10^6/uL 4.36 10^6/uL Hemoglobin 14.2 g/dL 12.8 g/dL Hematocrit 43.0 % 39.6 % Mean Corpuscular Volume 89.6 fL 90.8 fL Mean Corpuscular Hemoglobin 29.6 pg 29.4 pg Mean Corpuscular Hemoglobin Concent 33.0 g/dL 32.3 g/dL Red Cell Distribution Width 14.7 % 14.9 % Platelet Count 243 10^3/uL 229 10^3/uL Mean Platelet Volume 9.8 fL 10.3 fL Neutrophils (%) (Auto) 62.4 % 54.5 % Lymphocytes (%) (Auto) 27.7 % 33.6 % Monocytes (%) (Auto) 7.3 % 8.8 % Neutrophils # (Auto) 5.7 10^3/uL 4.4 10^3/uL Lymphocytes # (Auto) 2.5 10^3/uL 2.7 10^3/uL Monocytes # (Auto) 0.7 10^3/uL 0.7 10^3/uL Absolute Immature Granulocyte (auto 0.02 10^3 u/L 0.02 10^3 u/L Eosinophils % 2.0 % 2.5 % Basophils % 0.4 % 0.4 % Basophils # 0.0 10^3/uL 0.0 10^3/uL Erythrocyte Sedimentation Rate 40 mm/hr Eosinophil Count 0.2 10^3/uL 0.2 10^3/uL Prothrombin Time 9.3 SEC Prothrombin Time INR (Non-Therap) 0.9 Activated Partial Thromboplast Time 23.1 SEC D-Dimer 0.60 mg/L Percent Immature Gran (Cell Imm) 0.20 % 0.20 % Helicobacter pylori Screen NEGATIVE Blood Gas Sample Site VBG Cecil Test N/A Lactic Acid (Blood Gas) 2.4 MMOL/L Blood Gas Temperature 37 Sodium Level 141 mmol/L 141 mmol/L Potassium Level 3.8 mmol/L 4.3 mmol/L Chloride Level 102.0 mmol/L 105.0 mmol/L Carbon Dioxide Level 26.4 mmol/L 28.1 mmol/L Anion Gap 16.4 12.2 Blood Urea Nitrogen 15 mg/dL 17 mg/dL Creatinine 1.02 mg/dL 1.06 mg/dL Estimated GFR () 67.8 64.9 BUN/Creatinine Ratio 14.0 16.0 Glucose Level 133 mg/dL 122 mg/dL Calcium Level 8.8 mg/dL 8.5 mg/dL Total Bilirubin 0.3 mg/dL 0.2 mg/dL Aspartate Amino Transf (AST/SGOT) 14 U/L 12 U/L Alanine Aminotransferase (ALT/SGPT) 9 U/L 20 U/L Alkaline Phosphatase 89 U/L 81 U/L Total Creatine Kinase 125 U/L Troponin I < 0.02 ng/mL C-Reactive Protein 0.92 mg/dL Pro-B-Type Natriuretic Peptide 101 pg/mL Total Protein 7.9 g/dL 6.8 g/dL Albumin 3.5 g/dL 3.1 g/dL Globulin 4.4 3.7 Current Medications Medications (Trade) Dose Ordered Sig/Angel Route PRN Reason Start Time Stop Time Status Last Admin Dose Admin Cefazolin Sodium 1 gm/Sodium Chloride 100 ml @ 100 mls/hr Q8H IV 09/12/18 15:30 10/12/18 15:29 09/13/18 07:43 Acetaminophen/ Hydrocodone Bitart ([place] 10mg) 1 each STAT STAT PO 09/12/18 15:18 09/12/18 15:20 DC 09/12/18 16:02 Ondansetron HCl (Zofran Odt) 4 mg STAT STAT SL 09/12/18 15:18 09/12/18 15:20 DC 09/12/18 16:02 Sodium Chloride 100 ml @ ud STK-MED ONCE IV 09/12/18 15:53 09/12/18 15:55 DC Cefazolin Sodium (Ancef) 1 gm STK-MED ONCE .ROUTE 09/12/18 15:53 09/12/18 15:55 DC Ondansetron HCl (Zofran Odt) 4 mg STK-MED ONCE .ROUTE 09/12/18 15:53 09/12/18 15:55 DC Acetaminophen/ Hydrocodone Bitart ([place] 10mg) 1 each STK-MED ONCE PO 09/12/18 15:54 09/12/18 15:56 DC Cefazolin Sodium 1 gm/Sodium Chloride 100 ml @ 100 mls/hr Q8H IV 09/12/18 16:30 09/12/18 17:05 DC Ketorolac Tromethamine (Toradol) 15 mg Q6H PRN IV PAIN 09/12/18 16:30 09/17/18 16:29 09/13/18 04:49 Morphine Sulfate (Morphine Sulfate) 4 mg Q4H PRN IV PAIN 4 - 6 09/12/18 16:30 10/12/18 16:29 09/12/18 23:19 Ondansetron HCl (Zofran) 4 mg Q4H PRN IV NAUSEA / VOMITING 09/12/18 16:30 09/12/18 21:14 DC Acetaminophen (Tylenol) 650 mg Q4 PO 09/13/18 00:00 10/13/18 00:00 09/13/18 07:44 Citalopram Hydrobromide (CeleXA) 20 mg DAILY PO 09/13/18 09:00 10/13/18 08:59 Furosemide (Lasix) 800 mg DAILY PO 09/13/18 09:00 09/13/18 09:00 DC Gabapentin (Neurontin) 300 mg PRN PO 09/12/18 21:00 10/12/18 20:59 UNV Metoprolol Tartrate (Lopressor) 50 mg BID PO 09/12/18 21:00 10/12/18 20:59 09/12/18 22:11 Zolpidem Tartrate (Ambien) 5 mg PRN PO 09/12/18 21:00 10/12/18 20:59 UNV 09/12/18 22:15 Aspirin (Aspirin Ec) 81 mg DAILY PO 09/13/18 09:00 10/13/18 08:59 Ondansetron HCl (Zofran) 4 mg Q4H PRN IV NAUSEA / VOMITING 09/12/18 21:00 10/12/18 20:59 Pantoprazole Sodium (Protonix) 40 mg DAILY PO 09/13/18 09:00 10/13/18 08:59 Enoxaparin Sodium (Lovenox) 40 mg Q24HRS SQ 09/12/18 21:00 10/12/18 20:59 09/12/18 22:11 Furosemide (Lasix) 40 mg DAILY PO 09/13/18 09:00 10/13/18 08:59 Sodium Chloride 250 ml @ STK-MED ONCE IV 09/12/18 22:56 09/12/18 22:58 DC Course Sepsis Screening Results: Posi: NEGATIVE Sepsis Qualifier/Stage: NO DEFINITE RISK Duration or Total Time Spent w: 2 HRS Vitals & review Data Vital Sign - Last 24 Hours 09/12/18 09/12/18 09/12/18 09/12/18 15:00 15:01 15:03 17:51 Temp 98.1 98.1 98.1 98.1 98.1 98.1 98.1 98.1 Pulse 93 93 93 93 Resp 18 20 20 20 B/P (MAP) 163/90 (114) 160/90 (113) Pulse Ox 92 92 92 O2 Delivery Room Air Room Air Room Air 09/12/18 09/12/18 09/12/18 09/13/18 19:30 20:58 23:46 05:46 Temp 98.4 98.9 98.0 98.4 98.9 98.0 Pulse 88 86 82 Resp 20 20 22 B/P (MAP) 139/94 (109) 128/89 (102) 109/57 (74) Pulse Ox 94 95 92 O2 Delivery Room Air Room Air Room Air Room Air 09/13/18 07:50 Temp 98.0 98.0 Pulse 85 Resp 19 B/P (MAP) 91/58 (69) Pulse Ox 92 O2 Delivery Room Air Intake and Output 09/12/18 09/12/18 09/13/18 15:00 23:00 07:00 Intake Total 1500 ml Balance 1500 ml Laboratory Tests Test 09/12/18 15:17 09/12/18 15:26 09/13/18 04:38 White Blood Count 9.1 10^3/uL 8.1 10^3/uL Red Blood Count 4.80 10^6/uL 4.36 10^6/uL Hemoglobin 14.2 g/dL 12.8 g/dL Hematocrit 43.0 % 39.6 % Mean Corpuscular Volume 89.6 fL 90.8 fL Mean Corpuscular Hemoglobin 29.6 pg 29.4 pg Mean Corpuscular Hemoglobin Concent 33.0 g/dL 32.3 g/dL Red Cell Distribution Width 14.7 % 14.9 % Platelet Count 243 10^3/uL 229 10^3/uL Mean Platelet Volume 9.8 fL 10.3 fL Neutrophils (%) (Auto) 62.4 % 54.5 % Lymphocytes (%) (Auto) 27.7 % 33.6 % Monocytes (%) (Auto) 7.3 % 8.8 % Neutrophils # (Auto) 5.7 10^3/uL 4.4 10^3/uL Lymphocytes # (Auto) 2.5 10^3/uL 2.7 10^3/uL Monocytes # (Auto) 0.7 10^3/uL 0.7 10^3/uL Absolute Immature Granulocyte (auto 0.02 10^3 u/L 0.02 10^3 u/L Eosinophils % 2.0 % 2.5 % Basophils % 0.4 % 0.4 % Basophils # 0.0 10^3/uL 0.0 10^3/uL Erythrocyte Sedimentation Rate 40 mm/hr Eosinophil Count 0.2 10^3/uL 0.2 10^3/uL Prothrombin Time 9.3 SEC Prothrombin Time INR (Non-Therap) 0.9 Activated Partial Thromboplast Time 23.1 SEC D-Dimer 0.60 mg/L Percent Immature Gran (Cell Imm) 0.20 % 0.20 % Helicobacter pylori Screen NEGATIVE Blood Gas Sample Site VBG [place] Test N/A Lactic Acid (Blood Gas) 2.4 MMOL/L Blood Gas Temperature 37 Sodium Level 141 mmol/L 141 mmol/L Potassium Level 3.8 mmol/L 4.3 mmol/L Chloride Level 102.0 mmol/L 105.0 mmol/L Carbon Dioxide Level 26.4 mmol/L 28.1 mmol/L Anion Gap 16.4 12.2 Blood Urea Nitrogen 15 mg/dL 17 mg/dL Creatinine 1.02 mg/dL 1.06 mg/dL Estimated GFR () 67.8 64.9 BUN/Creatinine Ratio 14.0 16.0 Glucose Level 133 mg/dL 122 mg/dL Calcium Level 8.8 mg/dL 8.5 mg/dL Total Bilirubin 0.3 mg/dL 0.2 mg/dL Aspartate Amino Transf (AST/SGOT) 14 U/L 12 U/L Alanine Aminotransferase (ALT/SGPT) 9 U/L 20 U/L Alkaline Phosphatase 89 U/L 81 U/L Total Creatine Kinase 125 U/L Troponin I < 0.02 ng/mL C-Reactive Protein 0.92 mg/dL Pro-B-Type Natriuretic Peptide 101 pg/mL Total Protein 7.9 g/dL 6.8 g/dL Albumin 3.5 g/dL 3.1 g/dL Globulin 4.4 3.7 Current Medications Medications (Trade) Dose Ordered Sig/Angel PRN Reason Start Time Stop Time Status Last Admin Acetaminophen (Tylenol) 650 mg Q4 09/13/18 00:00 10/13/18 00:00 09/13/18 07:44 Aspirin (Aspirin Ec) 81 mg DAILY 09/13/18 09:00 10/13/18 08:59 Cefazolin Sodium 1 gm/Sodium Chloride 100 ml @ 100 mls/hr Q8H 09/12/18 15:30 10/12/18 15:29 09/13/18 07:43 Citalopram Hydrobromide (CeleXA) 20 mg DAILY 09/13/18 09:00 10/13/18 08:59 Enoxaparin Sodium (Lovenox) 40 mg Q24HRS 09/12/18 21:00 10/12/18 20:59 09/12/18 22:11 Furosemide (Lasix) 40 mg DAILY 09/13/18 09:00 10/13/18 08:59 Gabapentin (Neurontin) 300 mg PRN 09/12/18 21:00 10/12/18 20:59 UNV Ketorolac Tromethamine (Toradol) 15 mg Q6H PRN PAIN 09/12/18 16:30 09/17/18 16:29 09/13/18 04:49 Metoprolol Tartrate (Lopressor) 50 mg BID 09/12/18 21:00 10/12/18 20:59 09/12/18 22:11 Morphine Sulfate (Morphine Sulfate) 4 mg Q4H PRN PAIN 4 - 6 09/12/18 16:30 10/12/18 16:29 09/12/18 23:19 Ondansetron HCl (Zofran) 4 mg Q4H PRN NAUSEA / VOMITING 09/12/18 21:00 10/12/18 20:59 Pantoprazole Sodium (Protonix) 40 mg DAILY 09/13/18 09:00 10/13/18 08:59 Zolpidem Tartrate (Ambien) 5 mg PRN 09/12/18 21:00 10/12/18 20:59 UNV 09/12/18 22:15 Sepsis Infection Criteria Pres: None LEVEL 1 SEPSIS INFECTION CRITE: ABX Therapy, Cellulitis LEVEL 2-SIRS (LIST ALL THAT AP: None/Not assessed Cardiovascular Evidence: Not Assessed or None Hematologic Evidence: None/Not assessed Hepatic Evidence: None/Not assessed Metabolic Evidence: None/Not assessed Neurological Evidence: None/Not assessed Respiratory Evidence: None/Not assessed Renal Evidence: None/Not assessed O2 Sat by Pulse Oximetry: 92 Assessment/Plan Assessment/Plan Assessment/Plan 1. LLE cellulitis: cont IV abx, blood cx pending. No fever, no leukocytosis. Patient will likely need one more day of IV abx. 2. Chronic Lymphedema: continue outpatient management, Lasix 3. Insomnia: ambien qhs PRN 4. HTN: cont Lopressor, BP well controlled. 5. PPx: PPI, Lovenox CORBY MOORE MD Sep 14, 2018 08:57
[2018-09-14] MEDS: LOPRESSOR PO SCH ×2 (09:47→20:33)
[2018-09-14] MEDS: PROTONIX PO SCH (09:47)
[2018-09-14] MEDS: LASIX PO SCH (09:48)
[2018-09-14] MEDS: CeleXA PO SCH (09:48)
[2018-09-14] MEDS: NEURONTIN PO SCH (09:48)
[2018-09-14] MEDS: ASPIRIN EC PO SCH (09:48)
[2018-09-14 10:57] VITALS: BP 133/72
[2018-09-14 16:40] VITALS: BP 123/60
[2018-09-14 20:15] VITALS: BP 149/87
[2018-09-14] MEDS: AMBIEN PO SCH (20:34)
[2018-09-14] MEDS: LOVENOX SQ SCH (20:35)
[2018-09-15] MEDS: TYLENOL PO SCH ×4 (00:11→08:34)
[2018-09-15] MEDS ORDERED: NS 250ML 250 ML IV ONE (00:44)
[2018-09-15 01:00] VITALS: BP 127/60
[2018-09-15 04:47] VITALS: BP 132/75
[2018-09-15 05:30] LABS: BASOPHIL % 0.3 % (0.0-0.2); EOSINOPHIL # 0.2 10^3/uL (0.0-0.2); EOSINOPHIL % 2.6 % (0.0-5.0); HEMOGLOBIN 12.5 g/dL (12.0-15.0); LYMPHOCYTES # 2.4 10^3/uL (1.0-4.8); LYMPHOCYTES % 31.8 % (24.0-44.0); MEAN CELL HGB 29.5 pg (26-34); MEAN CELL HGB CONCENTRATION 32.1 g/dL (33-37); MEAN CORP VOLUME 91.7 fL (78-100); MEAN PLATELET VOLUME 10.2 fL (7.8-11.0); MONOCYTES # 0.7 10^3/uL (0.3-0.8); MONOCYTES % 8.7 % (5.0-12.0); NEUTROPHIL # 4.2 10^3/uL (1.8-7.7); NEUTROPHILS % 56.3 % (41.0-85.0); RED CELL DISTRIBUTION WIDTH 14.9 % (11.5-14.5); WHITE BLOOD CELL 7.4 10^3/uL (4.5-11.0)
[2018-09-15 06:13] LABS: CALCIUM 8.7 mg/dL (8.4-10.5); CARBON DIOXIDE 30.4 mmol/L (20.0-32)
[2018-09-15 07:33] VITALS: BP 130/70
[2018-09-15] MEDS: CeleXA PO SCH (08:33)
[2018-09-15] MEDS: ANCEF 1 GM in NS 100ML 100 ML IV SCH (08:33)
[2018-09-15] MEDS: LOPRESSOR PO SCH (08:33)
[2018-09-15] MEDS: PROTONIX PO SCH (08:34)
[2018-09-15] MEDS: LASIX PO SCH (08:34)
[2018-09-15] MEDS: ASPIRIN EC PO SCH (08:34)
[2018-09-15] MEDS: NEURONTIN PO SCH (08:35)
[2018-09-15] MEDS ORDERED: ULTRAM PO PRN (09:00)
[2018-09-15] MEDS ORDERED: TRAM50TA PO (09:09)
[2018-09-15] MEDS ORDERED: DOXY100T10 PO (09:09)
--- NOTE | 2018-09-15 09:15 | PRM.DC ---
Discharge Summary Date of Discharge: Sep 15, 2018 Time of Request to Discharge: 09:15 Reason for Visit: Right lower extremity swelling/redness Hospital Course Patient admitted with cellulitis of LLE. Patient has chronic Lymphedema and is currently not getting chronic care for Lymphedema 2/2 Insurance changes. She was treated with IV abx with improvement in symptoms. Pain controlled. Patient afebrile. Blood cx negative. Patient cleared medically to d/c on course of PO abx. Patient counseled to f/u with wound care treating her chronic lymphedema. No amount of abx will be able to prevent recurrent infections without chronic treatment of lymphedema. Patient verbalizes understanding of plan of care. Patient History: Asthma 32 MOTHER Hypertension 32 MOTHER General: Alert, Oriented X3, Cooperative, No acute distress HEENT: Atraumatic, PERRLA, EOMI, Mucous membr. moist/pink Neck: Supple, No JVD Lungs: Clear to auscultation, Normal air movement Heart: Regular rate, Normal S1, Normal S2, No murmurs Abdomen: Normal bowel sounds, Soft, No tenderness Extremities: Other (chronic lymphedema changes to BLE, LLE decreased redness/ swelling) Skin: No rashes, No breakdown Neuro: Normal speech, Strength at 5/5 X4 ext, Normal tone, Sensation intact, Cranial nerves 3-12 NL Psych/Mental Status: Mental status NL, Mood NL Scheduled Acetaminophen (Tylenol), 650 MG PO Q4, (Reported) Citalopram Hydrobromide (Celexa), 1 TAB PO DAILY, (Reported) Doxycycline Monohydrate (Doxycycline Monohydrate), 100 MG PO BID Furosemide (Furosemide), 40 TAB PO DAILY Gabapentin (Gabapentin), 1 CAP PO PRN, (Reported) Metoprolol Tartrate 50MG (Lopresser 50MG), 1 TAB PO BID, (Reported) Zolpidem Tartrate (Ambien), 1 TAB PO PRN, (Reported) Scheduled PRN Tramadol Hcl (Tramadol Hcl), 50 MG PO Q4HR PRN for PAIN 4 - 6 Discontinued Medications Clindamycin Hcl (Clindamycin Hcl), 1 CAP PO TID Discontinued Reason: Discontinue Gabapentin (Gabapentin), 600 MG PO HS PRN for PAIN, (Reported) Discontinued Reason: No Longer Taking Sepsis Evaluation @ Discharge Vital Sign - Last 24 Hours 4/10/19 09/12/18 09/12/18 09/12/18 15:00 15:01 15:03 17:51 Temp 98.1 98.1 98.1 98.1 98.1 98.1 98.1 98.1 Pulse 93 93 93 93 Resp 18 20 20 20 B/P (MAP) 163/90 (114) 160/90 (113) Pulse Ox 92 92 92 O2 Delivery Room Air Room Air Room Air 09/12/18 09/12/18 09/12/18 09/13/18 19:30 20:58 23:46 05:46 Temp 98.4 98.9 98.0 98.4 98.9 98.0 Pulse 88 86 82 Resp 20 20 22 B/P (MAP) 139/94 (109) 128/89 (102) 109/57 (74) Pulse Ox 94 95 92 O2 Delivery Room Air Room Air Room Air Room Air 09/13/18 07:50 Temp 98.0 98.0 Pulse 85 Resp 19 B/P (MAP) 91/58 (69) Pulse Ox 92 O2 Delivery Room Air Intake and Output 09/12/18 09/12/18 09/13/18 15:00 23:00 07:00 Intake Total 1500 ml Balance 1500 ml Laboratory Tests Test 09/12/18 15:17 09/12/18 15:26 09/13/18 04:38 White Blood Count 9.1 10^3/uL 8.1 10^3/uL Red Blood Count 4.80 10^6/uL 4.36 10^6/uL Hemoglobin 14.2 g/dL 12.8 g/dL Hematocrit 43.0 % 39.6 % Mean Corpuscular Volume 89.6 fL 90.8 fL Mean Corpuscular Hemoglobin 29.6 pg 29.4 pg Mean Corpuscular Hemoglobin Concent 33.0 g/dL 32.3 g/dL Red Cell Distribution Width 14.7 % 14.9 % Platelet Count 243 10^3/uL 229 10^3/uL Mean Platelet Volume 9.8 fL 10.3 fL Neutrophils (%) (Auto) 62.4 % 54.5 % Lymphocytes (%) (Auto) 27.7 % 33.6 % Monocytes (%) (Auto) 7.3 % 8.8 % Neutrophils # (Auto) 5.7 10^3/uL 4.4 10^3/uL Lymphocytes # (Auto) 2.5 10^3/uL 2.7 10^3/uL Monocytes # (Auto) 0.7 10^3/uL 0.7 10^3/uL Absolute Immature Granulocyte (auto 0.02 10^3 u/L 0.02 10^3 u/L Eosinophils % 2.0 % 2.5 % Basophils % 0.4 % 0.4 % Basophils # 0.0 10^3/uL 0.0 10^3/uL Erythrocyte Sedimentation Rate 40 mm/hr Eosinophil Count 0.2 10^3/uL 0.2 10^3/uL Prothrombin Time 9.3 SEC Prothrombin Time INR (Non-Therap) 0.9 Activated Partial Thromboplast Time 23.1 SEC D-Dimer 0.60 mg/L Percent Immature Gran (Cell Imm) 0.20 % 0.20 % Helicobacter pylori Screen NEGATIVE Blood Gas Sample Site [facility] Test N/A Lactic Acid (Blood Gas) 2.4 MMOL/L Blood Gas Temperature 37 Sodium Level 141 mmol/L 141 mmol/L Potassium Level 3.8 mmol/L 4.3 mmol/L Chloride Level 102.0 mmol/L 105.0 mmol/L Carbon Dioxide Level 26.4 mmol/L 28.1 mmol/L Anion Gap 16.4 12.2 Blood Urea Nitrogen 15 mg/dL 17 mg/dL Creatinine 1.02 mg/dL 1.06 mg/dL Estimated GFR () 67.8 64.9 BUN/Creatinine Ratio 14.0 16.0 Glucose Level 133 mg/dL 122 mg/dL Calcium Level 8.8 mg/dL 8.5 mg/dL Total Bilirubin 0.3 mg/dL 0.2 mg/dL Aspartate Amino Transf (AST/SGOT) 14 U/L 12 U/L Alanine Aminotransferase (ALT/SGPT) 9 U/L 20 U/L Alkaline Phosphatase 89 U/L 81 U/L Total Creatine Kinase 125 U/L Troponin I < 0.02 ng/mL C-Reactive Protein 0.92 mg/dL Pro-B-Type Natriuretic Peptide 101 pg/mL Total Protein 7.9 g/dL 6.8 g/dL Albumin 3.5 g/dL 3.1 g/dL Globulin 4.4 3.7 Current Medications Medications (Trade) Dose Ordered Sig/Angel PRN Reason Start Time Stop Time Status Last Admin Acetaminophen (Tylenol) 650 mg Q4 09/13/18 00:00 10/13/18 00:00 09/13/18 07:44 Aspirin (Aspirin Ec) 81 mg DAILY 09/13/18 09:00 10/13/18 08:59 Cefazolin Sodium 1 gm/Sodium Chloride 100 ml @ 100 mls/hr Q8H 09/12/18 15:30 10/12/18 15:29 09/13/18 07:43 Citalopram Hydrobromide (CeleXA) 20 mg DAILY 09/13/18 09:00 10/13/18 08:59 Enoxaparin Sodium (Lovenox) 40 mg Q24HRS 09/12/18 21:00 10/12/18 20:59 09/12/18 22:11 Furosemide (Lasix) 40 mg DAILY 09/13/18 09:00 10/13/18 08:59 Gabapentin (Neurontin) 300 mg PRN 09/12/18 21:00 10/12/18 20:59 UNV Ketorolac Tromethamine (Toradol) 15 mg Q6H PRN PAIN 09/12/18 16:30 09/17/18 16:29 09/13/18 04:49 Metoprolol Tartrate (Lopressor) 50 mg BID 09/12/18 21:00 10/12/18 20:59 09/12/18 22:11 Morphine Sulfate (Morphine Sulfate) 4 mg Q4H PRN PAIN 4 - 6 09/12/18 16:30 10/12/18 16:29 09/12/18 23:19 Ondansetron HCl (Zofran) 4 mg Q4H PRN NAUSEA / VOMITING 09/12/18 21:00 10/12/18 20:59 Pantoprazole Sodium (Protonix) 40 mg DAILY 09/13/18 09:00 10/13/18 08:59 Zolpidem Tartrate (Ambien) 5 mg PRN 09/12/18 21:00 10/12/18 20:59 UNV 09/12/18 22:15 Course Sepsis Screening Results: Posi: NEGATIVE Sepsis Qualifier/Stage: NO DEFINITE RISK Duration or Total Time Spent w: 2 HRS Vitals & review Data Vital Sign - Last 24 Hours 09/12/18 09/12/18 09/12/18 09/12/18 15:00 15:01 15:03 17:51 Temp 98.1 98.1 98.1 98.1 98.1 98.1 98.1 98.1 Pulse 93 93 93 93 Resp 18 20 20 20 B/P (MAP) 163/90 (114) 160/90 (113) Pulse Ox 92 92 92 O2 Delivery Room Air Room Air Room Air 09/12/18 09/12/18 09/12/18 09/13/18 19:30 20:58 23:46 05:46 Temp 98.4 98.9 98.0 98.4 98.9 98.0 Pulse 88 86 82 Resp 20 20 22 B/P (MAP) 139/94 (109) 128/89 (102) 109/57 (74) Pulse Ox 94 95 92 O2 Delivery Room Air Room Air Room Air Room Air 09/13/18 07:50 Temp 98.0 98.0 Pulse 85 Resp 19 B/P (MAP) 91/58 (69) Pulse Ox 92 O2 Delivery Room Air Intake and Output 09/12/18 09/12/18 09/13/18 15:00 23:00 07:00 Intake Total 1500 ml Balance 1500 ml Laboratory Tests Test 09/12/18 15:17 09/12/18 15:26 09/13/18 04:38 White Blood Count 9.1 10^3/uL 8.1 10^3/uL Red Blood Count 4.80 10^6/uL 4.36 10^6/uL Hemoglobin 14.2 g/dL 12.8 g/dL Hematocrit 43.0 % 39.6 % Mean Corpuscular Volume 89.6 fL 90.8 fL Mean Corpuscular Hemoglobin 29.6 pg 29.4 pg Mean Corpuscular Hemoglobin Concent 33.0 g/dL 32.3 g/dL Red Cell Distribution Width 14.7 % 14.9 % Platelet Count 243 10^3/uL 229 10^3/uL Mean Platelet Volume 9.8 fL 10.3 fL Neutrophils (%) (Auto) 62.4 % 54.5 % Lymphocytes (%) (Auto) 27.7 % 33.6 % Monocytes (%) (Auto) 7.3 % 8.8 % Neutrophils # (Auto) 5.7 10^3/uL 4.4 10^3/uL Lymphocytes # (Auto) 2.5 10^3/uL 2.7 10^3/uL Monocytes # (Auto) 0.7 10^3/uL 0.7 10^3/uL Absolute Immature Granulocyte (auto 0.02 10^3 u/L 0.02 10^3 u/L Eosinophils % 2.0 % 2.5 % Basophils % 0.4 % 0.4 % Basophils # 0.0 10^3/uL 0.0 10^3/uL Erythrocyte Sedimentation Rate 40 mm/hr Eosinophil Count 0.2 10^3/uL 0.2 10^3/uL Prothrombin Time 9.3 SEC Prothrombin Time INR (Non-Therap) 0.9 Activated Partial Thromboplast Time 23.1 SEC D-Dimer 0.60 mg/L Percent Immature Gran (Cell Imm) 0.20 % 0.20 % Helicobacter pylori Screen NEGATIVE Blood Gas Sample Site [facility] Test N/A Lactic Acid (Blood Gas) 2.4 MMOL/L Blood Gas Temperature 37 Sodium Level 141 mmol/L 141 mmol/L Potassium Level 3.8 mmol/L 4.3 mmol/L Chloride Level 102.0 mmol/L 105.0 mmol/L Carbon Dioxide Level 26.4 mmol/L 28.1 mmol/L Anion Gap 16.4 12.2 Blood Urea Nitrogen 15 mg/dL 17 mg/dL Creatinine 1.02 mg/dL 1.06 mg/dL Estimated GFR () 67.8 64.9 BUN/Creatinine Ratio 14.0 16.0 Glucose Level 133 mg/dL 122 mg/dL Calcium Level 8.8 mg/dL 8.5 mg/dL Total Bilirubin 0.3 mg/dL 0.2 mg/dL Aspartate Amino Transf (AST/SGOT) 14 U/L 12 U/L Alanine Aminotransferase (ALT/SGPT) 9 U/L 20 U/L Alkaline Phosphatase 89 U/L 81 U/L Total Creatine Kinase 125 U/L Troponin I < 0.02 ng/mL C-Reactive Protein 0.92 mg/dL Pro-B-Type Natriuretic Peptide 101 pg/mL Total Protein 7.9 g/dL 6.8 g/dL Albumin 3.5 g/dL 3.1 g/dL Globulin 4.4 3.7 Current Medications Medications (Trade) Dose Ordered Sig/Angel PRN Reason Start Time Stop Time Status Last Admin Acetaminophen (Tylenol) 650 mg Q4 09/13/18 00:00 10/13/18 00:00 09/13/18 07:44 Aspirin (Aspirin Ec) 81 mg DAILY 09/13/18 09:00 10/13/18 08:59 Cefazolin Sodium 1 gm/Sodium Chloride 100 ml @ 100 mls/hr Q8H 09/12/18 15:30 10/12/18 15:29 09/13/18 07:43 Citalopram Hydrobromide (CeleXA) 20 mg DAILY 09/13/18 09:00 10/13/18 08:59 Enoxaparin Sodium (Lovenox) 40 mg Q24HRS 09/12/18 21:00 10/12/18 20:59 09/12/18 22:11 Furosemide (Lasix) 40 mg DAILY 09/13/18 09:00 10/13/18 08:59 Gabapentin (Neurontin) 300 mg PRN 09/12/18 21:00 10/12/18 20:59 UNV Ketorolac Tromethamine (Toradol) 15 mg Q6H PRN PAIN 09/12/18 16:30 09/17/18 16:29 09/13/18 04:49 Metoprolol Tartrate (Lopressor) 50 mg BID 09/12/18 21:00 10/12/18 20:59 09/12/18 22:11 Morphine Sulfate (Morphine Sulfate) 4 mg Q4H PRN PAIN 4 - 6 09/12/18 16:30 10/12/18 16:29 09/12/18 23:19 Ondansetron HCl (Zofran) 4 mg Q4H PRN NAUSEA / VOMITING 09/12/18 21:00 10/12/18 20:59 Pantoprazole Sodium (Protonix) 40 mg DAILY 09/13/18 09:00 10/13/18 08:59 Zolpidem Tartrate (Ambien) 5 mg PRN 09/12/18 21:00 10/12/18 20:59 UNV 09/12/18 22:15 Sepsis Infection Criteria Pres: None LEVEL 1 SEPSIS INFECTION CRITE: ABX Therapy, Cellulitis LEVEL 2-SIRS (LIST ALL THAT AP: None/Not assessed Cardiovascular Evidence: Not Assessed or None Hematologic Evidence: None/Not assessed Hepatic Evidence: None/Not assessed Metabolic Evidence: None/Not assessed Neurological Evidence: None/Not assessed Respiratory Evidence: None/Not assessed Renal Evidence: None/Not assessed O2 Sat by Pulse Oximetry: 91 Plan Discharge Date: Sep 15, 2018 Dicharge DX: Cellulitis, Lymphedema Discharge Disposition: Stable Plan ok to d/c to home self care medications: per med rec list diet: Low fat/low salt activity: as tolerated F/U with wound care clinic for chronic lymphedema treatment. F/U with PCP within 1-2 weeks Return to care for worsening/concerning symptoms CORBY MOORE MD Sep 15, 2018 09:15
[2018-09-15 10:40] VITALS: BP 130/70
== END 2018-09-15 10:36 | disposition home or self-care (01) | DRG 603 ==
LOC: ER 14:31 → MS 16:36
PROVIDERS: ADMIT Family Medicine; ATTEND Family Medicine
DX: L03.116 Cellulitis of left lower limb (principal); G47.00 Insomnia, unspecified; I10 Essential (primary) hypertension; I89.0 Lymphedema, not elsewhere classified; G89.29 Other chronic pain; Z90.710 Acquired absence of both cervix and uterus; Z88.0 Allergy status to penicillin; Z91.012 Allergy to eggs; Z82.49 Family history of ischemic heart disease and other diseases of the circulatory system; Z82.5 Family history of asthma and other chronic lower respiratory diseases; Z90.49 Acquired absence of other specified parts of digestive tract; Z98.51 Tubal ligation status
CPT/HCPCS: 36415; 36600; 71045; 80053; 82550; 83605; 83880; 84484; 85025; 85379; 85610; 85651; 85730; 86140; 86677; 87040; 93005; 99285; G0378; J0690; J1650; J1885; J2270; J3490; J7050; Q0162

== ENCOUNTER 2019-01-06 01:05 | Inpatient (IN) | payer BC, MEDICARE ==
[~2019-01-06] VITALS: Ht 167.6 cm; Wt 219.1 kg
[2019-01-06] VITALS (11 sets, daily range): BP systolic 112–143; BP diastolic 51–85
[~2019-01-06 01:05] MED LIST changes: +DOXY100T10 PO; +TRAM50TA PO
[2019-01-06] MEDS: CLEOCIN 900 MG-D5W-GALAXY 50 ML IV SCH ×2 (01:10→17:20)
--- NOTE | 2019-01-06 01:28 | NUR ---
Triage Brought to ER room 4 and monitors applied. Patient started running fever earlier today. She has not taken anything for fever. 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 Temp 103.2 axillary. Notified doctor of patient's arrival. Family x 2. lw
--- NOTE | 2019-01-06 01:35 | NUR ---
Labs Labs drawn. Meds given for fever. lw
[2019-01-06] MEDS ORDERED: TYLENOL PO STA (01:45)
[2019-01-06] MEDS ORDERED: TYLENOL PO ONE (01:45)
--- NOTE | 2019-01-06 01:45 | NUR ---
IV 20 gauge IV started in the right upper arm x 2 attempts. Flushes easily. No pain at insertion site. lw
[2019-01-06 01:47] LABS: BASOPHIL % 0.1 % (0.0-0.2); EOSINOPHIL # 0.1 10^3/uL (0.0-0.2); EOSINOPHIL % 0.3 % (0.0-5.0); HEMOGLOBIN 14.3 g/dL (12.0-15.0); LYMPHOCYTES # 0.9 10^3/uL (1.0-4.8); LYMPHOCYTES % 6.2 % (24.0-44.0); MEAN CELL HGB 29.5 pg (26-34); MEAN CELL HGB CONCENTRATION 32.7 g/dL (33-37); MEAN CORP VOLUME 90.3 fL (78-100); MONOCYTES # 0.5 10^3/uL (0.3-0.8); MONOCYTES % 3.5 % (5.0-12.0); NEUTROPHIL # 13.3 10^3/uL (1.8-7.7); NEUTROPHILS % 89.8 % (41.0-85.0); RED CELL DISTRIBUTION WIDTH 15.1 % (11.5-14.5); WHITE BLOOD CELL 14.8 10^3/uL (4.5-11.0)
[2019-01-06 02:12] LABS: CALCIUM 8.7 mg/dL (8.4-10.5); CARBON DIOXIDE 23.9 mmol/L (20.0-32)
--- NOTE | 2019-01-06 02:35 | ER.PDOC ---
General Chief Complaint: Fever Stated Complaint: FEVER TRAVEL OUT OF US: No Time seen by MD: 02:10 Source: patient, family Exam Limitations: no limitations History of Present Illness Initial Comments fever x 1 day , pt has a h/o Lt leg lymphedema and states she has had cellulitis in the past after swimming with her grand child and states she went swimming yesterday , no cough. + foul smelling urine Timing/Duration: constant, getting worse Severity: moderate Associated Symptoms: fever/chills Allergies: Coded Allergies: Penicillins (Verified Allergy, Unknown, hives, 07/19/18) egg (Verified Allergy, Unknown, 06/23/17) Home Meds Active Scripts Doxycycline Monohydrate (DOXYCYCLINE MONOHYDRATE) 100 Mg Tablet, 100 MG PO BID for 14 Days, TABLET Prov:CORBY MOORE MD 09/15/18 Tramadol Hcl (TRAMADOL HCL) 50 Mg Tablet, 50 MG PO Q4HR PRN for PAIN 4 - 6 for 5 Days, #30 TABLET 0 Refills Prov:CORBY MOORE MD 09/15/18 Furosemide (FUROSEMIDE) 20 Mg Tablet, 40 TAB PO DAILY for 30 Days, #30 TABLET Prov:SIMONA VOSS MD 07/23/18 Reported Medications Acetaminophen (TYLENOL) 325 Mg Tablet, 650 MG PO Q4 for pain, TABLET 07/20/18 Gabapentin (GABAPENTIN) 300 Mg Capsule, 1 CAP PO PRN, CAP 07/19/18 Citalopram Hydrobromide (CELEXA) 20 Mg Tablet, 1 TAB PO DAILY 07/19/18 Metoprolol Tartrate 50MG (LOPRESSER 50MG) 50 Mg Tablet, 1 TAB PO BID, TAB 01/04/17 Past Medical History Medical History: diabetes, hypertension, other (lymphedema ) Surgical History: cholecystectomy, hysterectomy, tonsillectomy, tubal LMP (females 10-50): hysterectomy Family History Significant Family History: no pertinent family hx Social History Smoking: non-smoker Alcohol Use: none Drug Use: none Review of Systems Constitutional: fever EENTM: no symptoms reported Respiratory: no symptoms reported Cardiovascular: no symptoms reported Gastrointestinal: no symptoms reported Genitourinary: no symptoms reported Musculoskeletal: no symptoms reported Skin: no symptoms reported Psychiatric/Neurological: no symptoms reported Hematologic/Lymphatic: no symptoms reported Immunological/Allergic: no symptoms reported Physical Exam General Appearance: No Apparent Distress, Other (Morbidly Obese) EENT: eyes nml inspection, nml ENT inspection, pharynx nml Neck: Non-Tender Respiratory: chest non-tender, lungs clear, normal breath sounds, no respiratory distress CVS: reg rate & rhythm, no murmur, pulses nml Gastrointestinal: Normal Bowel Sounds, No Organomegaly, No Pulsatile Mass, Non Tender Extremities: Normal Range of Motion, Swelling (Lt lower extremity lympedema with mild erythema on distal 1/3rd , non TTP) 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 (01/06/19 01:25) Urinalysis (01/06/19 01:25) Influenza A&B (01/06/19 01:25) Xr Chest 2v (01/06/19 01:25) Lactic Acid(Rt) (01/06/19 01:25) +Ref Lac Acid Yn (Sepsis Prot) (01/06/19 01:45) Acetaminophen (Tylenol) (01/06/19 01:45) Acetaminophen (Tylenol) (01/06/19 01:45) Lactic Acid(Rt) (01/06/19 03:15) 0.9 % Sodium Chloride (Ns 1000ml) (01/06/19 03:42) Ibuprofen (Motrin) (01/06/19 03:42) 0.9 % Sodium Chloride (Ns 1000ml) (01/06/19 04:00) Ibuprofen (Motrin) (01/06/19 03:43) Urine Culture (01/06/19 03:00) 0.9 % Sodium Chloride (Ns 1000ml) (01/06/19 04:10) 0.9 % Sodium Chloride (Ns 1000ml) (01/06/19 04:10) Vancomycin Hcl (Vancomycin Hcl) (01/06/19 04:30) 0.9 % Sodium Chloride (Ns 250ml) (01/06/19 04:18) Vancomycin Hcl (Vancomycin Hcl) (01/06/19 04:19) Diphenhydramine Hcl (Benadryl) (01/06/19 04:36) Diphenhydramine Hcl (Benadryl) (01/06/19 04:41) Diphenhydramine Hcl (Benadryl) (01/06/19 04:43) Vital Signs Date Time Temp Pulse Resp B/P (MAP) Pulse Ox O2 Delivery O2 Flow Rate FiO2 01/06/19 04:14 101.7 118 22 128/76 (93) 96 Room Air 01/06/19 03:30 102.2 120 24 142/85 (104) 98 01/06/19 02:15 120 24 138/60 (86) 97 01/06/19 02:00 102.8 128 24 140/60 (86) 99 Room Air 01/06/19 01:41 103.2 128 26 01/06/19 01:40 103.2 130 26 143/51 (81) 98 Room Air 01/06/19 01:36 103.2 130 26 98 Room Air 01/06/19 01:29 103.2 130 26 98 Room Air Administered Medications Medications (Trade) Dose Ordered Sig/Angel Route PRN Reason Start Time Stop Time Status Last Admin Dose Admin Acetaminophen (Tylenol) 1,000 mg STAT STAT PO 01/06/19 01:45 01/06/19 01:46 DC 01/06/19 01:58 1,000 MG Diphenhydramine HCl (Benadryl) 25 mg STAT STAT PO 01/06/19 04:43 01/06/19 04:44 DC 01/06/19 04:44 25 MG Ibuprofen (Motrin) 800 mg STAT STAT PO 01/06/19 03:43 01/06/19 03:52 DC 01/06/19 03:52 800 MG Sodium Chloride 1,000 ml @ 0 mls/hr Q0M STAT IV 01/06/19 04:10 01/06/19 04:14 DC 01/06/19 04:10 900 MLS/HR Sodium Chloride 1,000 ml @ 1,000 mls/hr Q1H ONCE IV 01/06/19 04:00 01/06/19 04:59 01/06/19 03:52 1,000 MLS/HR Vancomycin HCl 1 gm/Sodium Chloride 250 ml @ 175 mls/hr OT ONCE IV 01/06/19 04:30 01/06/19 05:55 01/06/19 04:18 175 MLS/HR Laboratory Tests Test 01/06/19 01:25 01/06/19 01:39 01/06/19 02:56 01/06/19 03:00 Blood Gas Sample Site [facility] Test N/A Lactic Acid (Blood Gas) 2.7 mmol/1 (0.50-2.0) H Blood Gas Temperature 37.0 White Blood Count 14.8 10^3/uL (4.5-11.0) H Red Blood Count 4.84 10^6/uL (4.00-5.20) Hemoglobin 14.3 g/dL (12.0-15.0) Hematocrit 43.7 % (36.0-46.0) Mean Corpuscular Volume 90.3 fL (78-100) Mean Corpuscular Hemoglobin 29.5 pg (26-34) Mean Corpuscular Hemoglobin Concent 32.7 g/dL (33-37) L Red Cell Distribution Width 15.1 % (11.5-14.5) H Platelet Count 212 10^3/uL (150-400) Mean Platelet Volume 10.0 fL (7.8-11.0) Neutrophils (%) (Auto) 89.8 % (41.0-85.0) H Lymphocytes (%) (Auto) 6.2 % (24.0-44.0) *L Monocytes (%) (Auto) 3.5 % (5.0-12.0) L Neutrophils # (Auto) 13.3 10^3/uL (1.8-7.7) H Lymphocytes # (Auto) 0.9 10^3/uL (1.0-4.8) L Monocytes # (Auto) 0.5 10^3/uL (0.3-0.8) Absolute Immature Granulocyte (auto 0.02 10^3 u/L (0-2) Immature Granulocytes % 0.10 % (0.00-0.50) Eosinophils % 0.3 % (0.0-5.0) Basophils % 0.1 % (0.0-0.2) Basophils # 0.0 10^3/uL (0.0-0.1) Eosinophil Count 0.1 10^3/uL (0.0-0.2) Prothrombin Time 10.2 SEC (9.4-11.5) Prothrombin Time INR (Non-Therap) 1.0 PTT 25.9 SEC (24.67-30.72) Sodium Level 137 mmol/L (132-145) Potassium Level 4.2 mmol/L (3.6-5.2) Chloride Level 101.0 mmol/L (96-109) Carbon Dioxide Level 23.9 mmol/L (20.0-32) Anion Gap 16.3 Blood Urea Nitrogen 14 mg/dL (7-18) Creatinine 1.24 mg/dL (0.59-1.40) Estimated GFR () 54.1 (>/=60) BUN/Creatinine Ratio 11.0 Glucose Level 142 mg/dL (70-110) H Calcium Level 8.7 mg/dL (8.4-10.5) Total Bilirubin 0.6 mg/dL (0.2-1.0) Aspartate Amino Transferase (AST) 23 U/L (0-35) Alanine Aminotransferase (ALT) 23 U/L (12-78) Alkaline Phosphatase 81 U/L (50-136) Total Protein 7.4 g/dL (6.4-8.2) Albumin 3.6 g/dL (3.4-5.0) Globulin 3.8 Amylase Level 17 U/L (25-115) L Lipase 69 U/L (114-286) L Influenza Type A Antigen NEGATIVE (NEG) Influenza B Immunofluorescence NEGATIVE (NEG) Urine Collection Type UNKNOWN Urine Color YELLOW (YELLOW) Urine Appearance HAZY (CLEAR) H Urine Bilirubin NEGATIVE MG/DL (NEGATIVE) Urine Ketones 5 mg/dL (NEGATIVE) H Urine Specific [place] 1.020 (1.005-1.035) Urine pH 5 (5.0-6.0) Urine Protein NEGATIVE (NEGATIVE) Urine Urobilinogen NORMAL (NEGATIVE) Urine Nitrate NEGATIVE (NEGATIVE) Urine Leukocyte Esterase NEGATIVE (NEGATIVE) Urine Blood 25 1+ (NEGATIVE) H Urine RBC 0-2 RBC/HPF (NONE SEEN) Urine WBC 2-5 WBC/HPF (0-2) Urine Squamous Epithelial Cells MANY #/HPF (FEW) Urine Bacteria MODERATE (NONE SEEN) H Urine Glucose NORMAL (NEGATIVE) Progress Progress pt is stable , I have reviewed all labs with DR Voss , will admit EKG/XRAY/CT/US XRAY: chest (NAD) Course Sepsis Screening Results: Posi: POSITIVE SEPSIS RISK Sepsis Qualifier/Stage: NO DEFINITE RISK Duration or Total Time Spent w: 2 HRS Vitals & review Data Vital Sign - Last 24 Hours 01/06/19 01/06/19 01/06/19 01/06/19 01:29 01:36 01:40 01:41 Temp 103.2 103.2 103.2 103.2 Pulse 130 130 130 128 Resp 26 26 26 26 B/P (MAP) 143/51 (81) Pulse Ox 98 98 98 O2 Delivery Room Air Room Air Room Air 01/06/19 01/06/19 01/06/19 01/06/19 02:00 02:15 03:30 04:14 Temp 102.8 102.2 101.7 Pulse 128 120 120 118 Resp 24 24 24 22 B/P (MAP) 140/60 (86) 138/60 (86) 142/85 (104) 128/76 (93) Pulse Ox 99 97 98 96 O2 Delivery Room Air Room Air Laboratory Tests Test 01/06/19 01:25 01/06/19 01:39 01/06/19 02:56 01/06/19 03:00 Blood Gas Sample Site [facility] Test N/A Lactic Acid (Blood Gas) 2.7 mmol/1 Blood Gas Temperature 37.0 White Blood Count 14.8 10^3/uL Red Blood Count 4.84 10^6/uL Hemoglobin 14.3 g/dL Hematocrit 43.7 % Mean Corpuscular Volume 90.3 fL Mean Corpuscular Hemoglobin 29.5 pg Mean Corpuscular Hemoglobin Concent 32.7 g/dL Red Cell Distribution Width 15.1 % Platelet Count 212 10^3/uL Mean Platelet Volume 10.0 fL Neutrophils (%) (Auto) 89.8 % Lymphocytes (%) (Auto) 6.2 % Monocytes (%) (Auto) 3.5 % Neutrophils # (Auto) 13.3 10^3/uL Lymphocytes # (Auto) 0.9 10^3/uL Monocytes # (Auto) 0.5 10^3/uL Absolute Immature Granulocyte (auto 0.02 10^3 u/L Immature Granulocytes % 0.10 % Eosinophils % 0.3 % Basophils % 0.1 % Basophils # 0.0 10^3/uL Eosinophil Count 0.1 10^3/uL Prothrombin Time 10.2 SEC Prothrombin Time INR (Non-Therap) 1.0 Activated Partial Thromboplast Time 25.9 SEC Sodium Level 137 mmol/L Potassium Level 4.2 mmol/L Chloride Level 101.0 mmol/L Carbon Dioxide Level 23.9 mmol/L Anion Gap 16.3 Blood Urea Nitrogen 14 mg/dL Creatinine 1.24 mg/dL Estimated GFR () 54.1 BUN/Creatinine Ratio 11.0 Glucose Level 142 mg/dL Calcium Level 8.7 mg/dL Total Bilirubin 0.6 mg/dL Aspartate Amino Transf (AST/SGOT) 23 U/L Alanine Aminotransferase (ALT/SGPT) 23 U/L Alkaline Phosphatase 81 U/L Total Protein 7.4 g/dL Albumin 3.6 g/dL Globulin 3.8 Amylase Level 17 U/L Lipase 69 U/L Influenza Type A Antigen NEGATIVE Influenza B Immunofluorescence NEGATIVE Urine Collection Type UNKNOWN Urine Color YELLOW Urine Appearance HAZY Urine Bilirubin NEGATIVE MG/DL Urine Ketones 5 mg/dL Urine Specific [place] 1.020 Urine pH 5 Urine Protein NEGATIVE Urine Urobilinogen NORMAL Urine Nitrate NEGATIVE Urine Leukocyte Esterase NEGATIVE Urine Blood 25 1+ Urine RBC 0-2 RBC/HPF Urine WBC 2-5 WBC/HPF Urine Squamous Epithelial Cells MANY #/HPF Urine Bacteria MODERATE Urine Glucose NORMAL Sepsis Infection Criteria Pres: Suspected Infection LEVEL 1 SEPSIS INFECTION CRITE: ABX Therapy, Cellulitis LEVEL 2-SIRS (LIST ALL THAT AP: None/Not assessed Cardiovascular Evidence: Not Assessed or None Hematologic Evidence: None/Not assessed Hepatic Evidence: None/Not assessed Metabolic Evidence: None/Not assessed Neurological Evidence: None/Not assessed Respiratory Evidence: None/Not assessed Renal Evidence: None/Not assessed O2 Sat by Pulse Oximetry: 98 Departure Time of Disposition: 04:49 Disposition: 09 ADMITTED INPATIENT Impression: Primary Impression: Urinary tract infection Additional Impression: Cellulitis of left leg Condition: Stable Referrals: [facility] [employer] (PCP) PRIMARY CARE PROVIDER Duration or Time Spent with Pa: 30 mins Problem Qualifiers Primary Impression: Urinary tract infection Urinary tract infection type: acute cystitis Hematuria presence: without hematuria Qualified Codes: N30.00 - Acute cystitis without hematuria POLI ZHOU MD Jan 06, 2019 02:35
--- NOTE | 2019-01-06 02:40 | NUR ---
Void Finally able to convince patient to get out of bed and ride in the wheelchair to the bathroom to void. Patient was able to void approximately 250 cc of dark yellow urine. Sample of urine collected and sent to the lab. lw
--- NOTE | 2019-01-06 02:56 | DIREP ---
PROCEDURE:CHEST 2 VIEWS COMPARISON:[facility], CR, XRAY CHEST SINGLE VW, 09/12/2018, 03:32 PM. [facility], CR, XRAY CHEST SINGLE VW, 07/19/2018, 09:24 PM. INDICATIONS:fever FINDINGS: LUNGS/PLEURA:Diffuse pulmonary opacity is favored to be related to overlying soft tissue. Pulmonary markings remain visible. No confluent pulmonary infiltrate is identified. No effusions. No pneumothorax. VASCULATURE:Unremarkable pulmonary vasculature. CARDIAC:No cardiac silhouette abnormality or cardiomegaly. MEDIASTINUM:No visible mass or adenopathy. BONES:No fracture or visible bony lesion. OTHER:Negative. CONCLUSION: 1. No confluent pulmonary opacity identified. Dictated by: Cristina Brooks MD on 01/06/2019 at 02:55 AM
[2019-01-06] MEDS ORDERED: MOTRIN ONE (03:42)
[2019-01-06] MEDS ORDERED: NS 1000ML 1,000 ML ONE ×2 (03:42→04:10)
[2019-01-06] MEDS ORDERED: MOTRIN PO STA (03:43)
--- NOTE | 2019-01-06 03:45 | NUR ---
Resting Resting quietly, eyes closed. Awakes easily. Denies needs at this time. Family x 2 in the room. Oriented x 3 and says she is beginning to feel "a little better." lw
[2019-01-06 03:50] LABS: BILIRUBIN,URINE NEGATIVE (NEGATIVE); UROBILINOGEN,URINE NORMAL (NEGATIVE)
[2019-01-06 03:58] LABS: APPEARANCE,URINE HAZY (CLEAR); UA COLOR YELLOW (YELLOW)
[2019-01-06] MEDS ORDERED: NS 1000ML 1,000 ML IV ONE (04:00)
[2019-01-06] MEDS ORDERED: NS 1000ML 1,000 ML STA (04:10)
[2019-01-06] MEDS ORDERED: NS 250ML 250 ML IV ONE (04:18)
[2019-01-06] MEDS ORDERED: VANCOMYCIN HCL 1 GM ONE (04:19)
[2019-01-06] MEDS ORDERED: VANCOMYCIN HCL 1 GM in NS 250ML 250 ML IV ONE (04:30)
[2019-01-06] MEDS ORDERED: BENADRYL PO ONE (04:36)
--- NOTE | 2019-01-06 04:40 | NUR ---
Itching C/O itching in the left leg. Patient says this is a common problem she has in that leg and wants some Benadryl. Notified the doctor and received a verbal order for 25 mg of Benadryl, PO. Med given as ordered. IV site remains patent, no swelling, heat, or pain at the insertion site. lw
[2019-01-06] MEDS ORDERED: BENADRYL IM STA (04:41)
[2019-01-06] MEDS ORDERED: BENADRYL PO STA (04:43)
--- NOTE | 2019-01-06 04:48 | NUR ---
Admit Received order that patient has been accepted by Dr. Voss. Order put in for admit. lw
[2019-01-06 05:42] LABS: ANISOCYTOSIS 1+ (NEGATIVE); BAND NEUTROPHILS 1 % (2-6); LYMPHOCYTE 6 % (25-36); MONOCYTE 3 % (3-9); SEGMENTED NEUTROPHILS 90 % (31-76); TOXIC GRANULATION 1+ (NEGATIVE)
[2019-01-06] MEDS: NS 1000ML 1,000 ML IV SCH ×2 (07:03→20:12)
[2019-01-06] MEDS ORDERED: NEURONTIN PO SCH (14:00)
--- NOTE | 2019-01-06 14:51 | HPH ---
ADMIT DATE: 01/06/2019 CHIEF COMPLAINT: Leg pain and swelling. HISTORY OF PRESENT ILLNESS: This is a 58-year-old female with multiple medical problems including morbid obesity, chronic lymphedema, and poorly controlled diabetes mellitus that presents to the hospital Emergency Room for complaints of bilateral lower extremity pain, redness, and swelling. The patient has chronic lymphedema of both lower extremities and has frequent exacerbations of swelling as well as redness and pain. However, she also frequently gets cellulitis and has to be admitted. She has had multiple admissions for cellulitis that is unresponsive to oral antimicrobials. The patient was in her usual state of health until approximately 24 hours ago when she took her family to the [facility] in [place], [place]. The patient states she did several of the rides in the park and was in the water for several hours and walking around with family and once she got home, began having the fairly sudden onset of pain, redness and swelling. Left leg seemed to hurt more than the right leg, but it does have more natural swelling than the right side. She began feeling feverish as well as having generalized weakness and fatigue and thus presented to the Emergency Department for further evaluation. PAST MEDICAL HISTORY: 1. Diabetes mellitus type 2. 2. Chronic lymphedema of bilateral lower extremities. 3. Morbid obesity. 4. Hypertension. 5. Osteoarthritis. 6. GERD. 7. Chronic insomnia. MEDICATIONS: See admit medication reconciliation form. ALLERGIES: PENICILLINS and EGGS. PAST SURGICAL HISTORY: 1. Cholecystectomy. 2. Hysterectomy. 3. Tonsillectomy. 4. Tubal ligation. SOCIAL HISTORY: Alcohol - denies. Tobacco - denies. Recreational drugs - denies. The patient lives with her family in [place]. FAMILY HISTORY: Positive for multiple family members with hypertension and diabetes. REVIEW OF SYSTEMS: GENERAL: Positive for weakness, fatigue and malaise as described above. CARDIAC: Denies chest pain, orthopnea, PND or palpitations. RESPIRATORY: Denies shortness of breath, cough or congestion. GASTROINTESTINAL: No nausea, vomiting, diarrhea or constipation. GENITOURINARY: Denies dysuria, frequency, hematuria or nocturia. HEMATOLOGIC: No easy bleeding or bruising. ENDOCRINE: No recent weight loss or weight gain. No temperature intolerance. NEUROLOGIC: Denies headache, paresthesias or dizziness. MUSCULOSKELETAL: Pain in bilateral lower extremities as described above. DERMATOLOGIC: Erythema of bilateral lower extremities. PSYCHIATRIC: Denies depression or anxiety symptoms. OBJECTIVE: PHYSICAL EXAMINATION: VITAL SIGNS: Temperature is 103.2, pulse 130, respirations 26, O2 sat 98% on room air, blood pressure 143/51. GENERAL: This is a morbidly obese female, in no acute distress. HEENT: Atraumatic, normocephalic. Sclerae are clear and anicteric. Oral mucosa is moist. NECK: Soft, supple, normal range of motion. No tenderness, bruits, goiter, mass or adenopathy. LUNGS: Clear to auscultation bilaterally. HEART: Regular rate and rhythm without murmurs, S3 or S4. ABDOMEN: Soft, nontender, nondistended. Positive bowel sounds. No masses felt. EXTREMITIES: Severe lymphedema of bilateral lower extremities. Increased redness of bilateral lower extremities from the knee down distally, also, increased induration on bilateral lower leg. This is worse than baseline. NEUROLOGIC: Cranial nerves 2-12 are grossly intact and symmetric. SKIN: Intact. LABORATORY DATA: WBC 14.8, hemoglobin 14.3, hematocrit 43.7, platelets 2-12. Sodium 137, potassium 4.2, BUN 14, creatinine 1.24, glucose 142. Amylase 17, lipase 69. LFTs - negative. Coags - negative. Lactate 2.7. Urinalysis - moderate bacteria. Chest x-ray - "No confluent pulmonary opacity identified." ASSESSMENT: 1. Bilateral lower extremity cellulitis. 2. Urinary tract infection. 3. Sepsis. 4. Chronic severe lymphedema, bilateral lower extremities. 5. Diabetes mellitus type 2. 6. Hypertension. 7. Morbid obesity. PLAN: 1. The patient is admitted to [facility] for further evaluation and management. 2. Blood and urine cultures have been obtained. 3. Start aggressive IV fluid resuscitation per sepsis protocol. Lipase will be ordered and repeated for sepsis protocol. 4. Start IV antibiotics in the form of IV clindamycin as well as ceftriaxone for gram-negative coverage of the urinary tract infection. 5. Resume normal home medications. 6. Pain and symptom control. 7. DVT and stress ulcer prophylaxis. 8. Repeat thyroid and A1c in a.m. 9. IV diuresis to try and aid in some improvement of chronic lymphedema. 10. Consult wound care in a.m. to evaluate for lymphedema wraps. Rodolfo Voss MD DR: TREE/brittany JOB# [id number]
[2019-01-06] MEDS: ATARAX PO PRN (15:45)
[2019-01-06] MEDS: LASIX IV SCH ×2 (15:45→20:32)
[2019-01-06] MEDS: LOVENOX SQ SCH (15:46)
[2019-01-06] MEDS: NORCO 10MG PO PRN ×2 (15:46→20:11)
[2019-01-06] MEDS: ROCEPHIN 1,000 MG in NS 100ML 100 ML IV SCH (15:46)
[2019-01-06] MEDS ORDERED: TYLENOL PO SCH (16:00)
[2019-01-06] MEDS: LOPRESSOR PO SCH (20:11)
--- NOTE | 2019-01-06 21:55 | NUR ---
DIAL WASHED CORA AREA WITH BABY SOAP, RINSED AND DRIED AREA, BEFORE PLACING DIAL. PLACED 16 FR DIAL USING STERILE TECHNIQUE. DRAINING PROPERLY TO GRAVITY. SECURED TO RT LEG.
--- NOTE | 2019-01-06 22:03 | NUR ---
DOSE OF CLEOCIN WAS HUNG LATE DURING DAYSHIFT DUE TO BOTH NURSES BEING TIED UP IN ONE ROOM WITH A DIFFERENT PT. SO NEXT DOSE IS TO BE GIVEN AT 0100.
[2019-01-06] MEDS ORDERED: METF500T17 PO (22:39)
[2019-01-07] MEDS: ATARAX PO PRN (00:11)
[2019-01-07 00:40] VITALS: BP 118/65
[2019-01-07] MEDS ORDERED: CLEOCIN 600 MG-D5W-GALAXY 100 ML IV ONE (01:03)
--- NOTE | 2019-01-07 01:30 | NUR ---
DOSE OF CLEOCIN GIVEN VIA IV
[2019-01-07] MEDS: CLEOCIN 900 MG-D5W-GALAXY 50 ML IV SCH ×3 (01:36→17:05)
[2019-01-07] MEDS: LASIX IV SCH ×4 (02:00→20:17)
[2019-01-07 05:00] LABS: BASOPHIL % 0.1 % (0.0-0.2); EOSINOPHIL # 0.2 10^3/uL (0.0-0.2); EOSINOPHIL % 1.9 % (0.0-5.0); HEMOGLOBIN 13.2 g/dL (12.0-15.0); LYMPHOCYTES # 1.6 10^3/uL (1.0-4.8); MEAN CELL HGB 29.4 pg (26-34); MEAN CORP VOLUME 91.8 fL (78-100); MEAN PLATELET VOLUME 10.7 fL (7.8-11.0); MONOCYTES # 1.2 10^3/uL (0.3-0.8); MONOCYTES % 11.6 % (5.0-12.0); NEUTROPHILS % 70.2 % (41.0-85.0); RED CELL DISTRIBUTION WIDTH 15.5 % (11.5-14.5); WHITE BLOOD CELL 9.9 10^3/uL (4.5-11.0)
[2019-01-07 05:01] VITALS: BP 138/79
[2019-01-07 05:18] LABS: CARBON DIOXIDE 29.2 mmol/L (20.0-32)
[2019-01-07] MEDS: NORCO 10MG PO PRN ×3 (06:15→20:12)
[2019-01-07 06:48] VITALS: BP 117/59
--- NOTE | 2019-01-07 07:00 | NUR ---
O2 O2SAT 89% ON RA. NO C/O SOB. PATIENT STATES SHE IS SUPPOSED TO USE A CPAP AT NIGHT BUT IS NOT COMPLIANT WITH IT AT TIMES. PLACED PATIENT ON 2LPM VIA NC. O2SAT 95%. PATIENT SITTING ON SIDE OF BED FOR BREAKFAST. WILL CONTINUE TO MONITOR NEED FOR O2
--- NOTE | 2019-01-07 07:10 | NUR ---
DR EDITA KOHLER NOTIFIED OF TEMP OF 99.9 AND HR OF 101
[2019-01-07] MEDS: LOPRESSOR PO SCH ×2 (08:38→20:13)
[2019-01-07] MEDS: CeleXA PO SCH (08:38)
[2019-01-07] MEDS: PROTONIX PO SCH (08:38)
--- NOTE | 2019-01-07 09:35 | PRM.PN ---
Subjective Subjective Date: Jan 07, 2019 Time: 09:26 Subjective Not feeling much better. Didn't sleep well. Feels very tired. Continues to have moderate to severe pain on the back side of left leg. Not getting out of bed much. No other overnight events. Patient History: Asthma 32 MOTHER Hypertension 32 MOTHER VTE VTE Risk Total Score: 5 VTE Risk Score VTE Risk: Score 0-1 = Low Risk (Aggressive mobilization; early ambulation; no VTE prophylaxis required) Score 2: Moderate Risk (Intermittent/Pneumatic Compression Device OR Lovenox/Heparin/Coumadin) Score 3-4: High Risk (Intermittent/Pneumatic Compression Device AND Lovenox/Heparin/Coumadin) Score > or =5: Highest Risk (Intermittent/Pneumatic Compression Device AND Lovenox/Heparin/Coumadin) Antico:Hep/LMWH/Coum/Xarelto: Yes Mechanical device ordered: No Review of Systems Constitutional: Weakness; No: Fever, Chills, Sweats, Malaise, Other Respiratory: SOB with excertion; No: Cough, Dry, Shortness of breath, Wheezing, Hemoptysis, Pleuritic Pain, Sputum, Wheezing, Other Cardiovascular: No: Chest Pain, Palpitations, Orthopnea, Paroxysmal Noc. Dyspnea, Edema, Lt Headedness, Other Neurological: Weakness; No: Numbness, Incoordination, Change in speech, Confusion, Seizures, Other Allergies: Coded Allergies: Penicillins (Verified Allergy, Unknown, hives, 07/19/18) egg (Verified Allergy, Unknown, 06/23/17) Scheduled Acetaminophen (Tylenol), 650 MG PO Q4, (Reported) Citalopram Hydrobromide (Celexa), 1 TAB PO DAILY, (Reported) Doxycycline Monohydrate (Doxycycline Monohydrate), 100 MG PO BID Furosemide (Furosemide), 40 TAB PO DAILY Gabapentin (Gabapentin), 1 CAP PO PRN, (Reported) Metformin Hcl (Metformin Hcl), 1 TAB PO BID, (Reported) Metoprolol Tartrate 50MG (Lopresser 50MG), 1 TAB PO BID, (Reported) Scheduled PRN Tramadol Hcl (Tramadol Hcl), 50 MG PO Q4HR PRN for PAIN 4 - 6 Objective Vitals and I/O Vital Sign - Last 24 Hours 01/06/19 01/06/19 01/06/19 01/06/19 10:09 11:40 15:45 15:45 Temp 98.5 98.4 98.5 98.4 Pulse 76 81 Resp 22 20 B/P (MAP) 112/71 (85) 116/64 116/64 (81) Pulse Ox 94 91 O2 Delivery Room Air 01/06/19 01/06/19 01/06/19 01/07/19 20:00 20:32 20:39 00:40 Temp 97.8 98.6 97.8 98.6 Pulse 95 80 Resp 20 19 B/P (MAP) 128/80 (96) 116/64 118/65 (82) Pulse Ox 99 94 O2 Delivery Room Air Room Air Room Air 01/07/19 01/07/19 01/07/19 01/07/19 02:00 05:01 06:15 06:48 Temp 98.8 99.9 98.8 99.9 Pulse 89 101 Resp 19 B/P (MAP) 118/65 138/79 (98) 138/79 117/59 (78) Pulse Ox 97 95 O2 Delivery Room Air Nasal [place] O2 Flow Rate 2.00 01/07/19 01/07/19 01/07/19 06:53 08:26 08:27 Pulse 102 Resp 19 Pulse Ox 96 96 O2 Delivery Nasal Cannula Nasal Cannula O2 Flow Rate 2.00 2.00 FiO2 28 Intake and Output 01/06/19 01/06/19 01/07/19 14:59 22:59 06:59 Intake Total 1562 ml Output Total 1200 ml 4850 ml Balance -1200 ml -3288 ml General: Alert, Oriented X3, Cooperative, No acute distress HEENT: Atraumatic, PERRLA, EOMI, Mucous membr. moist/pink Lungs: Clear to auscultation, Normal air movement Heart: Regular rate, Normal S1, Normal S2, No murmurs Abdomen: Normal bowel sounds, Soft, No tenderness Extremities: Other Neuro: Normal speech, Strength at 5/5 X4 ext, Normal tone, Sensation intact, Cranial nerves 3-12 NL Psych/Mental Status: Mental status NL, Mood NL All Results(Lab/Rad) Laboratory Tests Test 01/07/19 04:25 White Blood Count 9.9 10^3/uL Red Blood Count 4.49 10^6/uL Hemoglobin 13.2 g/dL Hematocrit 41.2 % Mean Corpuscular Volume 91.8 fL Mean Corpuscular Hemoglobin 29.4 pg Mean Corpuscular Hemoglobin Concent 32.0 g/dL Red Cell Distribution Width 15.5 % Platelet Count 201 10^3/uL Mean Platelet Volume 10.7 fL Neutrophils (%) (Auto) 70.2 % Lymphocytes (%) (Auto) 16.0 % Monocytes (%) (Auto) 11.6 % Neutrophils # (Auto) 7.0 10^3/uL Lymphocytes # (Auto) 1.6 10^3/uL Monocytes # (Auto) 1.2 10^3/uL Absolute Immature Granulocyte (auto 0.02 10^3 u/L Immature Granulocytes % 0.20 % Eosinophils % 1.9 % Basophils % 0.1 % Basophils # 0.0 10^3/uL Eosinophil Count 0.2 10^3/uL Sodium Level 140 mmol/L Potassium Level 3.8 mmol/L Chloride Level 101.0 mmol/L Carbon Dioxide Level 29.2 mmol/L Anion Gap 13.6 Blood Urea Nitrogen 13 mg/dL Creatinine 1.08 mg/dL Estimated GFR () 63.5 BUN/Creatinine Ratio 12.0 Glucose Level 117 mg/dL Hemoglobin A1c 6.2 % Calcium Level 8.0 mg/dL Total Bilirubin 0.3 mg/dL Aspartate Amino Transf (AST/SGOT) 17 U/L Alanine Aminotransferase (ALT/SGPT) 17 U/L Alkaline Phosphatase 77 U/L Total Protein 7.5 g/dL Albumin 3.3 g/dL Globulin 4.2 Thyroid Stimulating Hormone (TSH) 4.273 mIU/mL Current Medications Medications (Trade) Dose Ordered Sig/Angel Route PRN Reason Start Time Stop Time Status Last Admin Dose Admin Acetaminophen (Tylenol) 1,000 mg STAT STAT PO 01/06/19 01:45 01/06/19 01:46 DC 01/06/19 01:58 Acetaminophen (Tylenol) 500 mg STK-MED ONCE PO 01/06/19 01:45 01/06/19 01:46 DC Sodium Chloride 1,000 ml @ ud STK-MED ONCE .ROUTE 01/06/19 03:42 01/06/19 03:44 DC Ibuprofen (Motrin) 800 mg STK-MED ONCE .ROUTE 01/06/19 03:42 01/06/19 03:44 DC Sodium Chloride 1,000 ml @ 1,000 mls/hr Q1H ONCE IV 01/06/19 04:00 01/06/19 04:59 DC 01/06/19 03:52 Ibuprofen (Motrin) 800 mg STAT STAT PO 01/06/19 03:43 01/06/19 03:52 DC 01/06/19 03:52 Sodium Chloride 1,000 ml @ ud STK-MED ONCE .ROUTE 01/06/19 04:10 01/06/19 04:11 DC Sodium Chloride 1,000 ml @ 0 mls/hr Q0M STAT IV 01/06/19 04:10 01/06/19 04:14 DC 01/06/19 04:10 Vancomycin HCl 1 gm/Sodium Chloride 250 ml @ 175 mls/hr OT ONCE IV 01/06/19 04:30 01/06/19 05:55 DC 01/06/19 04:18 Sodium Chloride 250 ml @ ud STK-MED ONCE IV 01/06/19 04:18 01/06/19 04:19 DC Vancomycin HCl 1 ml @ ud STK-MED ONCE .ROUTE 01/06/19 04:19 01/06/19 04:20 DC Diphenhydramine HCl (Benadryl) 25 mg STK-MED ONCE PO 01/06/19 04:36 01/06/19 04:38 DC Diphenhydramine HCl (Benadryl) 25 mg STAT STAT IM 01/06/19 04:41 01/06/19 04:42 DC Diphenhydramine HCl (Benadryl) 25 mg STAT STAT PO 01/06/19 04:43 01/06/19 04:44 DC 01/06/19 04:44 Ondansetron HCl (Zofran) 4 mg Q4H PRN IV NAUSEA / VOMITING 01/06/19 05:00 02/05/19 04:59 Sodium Chloride 1,000 ml @ 75 mls/hr [id number] IV 01/06/19 07:00 02/05/19 06:59 01/06/19 20:12 Clindamycin Phosphate 50 ml @ 50 mls/hr Q8 IV 01/06/19 14:00 01/07/19 08:34 DC 01/07/19 01:36 Ceftriaxone Sodium 1000 mg/ Sodium Chloride 100 ml @ 100 mls/hr Q24HRS IV 01/06/19 13:30 02/05/19 13:29 01/06/19 15:46 Pantoprazole Sodium (Protonix) 40 mg DAILY PO 01/07/19 09:00 02/06/19 08:59 01/07/19 08:38 Enoxaparin Sodium (Lovenox) 40 mg Q24HRS SQ 01/06/19 13:30 02/05/19 13:29 01/06/19 15:46 Acetaminophen/ Hydrocodone Bitart ([place] 10mg) 1 each Q4H PRN PO PAIN 7-10 01/06/19 13:30 02/05/19 13:29 01/07/19 06:15 Furosemide (Lasix) 40 mg Q6 IV 01/06/19 14:00 01/07/19 18:00 01/07/19 06:15 Acetaminophen (Tylenol) 650 mg Q4 PO 01/06/19 16:00 01/06/19 16:00 DC Citalopram Hydrobromide (CeleXA) 20 mg DAILY PO 01/07/19 09:00 02/06/19 08:59 01/07/19 08:38 Gabapentin (Neurontin) 300 mg PRN PO 01/06/19 14:00 01/06/19 14:29 DC Metoprolol Tartrate (Lopressor) 50 mg BID PO 01/06/19 21:00 02/05/19 20:59 01/07/19 08:38 Hydroxyzine HCl (Atarax) 25 mg Q6HR PRN PO ITCHING 01/06/19 15:00 02/05/19 14:59 01/07/19 00:11 Clindamycin Phosphate 100 ml @ ud STK-MED ONCE IV 01/07/19 01:03 01/07/19 01:05 DC Clindamycin Phosphate 50 ml @ 50 mls/hr Q8H IV 01/07/19 09:30 02/06/19 09:29 Course Sepsis Screening Results: Posi: POSITIVE Sepsis Qualifier/Stage: SEPSIS RISK Duration or Total Time Spent w: 30 mins Vitals & review Data Vital Sign - Last 24 Hours 01/06/19 01/06/19 01/06/19 01/06/19 01:29 01:36 01:40 01:41 Temp 103.2 103.2 103.2 103.2 Pulse 130 130 130 128 Resp 26 26 26 26 B/P (MAP) 143/51 (81) Pulse Ox 98 98 98 O2 Delivery Room Air Room Air Room Air 01/06/19 01/06/19 01/06/19 01/06/19 02:00 02:15 03:30 04:14 Temp 102.8 102.2 101.7 Pulse 128 120 120 118 Resp 24 24 24 22 B/P (MAP) 140/60 (86) 138/60 (86) 142/85 (104) 128/76 (93) Pulse Ox 99 97 98 96 O2 Delivery Room Air Room Air Laboratory Tests Test 01/06/19 01:25 01/06/19 01:39 01/06/19 02:56 01/06/19 03:00 Blood Gas Sample Site VBG [place] Test N/A Lactic Acid (Blood Gas) 2.7 mmol/1 Blood Gas Temperature 37.0 White Blood Count 14.8 10^3/uL Red Blood Count 4.84 10^6/uL Hemoglobin 14.3 g/dL Hematocrit 43.7 % Mean Corpuscular Volume 90.3 fL Mean Corpuscular Hemoglobin 29.5 pg Mean Corpuscular Hemoglobin Concent 32.7 g/dL Red Cell Distribution Width 15.1 % Platelet Count 212 10^3/uL Mean Platelet Volume 10.0 fL Neutrophils (%) (Auto) 89.8 % Lymphocytes (%) (Auto) 6.2 % Monocytes (%) (Auto) 3.5 % Neutrophils # (Auto) 13.3 10^3/uL Lymphocytes # (Auto) 0.9 10^3/uL Monocytes # (Auto) 0.5 10^3/uL Absolute Immature Granulocyte (auto 0.02 10^3 u/L Immature Granulocytes % 0.10 % Eosinophils % 0.3 % Basophils % 0.1 % Basophils # 0.0 10^3/uL Eosinophil Count 0.1 10^3/uL Prothrombin Time 10.2 SEC Prothrombin Time INR (Non-Therap) 1.0 Activated Partial Thromboplast Time 25.9 SEC Sodium Level 137 mmol/L Potassium Level 4.2 mmol/L Chloride Level 101.0 mmol/L Carbon Dioxide Level 23.9 mmol/L Anion Gap 16.3 Blood Urea Nitrogen 14 mg/dL Creatinine 1.24 mg/dL Estimated GFR () 54.1 BUN/Creatinine Ratio 11.0 Glucose Level 142 mg/dL Calcium Level 8.7 mg/dL Total Bilirubin 0.6 mg/dL Aspartate Amino Transf (AST/SGOT) 23 U/L Alanine Aminotransferase (ALT/SGPT) 23 U/L Alkaline Phosphatase 81 U/L Total Protein 7.4 g/dL Albumin 3.6 g/dL Globulin 3.8 Amylase Level 17 U/L Lipase 69 U/L Influenza Type A Antigen NEGATIVE Influenza B Immunofluorescence NEGATIVE Urine Collection Type UNKNOWN Urine Color YELLOW Urine Appearance HAZY Urine Bilirubin NEGATIVE MG/DL Urine Ketones 5 mg/dL Urine Specific [place] 1.020 Urine pH 5 Urine Protein NEGATIVE Urine Urobilinogen NORMAL Urine Nitrate NEGATIVE Urine Leukocyte Esterase NEGATIVE Urine Blood 25 1+ Urine RBC 0-2 RBC/HPF Urine WBC 2-5 WBC/HPF Urine Squamous Epithelial Cells MANY #/HPF Urine Bacteria MODERATE Urine Glucose NORMAL Sepsis Infection Criteria Pres: Documented Infection LEVEL 1 SEPSIS INFECTION CRITE: ABX Therapy, Cellulitis, Urinary Tract Infection LEVEL 2-SIRS (LIST ALL THAT AP: HR>90/min Cardiovascular Evidence: Not Assessed or None Hematologic Evidence: None/Not assessed Hepatic Evidence: None/Not assessed Metabolic Evidence: None/Not assessed Neurological Evidence: None/Not assessed Respiratory Evidence: Need for O2 to keep>90%, O2 SAT<90room air Renal Evidence: None/Not assessed O2 Sat by Pulse Oximetry: 96 Oxygen Flow Rate: 2.00 Assessment/Plan Assessment/Plan Assessment/Plan 1. Bilateral lower extremity cellulitis - Worse on left. This is a flare-up of a chronic problem with her. She also has a long hx of medical noncompliance. - Continue IV abx. - Diurese as tolerated. 2. Urinary tract infection - Stable. - Continue abx. 3. Sepsis - Numbers much improved. Hemodynamically stable. - Continue tx as above. 4. Chronic severe lymphedema, bilateral lower extremities - Needs chronic lymphedema wraps as outpt but pt unfunded and with long hx of noncompliance. 5. Diabetes mellitus type 2 - Cont SSI and long-acting insulin. 6. Hypertension - Stable. Continue same. SIMONA KOHLER MD Jan 07, 2019 09:35
[2019-01-07] MEDS: NS 1000ML 1,000 ML IV SCH ×2 (09:40→13:21)
[2019-01-07 10:19] VITALS: BP 130/66
--- NOTE | 2019-01-07 11:52 | NUR ---
PT UP TO CHAIR FOR LUNCH
--- NOTE | 2019-01-07 12:47 | NUR ---
DISCHARGE PLAN CASE MANAGEMENT SPOKE WITH PATIENT CONCERNING DISCHARGE PLAN. LIVES AT HOME WITH , SON, DAUGHTER, NIECE, AND GRANDKIDS. PATIENT NEEDS ASSISTANCE TO TRANSFER, BATHE, AND COOK. HAS DME INCLUDING CANE AND BIPAP. 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 PCP IS KONSTANTIN TRIPP NP. SHE IS FINANCIALLY ABLE TO PAY FOR HER MEDICATIONS. DISCHARGE GOAL IS FOR PATIENT TO DISCHARGE HOME WITH HER SPOUSE AND CONTINUE ROUTINE CARE THERE. CM WILL MONITOR NEEDS OF PT.
[2019-01-07] MEDS: ZOFRAN IV PRN (13:21)
[2019-01-07] MEDS: ROCEPHIN 1,000 MG in NS 100ML 100 ML IV SCH (13:55)
[2019-01-07] MEDS: LOVENOX SQ SCH (13:55)
[2019-01-07 16:48] VITALS: BP 122/67
[2019-01-07 19:22] VITALS: BP 108/47
[2019-01-07] MEDS ORDERED: RESTORIL PO PRN (19:30)
[2019-01-07] MEDS ORDERED: LASIX ONE (20:13)
[2019-01-08] VITALS (7 sets, daily range): BP systolic 108–128; BP diastolic 47–71
[2019-01-08] MEDS: CLEOCIN 900 MG-D5W-GALAXY 50 ML IV SCH ×3 (03:09→18:03)
[2019-01-08 04:42] LABS: HEMOGLOBIN 12.5 g/dL (12.0-15.0); MEAN CELL HGB 28.9 pg (26-34); MEAN CELL HGB CONCENTRATION 31.5 g/dL (33-37); MEAN CORP VOLUME 91.7 fL (78-100); MEAN PLATELET VOLUME 10.6 fL (7.8-11.0); RED CELL DISTRIBUTION WIDTH 14.9 % (11.5-14.5); WHITE BLOOD CELL 6.6 10^3/uL (4.5-11.0)
[2019-01-08 04:55] LABS: CALCIUM 7.9 mg/dL (8.4-10.5); CARBON DIOXIDE 31.2 mmol/L (20.0-32)
[2019-01-08] MEDS: NS 1000ML 1,000 ML IV SCH (09:00)
[2019-01-08] MEDS: CeleXA PO SCH (09:00)
[2019-01-08] MEDS: PROTONIX PO SCH (09:00)
[2019-01-08] MEDS: NORCO 10MG PO PRN (09:00)
[2019-01-08] MEDS: LOPRESSOR PO SCH ×2 (09:00→20:30)
[2019-01-08] MEDS: LOVENOX SQ SCH (14:35)
[2019-01-08] MEDS: ROCEPHIN 1,000 MG in NS 100ML 100 ML IV SCH (14:35)
--- NOTE | 2019-01-08 16:26 | PRM.PN ---
Subjective Subjective Date: Jan 08, 2019 Time: 16:15 Subjective Still not feeling well. Continuing to have headaches. Labs reviewed. Patient likely d/c in AM. Patient History: Asthma 34 MOTHER Hypertension 34 MOTHER VTE VTE Risk Total Score: 5 VTE Risk Score VTE Risk: Score 0-1 = Low Risk (Aggressive mobilization; early ambulation; no VTE prophylaxis required) Score 2: Moderate Risk (Intermittent/Pneumatic Compression Device OR Lovenox/Heparin/Coumadin) Score 3-4: High Risk (Intermittent/Pneumatic Compression Device AND Lovenox/Heparin/Coumadin) Score > or =5: Highest Risk (Intermittent/Pneumatic Compression Device AND Lovenox/Heparin/Coumadin) Antico:Hep/LMWH/Coum/Xarelto: Yes Mechanical device ordered: No Review of Systems Allergies: Coded Allergies: Penicillins (Verified Allergy, Unknown, hives, 07/19/18) egg (Verified Allergy, Unknown, 06/23/17) Scheduled Acetaminophen (Tylenol), 650 MG PO Q4, (Reported) Citalopram Hydrobromide (Celexa), 1 TAB PO DAILY, (Reported) Doxycycline Monohydrate (Doxycycline Monohydrate), 100 MG PO BID Furosemide (Furosemide), 40 TAB PO DAILY Gabapentin (Gabapentin), 1 CAP PO PRN, (Reported) Metformin Hcl (Metformin Hcl), 1 TAB PO BID, (Reported) Metoprolol Tartrate 50MG (Lopresser 50MG), 1 TAB PO BID, (Reported) Scheduled PRN Tramadol Hcl (Tramadol Hcl), 50 MG PO Q4HR PRN for PAIN 4 - 6 Objective Vitals and I/O Vital Sign - Last 24 Hours 01/06/19 01/06/19 01/06/19 01/06/19 10:09 11:40 15:45 15:45 Temp 98.5 98.4 98.5 98.4 Pulse 76 81 Resp 22 20 B/P (MAP) 112/71 (85) 116/64 116/64 (81) Pulse Ox 94 91 O2 Delivery Room Air 01/06/19 01/06/19 01/06/19 01/07/19 20:00 20:32 20:39 00:40 Temp 97.8 98.6 97.8 98.6 Pulse 95 80 Resp 20 19 B/P (MAP) 128/80 (96) 116/64 118/65 (82) Pulse Ox 99 94 O2 Delivery Room Air Room Air Room Air 01/07/19 01/07/19 01/07/19 01/07/19 02:00 05:01 06:15 06:48 Temp 98.8 99.9 98.8 99.9 Pulse 89 101 Resp B/P (MAP) 118/65 138/79 (98) 138/79 117/59 (78) Pulse Ox 97 95 O2 Delivery Room Air Nasal [place] O2 Flow Rate 2.00 01/07/19 01/07/19 01/07/19 06:53 08:26 08:27 Pulse 102 Resp 19 Pulse Ox 96 96 O2 Delivery Nasal Cannula Nasal Cannula O2 Flow Rate 2.00 2.00 FiO2 28 Intake and Output 01/06/19 01/06/19 01/07/19 14:59 22:59 06:59 Intake Total 1562 ml Output Total 1200 ml 4850 ml Balance -1200 ml -3288 ml General: Alert, Oriented X3, Cooperative, No acute distress HEENT: Atraumatic, PERRLA, EOMI, Mucous membr. moist/pink Neck: Supple, No JVD Lungs: Clear to auscultation, Normal air movement Heart: Regular rate, Normal S1, Normal S2, No murmurs Abdomen: Normal bowel sounds, Soft, No tenderness Extremities: Other (chronic lymphedema changes) Skin: No rashes, No breakdown, No significant lesion Neuro: Normal speech, Strength at 5/5 X4 ext, Normal tone, Sensation intact, Cranial nerves 3-12 NL Psych/Mental Status: Mental status NL, Mood NL All Results(Lab/Rad) Laboratory Tests Test 01/07/19 04:25 White Blood Count 9.9 10^3/uL Red Blood Count 4.49 10^6/uL Hemoglobin 13.2 g/dL Hematocrit 41.2 % Mean Corpuscular Volume 91.8 fL Mean Corpuscular Hemoglobin 29.4 pg Mean Corpuscular Hemoglobin Concent 32.0 g/dL Red Cell Distribution Width 15.5 % Platelet Count 201 10^3/uL Mean Platelet Volume 10.7 fL Neutrophils (%) (Auto) 70.2 % Lymphocytes (%) (Auto) 16.0 % Monocytes (%) (Auto) 11.6 % Neutrophils # (Auto) 7.0 10^3/uL Lymphocytes # (Auto) 1.6 10^3/uL Monocytes # (Auto) 1.2 10^3/uL Absolute Immature Granulocyte (auto 0.02 10^3 u/L Immature Granulocytes % 0.20 % Eosinophils % 1.9 % Basophils % 0.1 % Basophils # 0.0 10^3/uL Eosinophil Count 0.2 10^3/uL Sodium Level 140 mmol/L Potassium Level 3.8 mmol/L Chloride Level 101.0 mmol/L Carbon Dioxide Level 29.2 mmol/L Anion Gap 13.6 Blood Urea Nitrogen 13 mg/dL Creatinine 1.08 mg/dL Estimated GFR () 63.5 BUN/Creatinine Ratio 12.0 Glucose Level 117 mg/dL Hemoglobin A1c 6.2 % Calcium Level 8.0 mg/dL Total Bilirubin 0.3 mg/dL Aspartate Amino Transf (AST/SGOT) 17 U/L Alanine Aminotransferase (ALT/SGPT) 17 U/L Alkaline Phosphatase 77 U/L Total Protein 7.5 g/dL Albumin 3.3 g/dL Globulin 4.2 Thyroid Stimulating Hormone (TSH) 4.273 mIU/mL Current Medications Medications (Trade) Dose Ordered Sig/Angel Route PRN Reason Start Time Stop Time Status Last Admin Dose Admin Acetaminophen (Tylenol) 1,000 mg STAT STAT PO 01/06/19 01:45 01/06/19 01:46 DC 01/06/19 01:58 Acetaminophen (Tylenol) 500 mg STK-MED ONCE PO 01/06/19 01:45 01/06/19 01:46 DC Sodium Chloride 1,000 ml @ ud STK-MED ONCE .ROUTE 01/06/19 03:42 01/06/19 03:44 DC Ibuprofen (Motrin) 800 mg STK-MED ONCE .ROUTE 01/06/19 03:42 01/06/19 03:44 DC Sodium Chloride 1,000 ml @ 1,000 mls/hr Q1H ONCE IV 01/06/19 04:00 01/06/19 04:59 DC 01/06/19 03:52 Ibuprofen (Motrin) 800 mg STAT STAT PO 01/06/19 03:43 01/06/19 03:52 DC 01/06/19 03:52 Sodium Chloride 1,000 ml @ ud STK-MED ONCE .ROUTE 01/06/19 04:10 01/06/19 04:11 DC Sodium Chloride 1,000 ml @ 0 mls/hr Q0M STAT IV 01/06/19 04:10 01/06/19 04:14 DC 01/06/19 04:10 Vancomycin HCl 1 gm/Sodium Chloride 250 ml @ 175 mls/hr OT ONCE IV 01/06/19 04:30 01/06/19 05:55 DC 01/06/19 04:18 Sodium Chloride 250 ml @ ud STK-MED ONCE IV 01/06/19 04:18 01/06/19 04:19 DC Vancomycin HCl 1 ml @ ud STK-MED ONCE .ROUTE 01/06/19 04:19 01/06/19 04:20 DC Diphenhydramine HCl (Benadryl) 25 mg STK-MED ONCE PO 01/06/19 04:36 01/06/19 04:38 DC Diphenhydramine HCl (Benadryl) 25 mg STAT STAT IM 01/06/19 04:41 01/06/19 04:42 DC Diphenhydramine HCl (Benadryl) 25 mg STAT STAT PO 01/06/19 04:43 01/06/19 04:44 DC 01/06/19 04:44 Ondansetron HCl (Zofran) 4 mg Q4H PRN IV NAUSEA / VOMITING 01/06/19 05:00 02/05/19 04:59 Sodium Chloride 1,000 ml @ 75 mls/hr [id number] IV 01/06/19 07:00 02/05/19 06:59 01/06/19 20:12 Clindamycin Phosphate 50 ml @ 50 mls/hr Q8 IV 01/06/19 14:00 01/07/19 08:34 DC 01/07/19 01:36 Ceftriaxone Sodium 1000 mg/ Sodium Chloride 100 ml @ 100 mls/hr Q24HRS IV 01/06/19 13:30 02/05/19 13:29 01/06/19 15:46 Pantoprazole Sodium (Protonix) 40 mg DAILY PO 01/07/19 09:00 02/06/19 08:59 01/07/19 08:38 Enoxaparin Sodium (Lovenox) 40 mg Q24HRS SQ 01/06/19 13:30 02/05/19 13:29 01/06/19 15:46 Acetaminophen/ Hydrocodone Bitart ([place] 10mg) 1 each Q4H PRN PO PAIN 7-10 01/06/19 13:30 02/05/19 13:29 01/07/19 06:15 Furosemide (Lasix) 40 mg Q6 IV 01/06/19 14:00 01/07/19 18:00 01/07/19 06:15 Acetaminophen (Tylenol) 650 mg Q4 PO 01/06/19 16:00 01/06/19 16:00 DC Citalopram Hydrobromide (CeleXA) 20 mg DAILY PO 01/07/19 09:00 02/06/19 08:59 01/07/19 08:38 Gabapentin (Neurontin) 300 mg PRN PO 01/06/19 14:00 01/06/19 14:29 DC Metoprolol Tartrate (Lopressor) 50 mg BID PO 01/06/19 21:00 02/05/19 20:59 01/07/19 08:38 Hydroxyzine HCl (Atarax) 25 mg Q6HR PRN PO ITCHING 01/06/19 15:00 02/05/19 14:59 01/07/19 00:11 Clindamycin Phosphate 100 ml @ ud STK-MED ONCE IV 01/07/19 01:03 01/07/19 01:05 DC Clindamycin Phosphate 50 ml @ 50 mls/hr Q8H IV 01/07/19 09:30 02/06/19 09:29 Course Sepsis Screening Results: Posi: POSITIVE Sepsis Qualifier/Stage: SEPSIS RISK Duration or Total Time Spent w: 30 mins Vitals & review Data Vital Sign - Last 24 Hours 01/06/19 01/06/19 01/06/19 01/06/19 01:29 01:36 01:40 01:41 Temp 103.2 103.2 103.2 103.2 Pulse 130 130 130 128 Resp 26 26 26 26 B/P (MAP) 143/51 (81) Pulse Ox 98 98 98 O2 Delivery Room Air Room Air Room Air 01/06/19 01/06/19 01/06/19 01/06/19 02:00 02:15 03:30 04:14 Temp 102.8 102.2 101.7 Pulse 128 120 120 118 Resp 24 24 24 22 B/P (MAP) 140/60 (86) 138/60 (86) 142/85 (104) 128/76 (93) Pulse Ox 99 97 98 96 O2 Delivery Room Air Room Air Laboratory Tests Test 01/06/19 01:25 01/06/19 01:39 01/06/19 02:56 01/06/19 03:00 Blood Gas Sample Site [facility] Test N/A Lactic Acid (Blood Gas) 2.7 mmol/1 Blood Gas Temperature 37.0 White Blood Count 14.8 10^3/uL Red Blood Count 4.84 10^6/uL Hemoglobin 14.3 g/dL Hematocrit 43.7 % Mean Corpuscular Volume 90.3 fL Mean Corpuscular Hemoglobin 29.5 pg Mean Corpuscular Hemoglobin Concent 32.7 g/dL Red Cell Distribution Width 15.1 % Platelet Count 212 10^3/uL Mean Platelet Volume 10.0 fL Neutrophils (%) (Auto) 89.8 % Lymphocytes (%) (Auto) 6.2 % Monocytes (%) (Auto) 3.5 % Neutrophils # (Auto) 13.3 10^3/uL Lymphocytes # (Auto) 0.9 10^3/uL Monocytes # (Auto) 0.5 10^3/uL Absolute Immature Granulocyte (auto 0.02 10^3 u/L Immature Granulocytes % 0.10 % Eosinophils % 0.3 % Basophils % 0.1 % Basophils # 0.0 10^3/uL Eosinophil Count 0.1 10^3/uL Prothrombin Time 10.2 SEC Prothrombin Time INR (Non-Therap) 1.0 Activated Partial Thromboplast Time 25.9 SEC Sodium Level 137 mmol/L Potassium Level 4.2 mmol/L Chloride Level 101.0 mmol/L Carbon Dioxide Level 23.9 mmol/L Anion Gap 16.3 Blood Urea Nitrogen 14 mg/dL Creatinine 1.24 mg/dL Estimated GFR () 54.1 BUN/Creatinine Ratio 11.0 Glucose Level 142 mg/dL Calcium Level 8.7 mg/dL Total Bilirubin 0.6 mg/dL Aspartate Amino Transf (AST/SGOT) 23 U/L Alanine Aminotransferase (ALT/SGPT) 23 U/L Alkaline Phosphatase 81 U/L Total Protein 7.4 g/dL Albumin 3.6 g/dL Globulin 3.8 Amylase Level 17 U/L Lipase 69 U/L Influenza Type A Antigen NEGATIVE Influenza B Immunofluorescence NEGATIVE Urine Collection Type UNKNOWN Urine Color YELLOW Urine Appearance HAZY Urine Bilirubin NEGATIVE MG/DL Urine Ketones 5 mg/dL Urine Specific [place] 1.020 Urine pH 5 Urine Protein NEGATIVE Urine Urobilinogen NORMAL Urine Nitrate NEGATIVE Urine Leukocyte Esterase NEGATIVE Urine Blood 25 1+ Urine RBC 0-2 RBC/HPF Urine WBC 2-5 WBC/HPF Urine Squamous Epithelial Cells MANY #/HPF Urine Bacteria MODERATE Urine Glucose NORMAL Sepsis Infection Criteria Pres: Documented Infection LEVEL 1 SEPSIS INFECTION CRITE: ABX Therapy, Cellulitis, Urinary Tract Infection LEVEL 2-SIRS (LIST ALL THAT AP: None/Not assessed Cardiovascular Evidence: Not Assessed or None Hematologic Evidence: None/Not assessed Hepatic Evidence: None/Not assessed Metabolic Evidence: None/Not assessed Neurological Evidence: None/Not assessed Respiratory Evidence: Need for O2 to keep>90%, O2 SAT<90room air Renal Evidence: None/Not assessed O2 Sat by Pulse Oximetry: 94 Oxygen Flow Rate: 2.00 Assessment/Plan Assessment/Plan Assessment/Plan 1. Bilateral lower extremity cellulitis: cont IV abx. No blood cx ordered. Vitals stable, no fever/leukocytosis resolved. 2. Urinary tract infection: urine cx reviewed. Cont IV abx. 3. Sepsis: as per above. 4. Chronic severe lymphedema, bilateral lower extremities: f/u outpatient with Lymphedema center. 5. Impaired Fasting Glucose/Prediabetes: cont Metformin BID. 6. Hypertension: cont BB 7. PPx: PPI, Lovenox CORBY Garcia MD Jan 08, 2019 16:26
[2019-01-08] MEDS: GLUCOPHAGE PO SCH (20:30)
[2019-01-09] MEDS: CLEOCIN 900 MG-D5W-GALAXY 50 ML IV SCH ×2 (01:28→09:39)
[2019-01-09] MEDS: NS 1000ML 1,000 ML IV SCH ×2 (01:40→05:00)
[2019-01-09 04:41] LABS: BASOPHIL % 0.3 % (0.0-0.2); EOSINOPHIL # 0.2 10^3/uL (0.0-0.2); EOSINOPHIL % 3.2 % (0.0-5.0); HEMOGLOBIN 12.1 g/dL (12.0-15.0); LYMPHOCYTES # 2.4 10^3/uL (1.0-4.8); LYMPHOCYTES % 36.4 % (24.0-44.0); MEAN CELL HGB 29.3 pg (26-34); MEAN CELL HGB CONCENTRATION 31.8 g/dL (33-37); MEAN PLATELET VOLUME 10.1 fL (7.8-11.0); MONOCYTES # 0.6 10^3/uL (0.3-0.8); MONOCYTES % 9.6 % (5.0-12.0); NEUTROPHIL # 3.3 10^3/uL (1.8-7.7); NEUTROPHILS % 50.2 % (41.0-85.0); RED CELL DISTRIBUTION WIDTH 14.9 % (11.5-14.5); WHITE BLOOD CELL 6.5 10^3/uL (4.5-11.0)
[2019-01-09 05:10] LABS: CALCIUM 7.8 mg/dL (8.4-10.5); CARBON DIOXIDE 31.4 mmol/L (20.0-32)
[2019-01-09 05:28] VITALS: BP 115/72
[2019-01-09 06:52] VITALS: BP 110/64
[2019-01-09] MEDS ORDERED: TORADOL ONE (09:37)
[2019-01-09] MEDS ORDERED: TORADOL IV STA (09:38)
[2019-01-09] MEDS: PROTONIX PO SCH (09:39)
[2019-01-09] MEDS: LOPRESSOR PO SCH (09:39)
[2019-01-09] MEDS: GLUCOPHAGE PO SCH (09:39)
[2019-01-09] MEDS: CeleXA PO SCH (09:39)
[2019-01-09] MEDS: ZOFRAN IV PRN (09:48)
--- NOTE | 2019-01-09 11:03 | PRM.DC ---
Discharge Summary Date of Discharge: Jan 09, 2019 Time of Request to Discharge: 11:00 Reason for Visit: BLE cellulitis, Lymphedema Hospital Course Patient admitted with cellulitis of BLE and chronic complications from Lymphedema. Patient treated with IV abx. Patient did meet criteria for sepsis. Patient improved with treatment. She had no fevers, leukocytosis improved. No acute issues. Her symptoms improved. Patient counseled to f/u with PCP and outpatient lymphedema clinic within 1 week. Return precautions given. Patient will d/c on PO course of abx. Patient History: Asthma 32 MOTHER Hypertension 32 MOTHER General: Alert, Oriented X3, Cooperative, No acute distress HEENT: Atraumatic, PERRLA, EOMI, Mucous membr. moist/pink Neck: Supple, No JVD Lungs: Clear to auscultation, Normal air movement Heart: Regular rate, Normal S1, Normal S2, No murmurs Abdomen: Normal bowel sounds, Soft, No tenderness Extremities: Other (Lymphedema changes bilaterally) Skin: Other (BLE chronic changes 2/2 to lymphedema) Neuro: Normal speech, Strength at 5/5 X4 ext, Normal tone, Sensation intact, Cranial nerves 3-12 NL Psych/Mental Status: Mental status NL, Mood NL Scheduled Acetaminophen (Tylenol), 650 MG PO Q4, (Reported) Citalopram Hydrobromide (Celexa), 1 TAB PO DAILY, (Reported) Doxycycline Monohydrate (Doxycycline Monohydrate), 100 MG PO BID Furosemide (Furosemide), 40 TAB PO DAILY Gabapentin (Gabapentin), 1 CAP PO PRN, (Reported) Metformin Hcl (Metformin Hcl), 1 TAB PO BID, (Reported) Metoprolol Tartrate 50MG (Lopresser 50MG), 1 TAB PO BID, (Reported) Scheduled PRN Tramadol Hcl (Tramadol Hcl), 50 MG PO Q4HR PRN for PAIN 4 - 6 Sepsis Evaluation @ Discharge Vital Sign - Last 24 Hours 01/06/19 01/06/19 01/06/19 01/06/19 01:29 01:36 01:40 01:41 Temp 103.2 103.2 103.2 103.2 Pulse 130 130 130 128 Resp 26 26 26 26 B/P (MAP) 143/51 (81) Pulse Ox 98 98 98 O2 Delivery Room Air Room Air Room Air 01/06/19 01/06/19 01/06/1901/06/19 02:00 02:15 03:30 04:14 Temp 102.8 102.2 101.7 Pulse 128 120 120 118 Resp 24 24 24 22 B/P (MAP) 140/60 (86) 138/60 (86) 142/85 (104) 128/76 (93) Pulse Ox 99 97 98 96 O2 Delivery Room Air Room Air Laboratory Tests Test 01/06/19 01:25 01/06/19 01:39 01/06/19 02:56 01/06/19 03:00 Blood Gas Sample Site [facility] Test N/A Lactic Acid (Blood Gas) 2.7 mmol/1 Blood Gas Temperature 37.0 White Blood Count 14.8 10^3/uL Red Blood Count 4.84 10^6/uL Hemoglobin 14.3 g/dL Hematocrit 43.7 % Mean Corpuscular Volume 90.3 fL Mean Corpuscular Hemoglobin 29.5 pg Mean Corpuscular Hemoglobin Concent 32.7 g/dL Red Cell Distribution Width 15.1 % Platelet Count 212 10^3/uL Mean Platelet Volume 10.0 fL Neutrophils (%) (Auto) 89.8 % Lymphocytes (%) (Auto) 6.2 % Monocytes (%) (Auto) 3.5 % Neutrophils # (Auto) 13.3 10^3/uL Lymphocytes # (Auto) 0.9 10^3/uL Monocytes # (Auto) 0.5 10^3/uL Absolute Immature Granulocyte (auto 0.02 10^3 u/L Immature Granulocytes % 0.10 % Eosinophils % 0.3 % Basophils % 0.1 % Basophils # 0.0 10^3/uL Eosinophil Count 0.1 10^3/uL Prothrombin Time 10.2 SEC Prothrombin Time INR (Non-Therap) 1.0 Activated Partial Thromboplast Time 25.9 SEC Sodium Level 137 mmol/L Potassium Level 4.2 mmol/L Chloride Level 101.0 mmol/L Carbon Dioxide Level 23.9 mmol/L Anion Gap 16.3 Blood Urea Nitrogen 14 mg/dL Creatinine 1.24 mg/dL Estimated GFR () 54.1 BUN/Creatinine Ratio 11.0 Glucose Level 142 mg/dL Calcium Level 8.7 mg/dL Total Bilirubin 0.6 mg/dL Aspartate Amino Transf (AST/SGOT) 23 U/L Alanine Aminotransferase (ALT/SGPT) 23 U/L Alkaline Phosphatase 81 U/L Total Protein 7.4 g/dL Albumin 3.6 g/dL Globulin 3.8 Amylase Level 17 U/L Lipase 69 U/L Influenza Type A Antigen NEGATIVE Influenza B Immunofluorescence NEGATIVE Urine Collection Type UNKNOWN Urine Color YELLOW Urine Appearance HAZY Urine Bilirubin NEGATIVE MG/DL Urine Ketones 5 mg/dL Urine Specific [place] 1.020 Urine pH 5 Urine Protein NEGATIVE Urine Urobilinogen NORMAL Urine Nitrate NEGATIVE Urine Leukocyte Esterase NEGATIVE Urine Blood 25 1+ Urine RBC 0-2 RBC/HPF Urine WBC 2-5 WBC/HPF Urine Squamous Epithelial Cells MANY #/HPF Urine Bacteria MODERATE Urine Glucose NORMAL Course Sepsis Screening Results: Posi: NEGATIVE Sepsis Qualifier/Stage: NO DEFINITE RISK Duration or Total Time Spent w: 30 mins Vitals & review Data Vital Sign - Last 24 Hours 01/06/19 01/06/19 01/06/19 01/06/19 01:29 01:36 01:40 01:41 Temp 103.2 103.2 103.2 103.2 Pulse 130 130 130 128 Resp 26 B/P (MAP) 143/51 (81) Pulse Ox 98 98 98 O2 Delivery Room Air Room Air Room Air 01/06/19 01/06/19 01/06/19 01/06/19 02:00 02:15 03:30 04:14 Temp 102.8 102.2 101.7 Pulse 128 120 120 118 Resp 24 24 24 22 B/P (MAP) 140/60 (86) 138/60 (86) 142/85 (104) 128/76 (93) Pulse Ox 99 97 98 96 O2 Delivery Room Air Room Air Laboratory Tests Test 01/06/19 01:25 01/06/19 01:39 01/06/19 02:56 01/06/19 03:00 Blood Gas Sample Site [facility] [place] Test N/A Lactic Acid (Blood Gas) 2.7 mmol/1 Blood Gas Temperature 37.0 White Blood Count 14.8 10^3/uL Red Blood Count 4.84 10^6/uL Hemoglobin 14.3 g/dL Hematocrit 43.7 % Mean Corpuscular Volume 90.3 fL Mean Corpuscular Hemoglobin 29.5 pg Mean Corpuscular Hemoglobin Concent 32.7 g/dL Red Cell Distribution Width 15.1 % Platelet Count 212 10^3/uL Mean Platelet Volume 10.0 fL Neutrophils (%) (Auto) 89.8 % Lymphocytes (%) (Auto) 6.2 % Monocytes (%) (Auto) 3.5 % Neutrophils # (Auto) 13.3 10^3/uL Lymphocytes # (Auto) 0.9 10^3/uL Monocytes # (Auto) 0.5 10^3/uL Absolute Immature Granulocyte (auto 0.02 10^3 u/L Immature Granulocytes % 0.10 % Eosinophils % 0.3 % Basophils % 0.1 % Basophils # 0.0 10^3/uL Eosinophil Count 0.1 10^3/uL Prothrombin Time 10.2 SEC Prothrombin Time INR (Non-Therap) 1.0 Activated Partial Thromboplast Time 25.9 SEC Sodium Level 137 mmol/L Potassium Level 4.2 mmol/L Chloride Level 101.0 mmol/L Carbon Dioxide Level 23.9 mmol/L Anion Gap 16.3 Blood Urea Nitrogen 14 mg/dL Creatinine 1.24 mg/dL Estimated GFR () 54.1 BUN/Creatinine Ratio 11.0 Glucose Level 142 mg/dL Calcium Level 8.7 mg/dL Total Bilirubin 0.6 mg/dL Aspartate Amino Transf (AST/SGOT) 23 U/L Alanine Aminotransferase (ALT/SGPT) 23 U/L Alkaline Phosphatase 81 U/L Total Protein 7.4 g/dL Albumin 3.6 g/dL Globulin 3.8 Amylase Level 17 U/L Lipase 69 U/L Influenza Type A Antigen NEGATIVE Influenza B Immunofluorescence NEGATIVE Urine Collection Type UNKNOWN Urine Color YELLOW Urine Appearance HAZY Urine Bilirubin NEGATIVE MG/DL Urine Ketones 5 mg/dL Urine Specific [place] 1.020 Urine pH 5 Urine Protein NEGATIVE Urine Urobilinogen NORMAL Urine Nitrate NEGATIVE Urine Leukocyte Esterase NEGATIVE Urine Blood 25 1+ Urine RBC 0-2 RBC/HPF Urine WBC 2-5 WBC/HPF Urine Squamous Epithelial Cells MANY #/HPF Urine Bacteria MODERATE Urine Glucose NORMAL Sepsis Infection Criteria Pres: Documented Infection LEVEL 1 SEPSIS INFECTION CRITE: ABX Therapy, Cellulitis, Urinary Tract Infection LEVEL 2-SIRS (LIST ALL THAT AP: None/Not assessed Cardiovascular Evidence: Not Assessed or None Hematologic Evidence: None/Not assessed Hepatic Evidence: None/Not assessed Metabolic Evidence: None/Not assessed Neurological Evidence: None/Not assessed Respiratory Evidence: None/Not assessed Renal Evidence: None/Not assessed O2 Sat by Pulse Oximetry: 95 Oxygen Flow Rate: 2.00 Plan Discharge Date: Jan 09, 2019 Dicharge DX: BLE cellulitis Discharge Disposition: Stable Plan ok to d/c to home self care medications: per med rec list Diet: ADA Activity: as tolerated Return to care for worsening/concerning symptoms F/U with PCP/Lymphedema clinic within 1 week CORBY MOORE MD Jan 09, 2019 11:03
--- NOTE | 2019-01-09 12:30 | NUR ---
D/C D/C INSTRUCTIONS GIVEN TO PT ON LEG HYGIENE, NEW MEDICATIONS, FOLLOWING UP WITH [facility] IN 10-14 DAYS, DIABETIC DIET, AND REGULAR LEVEL OF ACTIVITY. VERBALIZED AND WRITTEN UNDERSTANDING OBTAINED. NO S/S OF DISTRESS NOTED. IV D/C'D PER ASEPTIC TECHNIQUE. NO S/S OF INFECTION NOTED TO SITE. D/C PICS OBTAINED AND PLACED IN CHART. PT OFF OF UNIT VIA W/C TO GO HOME IN PRIVATE VEHICLE WITH SPOUSE. RELINQUISHED CARE OF PT.
[2019-01-09 12:35] VITALS: BP 110/64
[2019-01-09 14:04] VITALS: BP 116/65
== END 2019-01-09 13:50 | disposition home or self-care (01) | DRG 872 ==
LOC: ER 01:05 → MS 04:52 → EDPENDDISDT 01-09 05:25
PROVIDERS: ADMIT Internal Medicine; ATTEND Internal Medicine
DX: A41.9 Sepsis, unspecified organism (principal); L03.115 Cellulitis of right lower limb; L03.116 Cellulitis of left lower limb; N39.0 Urinary tract infection, site not specified; Z68.45 Body mass index [BMI] 70 or greater, adult; E11.65 Type 2 diabetes mellitus with hyperglycemia; E66.01 Morbid (severe) obesity due to excess calories; I10 Essential (primary) hypertension; I89.0 Lymphedema, not elsewhere classified; K21.9 Gastro-esophageal reflux disease without esophagitis; M19.90 Unspecified osteoarthritis, unspecified site; F51.04 Psychophysiologic insomnia; Z82.49 Family history of ischemic heart disease and other diseases of the circulatory system; Z83.3 Family history of diabetes mellitus; Z90.710 Acquired absence of both cervix and uterus; Z91.19 Patient's noncompliance with other medical treatment and regimen; Z79.899 Other long term (current) drug therapy; Z88.0 Allergy status to penicillin; Z91.012 Allergy to eggs; Z79.4 Long term (current) use of insulin; Z82.5 Family history of asthma and other chronic lower respiratory diseases; Z98.51 Tubal ligation status
CPT/HCPCS: 36415; 71046; 80053; 81000; 82150; 82948; 83036; 83605; 83690; 84443; 85025; 85027; 85610; 85730; 87086; 87804; 99285; A4338; G0378; J0696; J1650; J1885; J1940; J2405; J3370; J3490; J7030; J7050; Q0163

== ENCOUNTER 2019-10-27 01:16 | Inpatient (IN) | payer BC, MEDICARE ==
[2019-10-27] VITALS (10 sets, daily range): BP systolic 105–163; BP diastolic 60–95
[~2019-10-27] VITALS: Ht 167.6 cm; Wt 227.3 kg
[~2019-10-27 01:16] MED LIST changes: -DOXY100T10 PO; +DOXY100T23 PO; +METF500T17 PO; -OXYB10TA PO; +OXYB10TA26 PO
--- NOTE | 2019-10-27 01:41 | NUR ---
ARRIVAL PT ARRIVED VIA EMS [facility] TO ER 1 WITH C/O LEFT LOWER LEG PAIN AND FEVER. PT STATES PAIN OF LEG FOR A MONTH DUE TO LYMPH EDEMA. STATES FEVER OFF AND ON FOR 2 WEEKS. PT STATES TIREDNESS, NAUSEA, AND NO APPETITE YESTERDAY. PT IN NO ACUTE DISTRESS AT THIS TIME. EDP NOTIFIED OF ARRIVAL.
[2019-10-27] MEDS ORDERED: MERREM 500 MG in NS 100ML 100 ML IV STA (02:03)
[2019-10-27] MEDS ORDERED: VANCOMYCIN HCL 1 GM in NS 250ML 250 ML IV STA (02:03)
[2019-10-27] MEDS ORDERED: TYLENOL PO STA (02:03)
--- NOTE | 2019-10-27 02:05 | NUR ---
US CALL TO [facility] TO NOTIFY OF US OF LOWER EXTREMITY AT THIS TIME.
--- NOTE | 2019-10-27 02:07 | NUR ---
RAD CALL TO [facility] TO NOTIFY OF CHEST XRAY AT THIS TIME.
--- NOTE | 2019-10-27 02:12 | ER.PDOC ---
General Chief Complaint: Extremities Stated Complaint: LEFT LEG PAIN/FEVER Time seen by MD: 02:09 Source: patient Exam Limitations: no limitations History of Present Illness Initial Comments Fever and left leg pain for 1 week, patient has chronic lymphedema and multiple admissions for left leg cellulitis. Onset: last week Recent Injury: No Severity: moderate Exacerbated By: walking movement Relieved By: nothing Associated Symptoms: shortness of breath Prior symptoms/Treatment: Similar symptoms previous Allergies: Coded Allergies: Penicillins (Verified Allergy, Unknown, hives, 07/19/18) egg (Verified Allergy, Unknown, 06/23/17) Home Meds Reported Medications Metformin Hcl (METFORMIN HCL) 500 Mg Tablet, 1 TAB PO BID, #60 TAB 3 Refills 01/06/19 Acetaminophen (TYLENOL) 325 Mg Tablet, 650 MG PO Q4 for pain, TABLET 07/20/18 Gabapentin (GABAPENTIN) 300 Mg Capsule, 1 CAP PO PRN, CAP 07/19/18 Citalopram Hydrobromide (CELEXA) 20 Mg Tablet, 1 TAB PO DAILY 07/19/18 Metoprolol Tartrate 50MG (LOPRESSER 50MG) 50 Mg Tablet, 1 TAB PO BID, TAB 01/04/17 Discontinued Scripts Doxycycline Monohydrate (DOXYCYCLINE MONOHYDRATE) 100 Mg Tablet, 100 MG PO BID for 14 Days, TABLET Prov:CORBY MOORE MD 09/15/18 Tramadol Hcl (TRAMADOL HCL) 50 Mg Tablet, 50 MG PO Q4HR PRN for PAIN 4 - 6 for 5 Days, #30 TABLET 0 Refills Prov:CORBY MOORE MD 09/15/18 Past Medical History Medical History: diabetes, hypertension, other Surgical History: cholecystectomy, hysterectomy, tonsillectomy, tubal Social History Alcohol Use: rarely Drug Use: none Review of Systems Constitutional: see HPI Respiratory: see HPI Cardiovascular: no symptoms reported Gastrointestinal: no symptoms reported Musculoskeletal: see HPI All Other Systems: Reviewed and Negative Physical Exam General Appearance: Alert, No Apparent Distress Lower Extremity: tenderness (left leg), swelling (chronic lymphedema) Joint Exam: joints nml, nml ROM, nml gait/weight bearing Vascular: no vascular compromise, pulses full/equal Neuro/Psych: sensation nml, motor nml, oriented x3, CN's nml as tested, mood/affect nml Skin: warmth/erythema (left leg) Back/Neck: nml inspection Respiratory: no resp distress, breath sounds nml CVS: reg rate & rhythm, heart sounds nml Abdomen: non-tender, no organomegaly, no bruit/mass Results/Orders Results/Orders Orders - OMID ZAMUDIO MD Cbc With Auto Diff (10/27/19 02:03) Comprehensive Metabolic Panel (10/27/19 02:03) Creatine Kinase (10/27/19 02:03) Creatine Kinase Mb (10/27/19 02:03) Probnp B-Type Solution Sales Senior Executive (10/27/19 02:03) Troponin I (10/27/19 02:03) PT (10/27/19 02:03) Partial Thromboplastin Time. (10/27/19 02:03) Blood Culture (10/27/19 02:03) Ekg-Routine (10/27/19 02:03) Xr Chest 1v (10/27/19 02:03) Us Lt Vein U/L (10/27/19 02:03) Vancomycin Hcl (Vancomycin Hcl) (10/27/19 02:03) Meropenem (Merrem) (10/27/19 02:03) Acetaminophen (Tylenol) (10/27/19 02:03) Lactic Acid(Ml) (10/27/19 02:03) 0.9 % Sodium Chloride (Ns 100ml) (10/27/19 02:14) Acetaminophen (Tylenol) (10/27/19 02:14) Ondansetron Hcl/Pf (Zofran) (10/27/19 02:27) Ondansetron Hcl/Pf (Zofran) (10/27/19 02:30) 0.9 % Sodium Chloride (Ns 250ml) (10/27/19 02:53) Vancomycin Hcl (Vancomycin Hcl) (10/27/19 02:53) Vital Signs Date Time Temp Pulse Resp B/P (MAP) Pulse Ox O2 Delivery O2 Flow Rate FiO2 10/27/19 01:39 100.2 104 20 98 Nasal [place]ula 2.00 10/27/19 01:39 100.2 104 20 98 Nasal Canula 10/27/19 01:33 100.2 104 20 10/27/19 01:33 100.2 104 20 98 Administered Medications Medications (Trade) Dose Ordered Sig/Angel Route PRN Reason Start Time Stop Time Status Last Admin Dose Admin Acetaminophen (Tylenol) 1,000 mg STAT STAT PO 10/27/19 02:03 10/27/19 02:09 DC 10/27/19 02:37 1,000 MG Meropenem 500 mg/ Sodium Chloride 100 ml @ 200 mls/hr STAT STAT IV 10/27/19 02:03 10/27/19 02:32 DC 10/27/19 02:37 200 MLS/HR Ondansetron HCl (Zofran) 4 mg STAT STAT IV 10/27/19 02:30 10/27/19 02:32 DC 10/27/19 02:38 4 MG Vancomycin HCl 1 gm/Sodium Chloride 250 ml @ 175 mls/hr STAT STAT IV 10/27/19 02:03 10/27/19 03:28 DC 10/27/19 03:07 175 MLS/HR Laboratory Tests Test 10/27/19 01:20 White Blood Count 11.7 10^3/uL (4.5-11.0) H Red Blood Count 4.74 10^6/uL (4.00-5.20) Hemoglobin 13.7 g/dL (12.0-15.0) Hematocrit 42.4 % (36.0-46.0) Mean Corpuscular Volume 89.5 fL (78-100) Mean Corpuscular Hemoglobin 28.9 pg (26-34) Mean Corpuscular Hemoglobin Concent 32.3 g/dL (33-36.5) L Red Cell Distribution Width 14.3 % (11.5-14.5) Platelet Count 215 10^3/uL (150-400) Mean Platelet Volume 9.7 fL (7.8-11.0) Neutrophils (%) (Auto) 85.2 % (41.0-85.0) H Lymphocytes (%) (Auto) 10.0 % (24.0-44.0) L Monocytes (%) (Auto) 4.4 % (5.0-12.0) L Neutrophils # (Auto) 10.0 10^3/uL (1.8-7.7) H Lymphocytes # (Auto) 1.17 10^3/uL1 (1.0-4.8) Monocytes # (Auto) 0.5 10^3/uL (0.3-0.8) Absolute Immature Granulocyte (auto 0.01 10^3 u/L (0-2) Absolute Eosinophils (auto) 0.0 10^3/uL (0.0-0.2) Immature Granulocytes % 0.10 % (0.00-0.50) Eosinophils % 0.0 % (0.0-5.0) Basophils % 0.3 % (0.0-0.2) H Basophils # 0.0 10^3/uL (0.0-0.1) Prothrombin Time 11.0 SEC (9.3-11.3) Prothrombin Time INR (Non-Therap) 1.1 Activated Partial Thromboplast Time 27.1 SEC (24.67-30.72) Sodium Level 135 mmol/L (132-145) Potassium Level 4.1 mmol/L (3.6-5.2) Chloride Level 99.0 mmol/L (96-109) Carbon Dioxide Level 27.4 mmol/L (20.0-32) Anion Gap 12.7 Blood Urea Nitrogen 13 mg/dL (7-18) Creatinine 1.05 mg/dL (0.59-1.40) Estimated GFR () 65.4 (>/=60) Est GFR (CKD-EPI)(Non-Afr Colombian) 54.0 (>/=60) BUN/Creatinine Ratio 12.0 Glucose Level 132 mg/dL (70-110) H Lactic Acid Level 1.9 mmol/L (0.5-1.9) Calcium Level 8.9 mg/dL (8.4-10.5) Total Bilirubin 0.7 mg/dL (0.2-1.0) Aspartate Amino Transferase (AST) 18 U/L (0-35) Alanine Aminotransferase (ALT) 24 U/L (12-78) Alkaline Phosphatase 75 U/L (50-136) Total Creatine Kinase 79 U/L (26-192) Creatine Kinase MB 0.6 ng/mL (0.5-3.6) Troponin I < 0.02 ng/mL (0.00-0.05) Pro-B-Type Natriuretic Peptide 116 pg/mL (0-125) Total Protein 7.4 g/dL (6.4-8.2) Albumin 3.4 g/dL (3.4-5.0) Globulin 4.0 Progress Progress Patient tested for COVID-19 because her works in [employer] here. Departure Time of Disposition: 04:37 Disposition: 09 ADMITTED INPATIENT Impression: Primary Impression: Cellulitis of left leg Condition: Stable Referrals: KONSTANTIN TRIPP VENTILATION EQUIPMENT TENDER (PCP) PRIMARY CARE PROVIDER Comments Admitted to Dr. Zuleta Duration or Time Spent with Pa: 90 min OMID ZAMUDIO MD October 27, 2019 02:12
[2019-10-27 02:14] LABS: BASOPHIL % 0.3 % (0.0-0.2); LYMPHOCYTES # 1.17 10^3/uL1 (1.0-4.8); MEAN CORP HGB 28.9 pg (26-34); MONOCYTES # 0.5 10^3/uL (0.3-0.8); MONOCYTES % 4.4 % (5.0-12.0); NEUTROPHILS % 85.2 % (41.0-85.0); PLATELET COUNT 215 10^3/uL (150-400); RED CELL DISTRIBUTION WIDTH 14.3 % (11.5-14.5)
[2019-10-27] MEDS ORDERED: TYLENOL PO ONE ×2 (02:14→11:37)
[2019-10-27] MEDS ORDERED: NS 100ML 100 ML IV ONE (02:14)
[2019-10-27] MEDS ORDERED: ZOFRAN ONE (02:27)
--- NOTE | 2019-10-27 02:28 | PCM.EKG ---
[facility] Test Date: 2019-10-27 Test Time: 02:16:02 Pat Name: MAYDA ALATORRE Department: Patient ID: [facility]-[id number] Room: 302 Gender: F Information Coder: NEFTALI : [id number] Requested By: OMID ZAMUDIO Order Number: [id number] Reading MD: Omid ZAMUDIO Measurements Intervals [place] Rate: 104 P: 37 NC: 168 QRS: 1 QRSD: 98 T: 62 QT: 354 QTc: 466 Interpretive Statements Sinus tachycardia Ventricular premature complex Compared to ECG 09/12/2018 15:19:12 Ventricular premature complex(es) now present Electronically Signed On 10-28-2019 20:51:44 CDT by Omid ZAMUDIO Please click the below link to view image of tracing.
[2019-10-27] MEDS ORDERED: ZOFRAN IV STA (02:30)
[2019-10-27 02:34] LABS: ALANINE AMINOTRANSFERASE(ML) 24 U/L (12-78); ALKALINE PHOSPHATASE 75 U/L (50-136); ASPARTATE AMINO TRANSFERASE 18 U/L (0-35); CALCIUM 8.9 mg/dL (8.4-10.5); CARBON DIOXIDE 27.4 mmol/L (20.0-32); GLUCOSE 132 mg/dL (70-110)
--- NOTE | 2019-10-27 02:38 | NUR ---
BRIANA DAMICO IN ROOM WITH PORTABLE AT THIS TIME.
--- NOTE | 2019-10-27 02:50 | NUR ---
US METZGER, US IN PT ROOM AT THIS TIME.
[2019-10-27] MEDS ORDERED: NS 250ML 250 ML IV ONE (02:53)
[2019-10-27] MEDS ORDERED: VANCOMYCIN HCL 1 GM ONE (02:53)
--- NOTE | 2019-10-27 02:53 | DIREP ---
PROCEDURE:CHEST 1 VIEW COMPARISON:[employer], XRAY CHEST SINGLE VW, 03/20/2019, 06:27 PM. [facility], 03/09/2019, 01:28 PM. INDICATIONS:Dyspnea FINDINGS: LUNGS/PLEURA:No confluent pulmonary infiltrate. No effusions. No pneumothorax. VASCULATURE:Unremarkable pulmonary vasculature. CARDIAC:No cardiac silhouette abnormality or cardiomegaly. MEDIASTINUM:No visible mass or adenopathy. BONES:No fracture or visible bony lesion. OTHER:Negative. CONCLUSION: 1. No confluent pulmonary infiltrate. Dictated by: Cristina Brooks MD on 10/27/2019 at 02:50 AM
--- NOTE | 2019-10-27 03:55 | NUR ---
BEDSIDE PT UP TO BEDSIDE COMMODE AT THIS TIME.
--- NOTE | 2019-10-27 04:14 | DIREP ---
PROCEDURE:US DUPLEX EXTREM VEINS UNILATER/LIMITED-LT COMPARISON:[facility], , DUPLEX EXTREM VEINS UNILATER/LIMITED-LT, 07/19/2018, 10:13 PM. INDICATIONS:Lt Leg Pain, Swelling TECHNIQUE:The left lower extremity was evaluated utilizing vincent scale images with segmental compression, color Doppler, and spectral Doppler with respiratory variation and augmentation. FINDINGS: Common femoral vein:Patent Superficial femoral vein:Patent Popliteal vein:Patent Posterior tibial vein:Patent Peroneal vein:Patent Greater saphenous vein:Patent Waveforms: Within normal limits. Extensive subcutaneous edema noted in the calf. CONCLUSION: 1. No DVT identified in the left lower extremity. Dictated by: Cristina Brooks MD on 10/27/2019 at 04:11 AM
[2019-10-27] MEDS ORDERED: HNS 1000ML/KCL 20MEQ 1,000 ML IV STA (04:42)
[2019-10-27] MEDS ORDERED: HNS 1000ML/KCL 20MEQ 1,000 ML ONE (04:45)
--- NOTE | 2019-10-27 09:00 | NUR ---
PATIENT HYGIENE COMPLETE BED BATH GIVEN TO THE PATIENT WITH COMPLETE SKIN ASSESSMENT.
--- NOTE | 2019-10-27 11:00 | NUR ---
DR. KENDRICK AT BEDSIDE IN COMPLETE PPE ASSESSING PATIENT AT THIS TIME.
--- NOTE | 2019-10-27 11:29 | PCM.HP ---
HISTORY & PHYSICAL HISTORY & PHYSICAL DATE: October 27, 2019 Patient is admitted as an inpatient to [facility] ADMITTING DIAGNOSES: Left lower leg cellulitis, morbid obesity with obstructive sleep apnea, chronic lymphedema of the left lower leg, hypertension CHIEF COMPLAINT: Left leg is swollen and hurts HISTORY OF PRESENT ILLNESS: 59-year-old female who has had chronic lymphedema of her left lower leg and is supposed to go see the lymphedema clinic at [place] frequently. She has not been able to go there secondary to her insurance issues. She noted that her left leg was becoming more red and swollen and hot to touch in the past couple of days and she reports running fever but no chills. She came into the ER with these complaints and a work-up was done and she was subsequently mated to my service. She reports being on CPAP but has not used it in a long time secondary to mask fitting problems. She states that she has not seen her primary care physician in some time due to financial reasons as well. She denies any abdominal symptoms currently and no dysuria and no syncope/lethargy. She denies any recent travel and no trauma recently. Her works at the [employer] and has been sick lately so currently she is under COVID isolation and testing. She denies any significant respiratory symptoms whatsoever at this point. PAST MEDICAL HISTORY: Morbid obesity with obstructive sleep apnea, hypertension, chronic lymphedema of her left leg, diabetes PAST SURGICAL HISTORY: Hysterectomy, cholecystectomy, tonsillectomy, BTL ALLERGIES: Penicillin MEDICATIONS: I have reviewed her home medication list in [facility] SOCIAL HISTORY: No drug history, no tobacco, rare alcohol FAMILY HISTORY: Noncontributory for this admission PHYSICAL EXAMINATION: VITAL SIGNS: Temperature 100.2, pulse 104, respirations 20, O2 sat 98% HEENT: Oropharynx is clear, moist mucous membranes NECK: Supple HEART: S1 and S2 audible heart rate on my exam was about 84 LUNGS: Decreased breath sounds bilaterally but no tachypnea ABDOMEN: Obese with bowel sounds present EXTREMITIES: Left lower leg is very edematous with some mild increase in warmth and some mildly increased in redness with some hardened areas LABORATORY DATA: WBC 11.7, hemoglobin 13.7, platelet count 215, chemistry panel looks okay with a glucose of 132, lactic acid level 1.9, LFTs normal, coags normal ASSESSMENT: We had this female with recurrent left lower leg cellulitis and chronic lymphedema with underlying ERNESTO, hypertension, morbid obesity with diabe saleem PLAN: IV antibiotics have been started and I will continue this with elevation of the leg. I will follow her O2 sats in the hospital and her blood pressures and sugars as well. MISHA KENDRICK MD October 27, 2019 11:29
[2019-10-27] MEDS: TYLENOL PO SCH ×3 (11:51→20:00)
[2019-10-27] MEDS ORDERED: NEURONTIN PO SCH (12:00)
[2019-10-27] MEDS: MERREM 500 MG in NS 100ML 100 ML IV SCH ×2 (12:55→19:30)
[2019-10-27] MEDS: HEPARIN SQ SCH ×2 (14:24→22:00)
[2019-10-27] MEDS: NEURONTIN PO SCH ×2 (14:25→21:00)
[2019-10-27] MEDS: VANCOMYCIN HCL 1.5 GM in NS 250ML 300 ML IV SCH (14:58)
--- NOTE | 2019-10-27 16:00 | NUR ---
NEW IV INSERTION PATIENT COMPLAIN OF PAIN ON LEFT ARM-IV LOCATION. IV SITE IS RED AND INFILTRATED. NEW IV INSERTED ON LEFT UPPER LATERAL ARM WITH 20 G. PATIENT TOLERATED WELL.
--- NOTE | 2019-10-27 16:45 | NUR ---
APS [facility]ART[facility] WITH [facility] CALLED TO INFORM US THAT PATIENT HAS AN OPEN APS CASE WITH THEM. THEY WANT TO BE NOTIFIED WHENEVER PATIENT IS DISCHARGED. CALL OG MARTINEZ @[phone]
[2019-10-27] MEDS: LOPRESSOR PO SCH (21:00)
[2019-10-27] MEDS: GLUCOPHAGE PO SCH (21:00)
[2019-10-28] VITALS: BP 123/68
[2019-10-28] MEDS: VANCOMYCIN HCL 1.5 GM in NS 250ML 300 ML IV SCH ×2 (02:00→15:05)
[2019-10-28] MEDS: MERREM 500 MG in NS 100ML 100 ML IV SCH ×3 (03:30→20:31)
[2019-10-28 04:00] VITALS: BP 115/74
[2019-10-28] MEDS: TYLENOL PO SCH ×6 (04:00→20:36)
[2019-10-28] MEDS: HEPARIN SQ SCH ×3 (06:00→22:39)
[2019-10-28 08:00] VITALS: BP 129/62
[2019-10-28] MEDS ORDERED: CeleXA ONE (08:00)
[2019-10-28] MEDS: NEURONTIN PO SCH ×3 (08:09→20:36)
[2019-10-28] MEDS: LOPRESSOR PO SCH ×2 (08:09→20:36)
[2019-10-28] MEDS: CeleXA PO SCH (08:10)
[2019-10-28] MEDS: GLUCOPHAGE PO SCH ×2 (08:10→20:36)
[2019-10-28] MEDS ORDERED: IMODIUM PO PRN (11:00)
--- NOTE | 2019-10-28 12:11 | PRM.PN ---
PROGRESS NOTE S/O/A/P DATE: October 27 SUBJECTIVE: The patient has been seen and examined by me. No complaint at this point. OBJECTIVE: Awake alert oriented Lungs clear to auscultation Heart regular rate S1-S2 Abdomen morbidly obese Lower extremity very severe obesity with severe lymphedema cellulitis of the left lower extremity. Neck supple no JVD Head normocephalic/atraumatic LABORATORY DATA: White blood cells 11.7 Hemoglobin 13.7 Hematocrit 42.4 Platelets 215 No BMP today ASSESSMENT: -Lower extremity cellulitis -Severe lower extremity lymphedema -Severe morbid obesity -Chronic debility due to morbid obesity -Diabetes mellitus type 2 PLAN: -Continue with the current regimen of antibiotics ( Vanco + meropenem) Statin powder for intertrigo in the lower extremity Start the patient on phentermine The patient needs some type of bariatric surgery to be able to survive otherwise her outcome is very poor in the near future due to morbid obesity Insulin coverage as needed Continue home medications DVT prophylaxis EMMETT YUSUF MD October 28, 2019 12:11
[2019-10-28] MEDS ORDERED: NS 250ML 250 ML IV ONE (14:59)
--- NOTE | 2019-10-28 15:45 | NUR ---
NEW IV INSERTION PATIENT PIV ON LEFT LATERAL AC INFILTRATED. PATIENT COMPLAINED OF PAIN AND DISCOMFORT. PIV REMOVED WITH PRESSURE GAUZE DRESSING APPLIED. A NEW 20 G PIV ON RIGHT INNER ARM INSERTED WITH 1 UNSUCCESSFUL ATTEMPTS. PATIENT TOLERATED WELL. ANTIBIOTIC INFUSION RESTARTED.
[2019-10-28 16:00] VITALS: BP 146/87
[2019-10-28] MEDS ORDERED: MYCOSTATIN TP ONE (19:56)
[2019-10-28] MEDS: NYSTOP TP SCH (20:44)
[2019-10-28 20:45] VITALS: BP 139/85
[2019-10-29 00:31] VITALS: BP 132/76
[2019-10-29] MEDS: TYLENOL PO SCH ×4 (00:31→12:10)
[2019-10-29] MEDS: VANCOMYCIN HCL 1.5 GM in NS 250ML 300 ML IV SCH (02:14)
[2019-10-29 04:02] VITALS: BP 135/84
[2019-10-29 04:56] LABS: CALCIUM 8.2 mg/dL (8.4-10.5); CARBON DIOXIDE 26.8 mmol/L (20.0-32)
[2019-10-29] MEDS: MERREM 500 MG in NS 100ML 100 ML IV SCH (05:10)
[2019-10-29] MEDS: HEPARIN SQ SCH (05:48)
--- NOTE | 2019-10-29 06:40 | NUR ---
VANCOMYCIN/MERREM VANC ENDED LATE AT 0500 DUE TO ISSUES WITH IV SITE CATHETER KINK, MERREM STARTED LATE DUE TO VANC RUNNING OVER
[2019-10-29 07:58] VITALS: BP 139/90
[2019-10-29] MEDS: NEURONTIN PO SCH (07:59)
[2019-10-29] MEDS: LOPRESSOR PO SCH (08:00)
[2019-10-29] MEDS: NYSTOP TP SCH (08:00)
[2019-10-29] MEDS: CeleXA PO SCH (08:00)
[2019-10-29] MEDS: GLUCOPHAGE PO SCH (08:01)
[2019-10-29 08:57] LABS: MEAN CORP HGB 29.3 pg (26-34); RED CELL DISTRIBUTION WIDTH 14.4 % (11.5-14.5)
[2019-10-29] MEDS ORDERED: CLIN300C8 PO (11:16)
--- NOTE | 2019-10-29 11:45 | NUR ---
DISCHARGE PLAN CASE MANAGEMENT VISITED WITH PATIENT CONCERNING DISCHARGE PLAN AND NEEDS. LIVES AT HOME WITH SPOUSE. HAS DME INCLUDING A CANE AND BIPAP. BIPAP WAS ARRANGED FOR HER, PT IS UNAWARE OF WHICH COMPANY. CM SPOKE WITH PRASANTH TERRAZAS OF [facility]. SHE DID NOT OBTAIN HER BIPAP FROM THEM. CM LEFT A MESSAGE WITH [employer] [facility] @ [phone] TO RETURN CALL REGARDING BIPAP FOR A PT. PT STATED, "I USED TO GO TO [facility], BUT THEY HAVEN'T BEEN ABLE TO GET ANYTHING THROUGH THE INSURANCE. I HAD HOME HEALTH A COUPLE OF TIMES, BUT THEY HAD TO QUITE COMING BECAUSE OF THE INSURANCE WOULDN'T PAY. I COULD HAVE CAME TO OUTPATIENT AT [facility], BUT I OWE MONEY WITH MY PRIMARY DOCTOR AND I CAN'T SEE HER TO GET ORDERS FOR OUTPATIENT. I WANT TO GO TO [facility] @ THE [facility]MPHEDEMA CLINIC IF I COULD GET IN. IF NOT, I WOULD LIKE TO GO TO OUTPATIENT AT [facility]." CM OBTAINED A PHONE SIGNATURE ON CHOICE LETTER FOR [facility] FIRST AND [facility] 2ND FOR LYMPHEDEMA WRAPPING. CM PHONED [facility] DEPT AT @ [phone] AND LEFT A MESSAGE FOR A RETURN PHONE CALL FOR A POSSIBLE REFERRAL. PCP IS Christel TRIPP NP. DISCHARGE PLAN IS TO DISCHARGE HOME WITH OUTPATIENT LYMPHEDEMA WOUND WRAPS PENDING [facility] OR [facility] OUTPATIENT THERAPY. CM WILL CONTINUE TO FOLLOW FOR DISCHARGE UPDATES.
[2019-10-29 14:31] VITALS: BP 139/90
--- NOTE | 2019-10-29 15:23 | NUR ---
DISCHARGE UPDATE CM LEFT ANOTHER MESSAGE FOR [facility]. CM ALSO PHONED [facility] OUTPATIENT WOUND CARE. FAYE VILLELA PT STATED LYMPHEDEMA WRAPS THAT THEY CAN DO IS NOT A SERVICE INSURANCE USUALLY PAYS FOR. IT IS ONLY A SERVICES PROVIDED BY LYMPHEDEMA CLINICS.
== END 2019-10-29 13:34 | disposition home or self-care (01) | DRG 603 ==
LOC: ER 01:16 → EDBD 01:16 → MS 04:42
PROVIDERS: ADMIT Pediatrics; ATTEND Pediatrics
DX: L03.116 Cellulitis of left lower limb (principal); Z68.45 Body mass index [BMI] 70 or greater, adult; I89.0 Lymphedema, not elsewhere classified; L30.4 Erythema intertrigo; I10 Essential (primary) hypertension; G47.33 Obstructive sleep apnea (adult) (pediatric); E66.01 Morbid (severe) obesity due to excess calories; E11.9 Type 2 diabetes mellitus without complications; Z90.710 Acquired absence of both cervix and uterus; Z88.0 Allergy status to penicillin; Z91.012 Allergy to eggs; Z79.84 Long term (current) use of oral hypoglycemic drugs; Z79.1 Long term (current) use of non-steroidal anti-inflammatories (NSAID); Z79.899 Other long term (current) drug therapy; Z90.49 Acquired absence of other specified parts of digestive tract; Z03.818 Encounter for observation for suspected exposure to other biological agents ruled out
CPT/HCPCS: 36415; 71045; 80048; 80053; 80202; 82550; 82553; 82948; 83605; 83880; 84484; 85025; 85027; 85610; 85730; 87040; 87635; 93005; 99285; G0378; J1644; J2405; J3370; J3490; J7030; J7050; 93971

== ENCOUNTER 2019-12-06 11:35 | Emergency (ER) | payer BC, MEDICARE ==
[~2019-12-06] VITALS: Ht 160 cm; Wt 222.3 kg
[2019-12-06 11:35] VITALS: BP 135/90
--- NOTE | 2019-12-06 11:35 | NUR ---
OXYGEN PT O2 SAT ON ARRIVAL AFTER MOVE TO BED WAS 83% ON RA. PLACED ON 2 L NC O2 AND CAME UP TO 100%.
[2019-12-06 12:03] VITALS: BP 135/90
--- NOTE | 2019-12-06 12:07 | DIREP ---
PROCEDURE:CHEST 1 VIEW COMPARISON:None. INDICATIONS:Chest pain FINDINGS: LUNGS/PLEURA:Very shallow expansion of the lungs. Skin fold overlying the mediastinum and the right chest. Within the aerated portions of the lung, no ground-glass infiltrates or pneumonia is seen. VASCULATURE:Normal. Unremarkable pulmonary vasculature. CARDIAC:Normal. No cardiac silhouette abnormality or cardiomegaly. Cannot exclude borderline cardiomegaly. No CHF is seen MEDIASTINUM:Normal. No visible mass or adenopathy. Mediastinal fat deposition noted. BONES:Normal. No fracture or visible bony lesion. OTHER:Negative. CONCLUSION:Shallow expansion of the lungs with underexposure because of the patient's large body habitus. No viral pneumonia or airspace consolidation is seen. No CHF or large effusions identified. Dictated by: Jay Rivers MD on 12/06/2019 at 12:05 PM
--- NOTE | 2019-12-06 12:11 | PCM.EKG ---
[facility] Test Date: 2019-12-06 Test Time: 11:31:04 Pat Name: MAYDA ALATORRE Department: Patient ID: [facility]-[id number] Room: Gender: F Pathology Technologist: TB : 1960 Requested By: OMID ZAMUDIO Order Number: [id number] Reading MD: Omid ZAMUDIO Measurements Intervals [place] Rate: 90 P: 65 PA: 172 QRS: 27 QRSD: 99 T: 56 QT: 372 QTc: 455 Interpretive Statements Sinus rhythm Ventricular premature complex Low voltage, precordial leads Consider anterior infarct Compared to ECG 10/27/2019 02:16:02 Low QRS voltage now present Myocardial infarct finding now present Sinus tachycardia no longer present Electronically Signed On 12-07-2019 7:34:50 CDT by Omid ZAMUDIO Please click the below link to view image of tracing.
--- NOTE | 2019-12-06 12:11 | ER.PDOC ---
General Chief Complaint: Chest Pain-Cardiac Nature Stated Complaint: CHEST PAIN Time seen by MD: 12:08 Source: patient Exam Limitations: no limitations History of Present Illness Initial Comments Chest pain this morning in mid chest and does not radiate. Timing/Duration: 1-3 hours Severity/Quality: moderate Radiation: no radiation Nitro Today/Relief: 0.4 mg x 1, Provided By EMS, Mild Relief Aspirin Today: 81 mg x 4 Associated Symptoms: shortness of breath Allergies: Coded Allergies: Penicillins (Verified Allergy, Unknown, hives, 07/19/18) Home Meds Active Scripts Clindamycin Hcl (CLINDAMYCIN HCL) 300 Mg Capsule, 300 MG PO BID for 7 Days, #14 CAPSULE Prov:EMMETT YUSUF MD 10/29/19 Reported Medications Metformin Hcl (METFORMIN HCL) 500 Mg Tablet, 1 TAB PO BID, #60 TAB 3 Refills 01/06/19 Gabapentin (GABAPENTIN) 300 Mg Capsule, 1 CAP PO PRN, CAP 07/19/18 Citalopram Hydrobromide (CELEXA) 20 Mg Tablet, 1 TAB PO DAILY 07/19/18 Metoprolol Tartrate 50MG (LOPRESSER 50MG) 50 Mg Tablet, 1 TAB PO BID, TAB 01/04/17 Past Medical History Medical History: diabetes, hypertension, other Surgical History: cholecystectomy, hysterectomy, tonsillectomy, tubal Social History Alcohol Use: none Drug Use: none Constitutional: no symptoms reported Respiratory: see HPI Cardiovascular: see HPI Gastrointestinal: no symptoms reported Genitourinary: no symptoms reported Musculoskeletal: no symptoms reported All Other Systems: Reviewed and Negative Physical Exam General Appearance: No Apparent Distress, WD/WN, Obese (morbid) Neck: Non-Tender, Full Range of Motion, Supple, Normal Inspection Respiratory: chest non-tender, lungs clear, normal breath sounds, no respiratory distress, no accessory muscle use Cardiovascular: Normal Peripheral Pulses, Regular Rate, Rhythm, No Edema, No Gallop, No JVD, No Murmur Gastrointestinal: Normal Bowel Sounds, No Organomegaly, No Pulsatile Mass, Non Tender, Soft Extremities: Other (lymphedema both legs ) Neurologic/Psychiatric: mobile sales consultant II-XII NML as Tested, No Motor/Sensory Deficits, Alert, Normal Mood/Affect, Oriented x 3 Skin: Normal Color, Warm/Dry Results/Orders Results/Orders Orders - OMID ZAMUDIO MD Cbc With Auto Diff (12/06/19 11:43) Comprehensive Metabolic Panel (12/06/19 11:43) Creatine Kinase (12/06/19 11:43) Creatine Kinase Mb (12/06/19 11:43) Troponin I (12/06/19 11:43) Probnp B-Type Operational Risk Analyst (12/06/19 11:43) PT (12/06/19 11:43) Partial Thromboplastin Time. (12/06/19 11:43) D-Dimer (12/06/19 11:43) Xr Chest 1v (12/06/19 11:43) Ekg-Routine (12/06/19 11:43) Arterial Blood Gas (12/06/19 11:49) Vital Signs Date Time Temp Pulse Resp B/P (MAP) Pulse Ox O2 Delivery O2 Flow Rate FiO2 12/06/19 12:03 98.6 87 22 135/90 (105) 83 Room Air 12/06/19 11:35 98.6 87 22 12/06/19 11:35 98.6 87 22 83 Progress Progress CXR: Shallow expansion of the lungs with underexposure because of the patient's large body habitus. No viral pneumonia or airspace consolidation is seen. No CHF or large effusions identified. EKG/XRAY/CT/US EKG: NSR Departure Time of Disposition: 13:59 Disposition: 02 XFER SHT-TRM HOSP Impression: Primary Impression: Chest pain Additional Impression: Morbid obesity with BMI of 70 and over, adult Condition: Stable Referrals: KONSTANTIN TRIPP DAY CAMP UNIT LEADER (PCP) PRIMARY CARE PROVIDER Comments Transfer to [facility] as a direct admit for Dr. Colmenares Duration or Time Spent with Pa: 60 min Problem Qualifiers Primary Impression: Chest pain Chest pain type: unspecified Qualified Codes: R07.9 - Chest pain, unspecified OMID ZAMUDIO MD Dec 06, 2019 12:11
[2019-12-06 12:22] LABS: ABG PCO2 48.4 mmHg (35.0-45.0); ABG PH 7.349 (7.350-7.450); BE(B) -0.1 mmol/L (-2.0-2.0); HCO3act 26.1 mmol/L (22.0-26.0); pO2 62.1 mmHg (80.0-100.0)
[2019-12-06 12:26] LABS: BASOPHIL % 0.5 % (0.0-0.2); LYMPHOCYTES # 1.94 10^3/uL1 (1.0-4.8); LYMPHOCYTES % 25.4 % (24.0-44.0); MONOCYTES # 0.6 10^3/uL (0.3-0.8); MONOCYTES % 8.1 % (5.0-12.0); NEUTROPHILS % 65.7 % (41.0-85.0); PLATELET COUNT 195 10^3/uL (150-400); RED CELL DISTRIBUTION WIDTH 14.9 % (11.5-14.5)
[2019-12-06 12:58] VITALS: BP 142/67
[2019-12-06 13:12] LABS: CALCIUM 8.6 mg/dL (8.4-10.5); CARBON DIOXIDE 26.8 mmol/L (20.0-32)
[2019-12-06] MEDS ORDERED: NITRO-BID TD ONE (13:52)
--- NOTE | 2019-12-06 13:52 | NUR ---
[facility] DR ANNE ON PHONE WITH [facility]
[2019-12-06] MEDS ORDERED: LOVENOX SQ ONE (13:53)
[2019-12-06] MEDS: LOVENOX SQ STA (14:04)
[2019-12-06] MEDS: NITRO-BID TD STA (14:04)
[2019-12-06 14:10] VITALS: BP 140/64
--- NOTE | 2019-12-06 14:15 | NUR ---
STATUS PT UP TO BR VIA WC. UPON RETURN PT WANTING TO SIT IN CHAIR AT BEDSIDE D/T BEING DIFFICULT TO GET LEGS UP IN BED.
--- NOTE | 2019-12-06 14:36 | NUR ---
[facility] HAS BEEN CALLED OUT.
[2019-12-06 15:10] VITALS: BP 138/62
--- NOTE | 2019-12-06 15:18 | NUR ---
TRANSFER PT TAKEN BY EMS VIA STRETCHER IN STABLE CONDITION TO [facility].
== END 2019-12-06 15:18 | disposition short-term general hospital (02) ==
LOC: ER 11:35 → EDBD 11:35 → ER 15:18
DX: R07.9 Chest pain, unspecified (principal); E66.01 Morbid (severe) obesity due to excess calories; R06.02 Shortness of breath; E11.9 Type 2 diabetes mellitus without complications; I10 Essential (primary) hypertension; Z68.45 Body mass index [BMI] 70 or greater, adult; Z90.710 Acquired absence of both cervix and uterus; Z90.89 Acquired absence of other organs; Z88.0 Allergy status to penicillin; Z79.84 Long term (current) use of oral hypoglycemic drugs
CPT/HCPCS: 36415; 36600; 71045; 80053; 82550; 82553; 82803; 83880; 84484; 85025; 85379; 85610; 85730; 93005; 96372; 99285; J1650

== ENCOUNTER 2020-03-23 11:21 | Emergency (ER) | payer BC, MEDICARE ==
[~2020-03-23] VITALS: Ht 167.6 cm; Wt 239.5 kg
[~2020-03-23 11:21] MED LIST changes: -PANT40TA5 PO; +PANT40TA6 PO
[2020-03-23 11:30] VITALS: BP 180/124
[2020-03-23 11:47] VITALS: BP 180/124
--- NOTE | 2020-03-23 11:47 | ER.PDOC ---
General Chief Complaint: Requesting Medical Care Stated Complaint: LEG PAIN Time seen by MD: 11:40 Source: patient Exam Limitations: no limitations History of Present Illness Initial Comments Patient c/o LLE pain and swelling progressively worsening since October 2019 Timing/Duration: constant, getting worse Severity: severe Location: LLE Quality: painful Identified Cause: no Prior symptoms/Treatment: Similar symptoms previous (on the right, treated with IV antibiotics) Allergies: Coded Allergies: Penicillins (Verified Allergy, Unknown, hives, 07/19/18) Home Meds Active Scripts Clindamycin Hcl (CLINDAMYCIN HCL) 300 Mg Capsule, 300 MG PO BID for 7 Days, #14 CAPSULE Prov:EMMETT YUSUF MD 10/29/19 Reported Medications Metformin Hcl (METFORMIN HCL) 500 Mg Tablet, 1 TAB PO BID, #60 TAB 3 Refills 01/06/19 Gabapentin (GABAPENTIN) 300 Mg Capsule, 1 CAP PO PRN, CAP 07/19/18 Citalopram Hydrobromide (CELEXA) 20 Mg Tablet, 1 TAB PO DAILY 07/19/18 Metoprolol Tartrate 50MG (LOPRESSER 50MG) 50 Mg Tablet, 1 TAB PO BID, TAB 01/04/17 Past Medical History Medical History: cardiac problems, diabetes, heart attack, hypertension, other (morbid obesity, lymphangitis) Surgical History: cholecystectomy, , hysterectomy, knee, mastectomy (bilateral), shoulder, tonsillectomy, tubal Family History Significant Family History: no pertinent family hx Social History Smoking: non-smoker Alcohol Use: none Drug Use: none Constitutional: no symptoms reported EENTM: no symptoms reported Respiratory: no symptoms reported Cardiovascular: no symptoms reported Gastrointestinal: no symptoms reported Genitourinary: no symptoms reported Musculoskeletal: see HPI (c/o pain, redness, swelling LLE) Skin: see HPI (c/o redness, swelling LLE) Psychiatric/Neurological: no symptoms reported Endocrine: no symptoms reported Hematologic/Lymphatic: no symptoms reported All Other Systems: Reviewed and Negative Physical Exam General Appearance: alert, no distress, other (morbidly obese) Skin: warm/dry, with erythema (LLE, full length) Location: LLE With: warmth, tenderness, swelling, lymphangitis, induration Extremities: edema, ROM limited by pain EENT: eyes nml inspection, lips/gums nml Neck: trachea midline, no swelling Respiratory: no resp. distress, breath sounds nml CVS: reg. rate & rhythm, heart sounds nml Abdomen: non-tender, no organomegaly NEURO/PSYCH: oriented x 3, motor nml, mood/affect nml Results/Orders Results/Orders Orders - ERMELINDA NÚÑEZ Nadiya DO Cbc With Auto Diff (03/23/20 11:48) Comprehensive Metabolic Panel (03/23/20 11:48) D-Dimer (03/23/20 11:48) PT (03/23/20 11:48) Partial Thromboplastin Time. (03/23/20 11:48) Xr Tib/Fib Lt (03/23/20 11:48) Us Lt Vein U/L (03/23/20 12:59) Ceftriaxone Sodium (Rocephin) (03/23/20 13:54) Vital Signs Date Time Temp Pulse Resp B/P (MAP) Pulse Ox O2 Delivery O2 Flow Rate FiO2 03/23/20 12:45 88 120/60 (80) 95 03/23/20 11:47 97.9 90 20 180/124 (142) 96 Room Air 03/23/20 11:30 97.9 90 20 03/23/20 11:30 97.9 90 20 96 Laboratory Tests Test 03/23/20 12:03 White Blood Count 7.2 10^3/uL (4.5-11.0) Red Blood Count 4.74 10^6/uL (4.00-5.20) Hemoglobin 13.7 g/dL (12.0-15.0) Hematocrit 42.6 % (36.0-46.0) Mean Corpuscular Volume 89.9 fL (78-100) Mean Corpuscular Hemoglobin 28.9 pg (26-34) Mean Corpuscular Hemoglobin Concent 32.2 g/dL (33-36.5) L Red Cell Distribution Width 14.1 % (11.5-14.5) Platelet Count 244 10^3/uL (150-400) Mean Platelet Volume 9.5 fL (7.8-11.0) Neutrophils (%) (Auto) 68.3 % (41.0-85.0) Lymphocytes (%) (Auto) 25.0 % (24.0-44.0) Monocytes (%) (Auto) 5.9 % (5.0-12.0) Neutrophils # (Auto) 4.9 10^3/uL (1.8-7.7) Lymphocytes # (Auto) 1.81 10^3/uL1 (1.0-4.8) Monocytes # (Auto) 0.4 10^3/uL (0.3-0.8) Absolute Immature Granulocyte (auto 0.03 10^3 u/L (0-2) Absolute Eosinophils (auto) 0.0 10^3/uL (0.0-0.2) Immature Granulocytes % 0.40 % (0.00-0.50) Eosinophils % 0.0 % (0.0-5.0) Basophils % 0.4 % (0.0-0.2) H Basophils # 0.0 10^3/uL (0.0-0.1) Prothrombin Time 10.4 SEC (9.3-11.3) Prothrombin Time INR (Non-Therap) 1.0 Activated Partial Thromboplast Time 24.3 SEC (24.67-30.72) D-Dimer 0.95 mg/L (0.19-0.49) *H Sodium Level 137 mmol/L (132-145) Potassium Level 3.9 mmol/L (3.6-5.2) Chloride Level 101.0 mmol/L (96-109) Carbon Dioxide Level 28.3 mmol/L (20.0-32) Anion Gap 11.6 Blood Urea Nitrogen 13 mg/dL (7-18) Creatinine 1.04 mg/dL (0.59-1.40) Estimated GFR () 66.1 (>/=60) Est GFR (CKD-EPI)(Non-Afr Greek) 54.6 (>/=60) BUN/Creatinine Ratio 12.0 Glucose Level 121 mg/dL (70-110) H Calcium Level 9.2 mg/dL (8.4-10.5) Total Bilirubin 0.3 mg/dL (0.2-1.0) Aspartate Amino Transferase (AST) 17 U/L (0-35) Alanine Aminotransferase (ALT) 23 U/L (12-78) Alkaline Phosphatase 82 U/L (50-136) Total Protein 7.7 g/dL (6.4-8.2) Albumin 3.3 g/dL (3.4-5.0) L Globulin 4.4 Albumin/Globulin Ratio 0.750 Progress Progress Ddimer slightly elevated--US does not exhibit DVT proximally. I discussed marked elevation in BP with patient. She states she is supposed to take metoprolol but doesn't because she doesn't like to take pills. I spent several minutes educating patient as to the long-term adverse effects of uncontrolled HTN, including cardiac failure d/t CHF and renal failure and encouraged her to take her medication as prescribed. Patient is adamant that oral antibiotics don't help her. I explained that she does not meet admission criterion and will have to try oral medication at home. I did further explain that the oral medications will not help if she does not swallow them (since she won't take her BP medication because she doesn't like taking pills). EKG/XRAY/CT/US EKG Comments: NSR, VR 63, QT 475, Twave inversion III XRAY Comments: no acute fx seen CT Comments: no acute pathology Ultrasound: normal (no proximal DVT seen; suboptimal exam d/t body habitus) ER DEPART Departure Time of Disposition: 13:53 Disposition: 01 HOME, SELF-CARE Impression: Primary Impression: Lymphedema Additional Impression: Cellulitis of left leg Condition: Stable Patient Instructions: Cellulitis Referrals: KONSTANTIN TRIPP SENIOR LICENSING MANAGER (PCP) PRIMARY CARE PROVIDER Additional Instructions: Follow up with your doctor later this week for reevaluation. Take antibiotics as prescribed until all gone. Return to ER if leg worsens, fever, chest pain or difficulty breathing, or for any emergent concerns. Duration or Time Spent with Pa: 20 min Problem Qualifiers ERMELINDA NÚÑEZ DO Mar 23, 2020 11:47
[2020-03-23 12:13] LABS: BASOPHIL % 0.4 % (0.0-0.2); LYMPHOCYTES # 1.81 10^3/uL1 (1.0-4.8); MEAN CORP HGB 28.9 pg (26-34); MONOCYTES # 0.4 10^3/uL (0.3-0.8); MONOCYTES % 5.9 % (5.0-12.0); NEUTROPHIL # 4.9 10^3/uL (1.8-7.7); NEUTROPHILS % 68.3 % (41.0-85.0); RED CELL DISTRIBUTION WIDTH 14.1 % (11.5-14.5)
[2020-03-23 12:27] LABS: CALCIUM 9.2 mg/dL (8.4-10.5); CARBON DIOXIDE 28.3 mmol/L (20.0-32)
[2020-03-23 12:45] VITALS: BP 120/60
--- NOTE | 2020-03-23 12:53 | DIREP ---
PROCEDURE:XRAY TIB & FIB 2 VW-LT COMPARISON:None. INDICATIONS:leg pain FINDINGS: BONES:The radiographs are significantly underexposed which may be related to the patient's large body habitus. AP and lateral views of the left tibia and the fibula show suboptimal evaluation of the distal left femur. No fractures are seen involving the tibia and fibula on the plain films. The lateral views nondiagnostic. JOINTS:Suspect severe narrowing of the medial joint space with varus deformity of the left knee. DJD also seen in the left ankle. SOFT TISSUES:Normal. OTHER:No additional findings. CONCLUSION:Suboptimal radiographs because of the patient's large body habitus. Suggest CT if clinically indicated. No definite fracture is seen involving the AP views of the left tibia and fibula. Dictated by: Jay Rivers MD on 03/23/2020 at 12:51 PM
[2020-03-23 13:45] VITALS: BP 124/66
--- NOTE | 2020-03-23 13:47 | DIREP ---
PROCEDURE:US DUPLEX EXTREM VEINS UNILATER/LIMITED-LT COMPARISON:[facility], , XRAY TIB & FIB 2 VW-LT, 03/23/2020, 12:05 PM. [facility], DUPLEX EXTREM VEINS UNILATER/LIMITED-LT, 10/27/2019, 03:00 AM. [facility], DUPLEX EXTREM VEINS BILATERAL, 02/22/2018, 07:10 PM. [facility], DUPLEX EXTREM VEINS UNILATER/LIMITED-LT, 04/24/2017, 11:01 AM. INDICATIONS:LLE selling, r/o DVT TECHNIQUE:The left lower extremity was evaluated utilizing vincent scale images with segmental compression, color Doppler, and spectral Doppler with respiratory variation and augmentation. The study was significantly difficult technically because of the patient's large body habitus. FINDINGS: Common femoral vein:Patent Superficial femoral vein:Patent Popliteal vein:Patent Posterior tibial vein:Patent Peroneal vein:Patent Saphenofemoral junction:Patent Waveforms: Within normal limits. Other: Technically limited study due to patient body habitus. CONCLUSION:Suboptimal examination, because of the patient's large body habitus. No proximal DVT is seen suggest CT venogram of the lower extremities if clinically indicated. Dictated by: PIYUSH Physician on 03/23/2020 at 01:40 PM ac
[2020-03-23] MEDS ORDERED: ROCEPHIN IM STA (13:54)
[2020-03-23] MEDS ORDERED: ROCEPHIN ONE (13:58)
--- NOTE | 2020-03-23 14:20 | NUR ---
dc PT TAKEN OUT VIA W/C AND ASSISTED BY 2 INTO VEHICLE.
== END 2020-03-23 14:20 | disposition home or self-care (01) ==
LOC: ER 11:21
DX: L03.116 Cellulitis of left lower limb (principal); I89.0 Lymphedema, not elsewhere classified; E66.01 Morbid (severe) obesity due to excess calories; E11.9 Type 2 diabetes mellitus without complications; I10 Essential (primary) hypertension; I25.2 Old myocardial infarction; Z79.84 Long term (current) use of oral hypoglycemic drugs; Z79.899 Other long term (current) drug therapy; Z90.13 Acquired absence of bilateral breasts and nipples; Z88.0 Allergy status to penicillin; Z90.49 Acquired absence of other specified parts of digestive tract; Z90.710 Acquired absence of both cervix and uterus; Z68.45 Body mass index [BMI] 70 or greater, adult
CPT/HCPCS: 36415; 73590; 80053; 85025; 85379; 85610; 85730; 93971; 96372; 99285; J0696

== ENCOUNTER 2020-07-12 10:56 | Inpatient (IN) | payer BC, MEDICARE ==
[~2020-07-12] VITALS: Ht 167.6 cm; Wt 247.2 kg
[~2020-07-12 10:56] MED LIST changes: -CLIN300C8 PO; +CLIN300C9 PO
--- NOTE | 2020-07-12 11:05 | NUR ---
ARRIVAL PT ARRIVED TO ED WITH C/O LLE SWELLING THAT HAS BEEN GOING ON FOR 3 WEEKS. THIS MORNING AROUND 0300 PT REPORTS SHE STARTED TO HAVE FEVER, NAUSEA, VOMITTING AND SOB. UPON ARRIVAL BY EMS PT HAD 103.6F ORAL TEMP. EMS ADMINISTERED TYLENOL 1 GRAM AT 1015. BEDSIDE MONITORS APPLIED. VITAL SIGNS STABLE. PT ON O2 VIA N/C AT 3LPM PER HOME O2 SETTINGS. LLE HAS SIGNIFICANT SWELLING IS HOT TO TOUCH WITH REDNESS NOTED. BED IN LOW LOCKED POSITION.
[2020-07-12] MEDS ORDERED: NS 1000ML 1,000 ML ONE ×2 (11:10→13:23)
[2020-07-12 11:12] VITALS: BP 104/82
[2020-07-12] MEDS ORDERED: MERREM 500 MG in NS 100ML 100 ML IV STA (11:26)
[2020-07-12] MEDS ORDERED: VANCOMYCIN HCL 1.5 GM in NS 250ML 300 ML IV ONE (11:30)
[2020-07-12 11:31] LABS: BASOPHIL % 0.1 % (0.0-0.2); LYMPHOCYTES # 0.65 10^3/uL1 (1.0-4.8); LYMPHOCYTES % 4.6 % (24.0-44.0); MEAN CORP HGB 29.2 pg (26-34); MONOCYTES # 0.4 10^3/uL (0.3-0.8); MONOCYTES % 2.6 % (5.0-12.0); NEUTROPHIL # 13.2 10^3/uL (1.8-7.7); NEUTROPHILS % 92.6 % (41.0-85.0); PLATELET COUNT 206 10^3/uL (150-400); RED CELL DISTRIBUTION WIDTH 14.9 % (11.5-14.5)
[2020-07-12] MEDS ORDERED: NS 100ML 100 ML IV ONE ×2 (11:47→13:57)
[2020-07-12 11:55] LABS: ALANINE AMINOTRANSFERASE(ML) 29 U/L (12-78); ALKALINE PHOSPHATASE 75 U/L (50-136); ASPARTATE AMINO TRANSFERASE 18 U/L (0-35); CALCIUM 8.5 mg/dL (8.4-10.5); CARBON DIOXIDE 27.9 mmol/L (20.0-32); GLUCOSE 172 mg/dL (70-110)
--- NOTE | 2020-07-12 12:01 | PCM.EKG ---
[facility] Test Date: 2020-07-12 Test Time: 11:58:11 Pat Name: MAYDA ALATORRE Department: Patient ID: [id number] Room: Gender: F Flux Mixer: [id number] RT : 1960 Requested By: BEN LARA Order Number: [id number] Reading MD: Measurements Intervals [place] Rate: 111 P: 20 KS: 150 QRS: 16 QRSD: 98 T: 34 QT: 336 QTc: 457 Interpretive Statements Sinus tachycardia Low voltage, precordial leads Compared to ECG 12/06/2019 11:31:04 Sinus rhythm no longer present Ventricular premature complex(es) no longer present Myocardial infarct finding no longer present Please click the below link to view image of tracing.
[2020-07-12 12:24] VITALS: BP 131/64
--- NOTE | 2020-07-12 12:27 | ER.PDOC ---
General Chief Complaint: General Complaint Stated Complaint: LEG PAIN TRAVEL OUT OF US: No Time seen by MD: 12:22 Source: patient Exam Limitations: no limitations History of Present Illness Initial Comments H/O RECURRENT CELLULITIS LLE Timing/Duration: 24 hours Severity: moderate Modifying Factors: improves with movement, improves with rest Associated Symptoms: fever/chills Allergies: Coded Allergies: Penicillins (Verified Allergy, Unknown, hives, 07/19/18) Home Meds Active Scripts Clindamycin Hcl (CLINDAMYCIN HCL) 300 Mg Capsule, 300 MG PO BID for 7 Days, #14 CAPSULE Prov:EMMETT YUSUF MD 10/29/19 Reported Medications Metformin Hcl (METFORMIN HCL) 500 Mg Tablet, 1 TAB PO BID, #60 TAB 3 Refills 01/06/19 Gabapentin (GABAPENTIN) 300 Mg Capsule, 1 CAP PO PRN, CAP 07/19/18 Citalopram Hydrobromide (CELEXA) 20 Mg Tablet, 1 TAB PO DAILY 07/19/18 Metoprolol Tartrate 50MG (LOPRESSER 50MG) 50 Mg Tablet, 1 TAB PO BID, TAB 01/04/17 Past Medical History Medical History: cardiac problems, diabetes, heart attack, hypertension, other Surgical History: cholecystectomy, hysterectomy, tonsillectomy, tubal Social History Alcohol Use: none Drug Use: none Reviewed Nursing Reviewed: Vital Signs, Abn. Noted Review of Systems All Other Systems: Reviewed and Negative Physical Exam General Appearance: No Apparent Distress EENT: eyes nml inspection Neck: Non-Tender Respiratory: chest non-tender CVS: reg rate & rhythm Gastrointestinal: Normal Bowel Sounds Back: Normal Inspection Extremities: Inflammation, Pedal Edema, Swelling, Other (SEVERE LYMPHEDEMA) Neurologic/Psychiatric: phlebotomy lab assistant II-XII NML as Tested, Motor Weakness Skin: Normal Color Lymphatic: No Adenopathy Results/Orders Results/Orders Orders - BEN LARA MD 0.9 % Sodium Chloride (Ns 1000ml) (07/12/20 11:10) Cbc With Auto Diff (07/12/20 11:12) Comprehensive Metabolic Panel (07/12/20 11:12) Creatine Kinase (07/12/20 11:12) Creatine Kinase Mb (07/12/20 11:12) Probnp B-Type Trap Operator (07/12/20 11:12) Troponin I (07/12/20 11:12) Blood Culture (07/12/20 11:12) Xr Chest 1v (07/12/20 11:12) PT (07/12/20 11:12) Partial Thromboplastin Time. (07/12/20 11:12) Ekg-Routine (07/12/20 11:12) Saline Lock (07/12/20 11:12) C-Reactive Protein (07/12/20 11:14) Lactic Acid(Ml) (07/12/20 11:14) Meropenem (Merrem) (07/12/20 11:26) Vancomycin Hcl (Vancomycin Hcl) (07/12/20 11:30) Influenza A&B (07/12/20 11:42) Strep Screen (07/12/20 11:42) Covid19 Antigen Sheree Francia (07/12/20 11:42) 0.9 % Sodium Chloride (Ns 100ml) (07/12/20 11:47) Vital Signs Date Time Temp Pulse Resp B/P (MAP) Pulse Ox O2 Delivery O2 Flow Rate FiO2 07/12/20 12:24 99.8 114 24 131/64 (86) 93 Nasal Canula 3.00 07/12/20 11:12 101.1 113 24 93 07/12/20 11:12 101.1 113 24 104/82 (89) 93 Nasal Canula 3.00 07/12/20 11:12 101.1 113 24 Administered Medications Medications (Trade) Dose Ordered Sig/Angel Route PRN Reason Start Time Stop Time Status Last Admin Dose Admin Meropenem 500 mg/ Sodium Chloride 100 ml @ 200 mls/hr STAT STAT IV 07/12/20 11:26 07/12/20 11:55 DC 07/12/20 11:51 200 MLS/HR Vancomycin HCl 1.5 gm/Sodium Chloride 300 ml @ 175 mls/hr OT ONCE IV 07/12/20 11:30 07/12/20 13:12 07/12/20 12:23 175 MLS/HR Laboratory Tests Test 07/12/20 11:20 White Blood Count 14.2 10^3/uL (4.5-11.0) H Red Blood Count 4.49 10^6/uL (4.00-5.20) Hemoglobin 13.1 g/dL (12.0-15.0) Hematocrit 40.3 % (36.0-46.0) Mean Corpuscular Volume 89.8 fL (78-100) Mean Corpuscular Hemoglobin 29.2 pg (26-34) Mean Corpuscular Hemoglobin Concent 32.5 g/dL (33-36.5) L Red Cell Distribution Width 14.9 % (11.5-14.5) H Platelet Count 206 10^3/uL (150-400) Mean Platelet Volume 9.6 fL (7.8-11.0) Neutrophils (%) (Auto) 92.6 % (41.0-85.0) *H Lymphocytes (%) (Auto) 4.6 % (24.0-44.0) *L Monocytes (%) (Auto) 2.6 % (5.0-12.0) L Neutrophils # (Auto) 13.2 10^3/uL (1.8-7.7) H Lymphocytes # (Auto) 0.65 10^3/uL1 (1.0-4.8) L Monocytes # (Auto) 0.4 10^3/uL (0.3-0.8) Absolute Immature Granulocyte (auto 0.02 10^3 u/L (0-2) Absolute Eosinophils (auto) 0.0 10^3/uL (0.0-0.2) Immature Granulocytes % 0.10 % (0.00-0.50) Eosinophils % 0.0 % (0.0-5.0) Basophils % 0.1 % (0.0-0.2) Basophils # 0.0 10^3/uL (0.0-0.1) Prothrombin Time 10.9 SEC (9.3-11.3) Prothrombin Time INR (Non-Therap) 1.1 Activated Partial Thromboplast Time 25.5 SEC (24.67-30.72) Sodium Level 137 mmol/L (132-145) Potassium Level 4.2 mmol/L (3.6-5.2) Chloride Level 100.0 mmol/L (96-109) Carbon Dioxide Level 27.9 mmol/L (20.0-32) Anion Gap 13.3 Blood Urea Nitrogen 15 mg/dL (7-18) Creatinine 1.01 mg/dL (0.59-1.40) Estimated GFR () 68.1 (>/=60) Est GFR (CKD-EPI)(Non-Afr [place]) 56.3 (>/=60) BUN/Creatinine Ratio 14.0 Glucose Level 172 mg/dL (70-110) H Lactic Acid Level 2.3 mmol/L (0.5-1.9) *H Calcium Level 8.5 mg/dL (8.4-10.5) Total Bilirubin 0.6 mg/dL (0.2-1.0) Aspartate Amino Transferase (AST) 18 U/L (0-35) Alanine Aminotransferase (ALT) 29 U/L (12-78) Alkaline Phosphatase 75 U/L (50-136) Total Creatine Kinase 78 U/L (26-192) Creatine Kinase MB < 0.5 ng/mL (0.5-3.6) L Troponin I < 0.02 ng/mL (0.00-0.05) C-Reactive Protein 3.56 mg/dL (0.00-5.00) Pro-B-Type Natriuretic Peptide 171 pg/mL (0-125) H Total Protein 7.2 g/dL (6.4-8.2) Albumin 3.5 g/dL (3.4-5.0) Globulin 3.7 Albumin/Globulin Ratio 0.945 Influenza Type A Antigen NEGATIVE (NEG) Influenza B Immunofluorescence NEGATIVE (NEG) SARS-CoV-2 Antigen (Rapid) NEGATIVE (NEGATIVE) Group A Streptococcus Screen POSITIVE (NEGATIVE) EKG/XRAY/CT/US EKG: NSR, no ST T wave changes Consult/PCP Time Consult/PCP Called: 12:33 Consult/PCP: DR ABRAHAM ALEGRIA DEPART Departure Time of Disposition: 13:00 Disposition: 09 ADMITTED INPATIENT Impression: Primary Impression: Cellulitis of left leg Condition: Improved Referrals: KONSTANTIN TRIPP WORM SORTER (PCP) PRIMARY CARE PROVIDER Duration or Time Spent with Pa: 16M BEN LARA MD Jul 12, 2020 12:26
--- NOTE | 2020-07-12 12:37 | NUR ---
DR ABRAHAM LARA SPOKE WITH DR ROSARIO REGARDING ADMISSION. DR ROSARIO TO BE TO ER SHORTLY FOR PT EVALUATION.
[2020-07-12] MEDS ORDERED: NS 1000ML 2,000 ML IV STA (12:40)
[2020-07-12] MEDS ORDERED: NS 1000ML 1,000 ML IV STA (12:40)
--- NOTE | 2020-07-12 13:02 | DIREP ---
PROCEDURE:CHEST 1 VIEW COMPARISON:[facility], CR, XRAY CHEST SINGLE VW, 12/06/2019, 11:45 AM. [facility], CR, XRAY CHEST SINGLE VW, 10/27/2019, 02:28 AM. INDICATIONS:pneumonia FINDINGS: LUNGS/PLEURA:Underinflated lungs with crowding of the infrahilar markings. Left basilar atelectasis . VASCULATURE:Normal. Unremarkable pulmonary vasculature. CARDIAC:Normal. No cardiac silhouette abnormality or cardiomegaly. Cannot exclude borderline cardiomegaly. No CHF is seen MEDIASTINUM:Normal. No visible mass or adenopathy. Mediastinal fat deposition noted. BONES:Normal. No fracture or visible bony lesion. OTHER:Negative. CONCLUSION:Limited study due to portable technique and body habitus. Overall chest is unchanged from prior radiograph. Underinflated lungs with crowding of the central hilar and basilar markings. Dictated by: Daniel Gomes MD on 07/12/2020 at 12:59 PM
--- NOTE | 2020-07-12 13:24 | PCM.HP ---
HISTORY & PHYSICAL HISTORY & PHYSICAL DATE OF ADMISSION:07/12/2020 CHIEF COMPLAINT:Patient is a 60-year-old female with longstanding history of lymphedema of the legs comes in with fever chills and redness of the legs and be ing admitted for cellulitis HISTORY OF PRESENT ILLNESS:Patient is a 60-year-old female with longstanding history of morbid obesity with weight is excessive of 258 kg. Has chronic lymphedema of both legs left greater than the right. Severe edema of the left leg with multiple evaluations in the past negative for DVT. Patient has had multiple episodes of history of cellulitis with prolonged hospitalizations. Patient also has history of poor compliance with lymphedema clinic and 0 compliance with CPAP machine for her sleep apnea. According to the patient she is not diabetic but she is on Metformin. She also has hypertension. According to the staff and other report it seems like patient has been gaining weight progressively which is getting difficult to control any of the medical problems which are related to morbid obesity including lymphedema and sleep apnea. According to the patient she has not been feeling well for the few days and started having fevers and chills last night. She came to the emergency room where the evaluation shows lactic acid of 2.1 and a white count of 14,000 with a possible cellulitis being the source of infection. Patient's chest x-ray was negative. Patient was given 1 dose of meropenem and 1 dose of vancomycin. Patient is being admitted for cellulitis and elevated lactic acidosis. ALLERGIES: Allergies Coded Allergies Penicillins (Verified Allergy, Unknown, hives, 07/19/18) CURRENT MEDICATIONS: PAST MEDICAL HISTORY:Past medical history includes lymphedema hypertension morbid obesity sleep apnea multiple infections of the legs due to lymphedema. Poor quality of life. SOCIAL HISTORY:Non-smoker nonalcoholic no passive history of smoking. Lives with her son and her . FAMILY HISTORY:Mother had diabetes and coronary artery disease REVIEW OF SYSTEMS:Patient has fevers and chills and severe edema of the legs. Has good sleep good appetite no chest pain no shortness of breath no PND no orthopnea no bleeding for anywhere has had chronic epigastric pain related to food intake. Has had some intolerance to Metformin. Has been gaining weight. Rest of the review system is negative or as outlined in HPI VITAL SIGNS: Vital Signs Date Time Temp Pulse Resp B/P (MAP) Pulse Ox O2 Delivery O2 Flow Rate FiO2 07/12/20 12:24 99.8 114 24 131/64 (86) 93 Nasal Canula 3.00 Allergies Coded Allergies Penicillins (Verified Allergy, Unknown, hives, 07/19/18) I & O 06/29/17 06:08 Thru 07/12/20 12:42 Intake Total 2868 ml Output Total 1100 ml Balance 1768 ml Current Medications Medications (Trade) Dose Ordered Sig/Angel Route Start Time Stop Time Status Last Admin Dose Admin Meropenem 500 mg/ Sodium Chloride 100 ml @ 200 mls/hr STAT STAT IV 07/12/20 11:26 07/12/20 11:55 DC 07/12/20 11:51 200 MLS/HR Vancomycin HCl 1.5 gm/Sodium Chloride 300 ml @ 175 mls/hr OT ONCE IV 07/12/20 11:30 07/12/20 13:12 DC 07/12/20 12:23 175 MLS/HR Sodium Chloride 2,000 ml @ 1,200 mls/hr Q1H40M STAT IV 07/12/20 12:40 07/12/20 14:19 07/12/20 11:30 1,200 MLS/HR Sodium Chloride 1,000 ml @ 75 mls/hr [id number] STAT IV 07/12/20 12:40 07/13/20 01:59 07/12/20 12:42 75 MLS/HR PHYSICAL EXAMINATION:Patient is alert oriented x3 no respiratory distress. Patient is extremely obese requiring a special bed and special equipment to carry her. She has severe debilitating lymphedema of both legs left greater than the right. Has redness in both legs and slight redness of the right stephens. Patient has brown-shaped face. Neck is very short and unable to determine JVD. Due to patient's severe morbid obesity and body habitus ----physical exam is of limited value and has had a lot of limitations in terms of evaluation of her physical exam. No evidence of stroke. Abdomen is very obese I am unable to find any significant finding except for epigastric tenderness rest of the exam is very difficult to evaluate due to severe morbid obesity and body habitus. LABORATORY DATA: Laboratory Tests Test 07/12/20 11:20 White Blood Count 14.2 10^3/uL (4.5-11.0) Red Blood Count 4.49 10^6/uL (4.00-5.20) Hemoglobin 13.1 g/dL (12.0-15.0) Hematocrit 40.3 % (36.0-46.0) Mean Corpuscular Volume 89.8 fL (78-100) Mean Corpuscular Hemoglobin 29.2 pg (26-34) Mean Corpuscular Hemoglobin Concent 32.5 g/dL (33-36.5) Red Cell Distribution Width 14.9 % (11.5-14.5) Platelet Count 206 10^3/uL (150-400) Mean Platelet Volume 9.6 fL (7.8-11.0) Neutrophils (%) (Auto) 92.6 % (41.0-85.0) Lymphocytes (%) (Auto) 4.6 % (24.0-44.0) Monocytes (%) (Auto) 2.6 % (5.0-12.0) Neutrophils # (Auto) 13.2 10^3/uL (1.8-7.7) Lymphocytes # (Auto) 0.65 10^3/uL1 (1.0-4.8) Monocytes # (Auto) 0.4 10^3/uL (0.3-0.8) Absolute Immature Granulocyte (auto 0.02 10^3 u/L (0-2) Absolute Eosinophils (auto) 0.0 10^3/uL (0.0-0.2) Immature Granulocytes % 0.10 % (0.00-0.50) Eosinophils % 0.0 % (0.0-5.0) Basophils % 0.1 % (0.0-0.2) Basophils # 0.0 10^3/uL (0.0-0.1) Prothrombin Time 10.9 SEC (9.3-11.3) Prothrombin Time INR (Non-Therap) 1.1 Activated Partial Thromboplast Time 25.5 SEC (24.67-30.72) Sodium Level 137 mmol/L (132-145) Potassium Level 4.2 mmol/L (3.6-5.2) Chloride Level 100.0 mmol/L (96-109) Carbon Dioxide Level 27.9 mmol/L (20.0-32) Anion Gap 13.3 Blood Urea Nitrogen 15 mg/dL (7-18) Creatinine 1.01 mg/dL (0.59-1.40) Estimated GFR () 68.1 (>/=60) Est GFR (CKD-EPI)(Non-Afr Austrian) 56.3 (>/=60) BUN/Creatinine Ratio 14.0 Glucose Level 172 mg/dL (70-110) Lactic Acid Level 2.3 mmol/L (0.5-1.9) Calcium Level 8.5 mg/dL (8.4-10.5) Total Bilirubin 0.6 mg/dL (0.2-1.0) Aspartate Amino Transf (AST/SGOT) 18 U/L (0-35) Alanine Aminotransferase (ALT/SGPT) 29 U/L (12-78) Alkaline Phosphatase 75 U/L (50-136) Total Creatine Kinase 78 U/L (26-192) Creatine Kinase MB < 0.5 ng/mL (0.5-3.6) Troponin I < 0.02 ng/mL (0.00-0.05) C-Reactive Protein 3.56 mg/dL (0.00-5.00) Pro-B-Type Natriuretic Peptide 171 pg/mL (0-125) Total Protein 7.2 g/dL (6.4-8.2) Albumin 3.5 g/dL (3.4-5.0) Globulin 3.7 Albumin/Globulin Ratio 0.945 Influenza Type A Antigen NEGATIVE (NEG) Influenza B Immunofluorescence NEGATIVE (NEG) SARS-CoV-2 Antigen (Rapid) NEGATIVE (NEGATIVE) Group A Streptococcus Screen POSITIVE (NEGATIVE) Administered Medications Medications (Trade) Dose Ordered Sig/Angel Route PRN Reason Start Time Stop Time Status Last Admin Dose Admin Meropenem 500 mg/ Sodium Chloride 100 ml @ 200 mls/hr STAT STAT IV 07/12/20 11:26 07/12/20 11:55 DC 07/12/20 11:51 200 MLS/HR Vancomycin HCl 1.5 gm/Sodium Chloride 300 ml @ 175 mls/hr OT ONCE IV 07/12/20 11:30 07/12/20 13:12 DC 07/12/20 12:23 175 MLS/HR Sodium Chloride 2,000 ml @ 1,200 mls/hr Q1H40M STAT IV 07/12/20 12:40 07/12/20 14:19 07/12/20 11:30 1,200 MLS/HR Sodium Chloride 1,000 ml @ 75 mls/hr [id number] STAT IV 07/12/20 12:40 07/13/20 01:59 07/12/20 12:42 75 MLS/HR IMAGING: Chest x-ray has limitation of penetration due to her body habitus but grossly no infiltrate. SUMMARY:60-year-old female with extremely obese body habitus comes in with recurrent lower extremity cellulitis and elevated lactic acid being admitted for fluids and IV antibiotics. Patient has allergy to penicillin. Problems Medical Problems: (1) Cellulitis of left leg Permanent Comment: Left lower extremity is greater in circumference than right; is erythematous with induration, weeping, inflammation, crusting. Pedal pulses palpable. Sx slightly improved from yesterday. Hopefully home tomorrow. Last Edited By: Rodolfo Voss MD - Hospitalist on Jul 22, 2018 17:16 Status: Acute Rank: 17 ICD Codes: L03.116 - Cellulitis of left lower limb SNOMED: 097848252 Responsible Provider: BEN LARA MD Problem Recorded: Apr 24, 2017 11:47 Last Edited By: Tri Augustin Rn-Er on Jul 12, 2020 13:08 (2) Gastroparesis Status: Chronic Rank: 11 ICD Codes: K31.84 - Gastroparesis SNOMED: [id number] Responsible Provider: TITO MOHAN MD Problem Recorded: Jun 29, 2017 11:37 Last Edited By: Mary Perez MD, Hospitalist on Jul 12, 2020 12:38 (3) Morbid obesity with BMI of 70 and over, adult Status: Chronic Rank: 15 ICD Codes: E66.01 - Morbid (severe) obesity due to excess calories; Z68.45 - Body mass index (BMI) 70 or greater, adult SNOMED: 753093489, [id number] Responsible Provider: TITO MOHAN MD Problem Recorded: Feb 19, 2018 17:38 Last Edited By: Tri Augustin Rn-Er on Jul 12, 2020 13:08 (4) ERNESTO (obstructive sleep apnea) Status: Chronic Rank: 14 ICD Codes: G47.33 - Obstructive sleep apnea (adult) (pediatric) SNOMED: [id number] Responsible Provider: TITO MOHAN MD Problem Recorded: Jun 29, 2017 11:37 Last Edited By: Mary Perez MD, Hospitalist on Jul 12, 2020 12:38 Family History Problems: (1) Family history of asthma Relations: 32 MOTHER Rank: 2 ICD Codes: Z82.5 - Family history of asthma SNOMED: 350146729 Problem Recorded: Apr 24, 2017 13:04 Last Edited By: CONI-RANK UPDATE on Jul 12, 2020 12:38 (2) Family history of hypertension Relations: 32 MOTHER Rank: 1 ICD Codes: Z82.49 - Family history of hypertension SNOMED: 103783126 Problem Recorded: Apr 24, 2017 13:05 Last Edited By: CONI-RANK UPDATE on Jul 12, 2020 12:38 ASSESSMENT/PLAN: 1. Cellulitis with severe allergy to penicillin. Agree with vancomycin and will consult pharmacy to assist with vancomycin dosing and check a level before the third dose 2. Lactic acidosis will gently hydrate her 3. Patient is on Metformin we will do Accu-Cheks while in the hospital 4. Sleep apnea patient is not agreeable to wear CPAP machine MARY PEREZ MD Jul 12, 2020 13:24
[2020-07-12 13:33] VITALS: BP 131/62
--- NOTE | 2020-07-12 13:34 | NUR ---
BED STATUS WAITING FOR BARIATRIC BED TO BE CLEANED AND PLACED IN ROOM.
[2020-07-12] MEDS: MERREM 500 MG in NS 100ML 100 ML IV SCH ×2 (13:58→21:55)
[2020-07-12] MEDS: CLEOCIN 600 MG-D5W-GALAXY 50 ML IV SCH ×2 (13:58→21:16)
[2020-07-12 14:10] VITALS: BP 146/75
[2020-07-12] MEDS ORDERED: SUBLIMAZE IV STA ×2 (14:11→14:12)
[2020-07-12] MEDS ORDERED: TORADOL IV STA ×2 (14:11→14:12)
[2020-07-12] MEDS ORDERED: TORADOL ONE (14:13)
[2020-07-12] MEDS ORDERED: SUBLIMAZE ONE (14:13)
--- NOTE | 2020-07-12 14:28 | NUR ---
BED STATUS MEDR BED READY FOR PT.
--- NOTE | 2020-07-12 14:32 | NUR ---
FLUIDS ORDER RECEIVED FROM DR ROSARIO TO D/C FLUIDS NS @ 75MLS/HR AFTER ONE BAG
--- NOTE | 2020-07-12 14:40 | NUR ---
PATIENT ARRIVED TO UNIT VIA STRETCHER. TRANSFERRED TO BED X 7 ASSIST. REPORT RECEIVED FROM BRANDAN LU. ORIENTED TO ROOM/UNIT/USE OF CALL LIGHT. HOB ELEVATED. NO ACUTE SYMPTOMS NOTED.
--- NOTE | 2020-07-12 15:00 | NUR ---
HEAD TO TOE ADMISSION ASSESSMENT COMPLETED. SOB WITH MINIMAL EXERTION NOTED. 02@ 3l/MIN NC. LUNG SOUNDS DIMINISHED BILATERALLY. DIAL CATHETER IN PLACE, SECURED TO R THIGH, PATENT, DRAINING CLEAR YELLOW URINE. INTERTRIGO NOTED UNDER BILATERAL BREASTS, PANNUS, BLE LYMPHEDEMA SKIN FOLDS. LYMPHEDEMA PAPILLOMAS NOTED TO BLE. NO OPEN AREAS. HEELS CALLOUSED. POOR PERSONAL HYGIENE R/T DIFFICULTY PERFORMING ADLS INDEPENDENTLY DUE TO SOB AND BODY HABITUS. REPORTS ABLE TO AMBULATE SHORT DISTANCES WITH USE OF WALKER. REVIEWED USE OF OVERBED TRAPEZE TO REPOSITION SELF. ASSISTED TO SIDE OF BED FOR DINNER. PATIENT ON LOW AIR LOSS MATTRESS. DECLINES CPAP AT BEDTIME, DECLINES SOCKS. COMFORT MEASURES PROVIDED.
[2020-07-12] MEDS ORDERED: INSU100V8 SQ (17:30)
[2020-07-12 17:41] LABS: ANISOCYTOSIS 1+ (NEGATIVE); BAND NEUTROPHILS 3 % (2-6); LYMPHOCYTE 4 % (25-36); MONOCYTE 1 % (3-9); SEGMENTED NEUTROPHILS 92 % (31-76)
[2020-07-12 17:48] VITALS: BP 124/76
[2020-07-12] MEDS ORDERED: LOVENOX SQ SCH (21:00)
[2020-07-12] MEDS: LOPRESSOR PO SCH (21:15)
[2020-07-12] MEDS: GLUCOPHAGE PO SCH (21:16)
[2020-07-12 21:48] VITALS: BP 126/78
[2020-07-13] VITALS (8 sets, daily range): BP systolic 103–133; BP diastolic 60–74
[2020-07-13 05:48] LABS: BASOPHIL % 0.2 % (0.0-0.2); LYMPHOCYTES # 1.36 10^3/uL1 (1.0-4.8); LYMPHOCYTES % 11.3 % (24.0-44.0); MEAN CORP HGB 29.5 pg (26-34); MONOCYTES # 0.7 10^3/uL (0.3-0.8); MONOCYTES % 5.6 % (5.0-12.0); NEUTROPHIL # 9.9 10^3/uL (1.8-7.7); NEUTROPHILS % 82.7 % (41.0-85.0); PLATELET COUNT 207 10^3/uL (150-400); RED CELL DISTRIBUTION WIDTH 15.6 % (11.5-14.5)
[2020-07-13] MEDS: CLEOCIN 600 MG-D5W-GALAXY 50 ML IV SCH ×3 (06:00→22:00)
[2020-07-13] MEDS: MERREM 500 MG in NS 100ML 100 ML IV SCH ×3 (06:00→21:12)
[2020-07-13 06:08] LABS: CALCIUM 8.3 mg/dL (8.4-10.5); CARBON DIOXIDE 30.6 mmol/L (20.0-32)
[2020-07-13] MEDS ORDERED: NS 100ML 100 ML IV ONE (06:49)
[2020-07-13] MEDS: CeleXA PO SCH (08:28)
[2020-07-13] MEDS: GLUCOPHAGE PO SCH (08:28)
[2020-07-13] MEDS: LOPRESSOR PO SCH ×2 (08:29→20:53)
--- NOTE | 2020-07-13 09:00 | NUR ---
S: PATIENT WITH LIMITED MOBILITY DUE TO SOB, 02 DEPENDENCE, ERNESTO, WEIGHT, BODY HABITUS B: LIVES WITH SPOUSE AND SON WHO ASSISTS WITH ADL/IADLS; LYMPHEDEMA; NON COMPLIANT WITH DISEASE PROCESS AND SELF-CARE MAINTENANCE A: LYMPHEDEMA OF BLE, LIMITED ROM AND MOBILITY R:PATIENT MAY BENEFIT FROM: PT EVAL & TX FOR STRENGTHENING, ENDURANCE AND SAFE TRANSFER TRAINING; OT EVAL & TX FOR ADL/IADL TRAINING TO PROMOTE INDEPENDENCE/PLOF; ADAPTIVE EQUIPMENT DISCUSSED WITH BRANDAN SALTERPREASSEMBLER AND INSPECTOR NURSE
--- NOTE | 2020-07-13 13:50 | NUR ---
DISCHARGE PLAN CASE MANAGEMENT VISITED WITH PATIENT CONCERNING DISCHARGE PLAN AND NEEDS. LIVES AT HOME WITH AND SON AND. FAMILY IS SUPPORTIVE IN ASSISTING WITH ADLS WHEN NEEDED. HAS A CANE AND SHE IS REQUESTING A W/C. HAS FINANCIAL ABILITY TO PAY FOR MEDICATIONS. PATIENT STATED SHE HAS NOT BEEN GOING TO THE LYMPHEDEMA CLINICAL BECAUSE THEY ARE REQUIRING HER TO F/U WITH HER PCP WHO IS [facility] FOR AN ORDER. PER PATIENT [facility] WILL NOT SEE HER D/T SHE OWES A BILL THERE AND SHE MISSED ONE PAYMENT AND THEY WOULD NOT SEE HER AGAIN. CM EDUCATED ON HH AND REFERRAL WILL BE FAXED TO [facility]. DISCHARGE PLAN IS TO DISCHARGE HOME WITH AND SUPPORTIVE FAMILY AND [facility] TO FOLLOW. DENIES FURTHER NEEDS AT THIS TIME.
--- NOTE | 2020-07-13 13:56 | PRM.PN ---
PROGRESS NOTE S/O/A/P DATE: 07/13/20 TIME: 1:00pm SUBJECTIVE: Voices no new complaints today and says she's feeling "OK". OBJECTIVE: PHYSICAL EXAMINATION: VITAL SIGNS: T 98.5, HR 80, RR 24, BP 104/60, O2 sat 94% 3L O2 NC GENERAL: Resting comfortably in NAD. No family or friends present at bedside. HEENT: NC/AT. PERRLA. EOMI. MMM. Neck is supple. LUNGS: CTAB. No wheezing, rales, or rhonchi. No respiratory distress or cyanosis. HEART: Normal S1S2. No murmurs, rubs, gallops or thrills. ABDOMEN: Soft. NTTP. No rebound or guarding. Normal BS throughout. Morbidly obese. EXTREMITIES: LLE red, swollen, and TTP. Skin candidiasis noted in the groin area, underneath the abdominal pannus and BL breasts. NEUROLOGIC: AAOx3. No motor or sensory deficits noted. Gait was not assessed at this time. LABORATORY DATA: Reviewed and significant for WBC 12, Gluc 134, Lact 0.8 IMAGING STUDIES: No new studies today. ASSESSMENT / PLAN: 1) Recurrent LLE Cellulitis with Chronic Lymphedema: Will continue IV Clindamycin and Merrem. Follow up on all final Cx results. 2) Group A Strep Screen +: Continue IV Abx. 3) Sepsis: Pt did meet Sepsis criteria on arrival with Fever 101.1, Tachycardia 145, Tachypnea 24, and Leukocytosis 14.2. Continue IV Abx and follow up on all final Cx results. 4) Skin Candidiasis of the BL Groin, Abdominal Pannus, and Breasts: Will start Nystatin Powder with Fluconazole. 5) ? DM-2: Pt denies having DM but is on Metformin at home. Will check a HgbA1c. 6) ERNESTO: Pt has declined CPAP. 7) HTN: Stable on home Metoprolol. 8) DVT prophylaxis: Continue Lovenox. WALLY SHERIFF MD Jul 13, 2020 13:56
[2020-07-13] MEDS ORDERED: NS 1000ML 1,000 ML IV ONE (14:30)
[2020-07-13] MEDS: NYSTOP TP SCH ×2 (15:40→20:54)
[2020-07-13] MEDS: LOVENOX SQ SCH (20:54)
[2020-07-14] VITALS (7 sets, daily range): BP systolic 112–154; BP diastolic 56–89
[2020-07-14] MEDS: CLEOCIN 600 MG-D5W-GALAXY 50 ML IV SCH ×3 (05:30→22:00)
[2020-07-14] MEDS: MERREM 500 MG in NS 100ML 100 ML IV SCH ×3 (06:00→21:05)
[2020-07-14 06:06] LABS: BASOPHIL % 0.1 % (0.0-0.2); EOSINOPHIL % 0.1 % (0.0-5.0); LYMPHOCYTES # 1.31 10^3/uL1 (1.0-4.8); LYMPHOCYTES % 16.5 % (24.0-44.0); MEAN CORP HGB 29.5 pg (26-34); MONOCYTES # 0.6 10^3/uL (0.3-0.8); MONOCYTES % 8.1 % (5.0-12.0); NEUTROPHILS % 74.9 % (41.0-85.0); PLATELET COUNT 160 10^3/uL (150-400); RED CELL DISTRIBUTION WIDTH 15.6 % (11.5-14.5)
[2020-07-14 06:44] LABS: CALCIUM 8.1 mg/dL (8.4-10.5); CARBON DIOXIDE 30.2 mmol/L (20.0-32)
[2020-07-14] MEDS: DIFLUCAN PO SCH (08:05)
[2020-07-14] MEDS: CeleXA PO SCH (08:05)
[2020-07-14] MEDS: NEURONTIN PO PRN (08:06)
[2020-07-14] MEDS: TYLENOL PO PRN ×3 (08:06→21:40)
[2020-07-14] MEDS: LOPRESSOR PO SCH ×2 (08:06→21:06)
[2020-07-14] MEDS: NYSTOP TP SCH ×3 (08:07→21:05)
--- NOTE | 2020-07-14 11:25 | DIREP ---
PROCEDURE:US VENOUS IMAGING BILAT COMPARISON:[facility], DUPLEX EXTREM VEINS UNILATER/LIMITED-LT, 03/23/2020, 01:11 PM. [facility], DUPLEX EXTREM VEINS UNILATER/LIMITED-LT, 10/27/2019, 03:00 AM. [facility] DUPLEX EXTREM VEINS BILATERAL, 03/09/2019, 11:04 AM. [facility] DUPLEX EXTREM VEINS UNILATER/LIMITED-LT, 07/19/2018, 10:13 PM. [facility] DUPLEX EXTREM VEINS BILATERAL, 02/22/2018, 07:10 PM. [facility] DUPLEX EXTREM VEINS UNILATER/LIMITED-LT, 04/24/2017, 11:01 AM. INDICATIONS:INCREASED SWELLING/REDNESS TECHNIQUE:The lower extremities were evaluated utilizing vincent scale images with segmental compression, color Doppler, and spectral Doppler with respiratory variation and augmentation. FINDINGS: RIGHT Common femoral vein:Patent Superficial femoral vein:Patent Popliteal vein:Patent Posterior tibial vein:Patent Peroneal vein:Patent Saphenofemoral junction:Patent Waveforms: Within normal limits. LEFT Common femoral vein:Patent Superficial femoral vein:Patent Popliteal vein:Not visualized Posterior tibial vein:Patent Peroneal vein:Not visualized Saphenofemoral junction:Patent Waveforms: Within normal limits. CONCLUSION:No sonographic evidence of deep venous thrombosis. Dictated [facility]: [facility] on 07/14/2020 at 11:08 AM ac
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
[2020-07-14] MEDS: WELLBUTRIN XL PO SCH (14:06)
--- NOTE | 2020-07-14 15:20 | PRM.PN ---
PROGRESS NOTE S/O/A/P DATE: 07/14/20 TIME: 2:55pm SUBJECTIVE: Complaining of a "migraine headache" and asking for some Toradol. Otherwise, says she's "fine". OBJECTIVE: PHYSICAL EXAMINATION: VITAL SIGNS: T 98.9, HR 78, RR 24, BP 142/85, O2 sat 96% 3L NC GENERAL: Resting comfortably in NAD. No family or friends present at bedside. HEENT: NC/AT. PERRLA. EOMI. MMM. Neck is supple. LUNGS: CTAB. No wheezing, rales, or rhonchi. No respiratory distress or cyanosis. HEART: Normal S1S2. No murmurs, rubs, gallops or thrills. ABDOMEN: Soft. NTTP. No rebound or guarding. Normal BS throughout. Morbidly obese. EXTREMITIES: LLE red, swollen, and TTP. Skin candidiasis noted diffusely in the groin area, underneath the abdominal pannus and BL breasts. NEUROLOGIC: AAOx3. No motor or sensory deficits noted. Gait was not assessed at this time. LABORATORY DATA: Reviewed and significant for Hgb 11.4, Hct 35.7, D-dim 0.67, Gluc 137, HgbA1c 6.9, PCT 0.25 IMAGING STUDIES: 1) BL LE Venous Dopplers: No DVT ASSESSMENT / PLAN: 1) Recurrent LLE Cellulitis with Chronic Lymphedema: Will continue IV Clindamycin and Merrem. Follow up on all final Cx results. 2) Group A Strep Screen +: Continue IV Abx. 3) Sepsis: Pt did meet Sepsis criteria on arrival with Fever 101.1, Tachycardia 145, Tachypnea 24, and Leukocytosis 14.2. Continue IV Abx and follow up on all final Cx results. 4) Skin Candidiasis of the BL Groin, Abdominal Pannus, and Breast Areas: Will continue Nystatin Powder with Fluconazole. 5) DM-2: Although Pt denies having DM, her HgbA1c is 6.9 while on Metformin at home. There is no doubt that she is truly Diabetic. 6) ERNESTO: Pt declines CPAP. 7) HTN: Stable on home Metoprolol. 8) DVT prophylaxis: Continue Lovenox. WALLY SHERIFF MD Jul 14, 2020 15:20
[2020-07-14] MEDS ORDERED: NS 100ML 100 ML IV ONE (20:56)
[2020-07-14] MEDS: LOVENOX SQ SCH (21:06)
[2020-07-15 00:29] VITALS: BP 126/74
[2020-07-15] MEDS ORDERED: NS 100ML 100 ML IV ONE (03:36)
[2020-07-15] MEDS: CLEOCIN 600 MG-D5W-GALAXY 50 ML IV SCH ×3 (05:03→21:01)
[2020-07-15 05:05] VITALS: BP 157/80
[2020-07-15 05:47] LABS: BASOPHIL % 0.5 % (0.0-0.2); LYMPHOCYTES # 1.26 10^3/uL1 (1.0-4.8); LYMPHOCYTES % 19.1 % (24.0-44.0); MEAN CORP HGB 29.2 pg (26-34); MONOCYTES # 0.5 10^3/uL (0.3-0.8); NEUTROPHIL # 4.8 10^3/uL (1.8-7.7); NEUTROPHILS % 72.2 % (41.0-85.0); PLATELET COUNT 183 10^3/uL (150-400); RED CELL DISTRIBUTION WIDTH 15.4 % (11.5-14.5)
[2020-07-15 05:58] LABS: CALCIUM 8.5 mg/dL (8.4-10.5); CARBON DIOXIDE 29.5 mmol/L (20.0-32)
[2020-07-15] MEDS: MERREM 500 MG in NS 100ML 100 ML IV SCH ×3 (06:00→22:00)
[2020-07-15] MEDS: NEURONTIN PO PRN (08:07)
[2020-07-15] MEDS: DIFLUCAN PO SCH (08:07)
[2020-07-15] MEDS: TYLENOL PO PRN ×2 (08:08→14:24)
[2020-07-15] MEDS: NYSTOP TP SCH ×3 (08:08→21:00)
[2020-07-15] MEDS: LOPRESSOR PO SCH ×2 (08:08→20:59)
[2020-07-15] MEDS: WELLBUTRIN XL PO SCH (08:08)
--- NOTE | 2020-07-15 08:30 | NUR ---
DIAL CATHETER REMOVED WITHOUT ANY DIFFICULTY. PATIENT TOLERATED WITH MINIMAL DISCOMFORT. ENCOURAGED INCREASE IN FLUID INTAKE.
--- NOTE | 2020-07-15 09:00 | NUR ---
PATIENT LEFT UNIT VIA WHEELCHAIR TO SHOWER WITH OT.
[2020-07-15 09:17] VITALS: BP 139/84
--- NOTE | 2020-07-15 10:10 | NUR ---
PATIENT RETURNED TO UNIT FROM SHOWER WITH OCCUPATIONAL THERAPY. NO ACUTE CARDIOPULMONARY CHANGES NOTED.
[2020-07-15 13:07] VITALS: BP 134/74
[2020-07-15 18:43] VITALS: BP 122/47
[2020-07-15] MEDS: LOVENOX SQ SCH (20:59)
[2020-07-16] VITALS (7 sets, daily range): BP systolic 112–151; BP diastolic 53–89
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
[2020-07-16] MEDS: TYLENOL PO PRN ×2 (02:03→09:25)
[2020-07-16] MEDS: CLEOCIN 600 MG-D5W-GALAXY 50 ML IV SCH ×3 (05:15→22:00)
[2020-07-16 05:51] LABS: CALCIUM 8.5 mg/dL (8.4-10.5); CARBON DIOXIDE 31.9 mmol/L (20.0-32)
[2020-07-16] MEDS: MERREM 500 MG in NS 100ML 100 ML IV SCH ×3 (06:00→21:32)
[2020-07-16] MEDS: NYSTOP TP SCH ×3 (09:00→20:30)
[2020-07-16] MEDS: LOPRESSOR PO SCH ×2 (09:22→20:30)
[2020-07-16] MEDS: NEURONTIN PO PRN (09:22)
[2020-07-16] MEDS: DIFLUCAN PO SCH (09:22)
[2020-07-16] MEDS: WELLBUTRIN XL PO SCH (09:22)
[2020-07-16] MEDS: TORADOL IV PRN (10:40)
--- NOTE | 2020-07-16 19:52 | PRM.PN ---
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 side effects of medications 3. Referral to IOP [place] therapy, significant ptsd, guilt, shame, poor self esteem 4. If she declines IOP or it is not covered by insurance should follow up with psychiatry at local [facility], [place] 5. not suggesting any sleep medications as patient prefer to sleep in the day and be awake at night, intentionally worked nights in the past Reviewed with Dr. Mendoza CONSENT: Consent was obtained by patient for telemedicine visit. Consent was obtained for the presence of staff member throughout encounter. Privacy was maintained throughout encounter FILIBERTO LAMAS MD Jul 16, 2020 19:52
[2020-07-16] MEDS: LOVENOX SQ SCH (20:30)
[2020-07-17] MEDS: TORADOL IV PRN (02:42)
[2020-07-17 04:00] VITALS: BP 139/77
[2020-07-17] MEDS: MERREM 500 MG in NS 100ML 100 ML IV SCH ×3 (05:13→20:59)
[2020-07-17] MEDS: CLEOCIN 600 MG-D5W-GALAXY 50 ML IV SCH ×3 (06:00→21:01)
[2020-07-17] MEDS: WELLBUTRIN XL PO SCH (09:00)
[2020-07-17] MEDS: LOPRESSOR PO SCH ×2 (09:30→20:58)
[2020-07-17] MEDS: DIFLUCAN PO SCH (09:30)
[2020-07-17] MEDS: NYSTOP TP SCH ×3 (09:30→20:59)
[2020-07-17 09:42] VITALS: BP 159/79
--- NOTE | 2020-07-17 10:57 | NUR ---
DISCHARGE PLAN UPDATE/[facility] REHAB PER DR KOHLER AND Maria Esther ALEXANDER PATIENT WOULD LIKE REFERRAL SENT TO [facility]. REFERRAL FAXED AND TJ WITH [facility] NOTIFIED. PENDING AUTHORIZATION.
[2020-07-17 14:07] VITALS: BP 132/68
[2020-07-17] MEDS: TYLENOL PO PRN (14:18)
--- NOTE | 2020-07-17 16:08 | PRM.PN ---
Subjective Subjective Date: Jul 17, 2020 Time: 16:04 Subjective Seen this AM at bedside. Doing a little better. Pain improving. She feels the induration is worse higher up in thigh. No other complaint. VTE VTE Risk Total Score: 5 VTE Risk Score VTE Risk: Score 0-1 = Low Risk (Aggressive mobilization; early ambulation; no VTE prophylaxis required) Score 2: Moderate Risk (Intermittent/Pneumatic Compression Device OR Lovenox/Heparin/Coumadin) Score 3-4: High Risk (Intermittent/Pneumatic Compression Device AND Lovenox/Heparin/Coumadin) Score > or =5: Highest Risk (Intermittent/Pneumatic Compression Device AND Lovenox/Heparin/Coumadin) Antico:Hep/LMWH/Coum/Xarelto: Yes Mechanical device ordered: No Review of Systems Constitutional: Weakness, Malaise; No: Fever, Chills, Sweats Respiratory: SOB with excertion; No: Shortness of breath, Pleuritic Pain Cardiovascular: Edema; No: Chest Pain, Palpitations, Lt Headedness Gastrointestinal: No: Nausea, Vomiting, Abdominal Pain Genitourinary: No Dysuria, No Frequency Musculoskeletal: leg pain; No: other, neck pain, shoulder pain, arm pain, back pain, hand pain, foot pain Skin: Rash, Lesions; No: Jaundice Neurological: No: Weakness, Numbness, Incoordination, Change in speech, Confusion, Seizures, Other Allergies: Coded Allergies: Penicillins (Verified Allergy, Unknown, hives, 07/19/18) Scheduled Citalopram Hydrobromide (Celexa), 1 TAB PO DAILY, (Reported) Clindamycin Hcl (Clindamycin Hcl), 300 MG PO BID Gabapentin (Gabapentin), 1 CAP PO PRN, (Reported) Metformin Hcl (Metformin Hcl), 1 TAB PO BID, (Reported) Metoprolol Tartrate 50MG (Lopresser 50MG), 1 TAB PO BID, (Reported) Discontinued Medications Insulin Glargine,Hum.rec.anlog (Lantus), 20 UNIT SQ HS, (Reported) Discontinued Reason: Cancel Objective Vitals and I/O Vital Sign - Last 24 Hours 07/17/20 07/17/20 07/17/20 08:47 09:42 14:07 Temp 98.1 97.9 Pulse 70 77 68 Resp 20 22 24 B/P (MAP) 159/79 (105) 132/68 (89) Pulse Ox 98 92 98 O2 Delivery Nasal Cannula O2 Flow Rate 3.00 FiO2 32 General: Alert, Oriented X3, Cooperative, No acute distress HEENT: Atraumatic, PERRLA, EOMI, Mucous membr. moist/pink Neck: Supple, No JVD Lungs: Normal air movement, Other Heart: Regular rate, Normal S1, Normal S2, No murmurs Abdomen: Normal bowel sounds, Soft, No tenderness Extremities: Other Skin: No rashes, No breakdown, No significant lesion, Other (erythema on left lower leg.) Neuro: Normal speech, Strength at 5/5 X4 ext, Normal tone, Sensation intact, Cranial nerves 3-12 NL Psych/Mental Status: Mental status NL, Mood NL Other physical findings Diminished breath sounds All Results(Lab/Rad) Laboratory Tests Test 07/15/20 04:44 07/15/20 05:07 07/15/20 07:46 07/15/20 12:15 White Blood Count 6.6 10^3/uL Red Blood Count 3.94 10^6/uL Hemoglobin 11.5 g/dL Hematocrit 36.5 % Mean Corpuscular Volume 92.6 fL Mean Corpuscular Hemoglobin 29.2 pg Mean Corpuscular Hemoglobin Concent 31.5 g/dL Red Cell Distribution Width 15.4 % Platelet Count 183 10^3/uL Mean Platelet Volume 10.6 fL Neutrophils (%) (Auto) 72.2 % Lymphocytes (%) (Auto) 19.1 % Monocytes (%) (Auto) 8.0 % Neutrophils # (Auto) 4.8 10^3/uL Lymphocytes # (Auto) 1.26 10^3/uL1 Monocytes # (Auto) 0.5 10^3/uL Absolute Immature Granulocyte (auto 0.01 10^3 u/L Absolute Eosinophils (auto) 0.0 10^3/uL Immature Granulocytes % 0.20 % Eosinophils % 0.0 % Basophils % 0.5 % Basophils # 0.0 10^3/uL Sodium Level 140 mmol/L Potassium Level 4.1 mmol/L Chloride Level 103.0 mmol/L Carbon Dioxide Level 29.5 mmol/L Glucose Level 119 mg/dL Blood Urea Nitrogen 13 mg/dL Creatinine 0.90 mg/dL Calcium Level 8.5 mg/dL Anion Gap 11.6 Estimated GFR () 77.8 Est GFR (CKD-EPI)(Non-Afr Cook Islander) 64.3 BUN/Creatinine Ratio 14.0 Bedside Glucose 126 125 114 Test 07/15/20 16:50 07/15/20 20:03 Bedside Glucose 104 99 Current Medications Medications (Trade) Dose Ordered Sig/Angel Route PRN Reason Start Time Stop Time Status Last Admin Dose Admin Sodium Chloride 1,000 ml @ ud STK-MED ONCE .ROUTE 07/12/20 11:10 07/12/20 11:11 DC Meropenem 500 mg/ Sodium Chloride 100 ml @ 200 mls/hr STAT STAT IV 07/12/20 11:26 07/12/20 11:55 DC 07/12/20 11:51 Vancomycin HCl 1.5 gm/Sodium Chloride 300 ml @ 175 mls/hr OT ONCE IV 07/12/20 11:30 07/12/20 13:12 DC 07/12/20 12:23 Sodium Chloride 100 ml @ ud STK-MED ONCE IV 07/12/20 11:47 07/12/20 11:47 DC Sodium Chloride 2,000 ml @ 1,200 mls/hr Q1H40M STAT IV 07/12/20 12:40 07/12/20 14:19 DC 07/12/20 11:30 Sodium Chloride 1,000 ml @ 75 mls/hr [id number] STAT IV 07/12/20 12:40 07/13/20 01:59 DC 07/12/20 12:42 Citalopram Hydrobromide (CeleXA) 20 mg DAILY PO 07/13/20 09:00 07/14/20 13:59 DC 07/14/20 08:05 Gabapentin (Neurontin) 300 mg DAILY PRN PO NERVE PAIN 07/12/20 13:30 08/11/20 13:29 07/15/20 08:07 Metformin HCl (Glucophage) 500 mg BID PO 07/12/20 21:00 07/13/20 14:03 DC 07/13/20 08:28 Metoprolol Tartrate (Lopressor) 50 mg BID PO 07/12/20 21:00 08/11/20 20:59 07/15/20 20:59 Sodium Chloride 1,000 ml @ ud STK-MED ONCE .ROUTE 07/12/20 13:23 07/12/20 13:23 DC Clindamycin Phosphate 50 ml @ 50 mls/hr Q8 IV 07/12/20 14:00 08/11/20 13:59 07/15/20 21:01 Meropenem 500 mg/ Sodium Chloride 100 ml @ 200 mls/hr Q8H IV 07/12/20 14:00 08/11/20 13:59 07/15/20 14:00 Sodium Chloride 100 ml @ ud STK-MED ONCE IV 07/12/20 13:57 07/12/20 13:57 DC Fentanyl Citrate (Sublimaze) 100 mcg STAT STAT IV 07/12/20 14:11 07/12/20 14:14 DC 07/12/20 14:18 Ketorolac Tromethamine (Toradol) 30 mg STAT STAT IV 07/12/20 14:11 07/12/20 14:14 DC 07/12/20 14:19 Ketorolac Tromethamine (Toradol) 30 mg STAT STAT IV 07/12/20 14:12 07/12/20 14:20 DC Fentanyl Citrate (Sublimaze) 100 mcg STAT STAT IV 07/12/20 14:12 07/12/20 14:20 DC Ketorolac Tromethamine (Toradol) 30 mg STK-MED ONCE .ROUTE 07/12/20 14:13 07/12/20 14:14 DC Fentanyl Citrate (Sublimaze) 50 mcg STK-MED ONCE .ROUTE 07/12/20 14:13 07/12/20 14:14 DC Enoxaparin Sodium (Lovenox) 80 mg HS SQ 07/12/20 21:00 07/13/20 03:16 DC 07/12/20 21:15 Enoxaparin Sodium (Lovenox) 80 mg HS SQ 07/13/20 03:16 08/11/20 20:59 07/15/20 20:59 Sodium Chloride 100 ml @ ud STK-MED ONCE IV 07/13/20 06:49 07/13/20 06:49 DC Acetaminophen (Tylenol) 1,000 mg Q6HR PRN PO PAIN/FEVER 07/13/20 14:00 08/12/20 13:59 07/15/20 14:24 Sodium Chloride 1,000 ml @ 250 mls/hr Q4H ONCE IV 07/13/20 14:30 07/13/20 18:29 DC 07/13/20 15:41 Nystatin (Nystop) 1 gm TID TP 07/13/20 15:00 08/12/20 14:59 07/15/20 21:00 Fluconazole (Diflucan) 100 mg DAILY PO 07/14/20 09:00 08/13/20 08:59 07/15/20 08:07 Bupropion HCl (Wellbutrin Xl) 150 mg DAILY PO 07/14/20 14:00 08/13/20 13:59 07/15/20 08:08 Ketorolac Tromethamine (Toradol) 15 mg Q6H PRN IV PAIN 4 - 6 07/14/20 16:00 07/19/20 15:59 Sodium Chloride 100 ml @ ud STK-MED ONCE IV 07/14/20 20:56 07/14/20 20:56 DC Sodium Chloride 100 ml @ ud STK-MED ONCE IV 07/15/20 03:36 07/15/20 03:36 DC Course Sepsis Screening Results: Posi: POSITIVE Sepsis Qualifier/Stage: SEPSIS RISK DATE SEEN BY PHYSICIAN: Jul 15, 2020 TIME SEEN BY PROVIDER: 18:30 Duration or Total Time Spent w: 10 MIN Vitals & review Data Laboratory Tests Test 07/14/20 04:19 07/14/20 05:45 07/14/20 07:56 07/14/20 11:21 Bedside Glucose 135 116 139 White Blood Count 7.9 10^3/uL Red Blood Count 3.86 10^6/uL Hemoglobin 11.4 g/dL Hematocrit 35.7 % Mean Corpuscular Volume 92.5 fL Mean Corpuscular Hemoglobin 29.5 pg Mean Corpuscular Hemoglobin Concent 31.9 g/dL Red Cell Distribution Width 15.6 % Platelet Count 160 10^3/uL Mean Platelet Volume 10.1 fL Neutrophils (%) (Auto) 74.9 % Lymphocytes (%) (Auto) 16.5 % Monocytes (%) (Auto) 8.1 % Neutrophils # (Auto) 6.0 10^3/uL Lymphocytes # (Auto) 1.31 10^3/uL1 Monocytes # (Auto) 0.6 10^3/uL Absolute Immature Granulocyte (auto 0.02 10^3 u/L Absolute Eosinophils (auto) 0.0 10^3/uL Immature Granulocytes % 0.30 % Eosinophils % 0.1 % Basophils % 0.1 % Basophils # 0.0 10^3/uL D-Dimer 0.67 mg/L Sodium Level 140 mmol/L Potassium Level 4.7 mmol/L Chloride Level 103.0 mmol/L Carbon Dioxide Level 30.2 mmol/L Anion Gap 11.5 Blood Urea Nitrogen 13 mg/dL Creatinine 0.82 mg/dL Estimated GFR () 86.6 Est GFR (CKD-EPI)(Non-Afr Cook Islander) 71.6 BUN/Creatinine Ratio 15.0 Glucose Level 137 mg/dL Hemoglobin A1c 6.9 % Calcium Level 8.1 mg/dL Phosphorus Level 3.8 mg/dL Magnesium Level 2.1 mg/dL Total Bilirubin 0.3 mg/dL Aspartate Amino Transf (AST/SGOT) 26 U/L Alanine Aminotransferase (ALT/SGPT) 29 U/L Alkaline Phosphatase 74 U/L Total Protein 6.9 g/dL Albumin 2.8 g/dL Globulin 4.1 Albumin/Globulin Ratio 0.682 Procalcitonin 0.25 ng/mL Test 07/14/20 16:33 07/14/20 20:02 07/15/20 04:44 07/15/20 05:07 Bedside Glucose 115 117 126 White Blood Count 6.6 10^3/uL Red Blood Count 3.94 10^6/uL Hemoglobin 11.5 g/dL Hematocrit 36.5 % Mean Corpuscular Volume 92.6 fL Mean Corpuscular Hemoglobin 29.2 pg Mean Corpuscular Hemoglobin Concent 31.5 g/dL Red Cell Distribution Width 15.4 % Platelet Count 183 10^3/uL Mean Platelet Volume 10.6 fL Neutrophils (%) (Auto) 72.2 % Lymphocytes (%) (Auto) 19.1 % Monocytes (%) (Auto) 8.0 % Neutrophils # (Auto) 4.8 10^3/uL Lymphocytes # (Auto) 1.26 10^3/uL1 Monocytes # (Auto) 0.5 10^3/uL Absolute Immature Granulocyte (auto 0.01 10^3 u/L Absolute Eosinophils (auto) 0.0 10^3/uL Immature Granulocytes % 0.20 % Eosinophils % 0.0 % Basophils % 0.5 % Basophils # 0.0 10^3/uL Sodium Level 140 mmol/L Potassium Level 4.1 mmol/L Chloride Level 103.0 mmol/L Carbon Dioxide Level 29.5 mmol/L Glucose Level 119 mg/dL Blood Urea Nitrogen 13 mg/dL Creatinine 0.90 mg/dL Calcium Level 8.5 mg/dL Anion Gap 11.6 Estimated GFR () 77.8 Est GFR (CKD-EPI)(Non-Afr Cook Islander) 64.3 BUN/Creatinine Ratio 14.0 Test 07/15/20 07:46 07/15/20 12:15 07/15/20 16:50 07/15/20 20:03 Bedside Glucose 125 114 104 99 Current Medications Medications (Trade) Dose Ordered Sig/Angel PRN Reason Start Time Stop Time Status Last Admin Acetaminophen (Tylenol) 1,000 mg Q6HR PRN PAIN/FEVER 07/13/20 14:00 08/12/20 13:59 07/15/20 14:24 Bupropion HCl (Wellbutrin Xl) 150 mg DAILY 07/14/20 14:00 08/13/20 13:59 07/15/20 08:08 Enoxaparin Sodium (Lovenox) 80 mg HS 07/13/20 03:16 08/11/20 20:59 07/15/20 20:59 Fluconazole (Diflucan) 100 mg DAILY 07/14/20 09:00 08/13/20 08:59 07/15/20 08:07 Ketorolac Tromethamine (Toradol) 15 mg Q6H PRN PAIN 4 - 6 07/14/20 16:00 07/19/20 15:59 Nystatin (Nystop) 1 gm TID 07/13/20 15:00 08/12/20 14:59 07/15/20 21:00 Sepsis Infection Criteria Pres: Documented Infection LEVEL 1 SEPSIS INFECTION CRITE: ABX Therapy, Cellulitis LEVEL 2-SIRS (LIST ALL THAT AP: None/Not assessed Cardiovascular Evidence: Not Assessed or None Hematologic Evidence: None/Not assessed Hepatic Evidence: None/Not assessed Metabolic Evidence: None/Not assessed Neurological Evidence: None/Not assessed Respiratory Evidence: O2 SAT<90room air Renal Evidence: None/Not assessed O2 Sat by Pulse Oximetry: 98 Oxygen Flow Rate: 3.00 Findings Diminished breath sounds Assessment/Plan Assessment/Plan Assessment/Plan 1.) LLE Cellulits - Resolving on Abx. Likely needs at least 14 days of IV abx. - Will try to send to LTAC. 2.) Chronic Bilateral Lymphedema - Would benefit from chronic wound care. Needs chronic wound therapy and lymphedema tx. Would be a good candidate for LTAC. 3.) HTN - Stable, no new changes. - Cont current meds. 4.) Morbid Obesity - pt's size preventing her from managing ADL's. - Would benefit from therapy at LTAC. Plan SIMONA KOHLER MD Jul 17, 2020 16:08
[2020-07-17 18:15] VITALS: BP 159/85
[2020-07-17 19:50] VITALS: BP 142/67
[2020-07-17] MEDS ORDERED: NS 250ML 250 ML IV ONE (20:09)
[2020-07-17] MEDS: LOVENOX SQ SCH (20:58)
[2020-07-18 00:11] VITALS: BP 157/77
[2020-07-18 04:56] VITALS: BP 147/60
[2020-07-18] MEDS: CLEOCIN 600 MG-D5W-GALAXY 50 ML IV SCH (05:11)
[2020-07-18] MEDS: MERREM 500 MG in NS 100ML 100 ML IV SCH (05:11)
[2020-07-18 05:31] LABS: CALCIUM 8.5 mg/dL (8.4-10.5); CARBON DIOXIDE 31.8 mmol/L (20.0-32)
[2020-07-18] MEDS: NEURONTIN PO PRN (07:54)
[2020-07-18] MEDS: TYLENOL PO PRN (07:55)
[2020-07-18] MEDS: TORADOL IV PRN (07:56)
[2020-07-18] MEDS: LOPRESSOR PO SCH ×2 (07:59→20:16)
[2020-07-18] MEDS: WELLBUTRIN XL PO SCH (07:59)
[2020-07-18] MEDS: NYSTOP TP SCH ×3 (07:59→20:16)
[2020-07-18] MEDS: DIFLUCAN PO SCH (07:59)
[2020-07-18 08:58] VITALS: BP 162/93
[2020-07-18] MEDS ORDERED: LEVO750P2 IV (11:33)
[2020-07-18] MEDS ORDERED: FURO40TA4 PO (11:33)
[2020-07-18] MEDS ORDERED: ENOX80DI SQ (11:33)
[2020-07-18] MEDS ORDERED: VANC1PLA9 IV (11:33)
[2020-07-18] MEDS ORDERED: BUPR150T17 PO (11:33)
[2020-07-18] MEDS ORDERED: POTA10TA6 PO (11:33)
[2020-07-18] MEDS ORDERED: NYST60PO TP (11:33)
--- NOTE | 2020-07-18 11:35 | PRM.DC ---
Post-OP Discharge Summary Date of Arrival on Unit: Jul 12, 2020 History of Present Illness Patient History: Asthma 34 MOTHER Hypertension 34 MOTHER Physician Notes: Please see d/c summary. Objective Review IO, Exams,& Results Problems Acute/Active Problems: (1) Cellulitis of left leg Permanent Comment: Left lower extremity is greater in circumference than right; is erythematous with induration, weeping, inflammation, crusting. Pedal pulses palpable. Sx slightly improved from yesterday. Hopefully home tomorrow. Chronic Problems: (1) Gastroparesis (2) Morbid obesity with BMI of 70 and over, adult (3) ERNESTO (obstructive sleep apnea) Resolved Problems: (1) Diverticulitis (2) Sepsis Vital Signs Date Time Temp Pulse Resp B/P (MAP) Pulse Ox O2 Delivery O2 Flow Rate FiO2 07/18/20 08:58 97.9 73 24 162/93 (116) 94 07/18/20 08:55 Nasal Cannula 3.00 32 Intake and Output 07/18/20 06:59 Intake Total 970 ml Output Total 5 ml Balance 965 ml Intake Oral 720 ml Electrolyte Solution 150 ml IV Total 100 ml Output Urine Total 5 ml # Voids 5 # Bowel Movements 1 Laboratory Tests Test 07/16/20 12:09 07/16/20 16:54 07/16/20 19:39 07/17/20 04:39 Bedside Glucose 113 115 134 103 Test 07/17/20 08:50 07/17/20 11:50 07/17/20 17:43 07/17/20 19:53 Bedside Glucose 119 105 114 140 Test 07/18/20 04:40 07/18/20 08:23 White Blood Count 7.2 10^3/uL Red Blood Count 3.72 10^6/uL Hemoglobin 10.8 g/dL Hematocrit 34.3 % Mean Corpuscular Volume 92.2 fL Mean Corpuscular Hemoglobin 29.0 pg Mean Corpuscular Hemoglobin Concent 31.5 g/dL Red Cell Distribution Width 15.0 % Platelet Count 220 10^3/uL Mean Platelet Volume 9.8 fL Sodium Level 141 mmol/L Potassium Level 4.2 mmol/L Chloride Level 104.0 mmol/L Carbon Dioxide Level 31.8 mmol/L Anion Gap 9.4 Blood Urea Nitrogen 11 mg/dL Creatinine 0.86 mg/dL Estimated GFR () 82.0 Est GFR (CKD-EPI)(Non-Afr Dominican) 67.8 BUN/Creatinine Ratio 12.0 Glucose Level 123 mg/dL Calcium Level 8.5 mg/dL Total Bilirubin 0.5 mg/dL Aspartate Amino Transf (AST/SGOT) 45 U/L Alanine Aminotransferase (ALT/SGPT) 59 U/L Alkaline Phosphatase 117 U/L Total Protein 7.0 g/dL Albumin 2.9 g/dL Globulin 4.1 Albumin/Globulin Ratio 0.707 Bedside Glucose 101 Orders - SIMONA KOHLER MD Vancomycin Hcl (Vancomycin Hcl) (07/18/20 11:30) Levofloxacin 750mg/D5w 100ml (Levaquin) (07/18/20 11:30) Furosemide (Lasix) (07/19/20 09:00) Potassium Chloride (Klor-Con 10) (07/19/20 09:00) Heart: Regular rate, Normal S1, Normal S2, No murmurs Abdomen: Normal bowel sounds, Soft, No tenderness Lungs: Normal air movement, Other Skin: No rashes, No breakdown, No significant lesion, Other (erythema on left lower leg.) Course (Sepsis Review) Date of Reassessment: Jul 18, 2020 Time of Reassessment: 0808 Blood Pressure Systolic: 162 Blood Pressure Diastolic: 93 Diagnosis Problems/Diagnosis: (1) Sepsis (2) ERNESTO (obstructive sleep apnea) (3) Morbid obesity with BMI of 70 and over, adult (4) Lymphedema (5) Cellulitis of left leg SIMONA KOHLER MD Jul 18, 2020 11:35
[2020-07-18] MEDS: LEVAQUIN 150 ML IV SCH (11:52)
[2020-07-18 12:50] VITALS: BP 147/80
[2020-07-18] MEDS ORDERED: VALIUM PO STA (14:21)
[2020-07-18] MEDS ORDERED: ZOFRAN IV STA (14:21)
[2020-07-18] MEDS: VANCOMYCIN HCL 1 GM in NS 250ML 250 ML IV SCH (14:46)
--- NOTE | 2020-07-18 15:00 | NUR ---
JOANNE ATTEMPTED TO CONTACT [facility] WITH [facility] ON BED STATUS. NO ANSWER. MESSAGE LEFT
--- NOTE | 2020-07-18 16:34 | NUR ---
[facility] [employer] WITH [facility] RETURNED PHONE CALL CONCERNING BED. [facility] STATES THEY DO NOT HAVE A BED TODAY AND PROBABLY WILL NOT HAVE A BED TOMORROW. SHE WILL CHECK BACK MONDAY.
[2020-07-18 17:41] VITALS: BP 146/80
--- NOTE | 2020-07-18 17:50 | DIET.OP ---
Nutrition Asmt/Malnutrit 2-17 Actual Date of Review: Jul 18, 2020 Nutritional Screening: Nutritional Screening Diagnosis: LLE cellulitis Pertinent Medical Hx/Surgical: Per MD: HTN, chronic lymphedema, sleep apnea, multiple infections of legs Subjective Information: Pt assessed due to LOS and morbid obesity. Patient has been seen several times in the past by inpatient RDN at prior visits. After reviewing previous nutrition assessments pt was not following a proper diet or exercise plan at home and not interested in any diet education. Attempted to call into pt room x 2 with no answer. A1c is 6.9. BG 101-123 mg/dl today with no insulin. Pt reported taking metformin at home. Current Diet Order/Nutrition S: 1800 jt ADA Pertinent Meds Current Medications Medications (Trade) Dose Ordered Sig/Angel Route PRN Reason Start Time Stop Time Status Last Admin Dose Admin Sodium Chloride 1,000 ml @ ud STK-MED ONCE .ROUTE 07/12/20 11:10 07/12/20 11:11 DC Meropenem 500 mg/ Sodium Chloride 100 ml @ 200 mls/hr STAT STAT IV 07/12/20 11:26 07/12/20 11:55 DC 07/12/20 11:51 Vancomycin HCl 1.5 gm/Sodium Chloride 300 ml @ 175 mls/hr OT ONCE IV 07/12/20 11:30 07/12/20 13:12 DC 07/12/20 12:23 Sodium Chloride 100 ml @ ud STK-MED ONCE IV 07/12/20 11:47 07/12/20 11:47 DC Sodium Chloride 2,000 ml @ 1,200 mls/hr Q1H40M STAT IV 07/12/20 12:40 07/12/20 14:19 DC 07/12/20 11:30 Sodium Chloride 1,000 ml @ 75 mls/hr [id number] STAT IV 07/12/20 12:40 07/13/20 01:59 DC 07/12/20 12:42 Citalopram Hydrobromide (CeleXA) 20 mg DAILY PO 07/13/20 09:00 07/14/20 13:59 DC 07/14/20 08:05 Gabapentin (Neurontin) 300 mg DAILY PRN PO NERVE PAIN 07/12/20 13:30 08/11/20 13:29 07/18/20 07:54 Metformin HCl (Glucophage) 500 mg BID PO 07/12/20 21:00 07/13/20 14:03 DC 07/13/20 08:28 Metoprolol Tartrate (Lopressor) 50 mg BID PO 07/12/20 21:00 08/11/20 20:59 07/18/20 07:59 Sodium Chloride 1,000 ml @ ud STK-MED ONCE .ROUTE 07/12/20 13:23 07/12/20 13:23 DC Clindamycin Phosphate 50 ml @ 50 mls/hr Q8 IV 07/12/20 14:00 07/18/20 11:19 DC 07/18/20 05:11 Meropenem 500 mg/ Sodium Chloride 100 ml @ 200 mls/hr Q8H IV 07/12/20 14:00 07/18/20 11:19 DC 07/18/20 05:11 Sodium Chloride 100 ml @ ud STK-MED ONCE IV 07/12/20 13:57 07/12/20 13:57 DC Fentanyl Citrate (Sublimaze) 100 mcg STAT STAT IV 07/12/20 14:11 07/12/20 14:14 DC 07/12/20 14:18 Ketorolac Tromethamine (Toradol) 30 mg STAT STAT IV 07/12/20 14:11 07/12/20 14:14 DC 07/12/20 14:19 Ketorolac Tromethamine (Toradol) 30 mg STAT STAT IV 07/12/20 14:12 07/12/20 14:20 DC Fentanyl Citrate (Sublimaze) 100 mcg STAT STAT IV 07/12/20 14:12 07/12/20 14:20 DC Ketorolac Tromethamine (Toradol) 30 mg STK-MED ONCE .ROUTE 07/12/20 14:13 07/12/20 14:14 DC Fentanyl Citrate (Sublimaze) 50 mcg STK-MED ONCE .ROUTE 07/12/20 14:13 07/12/20 14:14 DC Enoxaparin Sodium (Lovenox) 80 mg HS SQ 07/12/20 21:00 07/13/20 03:16 DC 07/12/20 21:15 Enoxaparin Sodium (Lovenox) 80 mg HS SQ 07/13/20 03:16 08/11/20 20:59 07/17/20 20:58 Sodium Chloride 100 ml @ ud STK-MED ONCE IV 07/13/20 06:49 07/13/20 06:49 DC Acetaminophen (Tylenol) 1,000 mg Q6HR PRN PO PAIN/FEVER 07/13/20 14:00 08/12/20 13:59 07/18/20 07:55 Sodium Chloride 1,000 ml @ 250 mls/hr Q4H ONCE IV 07/13/20 14:30 07/13/20 18:29 DC 07/13/20 15:41 Nystatin (Nystop) 1 gm TID TP 07/13/20 15:00 08/12/20 14:59 07/18/20 14:30 Fluconazole (Diflucan) 100 mg DAILY PO 07/14/20 09:00 07/18/20 11:19 DC 07/18/20 07:59 Bupropion HCl (Wellbutrin Xl) 150 mg DAILY PO 07/14/20 14:00 08/13/20 13:59 07/18/20 07:59 Ketorolac Tromethamine (Toradol) 15 mg Q6H PRN IV PAIN 4 - 6 07/14/20 16:00 07/19/20 15:59 07/18/20 07:56 Sodium Chloride 100 ml @ STK-MED ONCE IV 07/14/20 20:56 07/14/20 20:56 DC Sodium Chloride 100 ml @ STK-MED ONCE IV 07/15/20 03:36 07/15/20 03:36 DC Sodium Chloride 250 ml @ STK-MED ONCE IV 07/17/20 20:09 07/17/20 20:09 DC Vancomycin HCl 1 gm/Sodium Chloride 250 ml @ 175 mls/hr Q24HRS IV 07/18/20 13:00 08/17/20 12:59 07/18/20 14:46 Levofloxacin/ Dextrose 150 ml @ 100 mls/hr Q24HRS IV 07/18/20 11:30 08/17/20 11:29 07/18/20 11:52 Furosemide (Lasix) 40 mg DAILY PO 07/19/20 09:00 08/18/20 08:59 Potassium Chloride (Klor-Con 10) 10 meq DAILY PO 07/19/20 09:00 08/18/20 08:59 Diazepam (Valium) 5 mg STAT STAT PO 07/18/20 14:21 07/18/20 14:38 DC 07/18/20 14:30 Ondansetron HCl (Zofran) 4 mg STAT STAT IV 07/18/20 14:21 07/18/20 14:38 DC 07/18/20 14:30 Pertinent Labs Laboratory Tests Test 07/16/20 19:39 07/17/20 04:39 07/17/20 08:50 07/17/20 11:50 Bedside Glucose 134 103 119 105 Test 07/17/20 17:43 07/17/20 19:53 07/18/20 04:40 07/18/20 08:23 Bedside Glucose 114 140 101 White Blood Count 7.2 10^3/uL Red Blood Count 3.72 10^6/uL Hemoglobin 10.8 g/dL Hematocrit 34.3 % Mean Corpuscular Volume 92.2 fL Mean Corpuscular Hemoglobin 29.0 pg Mean Corpuscular Hemoglobin Concent 31.5 g/dL Red Cell Distribution Width 15.0 % Platelet Count 220 10^3/uL Mean Platelet Volume 9.8 fL Sodium Level 141 mmol/L Potassium Level 4.2 mmol/L Chloride Level 104.0 mmol/L Carbon Dioxide Level 31.8 mmol/L Anion Gap 9.4 Blood Urea Nitrogen 11 mg/dL Creatinine 0.86 mg/dL Estimated GFR () 82.0 Est GFR (CKD-EPI)(Non-Afr [place]orese) 67.8 BUN/Creatinine Ratio 12.0 Glucose Level 123 mg/dL Calcium Level 8.5 mg/dL Total Bilirubin 0.5 mg/dL Aspartate Amino Transf (AST/SGOT) 45 U/L Alanine Aminotransferase (ALT/SGPT) 59 U/L Alkaline Phosphatase 117 U/L Total Protein 7.0 g/dL Albumin 2.9 g/dL Globulin 4.1 Albumin/Globulin Ratio 0.707 Test 07/18/20 11:41 07/18/20 17:29 Bedside Glucose 113 100 Height (Feet): 5 Height (Inches): 6 Current Weight: 545 %IBW: 404 Recent Weight Change: Yes (45# wt increase over last 9 months) Weight Status: Morbid Obese GI Symptoms: None Food Allergies: No Cultural/Ethnic/Lutheran [place]: none reported Usual Diet at Home: Regular Current %PO: Good(75-100%) BEE in Kcals: Adj WT of IBW (238#) Calories/Kcals/Kg: MsJ * 1.2-1.3 Kcals Calculated: kcal Protein: Adj WT of IBW Protein g/k-1.2 g/kg Protein Calculated: 108-130 g Fluid: ml: (1mL/kcal) Nutritional Problem: Nutr. Problems Present Problems: obesity: class III Etiology: Not ready for lifestyle change/ excessive energy intake/ physical inactivity Signs/Symptoms: BMI of 88, 404% IBW Malnutrition related to morbid: BMI>or equal to 40 Malnutrition Related to Morbid: Yes RD Comments: 1. Continue 1800 jt ADA diet. 2. Pt would benefit from outpatient nutrition counseling if willing. 3. RD to attempt to provide wt loss diet education at follow up. 4. Monitor BG and correct as indicated. Expected Outcomes No further wt gain while hospitalized. Discharge on consistent carb diet Malnutrtion/Nutrition Risk Edu: No Notificiation Needed?: No Kaleigh Kruse Jul 18, 2020 17:50
--- NOTE | 2020-07-18 18:26 | PRM.PN ---
Subjective Subjective Date: Jul 18, 2020 Time: 18:15 Subjective Seen this AM at bedside. Likely getting close to baseline. Leg still hurting but some better. LTAC did not have bed today. Not ambulating much at all. Wound cultures all back. VTE VTE Risk Total Score: 5 VTE Risk Score VTE Risk: Score 0-1 = Low Risk (Aggressive mobilization; early ambulation; no VTE prophylaxis required) Score 2: Moderate Risk (Intermittent/Pneumatic Compression Device OR Lovenox/Heparin/Coumadin) Score 3-4: High Risk (Intermittent/Pneumatic Compression Device AND Lovenox/Heparin/Coumadin) Score > or =5: Highest Risk (Intermittent/Pneumatic Compression Device AND Lovenox/Heparin/Coumadin) Antico:Hep/LMWH/Coum/Xarelto: Yes Mechanical device ordered: No Review of Systems Constitutional: Weakness, Malaise; No: Fever, Chills, Sweats Respiratory: SOB with excertion; No: Shortness of breath, Pleuritic Pain Cardiovascular: Edema; No: Chest Pain, Palpitations, Lt Headedness Gastrointestinal: No: Nausea, Vomiting, Abdominal Pain Genitourinary: No Dysuria, No Frequency Musculoskeletal: leg pain; No: other, neck pain, shoulder pain, arm pain, back pain, hand pain, foot pain Skin: Rash, Lesions; No: Jaundice Neurological: No: Weakness, Numbness, Incoordination, Change in speech, Confusion, Seizures, Other Allergies: Coded Allergies: Penicillins (Verified Allergy, Unknown, hives, 07/19/18) Scheduled Bupropion Hcl (Wellbutrin Xl), 150 MG PO DAILY Citalopram Hydrobromide (Celexa), 1 TAB PO DAILY, (Reported) Enoxaparin Sodium (Lovenox), 80 MG SQ HS Furosemide (Furosemide), 40 MG PO DAILY Gabapentin (Gabapentin), 1 CAP PO PRN, (Reported) Levofloxacin 750 Mg/Dextrose 5 % (Levofloxacin-D5w 750 Mg/150 Ml), 750 MG IV q24 hours Metformin Hcl (Metformin Hcl), 1 TAB PO BID, (Reported) Metoprolol Tartrate 50MG (Lopresser 50MG), 1 TAB PO BID, (Reported) Nystatin (Nystop), 1 GM TP TID Potassium Chloride (Klor-Con 10), 10 MEQ PO DAILY Vancomycin/0.9 % Sod Chloride (Vanco 1 Gram/250 ml-0.9% NaCl), 1 GM IV q24 hours Discontinued Medications Clindamycin Hcl (Clindamycin Hcl), 300 MG PO BID Discontinued Reason: Discontinue Insulin Glargine,Hum.rec.anlog (Lantus), 20 UNIT SQ HS, (Reported) Discontinued Reason: Cancel Objective Vitals and I/O Vital Sign - Last 24 Hours 07/18/20 07/18/20 07/18/20 07/18/20 08:11 08:55 08:58 12:50 Temp 97.9 97.7 Pulse 81 73 70 Resp 22 24 24 B/P (MAP) 162/93 (116) 147/80 (102) Pulse Ox 96 94 93 O2 Delivery Nasal Cannula Nasal Cannula O2 Flow Rate 3.00 3.00 FiO2 32 07/18/20 17:41 Temp 98.0 Pulse 69 Resp 24 B/P (MAP) 146/80 (102) Pulse Ox 97 Intake and Output 07/18/20 07:00 Intake Total 970 ml Output Total 5 ml Balance 965 ml General: Alert, Oriented X3, Cooperative, No acute distress HEENT: Atraumatic, PERRLA, EOMI, Mucous membr. moist/pink Neck: Supple, No JVD Lungs: Normal air movement, Other Heart: Regular rate, Normal S1, Normal S2, No murmurs Abdomen: Normal bowel sounds, Soft, No tenderness Extremities: Other Skin: No rashes, No breakdown, No significant lesion, Other (erythema on left lower leg.) Neuro: Normal speech, Strength at 5/5 X4 ext, Normal tone, Sensation intact, Cranial nerves 3-12 NL Psych/Mental Status: Mental status NL, Mood NL Other physical findings Diminished breath sounds All Results(Lab/Rad) Laboratory Tests Test 07/15/20 04:44 07/15/20 05:07 07/15/20 07:46 07/15/20 12:15 White Blood Count 6.6 10^3/uL Red Blood Count 3.94 10^6/uL Hemoglobin 11.5 g/dL Hematocrit 36.5 % Mean Corpuscular Volume 92.6 fL Mean Corpuscular Hemoglobin 29.2 pg Mean Corpuscular Hemoglobin Concent 31.5 g/dL Red Cell Distribution Width 15.4 % Platelet Count 183 10^3/uL Mean Platelet Volume 10.6 fL Neutrophils (%) (Auto) 72.2 % Lymphocytes (%) (Auto) 19.1 % Monocytes (%) (Auto) 8.0 % Neutrophils # (Auto) 4.8 10^3/uL Lymphocytes # (Auto) 1.26 10^3/uL1 Monocytes # (Auto) 0.5 10^3/uL Absolute Immature Granulocyte (auto 0.01 10^3 u/L Absolute Eosinophils (auto) 0.0 10^3/uL Immature Granulocytes % 0.20 % Eosinophils % 0.0 % Basophils % 0.5 % Basophils # 0.0 10^3/uL Sodium Level 140 mmol/L Potassium Level 4.1 mmol/L Chloride Level 103.0 mmol/L Carbon Dioxide Level 29.5 mmol/L Glucose Level 119 mg/dL Blood Urea Nitrogen 13 mg/dL Creatinine 0.90 mg/dL Calcium Level 8.5 mg/dL Anion Gap 11.6 Estimated GFR () 77.8 Est GFR (CKD-EPI)(Non-Afr Martiniquais) 64.3 BUN/Creatinine Ratio 14.0 Bedside Glucose 126 125 114 Test 07/15/20 16:50 07/15/20 20:03 Bedside Glucose 104 99 Current Medications Medications (Trade) Dose Ordered Sig/Angel Route PRN Reason Start Time Stop Time Status Last Admin Dose Admin Sodium Chloride 1,000 ml @ ud STK-MED ONCE .ROUTE 07/12/20 11:10 07/12/20 11:11 DC Meropenem 500 mg/ Sodium Chloride 100 ml @ 200 mls/hr STAT STAT IV 07/12/20 11:26 07/12/20 11:55 DC 07/12/20 11:51 Vancomycin HCl 1.5 gm/Sodium Chloride 300 ml @ 175 mls/hr OT ONCE IV 07/12/20 11:30 07/12/20 13:12 DC 07/12/20 12:23 Sodium Chloride 100 ml @ ud STK-MED ONCE IV 07/12/20 11:47 07/12/20 11:47 DC Sodium Chloride 2,000 ml @ 1,200 mls/hr Q1H40M STAT IV 07/12/20 12:40 07/12/20 14:19 DC 07/12/20 11:30 Sodium Chloride 1,000 ml @ 75 mls/hr [id number] STAT IV 07/12/20 12:40 07/13/20 01:59 DC 07/12/20 12:42 Citalopram Hydrobromide (CeleXA) 20 mg DAILY PO 07/13/20 09:00 07/14/20 13:59 DC 07/14/20 08:05 Gabapentin (Neurontin) 300 mg DAILY PRN PO NERVE PAIN 07/12/20 13:30 08/11/20 13:29 07/15/20 08:07 Metformin HCl (Glucophage) 500 mg BID PO 07/12/20 21:00 07/13/20 14:03 DC 07/13/20 08:28 Metoprolol Tartrate (Lopressor) 50 mg BID PO 07/12/20 21:00 08/11/20 20:59 07/15/20 20:59 Sodium Chloride 1,000 ml @ ud STK-MED ONCE .ROUTE 07/12/20 13:23 07/12/20 13:23 DC Clindamycin Phosphate 50 ml @ 50 mls/hr Q8 IV 07/12/20 14:00 08/11/20 13:59 07/15/20 21:01 Meropenem 500 mg/ Sodium Chloride 100 ml @ 200 mls/hr Q8H IV 07/12/20 14:00 08/11/20 13:59 07/15/20 14:00 Sodium Chloride 100 ml @ ud STK-MED ONCE IV 07/12/20 13:57 07/12/20 13:57 DC Fentanyl Citrate (Sublimaze) 100 mcg STAT STAT IV 07/12/20 14:11 07/12/20 14:14 DC 07/12/20 14:18 Ketorolac Tromethamine (Toradol) 30 mg STAT STAT IV 07/12/20 14:11 07/12/20 14:14 DC 07/12/20 14:19 Ketorolac Tromethamine (Toradol) 30 mg STAT STAT IV 07/12/20 14:12 07/12/20 14:20 DC Fentanyl Citrate (Sublimaze) 100 mcg STAT STAT IV 07/12/20 14:12 07/12/20 14:20 DC Ketorolac Tromethamine (Toradol) 30 mg STK-MED ONCE .ROUTE 07/12/20 14:13 07/12/20 14:14 DC Fentanyl Citrate (Sublimaze) 50 mcg STK-MED ONCE .ROUTE 07/12/20 14:13 07/12/20 14:14 DC Enoxaparin Sodium (Lovenox) 80 mg HS SQ 07/12/20 21:00 07/13/20 03:16 DC 07/12/20 21:15 Enoxaparin Sodium (Lovenox) 80 mg HS SQ 07/13/20 03:16 08/11/20 20:59 07/15/20 20:59 Sodium Chloride 100 ml @ ud STK-MED ONCE IV 07/13/20 06:49 07/13/20 06:49 DC Acetaminophen (Tylenol) 1,000 mg Q6HR PRN PO PAIN/FEVER 07/13/20 14:00 08/12/20 13:59 07/15/20 14:24 Sodium Chloride 1,000 ml @ 250 mls/hr Q4H ONCE IV 07/13/20 14:30 07/13/20 18:29 DC 07/13/20 15:41 Nystatin (Nystop) 1 gm TID TP 07/13/20 15:00 08/12/20 14:59 07/15/20 21:00 Fluconazole (Diflucan) 100 mg DAILY PO 07/14/20 09:00 08/13/20 08:59 07/15/20 08:07 Bupropion HCl (Wellbutrin Xl) 150 mg DAILY PO 07/14/20 14:00 08/13/20 13:59 07/15/20 08:08 Ketorolac Tromethamine (Toradol) 15 mg Q6H PRN IV PAIN 4 - 6 07/14/20 16:00 07/19/20 15:59 Sodium Chloride 100 ml @ ud STK-MED ONCE IV 07/14/20 20:56 07/14/20 20:56 DC Sodium Chloride 100 ml @ ud STK-MED ONCE IV 07/15/20 03:36 07/15/20 03:36 DC Course Sepsis Screening Results: Posi: POSITIVE Sepsis Qualifier/Stage: SEPSIS RISK DATE SEEN BY PHYSICIAN: Jul 15, 2020 TIME SEEN BY PROVIDER: 18:30 Duration or Total Time Spent w: 10 MIN Vitals & review Data Laboratory Tests Test 07/14/20 04:19 07/14/20 05:45 07/14/20 07:56 07/14/20 11:21 Bedside Glucose 135 116 139 White Blood Count 7.9 10^3/uL Red Blood Count 3.86 10^6/uL Hemoglobin 11.4 g/dL Hematocrit 35.7 % Mean Corpuscular Volume 92.5 fL Mean Corpuscular Hemoglobin 29.5 pg Mean Corpuscular Hemoglobin Concent 31.9 g/dL Red Cell Distribution Width 15.6 % Platelet Count 160 10^3/uL Mean Platelet Volume 10.1 fL Neutrophils (%) (Auto) 74.9 % Lymphocytes (%) (Auto) 16.5 % Monocytes (%) (Auto) 8.1 % Neutrophils # (Auto) 6.0 10^3/uL Lymphocytes # (Auto) 1.31 10^3/uL1 Monocytes # (Auto) 0.6 10^3/uL Absolute Immature Granulocyte (auto 0.02 10^3 u/L Absolute Eosinophils (auto) 0.0 10^3/uL Immature Granulocytes % 0.30 % Eosinophils % 0.1 % Basophils % 0.1 % Basophils # 0.0 10^3/uL D-Dimer 0.67 mg/L Sodium Level 140 mmol/L Potassium Level 4.7 mmol/L Chloride Level 103.0 mmol/L Carbon Dioxide Level 30.2 mmol/L Anion Gap 11.5 Blood Urea Nitrogen 13 mg/dL Creatinine 0.82 mg/dL Estimated GFR () 86.6 Est GFR (CKD-EPI)(Non-Afr Martiniquais) 71.6 BUN/Creatinine Ratio 15.0 Glucose Level 137 mg/dL Hemoglobin A1c 6.9 % Calcium Level 8.1 mg/dL Phosphorus Level 3.8 mg/dL Magnesium Level 2.1 mg/dL Total Bilirubin 0.3 mg/dL Aspartate Amino Transf (AST/SGOT) 26 U/L Alanine Aminotransferase (ALT/SGPT) 29 U/L Alkaline Phosphatase 74 U/L Total Protein 6.9 g/dL Albumin 2.8 g/dL Globulin 4.1 Albumin/Globulin Ratio 0.682 Procalcitonin 0.25 ng/mL Test 07/14/20 16:33 07/14/20 20:02 07/15/20 04:44 07/15/20 05:07 Bedside Glucose 115 117 126 White Blood Count 6.6 10^3/uL Red Blood Count 3.94 10^6/uL Hemoglobin 11.5 g/dL Hematocrit 36.5 % Mean Corpuscular Volume 92.6 fL Mean Corpuscular Hemoglobin 29.2 pg Mean Corpuscular Hemoglobin Concent 31.5 g/dL Red Cell Distribution Width 15.4 % Platelet Count 183 10^3/uL Mean Platelet Volume 10.6 fL Neutrophils (%) (Auto) 72.2 % Lymphocytes (%) (Auto) 19.1 % Monocytes (%) (Auto) 8.0 % Neutrophils # (Auto) 4.8 10^3/uL Lymphocytes # (Auto) 1.26 10^3/uL1 Monocytes # (Auto) 0.5 10^3/uL Absolute Immature Granulocyte (auto 0.01 10^3 u/L Absolute Eosinophils (auto) 0.0 10^3/uL Immature Granulocytes % 0.20 % Eosinophils % 0.0 % Basophils % 0.5 % Basophils # 0.0 10^3/uL Sodium Level 140 mmol/L Potassium Level 4.1 mmol/L Chloride Level 103.0 mmol/L Carbon Dioxide Level 29.5 mmol/L Glucose Level 119 mg/dL Blood Urea Nitrogen 13 mg/dL Creatinine 0.90 mg/dL Calcium Level 8.5 mg/dL Anion Gap 11.6 Estimated GFR () 77.8 Est GFR (CKD-EPI)(Non-Afr Martiniquais) 64.3 BUN/Creatinine Ratio 14.0 Test 07/15/20 07:46 07/15/20 12:15 07/15/20 16:50 07/15/20 20:03 Bedside Glucose 125 114 104 99 Current Medications Medications (Trade) Dose Ordered Sig/Angel PRN Reason Start Time Stop Time Status Last Admin Acetaminophen (Tylenol) 1,000 mg Q6HR PRN PAIN/FEVER 07/13/20 14:00 08/12/20 13:59 07/15/20 14:24 Bupropion HCl (Wellbutrin Xl) 150 mg DAILY 07/14/20 14:00 08/13/20 13:59 07/15/20 08:08 Enoxaparin Sodium (Lovenox) 80 mg HS 07/13/20 03:16 08/11/20 20:59 07/15/20 20:59 Fluconazole (Diflucan) 100 mg DAILY 07/14/20 09:00 08/13/20 08:59 2/10/21 08:07 Ketorolac Tromethamine (Toradol) 15 mg Q6H PRN PAIN 4 - 6 07/14/20 16:00 2 15:59 Nystatin (Nystop) 1 gm TID 07/13/20 15:00 08/12/20 14:59 07/15/20 21:00 Sepsis Infection Criteria Pres: Documented Infection LEVEL 1 SEPSIS INFECTION CRITE: ABX Therapy, Cellulitis LEVEL 2-SIRS (LIST ALL THAT AP: None/Not assessed Cardiovascular Evidence: Not Assessed or None Hematologic Evidence: None/Not assessed Hepatic Evidence: None/Not assessed Metabolic Evidence: None/Not assessed Neurological Evidence: None/Not assessed Respiratory Evidence: O2 SAT<90room air Renal Evidence: None/Not assessed O2 Sat by Pulse Oximetry: 97 Oxygen Flow Rate: 3.00 Findings Diminished breath sounds Assessment/Plan Assessment/Plan Assessment/Plan 1.) LLE Cellulits - Resolving on Abx. Wound in skin folds + for polymicrobial infection. Likely needs at least 14 days of IV abx. [facility] accepted and felt a bed would be available today. - Change Abx to Vancomycin and Levaquin. 2.) Chronic Bilateral Lymphedema - Would benefit from chronic wound care. Needs chronic wound therapy and lymphedema tx. Would be a good candidate for LTAC. - Needs lymphadema wraps if doesn't go to [facility]. 3.) HTN - Stable, no new changes. - Cont current meds. 4.) DMT2 - A1c less than 7. Weight loss will dramatically help. - Cont Metformin. 5.) Morbid Obesity - pt's size preventing her from managing ADL's. - Would benefit from therapy at LTAC. Plan SIMONA KOHLER MD Jul 18, 2020 18:26
[2020-07-18] MEDS: LOVENOX SQ SCH (20:08)
[2020-07-18 20:14] VITALS: BP 140/70
[2020-07-19 00:43] VITALS: BP 160/94
[2020-07-19 04:56] VITALS: BP 143/82
[2020-07-19] MEDS: LASIX IV SCH ×3 (06:00→22:00)
[2020-07-19 06:35] LABS: CALCIUM 8.6 mg/dL (8.4-10.5); CARBON DIOXIDE 28.4 mmol/L (20.0-32)
[2020-07-19] MEDS: TYLENOL PO PRN (06:43)
[2020-07-19 08:17] VITALS: BP 159/77
[2020-07-19] MEDS: KLOR-CON 10 PO SCH (08:29)
[2020-07-19] MEDS: WELLBUTRIN XL PO SCH (08:30)
[2020-07-19] MEDS: LOPRESSOR PO SCH ×2 (08:30→21:08)
[2020-07-19] MEDS: NEURONTIN PO PRN (08:30)
[2020-07-19] MEDS: NYSTOP TP SCH ×3 (08:31→21:09)
[2020-07-19] MEDS ORDERED: LASIX PO SCH (09:00)
--- NOTE | 2020-07-19 09:19 | NUR ---
WELLBUTRIN PT STATES WELLBUTRIN MAKES HER EXTREMELY TIRED AND SHE HAS BEEN HAVING ANGRY OUTBURSTS. Shikha DUNCAN RN NOTIFIED OF BEHAVIORS. BRANDAN ROSS WILL SEE PT TODAY.
[2020-07-19] MEDS: LEVAQUIN 150 ML IV SCH (11:29)
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
[2020-07-19 12:03] VITALS: BP 164/87
[2020-07-19] MEDS: VANCOMYCIN HCL 1 GM in NS 250ML 250 ML IV SCH (12:59)
--- NOTE | 2020-07-19 13:01 | NUR ---
MD ROUNDING: PER BRANDAN SALTERCLINICAL BIOSTATISTICS DIRECTOR NURSE: HOLD LASIX PER PATIENT REQUEST/MD AWARE.
[2020-07-19] MEDS ORDERED: WELLBUTRIN XL PO ONE (14:00)
--- NOTE | 2020-07-19 16:22 | PRM.PN ---
Subjective Subjective Date: Jul 19, 2020 Time: 16:17 Subjective Seen this AM at bedside. Likely getting close to baseline. Leg still hurting but some better. LTAC did not have bed today. Feels more anxious and depressed. Meeting with psych later today. VTE VTE Risk Total Score: 5 VTE Risk Score VTE Risk: Score 0-1 = Low Risk (Aggressive mobilization; early ambulation; no VTE prophylaxis required) Score 2: Moderate Risk (Intermittent/Pneumatic Compression Device OR Lovenox/Heparin/Coumadin) Score 3-4: High Risk (Intermittent/Pneumatic Compression Device AND Lovenox/Heparin/Coumadin) Score > or =5: Highest Risk (Intermittent/Pneumatic Compression Device AND Lovenox/Heparin/Coumadin) Antico:Hep/LMWH/Coum/Xarelto: Yes Mechanical device ordered: No Review of Systems Constitutional: Weakness, Malaise Respiratory: SOB with excertion; No: Cough, Dry, Shortness of breath, Wheezing, Hemoptysis, Pleuritic Pain, Sputum, Wheezing, Other Cardiovascular: Edema; No: Chest Pain, Palpitations, Orthopnea, Paroxysmal Noc. Dyspnea, Lt Headedness, Other Gastrointestinal: No: Nausea, Vomiting, Abdominal Pain Genitourinary: No Dysuria, No Frequency Musculoskeletal: leg pain Skin: Rash, Lesions Neurological: No: Weakness, Numbness, Incoordination, Change in speech, Confusion, Seizures, Other Allergies: Coded Allergies: Penicillins (Verified Allergy, Unknown, hives, 07/19/18) Scheduled Bupropion Hcl (Wellbutrin Xl), 150 MG PO DAILY Citalopram Hydrobromide (Celexa), 1 TAB PO DAILY, (Reported) Enoxaparin Sodium (Lovenox), 80 MG SQ HS Furosemide (Furosemide), 40 MG PO DAILY Gabapentin (Gabapentin), 1 CAP PO PRN, (Reported) Levofloxacin 750 Mg/Dextrose 5 % (Levofloxacin-D5w 750 Mg/150 Ml), 750 MG IV q24 hours Metformin Hcl (Metformin Hcl), 1 TAB PO BID, (Reported) Metoprolol Tartrate 50MG (Lopresser 50MG), 1 TAB PO BID, (Reported) Nystatin (Nystop), 1 GM TP TID Potassium Chloride (Klor-Con 10), 10 MEQ PO DAILY Vancomycin/0.9 % Sod Chloride (Vanco 1 Gram/250 ml-0.9% NaCl), 1 GM IV q24 hours Discontinued Medications Clindamycin Hcl (Clindamycin Hcl), 300 MG PO BID Discontinued Reason: Discontinue Insulin Glargine,Hum.rec.anlog (Lantus), 20 UNIT SQ HS, (Reported) Discontinued Reason: Cancel Objective Vitals and I/O Vital Sign - Last 24 Hours 07/19/20 07/19/20 07/19/20 07/19/20 08:01 08:17 08:30 08:30 Temp 97.9 Pulse 54 54 Resp 22 22 22 B/P (MAP) 159/77 (104) Pulse Ox 97 97 97 O2 Delivery Nasal Cannula Nasal Cannula O2 Flow Rate 3.00 3.00 FiO2 32 07/19/20 07/19/20 12:03 13:06 Temp 97.9 Pulse 65 Resp 22 B/P (MAP) 164/87 (112) 164/87 Pulse Ox 94 Intake and Output 07/19/20 07:00 Intake Total 2810 ml Balance 2810 ml General: Alert, Oriented X3, Cooperative, No acute distress HEENT: Atraumatic, PERRLA, EOMI, Mucous membr. moist/pink Neck: Supple, No JVD Lungs: Normal air movement, Other Heart: Regular rate, Normal S1, Normal S2, No murmurs Abdomen: Normal bowel sounds, Soft, No tenderness Extremities: Other Skin: No rashes, No breakdown, No significant lesion, Other (erythema on left lower leg.) Neuro: Normal speech, Strength at 5/5 X4 ext, Normal tone, Sensation intact, Cranial nerves 3-12 NL Psych/Mental Status: Mental status NL, Mood NL Other physical findings Diminished breath sounds All Results(Lab/Rad) Laboratory Tests Test 07/15/20 04:44 07/15/20 05:07 07/15/20 07:46 07/15/20 12:15 White Blood Count 6.6 10^3/uL Red Blood Count 3.94 10^6/uL Hemoglobin 11.5 g/dL Hematocrit 36.5 % Mean Corpuscular Volume 92.6 fL Mean Corpuscular Hemoglobin 29.2 pg Mean Corpuscular Hemoglobin Concent 31.5 g/dL Red Cell Distribution Width 15.4 % Platelet Count 183 10^3/uL Mean Platelet Volume 10.6 fL Neutrophils (%) (Auto) 72.2 % Lymphocytes (%) (Auto) 19.1 % Monocytes (%) (Auto) 8.0 % Neutrophils # (Auto) 4.8 10^3/uL Lymphocytes # (Auto) 1.26 10^3/uL1 Monocytes # (Auto) 0.5 10^3/uL Absolute Immature Granulocyte (auto 0.01 10^3 u/L Absolute Eosinophils (auto) 0.0 10^3/uL Immature Granulocytes % 0.20 % Eosinophils % 0.0 % Basophils % 0.5 % Basophils # 0.0 10^3/uL Sodium Level 140 mmol/L Potassium Level 4.1 mmol/L Chloride Level 103.0 mmol/L Carbon Dioxide Level 29.5 mmol/L Glucose Level 119 mg/dL Blood Urea Nitrogen 13 mg/dL Creatinine 0.90 mg/dL Calcium Level 8.5 mg/dL Anion Gap 11.6 Estimated GFR () 77.8 Est GFR (CKD-EPI)(Non-Afr Armenian) 64.3 BUN/Creatinine Ratio 14.0 Bedside Glucose 126 125 114 Test 07/15/20 16:50 07/15/20 20:03 Bedside Glucose 104 99 Current Medications Medications (Trade) Dose Ordered Sig/Angel Route PRN Reason Start Time Stop Time Status Last Admin Dose Admin Sodium Chloride 1,000 ml @ ud STK-MED ONCE .ROUTE 07/12/20 11:10 07/12/20 11:11 DC Meropenem 500 mg/ Sodium Chloride 100 ml @ 200 mls/hr STAT STAT IV 07/12/20 11:26 07/12/20 11:55 DC 07/12/20 11:51 Vancomycin HCl 1.5 gm/Sodium Chloride 300 ml @ 175 mls/hr OT ONCE IV 07/12/20 11:30 07/12/20 13:12 DC 07/12/20 12:23 Sodium Chloride 100 ml @ ud STK-MED ONCE IV 07/12/20 11:47 07/12/20 11:47 DC Sodium Chloride 2,000 ml @ 1,200 mls/hr [id number] STAT IV 07/12/20 12:40 07/12/20 14:19 DC 07/12/20 11:30 Sodium Chloride 1,000 ml @ 75 mls/hr [id number] STAT IV 07/12/20 12:40 07/13/20 01:59 DC 07/12/20 12:42 Citalopram Hydrobromide (CeleXA) 20 mg DAILY PO 07/13/20 09:00 07/14/20 13:59 DC 07/14/20 08:05 Gabapentin (Neurontin) 300 mg DAILY PRN PO NERVE PAIN 07/12/20 13:30 08/11/20 13:29 07/15/20 08:07 Metformin HCl (Glucophage) 500 mg BID PO 07/12/20 21:00 07/13/20 14:03 DC 07/13/20 08:28 Metoprolol Tartrate (Lopressor) 50 mg BID PO 07/12/20 21:00 08/11/20 20:59 07/15/20 20:59 Sodium Chloride 1,000 ml @ ud STK-MED ONCE .ROUTE 07/12/20 13:23 07/12/20 13:23 DC Clindamycin Phosphate 50 ml @ 50 mls/hr Q8 IV 07/12/20 14:00 08/11/20 13:59 07/15/20 21:01 Meropenem 500 mg/ Sodium Chloride 100 ml @ 200 mls/hr Q8H IV 07/12/20 14:00 08/11/20 13:59 07/15/20 14:00 Sodium Chloride 100 ml @ ud STK-MED ONCE IV 07/12/20 13:57 07/12/20 13:57 DC Fentanyl Citrate (Sublimaze) 100 mcg STAT STAT IV 07/12/20 14:11 07/12/20 14:14 DC 07/12/20 14:18 Ketorolac Tromethamine (Toradol) 30 mg STAT STAT IV 07/12/20 14:11 07/12/20 14:14 DC 07/12/20 14:19 Ketorolac Tromethamine (Toradol) 30 mg STAT STAT IV 07/12/20 14:12 07/12/20 14:20 DC Fentanyl Citrate (Sublimaze) 100 mcg STAT STAT IV 07/12/20 14:12 07/12/20 14:20 DC Ketorolac Tromethamine (Toradol) 30 mg STK-MED ONCE .ROUTE 07/12/20 14:13 07/12/20 14:14 DC Fentanyl Citrate (Sublimaze) 50 mcg STK-MED ONCE .ROUTE 07/12/20 14:13 07/12/20 14:14 DC Enoxaparin Sodium (Lovenox) 80 mg HS SQ 07/12/20 21:00 07/13/20 03:16 DC 07/12/20 21:15 Enoxaparin Sodium (Lovenox) 80 mg HS SQ 07/13/20 03:16 08/11/20 20:59 07/15/20 20:59 Sodium Chloride 100 ml @ ud STK-MED ONCE IV 07/13/20 06:49 07/13/20 06:49 DC Acetaminophen (Tylenol) 1,000 mg Q6HR PRN PO PAIN/FEVER 07/13/20 14:00 08/12/20 13:59 07/15/20 14:24 Sodium Chloride 1,000 ml @ 250 mls/hr Q4H ONCE IV 07/13/20 14:30 07/13/20 18:29 DC 07/13/20 15:41 Nystatin (Nystop) 1 gm TID TP 07/13/20 15:00 08/12/20 14:59 07/15/20 21:00 Fluconazole (Diflucan) 100 mg DAILY PO 07/14/20 09:00 08/13/20 08:59 07/15/20 08:07 Bupropion HCl (Wellbutrin Xl) 150 mg DAILY PO 07/14/20 14:00 08/13/20 13:59 07/15/20 08:08 Ketorolac Tromethamine (Toradol) 15 mg Q6H PRN IV PAIN 4 - 6 07/14/20 16:00 07/19/20 15:59 Sodium Chloride 100 ml @ ud STK-MED ONCE IV 07/14/20 20:56 07/14/20 20:56 DC Sodium Chloride 100 ml @ ud STK-MED ONCE IV 07/15/20 03:36 07/15/20 03:36 DC Course Sepsis Screening Results: Posi: POSITIVE Sepsis Qualifier/Stage: SEPSIS RISK DATE SEEN BY PHYSICIAN: Jul 15, 2020 TIME SEEN BY PROVIDER: 18:30 Duration or Total Time Spent w: 10 MIN Vitals & review Data Laboratory Tests Test 07/14/20 04:19 07/14/20 05:45 07/14/20 07:56 07/14/20 11:21 Bedside Glucose 135 116 139 White Blood Count 7.9 10^3/uL Red Blood Count 3.86 10^6/uL Hemoglobin 11.4 g/dL Hematocrit 35.7 % Mean Corpuscular Volume 92.5 fL Mean Corpuscular Hemoglobin 29.5 pg Mean Corpuscular Hemoglobin Concent 31.9 g/dL Red Cell Distribution Width 15.6 % Platelet Count 160 10^3/uL Mean Platelet Volume 10.1 fL Neutrophils (%) (Auto) 74.9 % Lymphocytes (%) (Auto) 16.5 % Monocytes (%) (Auto) 8.1 % Neutrophils # (Auto) 6.0 10^3/uL Lymphocytes # (Auto) 1.31 10^3/uL1 Monocytes # (Auto) 0.6 10^3/uL Absolute Immature Granulocyte (auto 0.02 10^3 u/L Absolute Eosinophils (auto) 0.0 10^3/uL Immature Granulocytes % 0.30 % Eosinophils % 0.1 % Basophils % 0.1 % Basophils # 0.0 10^3/uL D-Dimer 0.67 mg/L Sodium Level 140 mmol/L Potassium Level 4.7 mmol/L Chloride Level 103.0 mmol/L Carbon Dioxide Level 30.2 mmol/L Anion Gap 11.5 Blood Urea Nitrogen 13 mg/dL Creatinine 0.82 mg/dL Estimated GFR () 86.6 Est GFR (CKD-EPI)(Non-Afr Armenian) 71.6 BUN/Creatinine Ratio 15.0 Glucose Level 137 mg/dL Hemoglobin A1c 6.9 % Calcium Level 8.1 mg/dL Phosphorus Level 3.8 mg/dL Magnesium Level 2.1 mg/dL Total Bilirubin 0.3 mg/dL Aspartate Amino Transf (AST/SGOT) 26 U/L Alanine Aminotransferase (ALT/SGPT) 29 U/L Alkaline Phosphatase 74 U/L Total Protein 6.9 g/dL Albumin 2.8 g/dL Globulin 4.1 Albumin/Globulin Ratio 0.682 Procalcitonin 0.25 ng/mL Test 07/14/20 16:33 07/14/20 20:02 07/15/20 04:44 07/15/20 05:07 Bedside Glucose 115 117 126 White Blood Count 6.6 10^3/uL Red Blood Count 3.94 10^6/uL Hemoglobin 11.5 g/dL Hematocrit 36.5 % Mean Corpuscular Volume 92.6 fL Mean Corpuscular Hemoglobin 29.2 pg Mean Corpuscular Hemoglobin Concent 31.5 g/dL Red Cell Distribution Width 15.4 % Platelet Count 183 10^3/uL Mean Platelet Volume 10.6 fL Neutrophils (%) (Auto) 72.2 % Lymphocytes (%) (Auto) 19.1 % Monocytes (%) (Auto) 8.0 % Neutrophils # (Auto) 4.8 10^3/uL Lymphocytes # (Auto) 1.26 10^3/uL1 Monocytes # (Auto) 0.5 10^3/uL Absolute Immature Granulocyte (auto 0.01 10^3 u/L Absolute Eosinophils (auto) 0.0 10^3/uL Immature Granulocytes % 0.20 % Eosinophils % 0.0 % Basophils % 0.5 % Basophils # 0.0 10^3/uL Sodium Level 140 mmol/L Potassium Level 4.1 mmol/L Chloride Level 103.0 mmol/L Carbon Dioxide Level 29.5 mmol/L Glucose Level 119 mg/dL Blood Urea Nitrogen 13 mg/dL Creatinine 0.90 mg/dL Calcium Level 8.5 mg/dL Anion Gap 11.6 Estimated GFR () 77.8 Est GFR (CKD-EPI)(Non-Afr Armenian) 64.3 BUN/Creatinine Ratio 14.0 Test 07/15/20 07:46 07/15/20 12:15 07/15/20 16:50 07/15/20 20:03 Bedside Glucose 125 114 104 99 Current Medications Medications (Trade) Dose Ordered Sig/Angel PRN Reason Start Time Stop Time Status Last Admin Acetaminophen (Tylenol) 1,000 mg Q6HR PRN PAIN/FEVER 07/13/20 14:00 08/12/20 13:59 07/15/20 14:24 Bupropion HCl (Wellbutrin Xl) 150 mg DAILY 07/14/20 14:00 08/13/20 13:59 07/15/20 08:08 Enoxaparin Sodium (Lovenox) 80 mg HS 07/13/20 03:16 08/11/20 20:59 07/15/20 20:59 Fluconazole (Diflucan) 100 mg DAILY 07/14/20 09:00 08/13/20 08:59 07/15/20 08:07 Ketorolac Tromethamine (Toradol) 15 mg Q6H PRN PAIN 4 - 6 07/14/20 16:00 07/19/20 15:59 Nystatin (Nystop) 1 gm TID 07/13/20 15:00 08/12/20 14:59 07/15/20 21:00 Sepsis Infection Criteria Pres: Documented Infection LEVEL 1 SEPSIS INFECTION CRITE: ABX Therapy, Cellulitis LEVEL 2-SIRS (LIST ALL THAT AP: None/Not assessed Cardiovascular Evidence: Not Assessed or None Hematologic Evidence: None/Not assessed Hepatic Evidence: None/Not assessed Metabolic Evidence: None/Not assessed Neurological Evidence: None/Not assessed Respiratory Evidence: O2 SAT<90room air Renal Evidence: None/Not assessed O2 Sat by Pulse Oximetry: 94 Oxygen Flow Rate: 3.00 Findings Diminished breath sounds Assessment/Plan Assessment/Plan Assessment/Plan 1.) LLE Cellulits - Resolving on Abx. Wound in skin folds + for polymicrobial infection. Likely needs at least 14 days of IV abx. [facility] had accepted and felt a bed would be available today. - Change Abx to Vancomycin and Levaquin. - Can d/c tomorrow to facility or home if she will not go to facility. 2.) Chronic Bilateral Lymphedema - Would benefit from chronic wound care. Needs chronic wound therapy and lymphedema tx. Would be a good candidate for LTAC. - Needs lymphadema wraps if doesn't go to [facility]. 3.) HTN - Staying too high over last 24 hours. - Add Losartan. 4.) DMT2 - A1c less than 7. Weight loss will dramatically help. - Cont Metformin. 5.) Morbid Obesity - pt's size preventing her from managing ADL's. - Would benefit from therapy at LTAC. Hopeful plan for discharge today 07/19/20. Inclement weather may play into this. SIMONA KOHLER MD Jul 19, 2020 16:22
[2020-07-19] MEDS ORDERED: WELLBUTRIN XL PO SCH (18:00)
[2020-07-19 18:01] VITALS: BP 129/64
[2020-07-19 19:53] VITALS: BP 149/75
[2020-07-19] MEDS: LOVENOX SQ SCH (21:09)
--- NOTE | 2020-07-19 22:00 | NUR ---
Patient refused lasix administration stating "I dont want to have to use the bathroom all night". MD already made aware by previous shift nurse.
[2020-07-20 00:39] VITALS: BP 138/62
[2020-07-20 04:02] VITALS: BP 156/82
[2020-07-20] MEDS: TORADOL IV PRN (04:04)
[2020-07-20] MEDS: LASIX IV SCH (06:00)
[2020-07-20 07:45] VITALS: BP 143/70
[2020-07-20] MEDS: KLOR-CON 10 PO SCH (08:51)
[2020-07-20] MEDS: NEURONTIN PO PRN (08:51)
[2020-07-20] MEDS: LOPRESSOR PO SCH (08:52)
[2020-07-20] MEDS: TYLENOL PO PRN (08:53)
[2020-07-20] MEDS: NYSTOP TP SCH (08:53)
[2020-07-20] MEDS ORDERED: WELLBUTRIN XL PO SCH (09:00)
[2020-07-20 12:20] VITALS: BP 127/64
--- NOTE | 2020-07-20 12:58 | PRM.DC ---
DC Summary Date of Discharge: Jul 20, 2020 Time of Request to Discharge: 12:50 Final Dx: Problems Medical Problems: (1) Cellulitis of left leg Permanent Comment: Left lower extremity is greater in circumference than right; is erythematous with induration, weeping, inflammation, crusting. Pedal pulses palpable. Sx slightly improved from yesterday. Hopefully home tomorrow. Last Edited By: Rodolfo Voss MD - Hospitalist on Jul 22, 2018 17:16 Status: Acute Rank: 17 ICD Codes: L03.116 - Cellulitis of left lower limb SNOMED: [id number] Responsible Provider: BEN LARA MD Problem Recorded: Apr 24, 2017 11:47 Last Edited By: Tri Augustin Rn-Er on Jul 16, 2020 01:21 (2) Gastroparesis Status: Chronic Rank: 11 ICD Codes: K31.84 - Gastroparesis SNOMED: [id number] Responsible Provider: TITO MOHAN MD Problem Recorded: Jun 29, 2017 11:37 Last Edited By: Mary Perez MD, Hospitalist on Jul 12, 2020 12:38 (3) Morbid obesity with BMI of 70 and over, adult Status: Chronic Rank: 15 ICD Codes: E66.01 - Morbid (severe) obesity due to excess calories; Z68.45 - Body mass index (BMI) 70 or greater, adult SNOMED: 603328401, [id number] Responsible Provider: TITO MOHAN MD Problem Recorded: Feb 19, 2018 17:38 Last Edited By: Tri Augustin Rn-Er on Jul 18, 2020 11:34 (4) ERNESTO (obstructive sleep apnea) Status: Chronic Rank: 14 ICD Codes: G47.33 - Obstructive sleep apnea (adult) (pediatric) SNOMED: [id number] Responsible Provider: TITO MOHAN MD Problem Recorded: Jun 29, 2017 11:37 Last Edited By: Mary Perez MD, Hospitalist on Jul 18, 2020 11:34 Family History Problems: (1) Family history of asthma Relations: 32 MOTHER Rank: 2 ICD Codes: Z82.5 - Family history of asthma SNOMED: [id number] Problem Recorded: Apr 24, 2017 13:04 Last Edited By: CONI-RANK UPDATE on Jul 12, 2020 12:38 (2) Family history of hypertension Relations: 32 MOTHER Rank: 1 ICD Codes: Z82.49 - Family history of hypertension SNOMED: [id number] Problem Recorded: Apr 24, 2017 13:05 Last Edited By: CONI-RANK UPDATE on Jul 12, 2020 12:38 HPI/Course DATE OF ADMISSION: 07/12/2020 CHIEF COMPLAINT: Patient is a 60-year-old female with longstanding history of lymphedema of the legs comes in with fever chills and redness of the legs and being admitted for cellulitis HISTORY OF PRESENT ILLNESS: "Patient is a 60-year-old female with longstanding history of morbid obesity with weight is excessive of 258 kg. Has chronic lymphedema of both legs left greater than the right. Severe edema of the left leg with multiple evaluations in the past negative for DVT. Patient has had multiple episodes of history of cellulitis with prolonged hospitalizations. Patient also has history of poor compliance with lymphedema clinic and 0 compliance with CPAP machine for her sleep apnea. According to the patient she is not diabetic but she is on Metformin. She also has hypertension. According to the staff and other report it seems like patient has been gaining weight progressively which is getting difficult to control any of the medical problems which are related to morbid obesity including lymphedema and sleep apnea. According to the patient she has not been feeling well for the few days and started having fevers and chills last night. She came to the emergency room where the evaluation shows lactic acid of 2.1 and a white count of 14,000 with a possible cellulitis being the source of infection. Patient's chest x-ray was negative. Patient was given 1 dose of meropenem and 1 dose of vancomycin. Patient is being admitted for cellulitis and elevated lactic acidosis." HOSPITAL COURSE: Pt was admitted to inpatient medicine as above. She was given Vancomycin once on Jul 12, then transitioned to Clindamycin & Merrem for broad spectrum antibiotic coverage until Jul 18 [6 full days of abx]. Because she had no identifiable open wounds or ulcerations that could be cultured. Cultures were taken from between skin folds, which returned positive for polymicrobial infection. Blood cultures were obtained, which returned positive for strep viridans in only 1 of 2 bottles, which may represent a skin contaminant. Based on these findings, treatment was based off of polymicrobial cultures and she was transitioned to Vanc/Levaquin on Jul 18, with plans for at least 14 days of antibiotic treatment. Discharge was attempted on Jul 18, but could not be accomplished due to bed availability and inclement weather. She was monitored until Jul 20 and discharged to care of [facility] in stable/improved condition with Rx as below. Of note, her lasix was increased to TID to attempt to reduce lymphedema, but the patient refused to take any more than one dose per day. I discussed this with her and additional doses could be considered at [facility] if they are scheduled in a way that she doesn't get a dose right before bedtime. She would also benefit from a strict weight loss diet and aggressive physical therapy if at all possible. Lab/Medardo/BBK/Rad Laboratory Tests Test 07/15/20 04:44 07/15/20 05:07 07/15/20 07:46 07/15/20 12:15 White Blood Count 6.6 10^3/uL Red Blood Count 3.94 10^6/uL Hemoglobin 11.5 g/dL Hematocrit 36.5 % Mean Corpuscular Volume 92.6 fL Mean Corpuscular Hemoglobin 29.2 pg Mean Corpuscular Hemoglobin Concent 31.5 g/dL Red Cell Distribution Width 15.4 % Platelet Count 183 10^3/uL Mean Platelet Volume 10.6 fL Neutrophils (%) (Auto) 72.2 % Lymphocytes (%) (Auto) 19.1 % Monocytes (%) (Auto) 8.0 % Neutrophils # (Auto) 4.8 10^3/uL Lymphocytes # (Auto) 1.26 10^3/uL1 Monocytes # (Auto) 0.5 10^3/uL Absolute Immature Granulocyte (auto 0.01 10^3 u/L Absolute Eosinophils (auto) 0.0 10^3/uL Immature Granulocytes % 0.20 % Eosinophils % 0.0 % Basophils % 0.5 % Basophils # 0.0 10^3/uL Sodium Level 140 mmol/L Potassium Level 4.1 mmol/L Chloride Level 103.0 mmol/L Carbon Dioxide Level 29.5 mmol/L Glucose Level 119 mg/dL Blood Urea Nitrogen 13 mg/dL Creatinine 0.90 mg/dL Calcium Level 8.5 mg/dL Anion Gap 11.6 Estimated GFR () 77.8 Est GFR (CKD-EPI)(Non-Afr Afghan) 64.3 BUN/Creatinine Ratio 14.0 Bedside Glucose 126 125 114 Test 07/15/20 16:50 07/15/20 20:03 Bedside Glucose 104 99 Current Medications Medications (Trade) Dose Ordered Sig/Angel Route PRN Reason Start Time Stop Time Status Last Admin Dose Admin Sodium Chloride 1,000 ml @ ud STK-MED ONCE .ROUTE 07/12/20 11:10 07/12/20 11:11 DC Meropenem 500 mg/ Sodium Chloride 100 ml @ 200 mls/hr STAT STAT IV 07/12/20 11:26 07/12/20 11:55 DC 07/12/20 11:51 Vancomycin HCl 1.5 gm/Sodium Chloride 300 ml @ 175 mls/hr OT ONCE IV 07/12/20 11:30 07/12/20 13:12 DC 07/12/20 12:23 Sodium Chloride 100 ml @ ud STK-MED ONCE IV 07/12/20 11:47 07/12/20 11:47 DC Sodium Chloride 2,000 ml @ 1,200 mls/hr Q1H40M STAT IV 07/12/20 12:40 07/12/20 14:19 DC 07/12/20 11:30 Sodium Chloride 1,000 ml @ 75 mls/hr [id number] STAT IV 07/12/20 12:40 07/13/20 01:59 DC 07/12/20 12:42 Citalopram Hydrobromide (CeleXA) 20 mg DAILY PO 07/13/20 09:00 07/14/20 13:59 DC 07/14/20 08:05 Gabapentin (Neurontin) 300 mg DAILY PRN PO NERVE PAIN 07/12/20 13:30 08/11/20 13:29 07/15/20 08:07 Metformin HCl (Glucophage) 500 mg BID PO 07/12/20 21:00 07/13/20 14:03 DC 07/13/20 08:28 Metoprolol Tartrate (Lopressor) 50 mg BID PO 07/12/20 21:00 08/11/20 20:59 07/15/20 20:59 Sodium Chloride 1,000 ml @ ud STK-MED ONCE .ROUTE 07/12/20 13:23 07/12/20 13:23 DC Clindamycin Phosphate 50 ml @ 50 mls/hr Q8 IV 07/12/20 14:00 08/11/20 13:59 07/15/20 21:01 Meropenem 500 mg/ Sodium Chloride 100 ml @ 200 mls/hr Q8H IV 07/12/20 14:00 08/11/20 13:59 07/15/20 14:00 Sodium Chloride 100 ml @ ud STK-MED ONCE IV 07/12/20 13:57 07/12/20 13:57 DC Fentanyl Citrate (Sublimaze) 100 mcg STAT STAT IV 07/12/20 14:11 07/12/20 14:14 DC 07/12/20 14:18 Ketorolac Tromethamine (Toradol) 30 mg STAT STAT IV 07/12/20 14:11 07/12/20 14:14 DC 07/12/20 14:19 Ketorolac Tromethamine (Toradol) 30 mg STAT STAT IV 07/12/20 14:12 07/12/20 14:20 DC Fentanyl Citrate (Sublimaze) 100 mcg STAT STAT IV 07/12/20 14:12 07/12/20 14:20 DC Ketorolac Tromethamine (Toradol) 30 mg STK-MED ONCE .ROUTE 07/12/20 14:13 07/12/20 14:14 DC Fentanyl Citrate (Sublimaze) 50 mcg STK-MED ONCE .ROUTE 07/12/20 14:13 07/12/20 14:14 DC Enoxaparin Sodium (Lovenox) 80 mg HS SQ 07/12/20 21:00 07/13/20 03:16 DC 07/12/20 21:15 Enoxaparin Sodium (Lovenox) 80 mg HS SQ 07/13/20 03:16 08/11/20 20:59 07/15/20 20:59 Sodium Chloride 100 ml @ ud STK-MED ONCE IV 07/13/20 06:49 07/13/20 06:49 DC Acetaminophen (Tylenol) 1,000 mg Q6HR PRN PO PAIN/FEVER 07/13/20 14:00 08/12/20 13:59 07/15/20 14:24 Sodium Chloride 1,000 ml @ 250 mls/hr Q4H ONCE IV 07/13/20 14:30 07/13/20 18:29 DC 07/13/20 15:41 Nystatin (Nystop) 1 gm TID TP 07/13/20 15:00 08/12/20 14:59 07/15/20 21:00 Fluconazole (Diflucan) 100 mg DAILY PO 07/14/20 09:00 08/13/20 08:59 07/15/20 08:07 Bupropion HCl (Wellbutrin Xl) 150 mg DAILY PO 07/14/20 14:00 08/13/20 13:59 07/15/20 08:08 Ketorolac Tromethamine (Toradol) 15 mg Q6H PRN IV PAIN 4 - 6 07/14/20 16:00 07/19/20 15:59 Sodium Chloride 100 ml @ STK-MED ONCE IV 07/14/20 20:56 07/14/20 20:56 DC Sodium Chloride 100 ml @ STK-MED ONCE IV 07/15/20 03:36 07/15/20 03:36 DC Vitals/I&O VS - Last 72 Hours, by Label Date Time Temp Pulse Resp B/P (MAP) Pulse Ox O2 Delivery O2 Flow Rate FiO2 07/20/20 12:20 97.5 66 20 127/64 (85) 100 07/20/20 08:49 Nasal Cannula 3.00 07/20/20 08:30 63 20 96 Nasal Cannula 3.00 32 07/20/20 07:45 97.5 63 20 143/70 (94) 96 Room Air 07/20/20 06:00 156/82 07/20/20 04:02 97.4 60 20 156/82 (106) 97 3.00 07/20/20 00:51 Nasal Cannula 3.00 07/20/20 00:39 97.5 75 20 138/62 (87) 100 07/19/20 22:00 140/71 07/19/20 21:30 68 20 99 Nasal Cannula 3.00 32 07/19/20 19:53 98.2 82 18 149/75 (99) 100 Nasal Canula 3.00 07/19/20 18:01 97.7 61 20 129/64 (85) 100 07/19/20 13:06 164/87 07/19/20 12:03 97.9 65 22 164/87 (112) 94 07/19/20 08:30 54 22 97 Nasal Cannula 3.00 32 07/19/20 08:30 22 97 07/19/20 08:17 97.9 54 22 159/77 (104) 97 07/19/20 08:01 Nasal Cannula 3.00 07/19/20 06:00 143/82 07/19/20 04:56 97.9 68 22 143/82 (102) 99 Nasal Canula 3.00 07/19/20 00:43 98.2 63 22 160/94 (116) 97 Nasal Canula 3.00 07/18/20 21:00 61 17 96 Nasal Cannula 3.00 32 07/18/20 20:14 98.2 71 22 140/70 (93) 96 Nasal Canula 3.00 07/18/20 20:10 Nasal Cannula 3.00 07/18/20 17:41 98.0 69 24 146/80 (102) 97 07/18/20 12:50 97.7 70 24 147/80 (102) 93 07/18/20 08:58 97.9 73 24 162/93 (116) 94 07/18/20 08:55 81 22 96 Nasal Cannula 3.00 32 07/18/20 08:11 Nasal Cannula 3.00 07/18/20 04:56 97.6 73 22 147/60 (89) 97 07/18/20 00:11 97.6 75 22 157/77 (103) 96 Nasal Canula 3.00 07/17/20 23:07 69 18 98 Nasal Cannula 3.00 32 07/17/20 21:56 Nasal Cannula 3.00 07/17/20 19:50 97.7 70 22 142/67 (92) 98 Nasal Canula 3.00 07/17/20 18:15 97.9 69 24 159/85 (109) 97 07/17/20 17:38 Nasal Cannula 3.00 07/17/20 14:07 97.9 68 24 132/68 (89) 98 Scheduled Bupropion Hcl (Wellbutrin Xl), 150 MG PO DAILY Citalopram Hydrobromide (Celexa), 1 TAB PO DAILY, (Reported) Enoxaparin Sodium (Lovenox), 80 MG SQ HS Furosemide (Furosemide), 40 MG PO DAILY Gabapentin (Gabapentin), 1 CAP PO PRN, (Reported) Levofloxacin 750 Mg/Dextrose 5 % (Levofloxacin-D5w 750 Mg/150 Ml), 750 MG IV q24 hours Metformin Hcl (Metformin Hcl), 1 TAB PO BID, (Reported) Metoprolol Tartrate 50MG (Lopresser 50MG), 1 TAB PO BID, (Reported) Nystatin (Nystop), 1 GM TP TID Potassium Chloride (Klor-Con 10), 10 MEQ PO DAILY Vancomycin/0.9 % Sod Chloride (Vanco 1 Gram/250 ml-0.9% NaCl), 1 GM IV q24 hours Discontinued Medications Clindamycin Hcl (Clindamycin Hcl), 300 MG PO BID Discontinued Reason: Discontinue Sepsis Reassessment @ [facility] Laboratory Tests Test 07/14/20 04:19 07/14/20 05:45 07/14/20 07:56 07/14/20 11:21 Bedside Glucose 135 116 139 White Blood Count 7.9 10^3/uL Red Blood Count 3.86 10^6/uL Hemoglobin 11.4 g/dL Hematocrit 35.7 % Mean Corpuscular Volume 92.5 fL Mean Corpuscular Hemoglobin 29.5 pg Mean Corpuscular Hemoglobin Concent 31.9 g/dL Red Cell Distribution Width 15.6 % Platelet Count 160 10^3/uL Mean Platelet Volume 10.1 fL Neutrophils (%) (Auto) 74.9 % Lymphocytes (%) (Auto) 16.5 % Monocytes (%) (Auto) 8.1 % Neutrophils # (Auto) 6.0 10^3/uL Lymphocytes # (Auto) 1.31 10^3/uL1 Monocytes # (Auto) 0.6 10^3/uL Absolute Immature Granulocyte (auto 0.02 10^3 u/L Absolute Eosinophils (auto) 0.0 10^3/uL Immature Granulocytes % 0.30 % Eosinophils % 0.1 % Basophils % 0.1 % Basophils # 0.0 10^3/uL D-Dimer 0.67 mg/L Sodium Level 140 mmol/L Potassium Level 4.7 mmol/L Chloride Level 103.0 mmol/L Carbon Dioxide Level 30.2 mmol/L Anion Gap 11.5 Blood Urea Nitrogen 13 mg/dL Creatinine 0.82 mg/dL Estimated GFR () 86.6 Est GFR (CKD-EPI)(Non-Afr Afghan) 71.6 BUN/Creatinine Ratio 15.0 Glucose Level 137 mg/dL Hemoglobin A1c 6.9 % Calcium Level 8.1 mg/dL Phosphorus Level 3.8 mg/dL Magnesium Level 2.1 mg/dL Total Bilirubin 0.3 mg/dL Aspartate Amino Transf (AST/SGOT) 26 U/L Alanine Aminotransferase (ALT/SGPT) 29 U/L Alkaline Phosphatase 74 U/L Total Protein 6.9 g/dL Albumin 2.8 g/dL Globulin 4.1 Albumin/Globulin Ratio 0.682 Procalcitonin 0.25 ng/mL Test 07/14/20 16:33 07/14/20 20:02 07/15/20 04:44 07/15/20 05:07 Bedside Glucose 115 117 126 White Blood Count 6.6 10^3/uL Red Blood Count 3.94 10^6/uL Hemoglobin 11.5 g/dL Hematocrit 36.5 % Mean Corpuscular Volume 92.6 fL Mean Corpuscular Hemoglobin 29.2 pg Mean Corpuscular Hemoglobin Concent 31.5 g/dL Red Cell Distribution Width 15.4 % Platelet Count 183 10^3/uL Mean Platelet Volume 10.6 fL Neutrophils (%) (Auto) 72.2 % Lymphocytes (%) (Auto) 19.1 % Monocytes (%) (Auto) 8.0 % Neutrophils # (Auto) 4.8 10^3/uL Lymphocytes # (Auto) 1.26 10^3/uL1 Monocytes # (Auto) 0.5 10^3/uL Absolute Immature Granulocyte (auto 0.01 10^3 u/L Absolute Eosinophils (auto) 0.0 10^3/uL Immature Granulocytes % 0.20 % Eosinophils % 0.0 % Basophils % 0.5 % Basophils # 0.0 10^3/uL Sodium Level 140 mmol/L Potassium Level 4.1 mmol/L Chloride Level 103.0 mmol/L Carbon Dioxide Level 29.5 mmol/L Glucose Level 119 mg/dL Blood Urea Nitrogen 13 mg/dL Creatinine 0.90 mg/dL Calcium Level 8.5 mg/dL Anion Gap 11.6 Estimated GFR () 77.8 Est GFR (CKD-EPI)(Non-Afr Afghan) 64.3 BUN/Creatinine Ratio 14.0 Test 07/15/20 07:46 07/15/20 12:15 07/15/20 16:50 07/15/20 20:03 Bedside Glucose 125 114 104 99 Current Medications Medications (Trade) Dose Ordered Sig/Angel PRN Reason Start Time Stop Time Status Last Admin Acetaminophen (Tylenol) 1,000 mg Q6HR PRN PAIN/FEVER 07/13/20 14:00 08/12/20 13:59 07/15/20 14:24 Bupropion HCl (Wellbutrin Xl) 150 mg DAILY 07/14/20 14:00 08/13/20 13:59 07/15/20 08:08 Enoxaparin Sodium (Lovenox) 80 mg HS 07/13/20 03:16 08/11/20 20:59 07/15/20 20:59 Fluconazole (Diflucan) 100 mg DAILY 07/14/20 09:00 08/13/20 08:59 07/15/20 08:07 Ketorolac Tromethamine (Toradol) 15 mg Q6H PRN PAIN 4 - 6 07/14/20 16:00 07/19/20 15:59 Nystatin (Nystop) 1 gm TID 07/13/20 15:00 08/12/20 14:59 07/15/20 21:00 Condition/Impression stable/improved Activity as directed by physical therapy Diet Strict weight loss diet Discharge Plan as discussed in hospital course Prescription/RX: Active Scripts Active Nystop (Nystatin) 60 Gm Powder 1 Gm TP TID 30 Days Klor-Con 10 (Potassium Chloride) 10 Meq Tablet.er 10 Meq PO DAILY 30 Days Furosemide 40 Mg Tablet 40 Mg PO DAILY 30 Days Wellbutrin Xl (Bupropion Hcl) 150 Mg Tab.er.24h 150 Mg PO DAILY 30 Days Levofloxacin-D5w 750 Mg/150 Ml (Levofloxacin 750 Mg/Dextrose 5 %) 750 Mg/150 Ml Iv.soln 750 Mg IV Q24 HOURS 14 Days Vanco 1 Gram/250 ml-0.9% NaCl (Vancomycin/0.9 % Sod Chloride) 1 Gram/250 Ml Plast..bag 1 Gm IV Q24 HOURS 14 Days Lovenox (Enoxaparin Sodium) 80 Mg/0.8 Ml Disp.syrin 80 Mg SQ HS 30 Days Reported Metformin Hcl 500 Mg Tablet 1 Tab PO BID Gabapentin 300 Mg Capsule 1 Cap PO PRN Celexa (Citalopram Hydrobromide) 20 Mg Tablet 1 Tab PO DAILY Lopresser 50MG (Metoprolol Tartrate) 50 Mg Tablet 1 Tab PO BID Meds/Labs/Orders Medication List: Current Inpatient Medications Medications (Trade) Dose Ordered Sig/Angel PRN Reason Start Time Stop Time Status Last Admin Bupropion HCl (Wellbutrin Xl) 300 mg 0900 07/20/20 09:00 08/13/20 13:59 07/20/20 08:52 Furosemide (Lasix) 40 mg Q8HR 07/19/20 06:00 07/21/20 06:00 07/19/20 06:00 Levofloxacin/ Dextrose 150 ml @ 100 mls/hr Q24HRS 07/18/20 11:30 08/17/20 11:29 07/19/20 11:29 Potassium Chloride (Klor-Con 10) 10 meq DAILY 07/19/20 09:00 08/18/20 08:59 07/20/20 08:51 Vancomycin HCl 1 gm/Sodium Chloride 250 ml @ 175 mls/hr Q24HRS 07/18/20 13:00 08/17/20 12:59 07/19/20 12:59 Lab results: Laboratory Tests Test 07/18/20 17:29 07/19/20 04:31 07/19/20 05:08 07/19/20 07:53 Bedside Glucose 100 105 112 Sodium Level 135 mmol/L Potassium Level 4.2 mmol/L Chloride Level 100.0 mmol/L Carbon Dioxide Level 28.4 mmol/L Anion Gap 10.8 Blood Urea Nitrogen 11 mg/dL Creatinine 0.94 mg/dL Estimated GFR () 74.0 Est GFR (CKD-EPI)(Non-Afr Afghan) 61.2 BUN/Creatinine Ratio 11.0 Glucose Level 109 mg/dL Calcium Level 8.6 mg/dL Total Bilirubin 0.5 mg/dL Aspartate Amino Transf (AST/SGOT) 38 U/L Alanine Aminotransferase (ALT/SGPT) 60 U/L Alkaline Phosphatase 105 U/L Total Protein 7.1 g/dL Albumin 2.9 g/dL Globulin 4.2 Albumin/Globulin Ratio 0.690 Test 07/19/20 11:44 07/19/20 16:59 07/19/20 19:03 07/20/20 07:54 Bedside Glucose 102 102 144 97 Test 07/20/20 12:05 Bedside Glucose 111 Microbiology GRAM STAIN Final 07/14/20-920 MODERATE GRAM POSITIVE COCCI MODERATE GRAM NEGATIVE ESMER MANY EPI WOUND CULTURE Final 07/16/20-3828 Organism 1 PROTEUS MIRABILIS Organism 2 ENTEROCOC FAECALIS - (GROUP D) Organism 3 ENTEROCOCCUS AVIUM - (GROUP D) Organism 4 STREP DYSGALAC (STREP EQUISIM) PRELIMINARY REPORT GRAM NEGATIVE ORGANISM SMALL GROWTH GRAM POSITIVE ORGANISM LARGE GROWTH AT 17 HOURS ID AND SENS TO FOLLOW PRELIMINARY REPORT P. MIRABILIS E. FAECALIS GRAM POSITIVE ORGANISM STILL PENDING FINAL REPORT P. MIRABILIS E. FAECALIS ENTEROCOCCUS AVIUM STREPTOCOCCUS DYSGALACTIAE GROUP SPEC: [id number] PATIENT: MAYDA ALATORRE Venessa [id number] (Continued) Specimen: [id number] Collected: 07/13/20 Received: 07/13/20-160 (Continued) Procedure Result Verified WOUND CULTURE Final (continued) 07/16/20-1618 P MIRABILI E FAECA(D) E AVIUM(D) M.I.C. RX M.I.C. RX M.I.C. RX --------- --- --------- --- --------- --- * AMOXACILLIN/CLAVULANATE <=8/4 S * AMPICILLIN <=8 S <=2 S <=2 S * AMPICILLIN/SULBACTAM <=8/4 S * CEFAZOLIN <=2 S * CEFEPIME <=2 S * CEFTRIAXONE <=1 S * CIPROFLOXACIN <=0.25 S * ERTAPENEM <=0.5 S * ERYTHROMYCIN >4 R <=0.5 S * GENTAMICIN <=4 S * LEVOFLOXACIN <=0.5 S * MEROPENEM <=1 S * PENICILLIN 0.25 S 2 S * RIFAMPIN >2 R 2 I * TOBRAMYCIN 8 I * TRIMETHOPRIM-SULFAMETHOXAZOLE <=2/38 S * PIPERACILLIN/TAZOBACTAM <=16 S * VANCOMYCIN 2 S 0.5 S ENTEROCOC FAECALIS - (GROUP D): GRAM POS COMBO 33 - MSCAN Streptomycin Synergy Screen S Gentamicin Synergy Screen S ENTEROCOCCUS AVIUM - (GROUP D): GRAM POS COMBO 33 - MSCAN Streptomycin Synergy Screen S Gentamicin Synergy Screen S P MIRABILI M.I.C. RX --------- --- * AMOXACILLIN/CLAVULANATE <=8/4 S * AMPICILLIN <=8 S * AMPICILLIN/SULBACTAM <=8/4 S * CEFAZOLIN <=2 S * CEFEPIME <=2 S * CEFTRIAXONE <=1 S * CIPROFLOXACIN <=0.25 S * ERTAPENEM <=0.5 S * GENTAMICIN <=4 S * LEVOFLOXACIN <=0.5 S * MEROPENEM <=1 S * TOBRAMYCIN 8 I * TRIMETHOPRIM-SULFAMETHOXAZOLE <=2/38 S SPEC: [id number] PATIENT: MAYDA ALATORRE [id number] (Continued) Specimen: [id number] Collected: 07/13/20 Received: 07/13/20 (Continued) Procedure Result Verified WOUND CULTURE Final (continued) 07/16/20-161 P MIRABILI (continued) M.I.C. RX --------- --- * PIPERACILLIN/TAZOBACTAM <=16 S E FAECA(D) M.I.C. RX --------- --- * AMPICILLIN <=2 S * ERYTHROMYCIN >4 R * PENICILLIN 0.25 S * RIFAMPIN >2 R * VANCOMYCIN 2 S Streptomycin Synergy Screen S Gentamicin Synergy Screen S E AVIUM(D) M.I.C. RX --------- --- * AMPICILLIN <=2 S * ERYTHROMYCIN <=0.5 S * PENICILLIN 2 S * RIFAMPIN 2 I * VANCOMYCIN 0.5 S Streptomycin Synergy Screen S Gentamicin Synergy Screen S Exam Vital Signs Vital Signs Date Time Temp Pulse Resp B/P (MAP) Pulse Ox O2 Delivery O2 Flow Rate FiO2 07/20/20 12:20 97.5 66 20 127/64 (85) 100 07/20/20 08:49 Nasal Cannula 3.00 07/20/20 08:30 32 General Appearance: Alert, Oriented X3, Cooperative, No acute distress HEENT: PERRLA, Mucous membr. moist/pink, Other (on home O2 via NC) Respiratory: Clear to auscultation, Normal air movement, Other (exam limited by severe body habitus ) Cardiovascular: Regular rate, Normal S1, Normal S2 Abdominal: Normal bowel sounds, Other (severe morbid obesity) Extremities: Other (Severe chronic lymphedema bilaterally L > R. Minimal ROM and reduced strength due to severe body habitus ) Skin: Rash (Numerous malodorous skin folds with associated erythema throughout both LE), Breakdown (skin breakdown present within skin folds) Neuro: Normal speech, Sensation intact Psych/Mental Status: Mental status NL LON ORTIZ MD Jul 20, 2020 12:58
--- NOTE | 2020-07-20 13:30 | NUR ---
PATIENT LEFT UNIT VIA AMBULANCE TRANSPORT TO [facility]. REPORT GIVEN TO OUMOU AT [facility].
[2020-07-20 14:22] VITALS: BP 124/68
== END 2020-07-20 13:30 | disposition short-term general hospital (02) | DRG 872 ==
LOC: EDBD 10:56 → EDUNIT# 10:56 → ER 10:56 → MS 13:05
PROVIDERS: ADMIT Internal Medicine Nephrology; ATTEND Internal Medicine
DX: A41.9 Sepsis, unspecified organism (principal); L03.116 Cellulitis of left lower limb; Z68.45 Body mass index [BMI] 70 or greater, adult; B37.89 Other sites of candidiasis; F33.9 Major depressive disorder, recurrent, unspecified; K57.92 Diverticulitis of intestine, part unspecified, without perforation or abscess without bleeding; K31.84 Gastroparesis; I89.0 Lymphedema, not elsewhere classified; E66.01 Morbid (severe) obesity due to excess calories; E11.43 Type 2 diabetes mellitus with diabetic autonomic (poly)neuropathy; B37.2 Candidiasis of skin and nail; G43.909 Migraine, unspecified, not intractable, without status migrainosus; I10 Essential (primary) hypertension; I25.2 Old myocardial infarction; J45.909 Unspecified asthma, uncomplicated; Z79.84 Long term (current) use of oral hypoglycemic drugs; Z82.49 Family history of ischemic heart disease and other diseases of the circulatory system; Z82.5 Family history of asthma and other chronic lower respiratory diseases; Z83.3 Family history of diabetes mellitus; Z88.0 Allergy status to penicillin; Z90.710 Acquired absence of both cervix and uterus; Z90.49 Acquired absence of other specified parts of digestive tract; R00.0 Tachycardia, unspecified; R06.82 Tachypnea, not elsewhere classified; Z20.822 Contact with and (suspected) exposure to COVID-19
CPT/HCPCS: 36415; 71045; 80048; 80053; 82550; 82553; 82948; 83036; 83605; 83735; 83880; 84100; 84145; 84484; 85025; 85027; 85379; 85610; 85651; 85730; 86140; 87040; 87070; 87077; 87186; 87426; 87804; 87880; 93005; 93970; 97162; 97167; 97530; 99285; G0378; J1650; J1885; J1940; J1956; J2405; J3010; J3370; J3490; J7030; J7050; 97110-GO; 97116-GP; 97535-GO

== ENCOUNTER 2020-08-25 00:29 | Observation (INO) | payer BC, MEDICARE ==
[~2020-08-25] VITALS: Ht 167.6 cm; Wt 238.1 kg
[2020-08-25] VITALS (8 sets, daily range): BP systolic 123–170; BP diastolic 64–79
[~2020-08-25 00:29] MED LIST changes: +BUPR150T17 PO; +DOXY100T PO; +ENOX80DI SQ; +FURO40TA4 PO; +INSU100V8 SQ; +LEVO750P2 IV; +Levofloxacin PO; +POTA10TA6 PO; +VANC1PLA9 IV
[2020-08-25 02:04] LABS: MEAN CORP HGB 28.8 pg (26-34); PLATELET COUNT 384 10^3/uL (150-400); RED CELL DISTRIBUTION WIDTH 15.6 % (11.5-14.5)
[2020-08-25 02:16] LABS: CALCIUM 8.5 mg/dL (8.4-10.5); CARBON DIOXIDE 33.1 mmol/L (20.0-32)
--- NOTE | 2020-08-25 02:54 | ER.PDOC ---
General Chief Complaint: Extremities Stated Complaint: LYMPH EDEMA TRAVEL OUT OF US: No Time seen by MD: 01:15 Source: patient, EMS Exam Limitations: no limitations History of Present Illness Initial Comments [facility] care of l[facility]hedema. However, the patient decided to attempt home health and self-care. The patient once at home realized that she was not able to care for herself and activated EMS for return to ED for placement long- term to [facility] home for further care. Timing/Duration: other (Chronic) Severity: severe Modifying Factors: improves with movement Allergies: Coded Allergies: Penicillins (Verified Allergy, Unknown, hives, 07/19/18) Home Meds Active Scripts Tramadol Hcl (TRAMADOL HCL) 50 Mg Tablet, 50 MG PO Q6 PRN for PAIN 4 - 6 for 14 Days, TABLET Prov:RAKEL VANCE MD 08/24/20 Bupropion Hcl (WELLBUTRIN XL) 150 Mg Tab.er.24h, 150 MG PO DAILY for 30 Days, #3 0 TABLET Prov:RAKEL VANCE MD 08/24/20 [Levofloxacin] 500 MG TABLET No Conflict Check, 750 MG PO DAILY for 14 Days Prov:RAKEL VANCE MD 08/24/20 Doxycycline Hyclate (DOXYCYCLINE HYCLATE) 100 Mg Tablet, 100 MG PO BID for 14 Days, TAB Prov:RAKEL VANCE MD 08/24/20 Nystatin (NYSTOP) 60 Gm Powder, 1 GM TP TID for 30 Days, #30 GM Prov:SIMONA KOHLER MD 07/18/20 Potassium Chloride (KLOR-CON 10) 10 Meq Tablet.er, 10 MEQ PO DAILY for 30 Days, #30 Prov:SIMONA KOHLER MD 07/18/20 Furosemide (FUROSEMIDE) 40 Mg Tablet, 40 MG PO DAILY for 30 Days, #30 TAB Prov:SIMONA KOHLER MD 07/18/20 Enoxaparin Sodium (LOVENOX) 80 Mg/0.8 Ml Disp.syrin, 80 MG SQ HS for 30 Days, #30 SYR Prov:SIMONA KOHLER MD 07/18/20 Reported Medications Metformin Hcl (METFORMIN HCL) 500 Mg Tablet, 1 TAB PO BID, #60 TAB 3 Refills 01/06/19 Gabapentin (GABAPENTIN) 300 Mg Capsule, 1 CAP PO PRN, CAP 07/19/18 Citalopram Hydrobromide (CELEXA) 20 Mg Tablet, 1 TAB PO DAILY 07/19/18 Metoprolol Tartrate 50MG (LOPRESSER 50MG) 50 Mg Tablet, 1 TAB PO BID, TAB 01/04/17 Discontinued Scripts Levofloxacin 750 Mg/Dextrose 5 % (LEVOFLOXACIN-D5W 750 MG/150 ML) 750 Mg/150 Ml Iv.soln, 750 MG IV q24 hours for 14 Days, BAG Prov:SIMONA KOHLER MD 07/18/20 Vancomycin/0.9 % Sod Chloride (Vanco 1 Gram/250 ml-0.9% NaCl) 1 Gram/250 Ml Plast..bag, 1 GM IV q24 hours for 14 Days, BAG Prov:SIMONA KOHLER MD 07/18/20 Vital Signs Vital signs as Per nurse's note which I have reviewed and agree with. Past Medical History Past Medical History: (1) Post traumatic stress disorder Status: Chronic ICD Code: F43.10 - Post-traumatic stress disorder, unspecified SNOMED: 34854657 (2) Major depression, recurrent Status: Chronic ICD Code: F33.9 - Major depressive disorder, recurrent, unspecified SNOMED: 46298436 (3) Cellulitis Status: Chronic ICD Code: L03.90 - Cellulitis, unspecified SNOMED: 754533093 Medical History: hypertension, other (LymphedemaWith cellulitis) Surgical History: cholecystectomy, hysterectomy, tonsillectomy, tubal Family History Significant Family History: no pertinent family hx Social History Alcohol Use: none Drug Use: none Reviewed Nursing Reviewed: Nursing Assessment Review of Systems Constitutional: no symptoms reported, see HPI, other (Moderate distress) Skin: other (Lymphedema, blistering or lymphedema with rupture, cellulitis lower extremityLymphedema, blistering or lymphedema with rupture, cellulitis lower extremity) Hematologic/Lymphatic: other (See Skin) All Other Systems: Reviewed and Negative Physical Exam General Appearance: Moderate Distress, Obese EENT: nml ENT inspection Neck: Full Range of Motion Respiratory: lungs clear, normal breath sounds, no respiratory distress CVS: no murmur, no gallop, pulses nml Gastrointestinal: Normal Bowel Sounds, No Organomegaly, No Pulsatile Mass, Non Tender, Soft, McBurneys point tender (No pain) Rectal: Normal Rectal Tone Back: Normal Inspection Extremities: Inflammation, Pedal Edema, Swelling Neurologic/Psychiatric: No Motor/Sensory Deficits, Alert, Normal Mood/Affect, Oriented x 3 Skin: Other (Lymphedema, listening to lymphedema rerupture, left lower extremity cellulitis.) Lymphatic: Other (Lymphedema) Results/Orders Results/Orders Orders - MIMI DRIVER MD Saline Lock (08/25/20 01:44) Lactic Acid(Ml) (08/25/20 01:44) Cbc With Manual Diff (08/25/20 01:44) Comprehensive Metabolic Panel (08/25/20 01:44) C-Reactive Protein (08/25/20 01:44) Vital Signs Date Time Temp Pulse Resp B/P (MAP) Pulse Ox O2 Delivery O2 Flow Rate FiO2 08/25/20 02:10 99.5 101 20 170/79 (109) 89 Room Air 08/25/20 00:51 99.5 106 20 144/73 (96) 90 Room Air 08/25/20 00:42 99.5 106 20 08/25/20 00:42 99.5 106 20 90 08/25/20 00:42 99.5 106 20 144/73 (96) 90 Room Air Laboratory Tests Test 08/25/20 01:52 White Blood Count 12.5 10^3/uL (4.5-11.0) H Red Blood Count 4.16 10^6/uL (4.00-5.20) Hemoglobin 12.0 g/dL (12.0-15.0) Hematocrit 38.9 % (36.0-46.0) Mean Corpuscular Volume 93.5 fL (78-100) Mean Corpuscular Hemoglobin 28.8 pg (26-34) Mean Corpuscular Hemoglobin Concent 30.8 g/dL (33-36.5) L Red Cell Distribution Width 15.6 % (11.5-14.5) H Platelet Count 384 10^3/uL (150-400) Mean Platelet Volume 8.9 fL (7.8-11.0) Sodium Level 138 mmol/L (132-145) Potassium Level 3.9 mmol/L (3.6-5.2) Chloride Level 98.0 mmol/L (96-109) Carbon Dioxide Level 33.1 mmol/L (20.0-32) H Anion Gap 10.8 Blood Urea Nitrogen 9 mg/dL (7-18) Creatinine 0.94 mg/dL (0.59-1.40) Estimated GFR () 74.0 (>/=60) Est GFR (CKD-EPI)(Non-Afr Norwegian) 61.2 (>/=60) BUN/Creatinine Ratio 9.0 Glucose Level 131 mg/dL (70-110) H Lactic Acid Level 1.6 mmol/L (0.5-1.9) Calcium Level 8.5 mg/dL (8.4-10.5) Total Bilirubin 0.5 mg/dL (0.2-1.0) Aspartate Amino Transferase (AST) 26 U/L (0-35) Alanine Aminotransferase (ALT) 22 U/L (12-78) Alkaline Phosphatase 97 U/L (50-136) C-Reactive Protein 7.33 mg/dL (0.00-5.00) H Total Protein 7.4 g/dL (6.4-8.2) Albumin 2.2 g/dL (3.4-5.0) L Globulin 5.2 Albumin/Globulin Ratio 0.423 Progress Progress There was no detrimental change while the patient was in the ED. Patient voices subjective improvement after Carranza placement. Reexamination upon admission unchanged. ER DEPART Departure Time of Disposition: 02:30 Disposition: 09 ADMITTED INPATIENT (The patient was admitted to observation rhinotomy inpatient status. Patient was admitted after consultation with Dr. Dill, Who has accepted the patient for 23-hour observation and placement to long-term care facility for further management of lymphedema and cellulitis of left lower extremity.) Impression: Primary Impression: Cellulitis Condition: Improved Comments The patient will be restarted on antibiotics as per consultation with hospital medicine Dr. San. Hospital on-call will place the patient in long-term care facility tomorrow. The patient lactic acid is 1.6. However CRP is 7.3.White count is 12.5. Labs obtained as per consultation with hospitalist in order to trackProgress with administration of antibiotics. Duration or Time Spent with Pa: 19 Return to Work/School Can a patient return to work?: No Can a patient return to school: No Problem Qualifiers (1) Major depression, recurrent: Active/Remission status: in partial remission Qualified Codes: F33.41 - Major depressive disorder, recurrent, in partial remission (2) Cellulitis: Site of cellulitis: extremity Site of cellulitis of extremity: lower extremity Laterality: left Qualified Codes: L03.116 - Cellulitis of left lower limb Primary Impression: Cellulitis Site of cellulitis: extremity Site of cellulitis of extremity: lower extr emity Laterality: left Qualified Codes: L03.116 - Cellulitis of left lower limb MIMI DRIVER MD Aug 25, 2020 02:54
[2020-08-25] MEDS ORDERED: VANCOMYCIN HCL 2 GM ONE (03:24)
[2020-08-25] MEDS ORDERED: NS 250ML 250 ML IV ONE (03:24)
[2020-08-25] MEDS ORDERED: VANCOMYCIN HCL 1.5 GM in NS 250ML 300 ML IV ONE (03:30)
[2020-08-25] MEDS ORDERED: MERREM 1,000 MG in NS 100ML 100 ML IV ONE (03:30)
--- NOTE | 2020-08-25 03:35 | NUR ---
MEDSURG PT TAKEN TO [facility] VIA STRETCHER. REPORT GIVEN TO BRANDAN MARCIAL. PT'S BELONGINGS TAKEN TO [facility] WITH PT.
--- NOTE | 2020-08-25 03:45 | NUR ---
ARRIVAL PATIENT TO ROOM VIA STRETCHER, PATIENT TRANFERRED TO BED WITH ASSISTANCE OF MULTIPLE NURSES. PATIENT IS STABLE WITH NO SIGNS OF DISTRESS NOTED. RECEIVED REPORT FROM YONI GIPSON. ASSUMED CARE OF PATIENT AT THIS TIME. STARTED ADMISSION AT THIS TIME.
--- NOTE | 2020-08-25 06:48 | PCM.HP ---
History of Present Illness Reason for Visit: (1) Cellulitis ICD Code: L03.90 - Cellulitis, unspecified SNOMED: 726177648 (2) Lymphedema ICD Code: I89.0 - Lymphedema, not elsewhere classified SNOMED: 009735692 Hx of Present Illness 60 yo F with morbid obesity, chronic lower extremity lymphedema, sleep apnea is readmitted with left leg swelling pain tenderness blisters and drainage. Was discharged yesterday to home with home health after declining a SNF and called EMS in the middle of the night because she was unable to care for herself and changed her mind about going to a SNF She has history of recurrent hospital admissions for the cellulitis. she was here in Jul with similar problems at which time she had a wound culture with polymicrobial growth. Cultures at most recent hospitalization grew CoNS 1/2 bottles thought to be a contaminant by ID teleconsult. She was discharged home yesterday on Levaquin and doxycycline Patient has chronic lymphedema of both legs, with left greater than right. Patient has severe edema of the left leg with multiple evaluations in the past negative for DVT additionally patient has multiple episodes of cellulitis with prolonged hospitalizations. Patient has a history of poor compliance with lymphedema clinic. Patient also states that she is not diabetic but she does take Metformin Travel History EBOLA RISK:Travel to/contact w: No Review of Systems Constitutional: Weakness, Malaise Eyes: No: Pain, Vision change, Conjunctivae inflammation, Eyelid inflammation, Other, Redness ENT: No: Ear pain, Ear discharge, Nose pain, Nose discharge, Nose congestion, Mouth pain, Mouth swelling, Throat pain, Throat swelling, Other Respiratory: SOB with excertion Cardiovascular: Edema Gastrointestinal: No: Nausea, Vomiting, Abdominal Pain, Diarrhea, Constipation, Melena, Hematochezia, Other Genitourinary: No Dysuria, No Frequency, No Incontinence, No Hematuria, No Retention, No Other Musculoskeletal: leg pain, foot pain; No: other, neck pain, shoulder pain, arm pain, back pain, hand pain Skin: Rash, Lesions Neurological: Confusion Allergies: Coded Allergies: Penicillins (Verified Allergy, Unknown, hives, 07/19/18) Scheduled Bupropion Hcl (Wellbutrin Xl), 150 MG PO DAILY Citalopram Hydrobromide (Celexa), 1 TAB PO DAILY, (Reported) Doxycycline Hyclate (Doxycycline Hyclate), 100 MG PO BID Enoxaparin Sodium (Lovenox), 80 MG SQ HS Furosemide (Furosemide), 40 MG PO DAILY Gabapentin (Gabapentin), 1 CAP PO PRN, (Reported) Metformin Hcl (Metformin Hcl), 1 TAB PO BID, (Reported) Metoprolol Tartrate 50MG (Lopresser 50MG), 1 TAB PO BID, (Reported) Nystatin (Nystop), 1 GM TP TID Potassium Chloride (Klor-Con 10), 10 MEQ PO DAILY [Levofloxacin], 750 MG PO DAILY Scheduled PRN Tramadol Hcl (Tramadol Hcl), 50 MG PO Q6 PRN for PAIN 4 - 6 Discontinued Medications Levofloxacin 750 Mg/Dextrose 5 % (Levofloxacin-D5w 750 Mg/150 Ml), 750 MG IV q24 hours Discontinued Reason: Discontinue Vancomycin/0.9 % Sod Chloride (Vanco 1 Gram/250 ml-0.9% NaCl), 1 GM IV q24 hours Discontinued Reason: Discontinue VTE VTE Risk Total Score: 3 VTE Risk Score VTE Risk: Score 0-1 = Low Risk (Aggressive mobilization; early ambulation; no VTE prophylaxis required) Score 2: Moderate Risk (Intermittent/Pneumatic Compression Device OR Lovenox/Heparin/Coumadin) Score 3-4: High Risk (Intermittent/Pneumatic Compression Device AND Lovenox/Heparin/Coumadin) Score > or =5: Highest Risk (Intermittent/Pneumatic Compression Device AND Lovenox/Heparin/Coumadin) Antico:Hep/LMWH/Coum/Xarelto: Yes Mechanical device ordered: No VTE VTE Present on Admission: No Currently receiving anticoagul: No VTE Risk Total Score: 3 Antico:Hep/LMWH/Coum/Xarelto: Yes Mechanical device ordered: No Exam General Appearance: Alert, Oriented X3 Respiratory: Clear to auscultation, Other (Limited by body habitus and digital auscultation online via telemedicine) Cardiovascular: Regular rate Abdominal: Soft, No tenderness, Other (Morbidly obese) Extremities: Other (Lymphedema with weaping and cellulitic changes) Skin: Rash, Other (blistering) Neuro: Cranial nerves 3-12 NL Psych/Mental Status: Mood NL Dietary Evaluation Dietary Evaluation Recommendations by RD: Dietary education by RD, Decrease Calorie Intake Assessment/Plan Assessment/Plan Assessment/Plan Patient is a 60-year-old female with longstanding history of morbid obesity. Has chronic lymphedema of both legs left greater than the right. Severe edema of the left leg with multiple evaluations in the past negative for DVT. Patient has had multiple episodes of history of cellulitis with prolonged hospitalizati ons. Patient also has history of poor compliance with lymphedema clinic and 0 compliance with CPAP machine for her sleep apnea. Patient admitted due to cellulitis and decision to go to SNF rather than home with home health, had been discharged on oral Levaquin and doxycycline for 2 weeks Cellulitis Patient was discharged on oral Levaquin and Doxycycline yesterday. Was treated w ith Vancomycin and Meropenem in the ER overnight Repeat blood cultures were negative, Telemed ID consult felt previous 1/2 CoNS was a contaminant ECHO completed last week cannot be completely read due to poor quality of echo likely complicated due to patient's body mass index Morbid obesity BMI 85 Recommend patient having decrease caloric intake improved diet and exercise possible Due to patient's weight patient is at risk for multiple comorbidities Patient understands Consulted infectious disease appreciate their evaluation and recommendations at this weeks previous hospitalization see telemed note for details Left left purulent cellulitis with blister formation. Leukocytosis Staph simulans bacteremia 1/2 specimen is likely a contaminant. Patient reports no installed hardware in place RECOMMENDATION: Purulent drainage could not be collected for the culture. we will cont to treat empirically She can be discharged on Doxycycline 100 po bid + Levaquin 750 QD for 2 weeks. Patient does not have symptoms of possible endocarditis, patient does not have any prosthetic valves or any heart procedures. Echo was otherwise unremarkable. Disposition: Patient discharge with p.o. antibiotics doxycycline and Levaquin 14 days and to be discharged to SNF today Patient History: Asthma 32 MOTHER Hypertension 32 MOTHER Problem Qualifiers (1) Cellulitis: Site of cellulitis: extremity Site of cellulitis of extremity: lower extremity Laterality: left Qualified Codes: L03.116 - Cellulitis of left lower limb DUARTE GRAHAM MD Aug 25, 2020 06:48
--- NOTE | 2020-08-25 06:55 | NUR ---
REPORT RECEIVED REPORT FROM OUT GOING SHIFT. ASSUMED CARE AT THIS TIME
--- NOTE | 2020-08-25 09:17 | NUR ---
DISCHARGE PLAN PT LIVES AT HOME WITH AND SON WITH FAMILY MEMBERS WHOM ARE SUPPORTIVE IN ASSISTING WITH ADLS WHEN NEEDED. SHE HAS A CANE AND BARIATRIC WALKER IN PLACE AND A BARIATRIC W/C HAS BEEN ORDERED THROUGH [employer]. PATIENT IN NONCOMPLIANT WITH FOLLOW UP APPOINTMENTS MADE MULTIPLE TIMES BY [facility] TO THE LYMPHEDEMA CLINICAL AND F/U WAS MADE YESTERDAY FOR Venessa HOBBS FOR PATIENT TO ESTABLISH A NEW PCP. PATIENT IS A 30DAY READMIT AND UPON DISCHARGE ON RECENT HOSPITAL STAY, PATIENT WAS DISCHARGED TO HOME D/T SHE REFUSED SNF PLACEMENT AND [facility] WAS SET UP TO SEE HER THIS WEEK. PER Yessenia CABALLERO RN PATIENT REQUESTING REFERRAL BE FAXED TO [facility], REFERRAL FAXED AND Eden MARSHALL NOTIFIED AND PENDING AUTH AND ACCEPTANCE AT FACILITY.
[2020-08-25] MEDS: VIBRAMYCIN PO SCH ×2 (09:18→20:46)
[2020-08-25] MEDS: LOVENOX SQ SCH (09:18)
[2020-08-25] MEDS: LEVAQUIN PO SCH (09:18)
[2020-08-25] MEDS ORDERED: ULTRAM ONE (09:34)
--- NOTE | 2020-08-25 09:49 | NUR ---
MEDICATION NOTIFIED SR WESTBROOK PATIENT IS REQUESTING MEDICATION FOR A HEADACHE. SHE RATES HER PAIN AT A 7. RECEIVED ORDERS FOR TRAMADOL 50 MG P0 PRN Q 6 HRS.
[2020-08-25] MEDS ORDERED: ULTRAM PO PRN ×2 (10:00→14:00)
--- NOTE | 2020-08-25 10:04 | NUR ---
MEDICATION MISSED DOSE OF MERROPENUM - DR WESTBROOK GAVE ORDERS NOT TO GIVE DUE TO PO ANTIBIOTICS ORDERED.
[2020-08-25] MEDS ORDERED: NEURONTIN PO PRN (14:00)
[2020-08-25] MEDS: NYSTOP TP SCH ×2 (15:20→20:46)
--- NOTE | 2020-08-25 15:27 | NUR ---
[facility] UPDATE PER JOSEFINA WITH [facility] ANY PATIENT OVER 45O LBS IS REVIEWED CASE BY CASE. THEY CAN NOT ACCEPT PATIENT AT THIS TIME D/T HER NOT SHOWING READINESS TO PARTICIPATE IN PHYSICAL THERAPY AND HER SIZE.
[2020-08-25] MEDS: LOPRESSOR PO SCH (20:46)
[2020-08-26] VITALS: BP 144/76
[2020-08-26 04:02] VITALS: BP 137/72
[2020-08-26 07:45] VITALS: BP 138/72
[2020-08-26] MEDS: LOVENOX SQ SCH (08:56)
[2020-08-26] MEDS: LEVAQUIN PO SCH (08:58)
[2020-08-26] MEDS: LOPRESSOR PO SCH (08:59)
[2020-08-26] MEDS: VIBRAMYCIN PO SCH (08:59)
[2020-08-26] MEDS ORDERED: WELLBUTRIN XL PO SCH (09:00)
[2020-08-26] MEDS ORDERED: LASIX PO SCH (09:00)
[2020-08-26] MEDS: NYSTOP TP SCH (09:00)
[2020-08-26] MEDS ORDERED: TUMS PO PRN (09:30)
--- NOTE | 2020-08-26 11:39 | PRM.DC ---
Subjective Subjective Date of Discharge: Aug 26, 2020 Time of Request to Discharge: 12:00 Subjective No new complaints today. 60-year-old female who was just discharged from the hospital for sepsis and cellulitis of the lower extremity was readmitted because the patient said that she cannot take care of herself at home. Work-up during this admission no new changes. Patient remains afebrile. Lab work unremarkable. Patient today is willing to go home with home health. Case management spoke with the patient and made arrangements for discharge. Patient History: Asthma 32 MOTHER Hypertension 32 MOTHER Exam Vital Signs Vital Signs Date Time Temp Pulse Resp B/P (MAP) Pulse Ox O2 Delivery O2 Flow Rate FiO2 08/26/20 10:49 Nasal Cannula 3.00 08/26/20 08:57 138/72 08/26/20 07:45 98.6 85 20 96 08/25/20 14:05 32 General Appearance: Alert, Oriented X3, Other (Morbidly obese) HEENT: Atraumatic, PERRLA Respiratory: Clear to auscultation, Normal air movement Cardiovascular: Regular rate, Normal S1 Abdominal: Soft, No tenderness Extremities: Other (Lymphedema swelling) Neuro: Sensation intact Psych/Mental Status: Mental status NL, Mood NL VTE VTE Risk Total Score: 3 VTE Risk Score VTE Risk: Score 0-1 = Low Risk (Aggressive mobilization; early ambulation; no VTE prophylaxis required) Score 2: Moderate Risk (Intermittent/Pneumatic Compression Device OR Lovenox/Heparin/Coumadin) Score 3-4: High Risk (Intermittent/Pneumatic Compression Device AND Lovenox/Heparin/Coumadin) Score > or =5: Highest Risk (Intermittent/Pneumatic Compression Device AND Lovenox/Heparin/Coumadin) Antico:Hep/LMWH/Coum/Xarelto: Yes Mechanical device ordered: No Objective Vitals and I/O Vital Sign - Last 24 Hours 08/25/20 08/25/20 08/25/20 08/25/20 13:24 14:04 14:05 17:30 Temp 98.9 Pulse 94 90 Resp 20 20 20 B/P (MAP) 125/64 (84) Pulse Ox 94 94 94 O2 Delivery Nasal Cannula Nasal Cannula Nasal Canula O2 Flow Rate 3.00 3.00 4.00 FiO2 32 08/25/20 08/25/20 08/26/20 08/26/20 20:41 22:44 00:00 00:43 Temp 98.2 97.6 Pulse 91 77 76 Resp 20 18 20 B/P (MAP) 167/78 (107) 144/76 (98) Pulse Ox 100 97 98 O2 Delivery Nasal Canula Nasal Cannula Nasal Canula Nasal Cannula O2 Flow Rate 3.00 4.00 3.00 3.00 08/26/20 08/26/20 08/26/20 08/26/20 04:02 07:45 08:57 10:49 Temp 98.3 98.6 Pulse 83 85 Resp 20 20 B/P (MAP) 137/72 (93) 138/72 (94) 138/72 Pulse Ox 96 96 O2 Delivery Nasal Canula Nasal Canula Nasal Cannula O2 Flow Rate 3.00 3.00 3.00 Intake and Output 08/26/20 07:00 Intake Total 1172 ml Output Total 3150 ml Balance -1978 ml General: Alert, Oriented X3 HEENT: Atraumatic, PERRLA, EOMI, Mucous membr. moist/pink Lungs: Clear to auscultation, Other (Limited by body habitus and digital auscultation online via telemedicine) Heart: Regular rate Abdomen: Soft, No tenderness, Other (Morbidly obese) Extremities: Other (Lymphedema with weaping and cellulitic changes) Neuro: Cranial nerves 3-12 NL Psych/Mental Status: Mood NL All Results(Lab/Rad) Laboratory Tests Test 08/25/20 16:26 08/25/20 20:55 08/26/20 05:47 08/26/20 07:16 Bedside Glucose 109 105 99 95 Test 08/26/20 11:17 Bedside Glucose 122 Current Medications Medications (Trade) Dose Ordered Sig/Angel Route PRN Reason Start Time Stop Time Status Last Admin Dose Admin Meropenem 1000 mg/ Sodium Chloride 100 ml @ 200 mls/hr STAT ONCE IV 08/25/20 03:30 08/25/20 08:38 DC Vancomycin HCl 1.5 gm/Sodium Chloride 300 ml @ 175 mls/hr STAT ONCE IV 08/25/20 03:30 08/25/20 08:38 DC 08/25/20 03:29 Sodium Chloride 250 ml @ ud STK-MED ONCE IV 08/25/20 03:24 08/25/20 03:25 DC Vancomycin HCl 2 ml @ ud STK-MED ONCE .ROUTE 08/25/20 03:24 08/25/20 03:25 DC Enoxaparin Sodium (Lovenox) 40 mg Q24HRS SQ 08/25/20 08:00 09/24/20 07:59 08/26/20 08:56 Doxycycline Hyclate (Vibramycin) 100 mg BID PO 08/25/20 09:00 09/24/20 08:59 08/26/20 08:59 Levofloxacin (Levaquin) 750 mg DAILY PO 08/25/20 09:00 09/24/20 08:59 08/26/20 08:58 Tramadol HCl (Ultram) 50 mg STK-MED ONCE .ROUTE 08/25/20 09:34 08/25/20 09:35 DC Tramadol HCl (Ultram) 50 mg Q6HR PRN PO PAIN 4 - 6 08/25/20 10:00 08/25/20 15:17 DC 08/25/20 10:00 Bupropion HCl (Wellbutrin Xl) 150 mg DAILY PO 08/26/20 09:00 09/25/20 08:59 08/26/20 09:00 Furosemide (Lasix) 40 mg DAILY PO 08/26/20 09:00 09/25/20 08:59 08/26/20 08:57 Gabapentin (Neurontin) 300 mg TID PRN PO PAIN 1 - 3 08/25/20 14:00 09/24/20 13:59 Metoprolol Tartrate (Lopressor) 50 mg BID PO 08/25/20 21:00 09/24/20 20:59 08/26/20 08:59 Nystatin (Nystop) 1 gm TID TP 08/25/20 15:00 09/24/20 14:59 08/26/20 09:00 Tramadol HCl (Ultram) 50 mg Q6 PRN PO PAIN 4 - 6 08/25/20 14:00 09/24/20 13:59 08/26/20 03:46 Calcium Carbonate/ Glycine (Tums) 1,000 mg Q4HR PRN PO INDIGESTION 08/26/20 09:30 09/25/20 09:29 08/26/20 10:28 Medication Reconciliation Scheduled Bupropion Hcl (Wellbutrin Xl), 150 MG PO DAILY Citalopram Hydrobromide (Celexa), 1 TAB PO DAILY, (Reported) Doxycycline Hyclate (Doxycycline Hyclate), 100 MG PO BID Enoxaparin Sodium (Lovenox), 80 MG SQ HS Furosemide (Furosemide), 40 MG PO DAILY Gabapentin (Gabapentin), 1 CAP PO PRN, (Reported) Metformin Hcl (Metformin Hcl), 1 TAB PO BID, (Reported) Metoprolol Tartrate 50MG (Lopresser 50MG), 1 TAB PO BID, (Reported) Nystatin (Nystop), 1 GM TP TID Potassium Chloride (Klor-Con 10), 10 MEQ PO DAILY [Levofloxacin], 750 MG PO DAILY Scheduled PRN Tramadol Hcl (Tramadol Hcl), 50 MG PO Q6 PRN for PAIN 4 - 6 Discontinued Medications Levofloxacin 750 Mg/Dextrose 5 % (Levofloxacin-D5w 750 Mg/150 Ml), 750 MG IV q24 hours Discontinued Reason: Discontinue Vancomycin/0.9 % Sod Chloride (Vanco 1 Gram/250 ml-0.9% NaCl), 1 GM IV q24 hours Discontinued Reason: Discontinue Plan Assessment Cellulitis Lymphedema Morbid obesity PTSD Plan Discharge home with home health Continue on oral antibiotic for total of 2 weeks doxycycline and levofloxacin oral. Follow-up with your primary care physician as early as possible Patient to report to the emergency room if she started having worsening of her cellulitis, worsening pain or new fever or chills. Plan My Orders - DARIANA OG MD Procedure Category Date Status Time Bupropion Hcl PHA 08/26/20 In Process (Wellbutrin Xl) 09:00 Furosemide (Lasix) PHA 08/26/20 In Process 09:00 Gabapentin (Neurontin) PHA 08/25/20 In Process 14:00 Metoprolol Tartrate PHA 08/25/20 In Process (Lopressor) 21:00 Nystatin (Nystop) PHA 08/25/20 In Process 15:00 Tramadol Hcl (Ultram) PHA 08/25/20 In Process 14:00 Resuscitation Status CODE 08/25/20 Transmitted 15:48 Calcium Carbonate PHA 08/26/20 In Process (Tums) 09:30 Discharge DISCHARGE 08/26/20 Transmitted 11:29 DARIANA OG MD Aug 26, 2020 11:39
--- NOTE | 2020-08-26 12:08 | NUR ---
[facility]PATCH [facility]
--- NOTE | 2020-08-26 12:16 | NUR ---
D/C UPDATE PATIENT ACCEPTANCE WAS DECLINED AT [facility] AND [facility]. PATIENT WILL D/C HOME WITH [facility] TO FOLLOW.
[2020-08-26 12:18] VITALS: BP 127/73
[2020-08-26 12:45] VITALS: BP 127/73
--- NOTE | 2020-08-26 13:05 | NUR ---
DISCHARGE REMOVED IV CATHETER TIP INTACT. REMOVED DIAL CATHETER AND TELEMETRY. PATIENT TOLERATED PROCEDURES WELL. REMOVED TELEMETRY. PATIENT INSTRUCTED REGARDING STOPPED CONTINUED AND NEW MEDICATIONS, FOLLOW UP APPOINTMENTS, DIET AND ACTIVITY FOR HOME HEALTH REFERRAL TO [facility]. PATIENT INSTRUCTED ON NEW, CONTINUED AND STOPPED MEDICATIONS, FOLLOW UP APPOINTMENT, REFERRAL TO [facility], DIET AND ACTIVITY TO BE CONTINUED AT HOME. PATIENT AND SPOUSE VOICED UNDERSTANDING AND DENIED FURTHER NEEDS AT THIS TIME. PATIENT LEFT UNIT VIA EMS.
== END 2020-08-26 12:55 | disposition home health service (06) ==
LOC: ER 00:29 → EDBD 00:29 → MS 03:12
PROVIDERS: ADMIT Family Medicine; ATTEND Family Medicine
DX: L03.116 Cellulitis of left lower limb (principal); I89.0 Lymphedema, not elsewhere classified; E66.01 Morbid (severe) obesity due to excess calories; D72.829 Elevated white blood cell count, unspecified; R78.81 Bacteremia; B95.8 Unspecified staphylococcus as the cause of diseases classified elsewhere; F43.10 Post-traumatic stress disorder, unspecified; F33.9 Major depressive disorder, recurrent, unspecified; Z68.45 Body mass index [BMI] 70 or greater, adult; Z79.899 Other long term (current) drug therapy; Z88.0 Allergy status to penicillin; Z90.710 Acquired absence of both cervix and uterus
CPT/HCPCS: 36415; 80053; 82948 ×8; 83605; 85007; 85027; 86140; 96365; 96366; 96372 ×2; 99284; G0378 ×34; J1650 ×2; J1956 ×2; J3370 ×2; J7050 ×3

== ENCOUNTER 2020-09-25 23:46 | Emergency (ER) | payer BC, MEDICARE ==
[~2020-09-25] VITALS: Ht 167.6 cm; Wt 238.6 kg
[2020-09-25 23:56] VITALS: BP 116/72
--- NOTE | 2020-09-26 00:16 | PCM.EKG ---
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: ED : 1960 Requested By: MARIA ELENA ASHTON Order Number: [id number] Reading MD: Eric Davis Measurements Intervals [place] Rate: 117 P: 70 CT: 154 QRS: -90 QRSD: 100 T: -37 QT: 308 QTc: 430 Interpretive Statements Sinus tachycardia Left anterior fascicular block Consider anterior infarct Nonspecific T abnormalities, inferior leads Compared to ECG 08/16/2020 19:12:34 Left anterior fascicular block now present T-wave abnormality now present Myocardial infarct finding still present Electronically Signed On 10-07-2020 16:22:22 CDT by Eric Davis Please click the below link to view image of tracing.
--- NOTE | 2020-09-26 00:23 | ER.PDOC ---
General Chief Complaint: Chest Pain-Cardiac Nature Stated Complaint: CHEST PAIN Time seen by : 00:10 History of Present Illness Initial Comments 60-year-old female with history of morbid obesity hypertension degenerative joint disease and on home oxygen presents via EMS with complaint of shortness of breath and chest pain. Patient states she has had intermittent chest pain for the past 5 days that usually goes away with an aspirin but tonight the pain lasted for approximately 1 hour. She describes the pain as squeezing and occasionally going to her back and being associated with shortness of breath. Patient also states she has had worsening shortness of breath for years it is gotten particularly severe over the past 4 to 5 months. She denies being diagnosed with any lung issues such as COPD or congestive heart failure and states she was told her shortness of breath is likely due to her weight. Patient also states her shortness of breath became severe when she tried to turn over this evening. When paramedics arrived they gave the patient aspirin 2 nitroglycerin which took her pain from a 4 to a 2 and morphine 2 mg which relieved her pain. Patient is pain-free at this time. Radiation: back Allergies: Coded Allergies: Penicillins (Verified Allergy, Unknown, hives, 07/19/18) Home Meds Active Scripts Tramadol Hcl (TRAMADOL HCL) 50 Mg Tablet, 50 MG PO Q6 PRN for PAIN 4 - 6 for 14 Days, TABLET Prov:RAKEL VANCE MD 08/24/20 Bupropion Hcl (WELLBUTRIN XL) 150 Mg Tab.er.24h, 150 MG PO DAILY for 30 Days, #30 TABLET Prov:RAKEL VANCE MD 08/24/20 [Levofloxacin] 500 MG TABLET No Conflict Check, 750 MG PO DAILY for 14 Days Prov:RAKEL VANCE MD 08/24/20 Doxycycline Hyclate (DOXYCYCLINE HYCLATE) 100 Mg Tablet, 100 MG PO BID for 14 Days, TAB Prov:RAKEL VANCE MD 08/24/20 Nystatin (NYSTOP) 60 Gm Powder, 1 GM TP TID for 30 Days, #30 GM Prov:SIMONA KOHLER MD 07/18/20 Potassium Chloride (KLOR-CON 10) 10 Meq Tablet.er, 10 MEQ PO DAILY for 30 Days, #30 Prov:SIMONA OKHLER MD 07/18/20 Furosemide (FUROSEMIDE) 40 Mg Tablet, 40 MG PO DAILY for 30 Days, #30 TAB Prov:SIMONA KOHLER MD 07/18/20 Enoxaparin Sodium (LOVENOX) 80 Mg/0.8 Ml Disp.syrin, 80 MG SQ HS for 30 Days, #30 SYR Prov:SIMONA KOHLER MD 07/18/20 Reported Medications Metformin Hcl (METFORMIN HCL) 500 Mg Tablet, 1 TAB PO BID, #60 TAB 3 Refills 01/06/19 Gabapentin (GABAPENTIN) 300 Mg Capsule, 1 CAP PO PRN, CAP 07/19/18 Citalopram Hydrobromide (CELEXA) 20 Mg Tablet, 1 TAB PO DAILY 07/19/18 Metoprolol Tartrate 50MG (LOPRESSER 50MG) 50 Mg Tablet, 1 TAB PO BID, TAB 01/04/17 Past Medical History Medical History: hypertension, other Surgical History: hysterectomy, tonsillectomy, tubal Social History Alcohol Use: none Drug Use: none Constitutional: no symptoms reported EENTM: no symptoms reported Respiratory: shortness of breath, SOB with exertion Cardiovascular: chest pain Gastrointestinal: no symptoms reported Genitourinary: no symptoms reported Musculoskeletal: back pain (Patient has chronic low back pain) Skin: no symptoms reported Physical Exam General Appearance: Moderate Distress HEENT: PERRL/EOMI, Normal ENT Inspection Neck: Full Range of Motion Respiratory: chest non-tender, lungs clear, normal breath sounds, other (Patient is tachypneic but speaks in full sentences.) Cardiovascular: Normal Peripheral Pulses, Tachycardia Extremities: Other (Patient has what appears to be lymphedema to her left lower extremity. It is red but there is no warmth according to the ER nurses this is the normal appearance of her leg. She denies that her leg looks any worse than normal.) Neurologic/Psychiatric: Alert, Normal Mood/Affect, Oriented x 3 Skin: Other (Outside of her left leg as described above her skin exam is normal) Results/Orders Results/Orders Orders - MARIA ELENA ASHTON MD Cbc With Auto Diff (09/26/20 00:09) Comprehensive Metabolic Panel (09/26/20 00:09) Creatine Kinase Mb (09/26/20 00:09) Troponin I (09/26/20 00:09) Probnp B-Type Changeover Operator (09/26/20 00:09) PT (09/26/20 00:09) Partial Thromboplastin Time. (09/26/20 00:09) Helicobacter Pylori (09/26/20 00:09) D-Dimer (09/26/20 00:09) Xr Chest 1v (09/26/20 00:09) Ekg-Routine (09/26/20 00:09) Vital Signs Date Time Temp Pulse Resp B/P (MAP) Pulse Ox O2 Delivery O2 Flow Rate FiO2 09/25/20 23:56 98.0 116 24 09/25/20 23:56 98.0 116 24 116/72 (87) 91 Room Air 09/25/20 23:56 98.0 116 24 91 Progress Progress Patient's white blood count is elevated at 13 her D-dimer is very elevated at 11. This level of D-dimer is in gill contrast her last D-dimer which was only slightly elevated. Due to her complaints of chest pain shortness of breath and her elevated D-dimer we are concerned for pulmonary embolism however due to patient's weight she is unable to be seen and at our facility. 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 For these reasons patient required transfer. Our hospitalist Dr. Olsen was consulted and agreed with transfer. Patient is 96% on oxygen she still mildly tachycardic at about 112. Her breathing seems to have improved. She remains chest pain-free. We contacted [facility] for transfer however they are on diversion. We also contacted [facility] which was able to accept the patient for transfer. Patient is aware for the need of transfer and agreeable with the plan. EKG/XRAY/CT/US XRAY Comments: Cardiomegaly without CHF Consult/PCP Time Consult/PCP Called: 13:50 Consult/PCP: Dr. Mireya Escobedo hospitalist Reason/Comments: Consultation regarding admission to our facility or transfer. He recommend ER DEPART Departure Time of Disposition: 01:54 Disposition: 70 [facility] Impression: Primary Impression: Chest pain Additional Impressions: Shortness of breath Morbid obesity Condition: Stable Referrals: PCP,UNKNOWN (PCP) PRIMARY CARE PROVIDER Duration or Time Spent with Pa: 22 min Problem Qualifiers MARIA ELENA ASHTON MD Sep 26, 2020 00:23
[2020-09-26 00:34] VITALS: BP 109/55
--- NOTE | 2020-09-26 00:34 | DIREP ---
PROCEDURE:CHEST 1 VIEW COMPARISON:[facility], CR, XRAY CHEST SINGLE VW, 08/17/2020, 12:39 PM. INDICATIONS:sob/chest pain FINDINGS: LUNGS/PLEURA:No acute infiltrate is demonstrated. Evaluation of the left lung base is somewhat limited due to soft tissue overlying the left lung base. VASCULATURE:There is no evidence of interstitial or alveolar edema. CARDIAC:The heart appears mildly enlarged. MEDIASTINUM:Normal. No visible mass or adenopathy. BONES:Normal. No fracture or visible bony lesion. OTHER:Negative. CONCLUSION: 1. Mild cardiomegaly without evidence of pneumonia or congestive heart failure. 2. The left lung base is difficult to evaluate due to overlying soft tissue. Dictated by: Justin Marvin M.D. on 09/26/2020 at 00:32 AM
[2020-09-26 00:46] LABS: BASOPHIL % 0.3 % (0.0-0.2); LYMPHOCYTES % 15.2 % (24.0-44.0); MEAN CORP HGB 28.5 pg (26-34); MONOCYTES # 0.8 10^3/uL (0.3-0.8); MONOCYTES % 6.1 % (5.0-12.0); NEUTROPHIL # 10.3 10^3/uL (1.8-7.7); NEUTROPHILS % 78.2 % (41.0-85.0); PLATELET COUNT 278 10^3/uL (150-400); RED CELL DISTRIBUTION WIDTH 16.7 % (11.5-14.5)
[2020-09-26 01:07] LABS: ALANINE AMINOTRANSFERASE(ML) 16 U/L (12-78); ALKALINE PHOSPHATASE 87 U/L (50-136); ASPARTATE AMINO TRANSFERASE 23 U/L (0-35); CALCIUM 8.3 mg/dL (8.4-10.5); CARBON DIOXIDE 23.4 mmol/L (20.0-32); GLUCOSE 162 mg/dL (70-110)
--- NOTE | 2020-09-26 01:15 | NUR ---
D-DIMER 11.0, EDP NOTIFIED
--- NOTE | 2020-09-26 01:25 | NUR ---
HOSPITALIST DR. ASHTON ON PHONE WITH DR. WESTBROOK REGARDING ADMISSION. HOSPITALIST DECLINED ADMISSION.
--- NOTE | 2020-09-26 01:30 | NUR ---
[facility] DR. ASHTON ON PHONE WITH TO REGARDING POSSIBLE TRANSFER. [facility] ON [facility]ERS[facility] AT THIS TIME.
--- NOTE | 2020-09-26 01:30 | NUR ---
[place] DR. ASHTON ON PHONE WITH [facility] REGARDING POSSIBLE TRANSFER.
--- NOTE | 2020-09-26 01:32 | NUR ---
[facility] WILL PUT PT ON LIST FOR ACCEPTANCE. NO BEDS CURRENTLY.
--- NOTE | 2020-09-26 01:33 | NUR ---
[facility] DR. ASHTON ON PHONE WITH [facility] AT THIS TIME FOR POSSIBLE TRANSFER.
[2020-09-26 01:58] VITALS: BP 118/63
--- NOTE | 2020-09-26 02:03 | NUR ---
EMS CALLED FOR TRANSFER TO [facility] AT THIS TIME.
[2020-09-26 02:11] LABS: UA COLOR YELLOW
[2020-09-26 02:12] LABS: BILIRUBIN,URINE SMALL (NEGATIVE)
--- NOTE | 2020-09-26 02:15 | NUR ---
[facility] HERE FOR TRANSFER. REPORT GIVEN TO [facility]. CARE OF PT RELINQUISHED AT THIS TIME.
--- NOTE | 2020-09-26 02:34 | NUR ---
REPORT CALLED [facility] AND GAVE REPORT TO BRANDAN DORANTES.
== END 2020-09-26 02:25 | disposition short-term general hospital (02) ==
LOC: EDBD 23:46 → ER 23:46
DX: R07.89 Other chest pain (principal); R06.02 Shortness of breath; E66.01 Morbid (severe) obesity due to excess calories; R06.2 Wheezing; I10 Essential (primary) hypertension; Z68.45 Body mass index [BMI] 70 or greater, adult; Z79.01 Long term (current) use of anticoagulants; Z79.84 Long term (current) use of oral hypoglycemic drugs; Z79.899 Other long term (current) drug therapy; Z88.0 Allergy status to penicillin; Z90.710 Acquired absence of both cervix and uterus
CPT/HCPCS: 36415; 71045; 80053; 81001; 81003; 82553; 83605; 83880; 84484; 85025; 85379; 85610; 85730; 86677; 87077; 87086; 87186; 93005; 99285